=== PATIENT | female | born 1985 | race Caucasian/White ===

== ENCOUNTER 2020-03-01 18:13 | Emergency (ER) | payer OTHER, SELFPAY ==
[2020-03-01 18:40] VITALS: BP 130/90; PULSE 105; RESP 19; TEMP 36.9; O2SAT 98; BMI 48.0
--- NOTE | 2020-03-01 19:18 | HMH.EDUTC ---
[facility] Disposition Clinical Impression: Cellulitis Qualifiers: Site of cellulitis: extremity Site of cellulitis of extremity: lower extremity Laterality: left Qualified Code(s): L03.116 - Cellulitis of left lower limb Disposition: Home, Self-Care Condition on Discharge: Good Instructions: Trimethoprim/Sulfamethoxazole (Alternative Therapy), Cellulitis, Cephalexin, Mupirocin Additional Instructions: *Start antibiotic(s) immediately and be sure to take as ordered for the FULL length of time although you may be feeling better or start to see improvement in the next 24-48 hours *Monitor closely. Outlined redness so that you can monitor easier. Follow up immediately for new or worsening symptoms including but not limited to redness, swelling, streaking from site fever or chills. *Warm compress 15 minutes 3-4 times day *Never squeeze or pop these on your own. Seek immediate medical attention next time this occurs *Monitor Temp. Tylenol every 4 hours as needed and ibuprofen every 6 hours as needed (as long as your primary care doctor has told you that it is ok to take both. For fever, aches, pain. ER if no less that 101 despite Tylenol and ibuprofen Follow up with your family doctor/primary care physician in the next 48-72 hours if no improvement Return if needed Make sure to Follow up with Your Family Doctor in the next 48-72 hours for your wound culture result and to assess area for improvement Prescriptions: Sulfamethoxazole/Trimethoprim [Bactrim DS tablet] 1 each PO BID 10 Days #20 tab Transmission Status: Pending to [facility] Mupirocin [Bactroban 2% Ointment 22gm tube] 1 applicatio TP TID 10 Days #1 tube Transmission Status: Pending to [facility] cephALEXin [Keflex 500mg Cap] 500 mg PO Q6H #40 cap Transmission Status: Pending to [facility] Referrals: Karen Pineda MD [Primary Care Provider] - As needed Time of Disposition: 19:26 Medical Decision Making - Sebastian Inquiry Pt receiving controlled substance: No Sebastian was queried for this patient: No Vital Signs: 03/01/20 18:40 Temperature 98.4 F Temperature Source Oral Pulse Rate [Right Brachial] 105 H Respiratory Rate 19 Blood Pressure [Right Arm] 130/90 Blood Pressure Mean [Right Arm] 103 Blood Pressure Source [Right Arm] Automatic Cuff Blood Pressure Position [Right Arm] Sitting 02 Sat by Pulse Oximetry 98 Oxygen Delivery Method Room Air Orders (Tests/Meds): ORDERS Category Date Time Status Wound Culture and Gram Stain Stat Micro 03/01/20 19:18 Ordered Medical Decision Narrative: Patient states that she has taken Keflex and Bactrim before without complication or reactions [facility] HPI - General Stated complaint: knot on left ankle Time Seen by Provider: 03/01/20 19:18 Mode of Arrival: Ambulatory Source of Information: Patient Limitations: No Limitations Description of Symptoms (Recalled from Triage Doc. by RN): PATIENT C/O SPOT ON LEFT ANKLE X 2 DAYS HEENT Symptoms (Recalled from RN notes): No Resp Symptoms (Recalled from RN notes): No Skin Symptoms (Recalled from RN notes): Yes MS Symptoms (Recalled from RN notes): No Functional Status (Recalled from RN notes): WNL - History of Present Illness Provider Complaint: Patient states that she had a small zit like area pop up on her left lower leg yesterday that drained a little States that today she noticed she was having some redness and swelling in her left lower leg so she marked it States that someone told her that it looked like she had an infection and needed to come in and get some antibiotics - Related Data Home Medications Medication Instructions Recorded Confirmed buspirone 15 mg tablet 15 mg PO BID 09/22/18 09/22/18 metoprolol succinate 25 mg 25 mg PO DAILY 09/22/18 09/22/18 tablet,extended release 24 hr Previous Rx's Medication Instructions Recorded Ondansetron [Zofran 4mg ODT] 4 mg PO Q6 PRN #10 tab.rapdis 03/10/19 Mupirocin [Bactr
[2020-03-01 19:26] VITALS: BP 130/90; PULSE 105; RESP 19; TEMP 36.9; O2SAT 98
== END 2020-03-01 19:36 | disposition home or self-care (01) ==
PROVIDERS: Emergency Provider Nurse Practitioner; PCP Family Medicine
DX: L03.116 Cellulitis of left lower limb (principal); I10 Essential (primary) hypertension; F33.1 Major depressive disorder, recurrent, moderate; F17.210 Nicotine dependence, cigarettes, uncomplicated
CPT/HCPCS: 87070; 87077; 87186; 87205; 99202; G0463

== ENCOUNTER 2020-09-28 19:05 | Emergency (ER) | payer OTHER, SELFPAY ==
[2020-09-28 19:06] VITALS: BP 137/84; PULSE 113; RESP 22; TEMP 37.4; O2SAT 95; BMI 46.5
--- NOTE | 2020-09-28 19:42 | XR_ITS ---
PROCEDURE INFORMATION: Exam: XR Chest Exam date and time: 09/28/2020 7:42 PM Age: 35 years old Clinical indication: Patient HX: Cough, diarrhea, chills, weakness, smoker. TECHNIQUE: Imaging protocol: XR of the chest. Views: 2 views. COMPARISON: No relevant prior studies available. FINDINGS: Lungs: Unremarkable. No consolidation. Pleural spaces: Unremarkable. No pleural effusion. No pneumothorax. Heart/Mediastinum: Unremarkable. No cardiomegaly. Bones/joints: Unremarkable. Gastrointestinal tract: Nonspecific gas-filled loops of bowel within the left upper quadrant. IMPRESSION: No acute cardiopulmonary process.
--- NOTE | 2020-09-28 20:05 | HMH.EDUTC ---
[facility] [place] Clinical Impression: Acute bronchitis Qualifiers: Bronchitis organism: unspecified organism Qualified Code(s): J20.9 - Acute bronchitis, unspecified Disposition: Home, Self-Care Condition on Discharge: Good Instructions: Acute Bronchitis, DI for Acute Bronchitis, Preventing the Spread of Coronavirus Discharge Instructions Additional Instructions: Drink plenty of fluids. Take tylenol or ibuprofen for pain or fever. Take the medications as directed. Follow up with your regular doctor. GO TO THE ER FOR ANY WORSENING SYMPTOMS Prescriptions: methylPREDNISolone [Medrol] 4 mg PO DIRECTED 6 Days #21 tab.ds.pk Transmission Status: Received by [facility] # Benzonatate [Tessalon Perle 100mg Cap] 100 mg PO TIDP PRN #30 cap PRN Reason: Cough Transmission Status: Received by [facility] # Azithromycin [Z-Jarret 250mg Tab*] 250 mg PO UD DOSE PK #6 tab Transmission Status: Received by [facility] # Referrals: Johnny Martin MD [Primary Care Provider] - Time of Disposition: 20:28 Medical Decision Making - Medical Records Medical records reviewed: No: I reviewed the patient's medical records. - Sebastian Inquiry Pt receiving controlled substance: No Vital Signs: 09/28/20 19:06 09/28/20 20:44 Temperature 99.3 F 99.3 F Temperature Source Oral Oral Pulse Rate 113 H Pulse Rate [Left Radial] 113 H Respiratory Rate 22 22 Blood Pressure 137/84 Blood Pressure [Right Arm] 137/84 Blood Pressure Mean [Right Arm] 101 Blood Pressure Source Automatic Cuff Blood Pressure Source [Right Arm] Automatic Cuff Blood Pressure Position Sitting Blood Pressure Position [Right Arm] Sitting 02 Sat by Pulse Oximetry 95 Oxygen Delivery Method Room Air Room Air [facility] [place] HPI - General Stated complaint: cough.weakness,Diarrhea,chills Time Seen by Provider: 09/28/20 19:35 Mode of Arrival: Ambulatory Source of Information: Patient Limitations: No Limitations Description of Symptoms (Recalled from Triage Doc. by RN): c/o cough, weakness, fever, chills, and sweats since Saturday HEENT Symptoms (Recalled from RN notes): Yes Resp Symptoms (Recalled from RN notes): Yes (cough) Skin Symptoms (Recalled from RN notes): No MS Symptoms (Recalled from RN notes): No Functional Status (Recalled from RN notes): wnl - History of Present Illness Provider Complaint: She c/o having a cough, chilling and feeling bad for the past 4 days. - Related Data Home Medications Medication Instructions Recorded Confirmed buspirone 15 mg tablet 15 mg PO BID 09/22/18 09/22/18 metoprolol succinate 25 mg 25 mg PO DAILY 09/22/18 09/22/18 tablet,extended release 24 hr Previous Rx's Medication Instructions Recorded Ondansetron [Zofran 4mg ODT] 4 mg PO Q6 PRN #10 tab.rapdis 03/10/19 Mupirocin [Bactroban 2% Ointment 1 applicatio TP TID 10 Days #1 tube 03/01/20 22gm tube] Sulfamethoxazole/Trimethoprim 1 each PO BID 10 Days #20 tab 03/01/20 [Bactrim DS tablet] cephALEXin [Keflex 500mg Cap] 500 mg PO Q6H #40 cap 03/01/20 Azithromycin [Z-Jarret 250mg Tab*] 250 mg PO UD DOSE PK #6 tab 09/28/20 Benzonatate [Tessalon Perle 100mg 100 mg PO TIDP PRN #30 cap 09/28/20 Cap] methylPREDNISolone [Medrol] 4 mg PO DIRECTED 6 Days #21 09/28/20 tab.ds.pk Allergies Allergy/AdvReac Type Severity Reaction Status Date / Time No Known Allergies Allergy Verified 03/01/20 18:57 - Worker's Comp Is this a Worker's Comp case?: No [facility] History - Hepatitis A Screen Drug use history?: No High risk sexual behaviors?: No History of sexually transmitted infection?: No Currently employed?: No Childcare worker?: No Do you have indoor plumbing?: Yes Do you have electricity?: Yes Attestation statement:: This patient has been screened for Hepatitis A risk factors. I have reviewed the patient's past medical history: Yes Medical History: Reports:: Depression, Hypertension De
[2020-09-28 20:44] VITALS: BP 137/84; PULSE 113; RESP 22; TEMP 37.4; O2SAT 95
== END 2020-09-28 20:46 | disposition home or self-care (01) ==
PROVIDERS: Emergency Provider Nurse Practitioner Family; PCP Internal Medicine Adolescent Medicine
DX: J20.9 Acute bronchitis, unspecified (principal); F33.1 Major depressive disorder, recurrent, moderate; I10 Essential (primary) hypertension; F17.210 Nicotine dependence, cigarettes, uncomplicated
CPT/HCPCS: 71046; 99202; G0463; U0003

== ENCOUNTER 2020-12-09 18:45 | Emergency (ER) | payer OTHER, SELFPAY ==
[2020-12-09 18:46] VITALS: BP 137/85; PULSE 106; RESP 18; TEMP 36.9; O2SAT 96; BMI 54.6
[2020-12-09 19:15] LABS: Basophils # 0.1 K/mm3 (0-0.2); Basophils % 0.7 % (0.1-2.0); Eosinophils # 0.1 K/mm3 (0.0-0.4); Eosinophils % 0.9 % (0.1-12.0); Hematocrit 48.3 % (37.0-47.0); Hemoglobin 15.9 g/dL (12.2-16.2); Lymphocytes # 3.5 K/mm3 (0.7-4.5); Lymphocytes % 25.2 % (10-50); Mean Corpuscular HGB Conc 32.9 g/dL (31.8-35.4); Mean Corpuscular Hemoglobin 28.6 pg (27.0-31.2); Mean Corpuscular Volume 86.8 fl (81-99); Mean Platelet Volume 8.3 fl (7.4-10.4); Monocytes % 6.8 % (1.7-9.3); Neutrophils # 9.2 K/mm3 (1.8-7.8); Neutrophils % 66.3 % (37.0-80.0); Platelet Count 438 K/mm3 (142-424); Red Blood Count 5.57 M/mm3 (4.20-5.40); Red Cell Distribution Width 13.8 % (11.5-17.5); White Blood Count 13.9 K/mm3 (4.8-10.8)
--- NOTE | 2020-12-09 19:20 | HMH.EDGENADL ---
ED Disposition Clinical Impression: Enteritis Disposition: Home, Self-Care Condition on Discharge: Good Instructions: DI for Enteritis Prescriptions: Ondansetron [Zofran 4mg ODT] 4 mg PO BIDP PRN #10 tab PRN Reason: Nausea Transmission Status: Pending to [facility] Referrals: Karen Pineda MD [Primary Care Provider] - - Critical Care Critical Care Time: No Attestation: On 12/09/20, the high probability of a clinically significant, sudden or life threatening deterioration of the following system(s) required my full and direct attention, intervention and personal management. The time I documented below is in addition to time spent performing reported procedures but includes the following listed in this critical care notation. Medical Decision Making - Medical Records Medical records reviewed: Yes: I reviewed the patient's medical records. - Sebastian Inquiry Pt receiving controlled substance: No Vital Signs: 12/09/20 18:46 Temperature 98.4 F Temperature Source Oral Pulse Rate [Right] 106 H Respiratory Rate 18 Blood Pressure [Right Arm] 137/85 Blood Pressure Mean [Right Arm] 102 02 Sat by Pulse Oximetry 96 - Lab Data Lab Results 12/09/20 19:05: WBC 13.9 H, RBC 5.57 H, Hgb 15.9, Hct 48.3 H, MCV 86.8, MCH 28.6, MCHC 32.9, RDW 13.8, Plt Count 438 H, MPV 8.3, Neut % (Auto) 66.3, Lymph % (Auto) 25.2, [place] % (Auto) 6.8, Eos % (Auto) 0.9, Baso % (Auto) 0.7, Neut # (Auto) 9.2 H, Lymph # (Auto) 3.5, [place] # (Auto) 1.0, Eos # (Auto) 0.1, Baso # (Auto) 0.1 12/09/20 19:05: Sodium 139, Potassium 3.7, Chloride 107, Carbon Dioxide 22, Anion Gap 13.7, BUN 11, Creatinine 0.70, Estimated Creat Clear 91, Estimated GFR 94, Est GFR ( Amer) 114, Glucose 121 H, Calcium 9.3, Total Bilirubin 0.5, AST 24, ALT 21, Alkaline Phosphatase 104, Total Protein 8.0, Albumin 4.4, Globulin 3.6 H, Albumin/Globulin Ratio 1.2, Lipase 16 L Result diagrams: 12/09/20 19:05 12/09/20 19:05 Orders (Tests/Meds): ED MEDICATIONS Generic Name Dose Route Start Last Admin Trade Name Freq PRN Reason Stop Dose Admin Sodium Chloride 1,000 mls @ 999 mls/hr 12/09/20 19:00 12/09/20 19:26 Sod Chlor 0.9% 1000ml Bag IV 12/09/20 20:00 999 mls/hr .Q1H1M ELLI Administration Discontinued Medications Generic Name Dose Route Start Last Admin Trade Name Freq PRN Reason Stop Dose Admin Ondansetron HCl 4 mg 12/09/20 18:55 12/09/20 19:26 Ondansetron 4mg/2ml Vial IV 12/09/20 18:56 4 mg ONCE ONE Administration ORDERS Category Date Time Status Diarrhea 23 Panel, PCR Stat Lab 12/09/20 19:28 Ordered - Reevaluation(s) Time: 19:48 Reevaluation #1: On reevaluation, the patient is feeling much better. Repeat abdominal exam is benign. No evidence of acute abdomen. Patient is currently tolerating oral intake without any difficulties. Patient needs to follow-up with PCP or return the emergency department in 48 hours for repeat abdominal examination. She will be discharged with short course of medications to help with patient's symptoms. Afebrile. Given strict return precautions. Verbalized understanding. Medical Decision Narrative: 35-year-old female presented to the emergency department with some abdominal cramping and diarrhea. Patient's symptoms are consistent with gastroenteritis. Patient has a nontender abdominal examination. No evidence of acute abdomen. Work-up initiated. General Adult HPI - General Chief complaint: Nausea/Vomiting/Diarrhea Stated complaint: Diarrhea Time Seen by Provider: 12/09/20 18:55 Mode of Arrival: Wheelchair Limitations: No Limitations Description of Symptoms (Recalled from ER Triage Doc. by RN): pt c/o diarrhea x 2 days. pt denies n/v abd pain - History of Present Illness HPI narrative: This is a 35-year-old female presented to the emergency department with some nausea and diarrhea for the last 2 days. Patient states that she started having upset stomach
[2020-12-09 19:21] LABS: Alanine Aminotransferase 21 U/L (12-78); Albumin Level 4.4 g/dl (3.5-5.0); Albumin/Globulin Ratio 1.2 (1.1-1.8); Alkaline Phosphatase 104 U/L (38-126); Anion Gap 13.7 mEq/L (5-15); Aspartate Amino Transferase 24 U/L (14-36); Bilirubin,Total 0.5 mg/dl (0.2-1.3); Blood Urea Nitrogen 11 mg/dl (7-17); Calcium 9.3 mg/dl (8.4-10.2); Carbon Dioxide 22 mmol/L (22.0-30.0); Chloride 107 mmol/L (98-107); Creatinine Clearance Estimated 91 mL/min (50-200); Estimated Glomerular Filt Rate 94 ml/min (>60); GFR (African American) 114 ML/MIN (>60); Globulin 3.6 g/dL (1.3-3.2); Glucose 121 mg/dl (74-100); Lipase 16 U/L (23-300); Potassium 3.7 mmoL/L (3.5-5.1); Sodium 139 mmol/L (136-145)
[2020-12-09 20:00] LABS: Adenovirus F 40/41, stool Not Detected (NotDetected); Astrovirus Not Detected (NotDetected); Campylobacter Not Detected (NotDetected); Clostridium Difficile A/B, PCR Not Detected (NotDetected); Cryptosporidium Not Detected (NotDetected); Cyclospora Cayetanesis Not Detected (NotDetected); Entamoeba histolytica Not Detected (NotDetected); Enteroaggregative E coli Not Detected (NotDetected); Enteropathogenic E coli Not Detected (NotDetected); Enterotoxigenic E coli Not Detected (NotDetected); Giardia lamblia Not Detected (NotDetected); Norovirus Not Detected (NotDetected); Plesimonas Shigalloides, PCR Not Detected (NotDetected); Rotavirus A Not Detected (NotDetected); Salmonella, PCR Not Detected (NotDetected); Sapovirus Not Detected (NotDetected); Shiga-like toxin E coli Not Detected (NotDetected); Shigella Enterovasive E coli Not Detected (NotDetected); Vibrio Cholerae Not Detected (NotDetected); Vibrio, PCR Not Detected (NotDetected); Yersinia Entercolitica, PCR Not Detected (NotDetected)
[2020-12-09 20:17] VITALS: BP 124/75; PULSE 100; RESP 18; TEMP 36.9; O2SAT 96
== END 2020-12-09 20:20 | disposition home or self-care (01) ==
PROVIDERS: Emergency Provider Emergency Medicine; PCP Family Medicine
DX: K52.9 Noninfective gastroenteritis and colitis, unspecified (principal); I10 Essential (primary) hypertension; F17.210 Nicotine dependence, cigarettes, uncomplicated
CPT/HCPCS: 80053; 83690; 85025; 87507; 96365; 96375; 99282; J2405

== ENCOUNTER → 2021-09-20 13:06 | Outpatient (CLI) | payer OTHER, SELFPAY | PROVIDERS: PCP Family Medicine; Visit Provider Specialist | DX: G47.31 Primary central sleep apnea (principal); R06.83 Snoring | CPT/HCPCS: G0399 ==

== ENCOUNTER → 2021-10-18 09:18 | Outpatient (POV) | payer OTHER, SELFPAY ==
[2021-10-18 09:19] VITALS: BP 146/99; PULSE 89; RESP 20; BMI 54.0
--- NOTE | 2021-10-18 13:00 | EXP.PAIN.OV ---
HPI Data of Consult Patient: new to practice Consult date: 10/18/21 Requesting Physician: Yas Pedroza APRN Primary Care Provider: Karen Pineda MD Consult Narrative Reason for consult: Lumbar puncture, headaches History of present illness: Ms. Burrell is a 36 year old female who presents today as a new patient. She is a referral from Dr. Mindi Winters. Patient states she has had headaches for years and recently has had more chronic headaches with blurred vision and symptoms that are bothersome for possible increased intracranial pressure. Dr. Winters has scheduled her for a lumbar puncture however the patient does have questions regarding this procedure. Patient denies any trauma or injury in the past that could explain her symptoms. Patient stated that she has had these headaches for about 10 to 11 years. Patient states it is primarily her left eye that is affected with her migraines but occasionally the right side is involved and is worse in symptoms. Patient does state that it is typically a bandlike pressure/pain with pain above her left eye. She does state that when she has it with her right eye it is a more stabbing, blinding sensation. Patient states that the only relief she gets is with sleep and application of heat that make her symptoms better. She states that she has been prescribed a new we will continue the patient's back in August that has seemed to help decrease how many headaches/migraines she gets however when she does have them they last for days. Patient states in her history that when she is given to her children via that the [employer] was never able to do an epidural because of her disc spacing. She is concerned whether we will be able to complete the lumbar puncture due to the same reason. Patient also has extensive anxiety issues. She states that Dr. Winters has prescribed her diazepam 5 mg to premedicate with prior to the procedure. Her Sebastian is [id number]. Its been reviewed and appropriate. CC: Yas Pedroza APRN PFSH PFSH Medical History Depression Depression Hyperlipidemia Hypertension Migraine Smoker Surgical History (Updated 10/18/21 @ 09:25 by Karo Lombardo RN) H/O gastric sleeve History of appendectomy History of section History of cholecystectomy History of hysterectomy History of tonsillectomy Social History (Updated 10/18/21 @ 09:24 by Karo Lombardo RN) Smoking Status: Current every day smoker alcohol intake: never substance use type: denies use current occupational status: other household members: family housing: house Review of Systems Review of Systems Review of systems:: pertinent systems reviewed and negative unless documented below Review of systems (narrative): Review of Systems: General: No recent weight changes, no fever, no sleep disturbances Respiratory: No cough, no shortness of air, no recurring pulmonary infections Cardiovascular/peripheral vascular: No chest pain, no palpitations, no edema, no shortness of breath Gastrointestinal: No new onset incontinence, normal bowel movements reported Genitourinary: No new onset incontinence Musculoskeletal: Headaches, facial pain Psychiatric: [Normal mood/affect] Neurological: [Denies weakness in extremities], [denies balance issues] Meds Home Medications and Allergies Home Medications Medication Instructions Recorded Confirmed Type fluoxetine 20 mg capsule 20 mg PO DAILY mood 09/11/21 10/18/21 History furosemide 20 mg tablet 20 mg PO DAILY PRN edema 09/11/21 10/18/21 History rosuvastatin 10 mg tablet 20 mg PO DAILY Cholesterol 09/11/21 10/18/21 History acetazolamide 250 mg tablet 250 mg PO BID Headache, suspected 10/05/21 10/18/21 Rx pseudotumor #60 tabs diazepam 5 mg tablet (Valium) 5 mg PO DAILY Lumbar puncture #2 10/05/21 10/18/21 Rx tabs New Prescriptions to Start Prescriptions: Allergies Allergy/AdvReac Type Severity Reaction Status Date / Time No
== END ==
PROVIDERS: PCP Family Medicine; Visit Provider Nurse Practitioner Family
DX: G43.909 Migraine, unspecified, not intractable, without status migrainosus (principal)
CPT/HCPCS: 99202; G0463

== ENCOUNTER 2021-10-24 10:35 | Day surgery (SDC) | payer OTHER, SELFPAY ==
[2021-10-24 10:40] VITALS: BP 136/76; PULSE 77; RESP 20; TEMP 36.5; O2SAT 98; BMI 69.5
[2021-10-24 10:53] VITALS: BP 127/82; PULSE 69; RESP 18; O2SAT 98
[2021-10-24 10:58] VITALS: BP 127/82; PULSE 71; RESP 18; O2SAT 99
--- NOTE | 2021-10-24 11:21 | EXP.PAIN.PRO ---
Procedure Date: 10/24/21 Time: 11:21 Anesthesiologist:: Alen Arango CRNA Complications:: None Pre-procedure Diagnosis:: Chronic migraines Post-procedure Diagnosis:: Same Indications for Procedure:: Patient is a pleasant 36-year-old female. Very anxious. Presents today for diagnostic lumbar puncture for pressure and pathology. Patient has a history of extreme migraines. Procedure Details:: Details of the procedure were explained to the patient. Patient was taken the procedure room placed in the left lateral position. The area over the lumbar spine was cleaned using chlorhexidine as a cleansing solution. Using a 22-gauge inch and half needle the skin and subcutaneous tissue was anesthetized using 1% lidocaine. Using a 22-gauge 5-1/2 inch spinal needle the L4-5 intervertebral space was used to access the spinal fluid. The opening fluid pressure was 21. 4 separate vials were used to sample 2 cc of spinal fluid. Closing pressure was 14. Patient tolerated the procedure. There were no complications. Plan and Disposition:: I discussed in detail with the patient regarding postdural puncture spinal headache symptoms. Patient will return as needed.
[2021-10-24 11:42] VITALS: BP 120/75; PULSE 66; RESP 20; O2SAT 98
[2021-10-24 12:24] LABS: Glucose,CSF 66 mg/dl (40-70)
[2021-10-24 12:46] LABS: Volume,CSF 10 mL
[2021-10-24 12:47] LABS: Red Blood Cell,CSF 21 cells/uL (0); Red Blood Cell,CSF 3223 cells/uL (0); Volume,CSF 10 mL; White Blood Cell,CSF 2 cells/uL (0-5); White Blood Cell,CSF 37 cells/uL (0-5)
[2021-10-24 14:18] LABS: Appearance,CSF Cloudy (Clear); Mononuclear WBCs,CSF 0 %
[2021-10-24 14:19] LABS: Appearance,CSF Clear (Clear); Mononuclear WBCs,CSF 0 %; Polynuclear WBCs,CSF 100 %
[2021-10-27 16:46] LABS: VDRL, Cerebrospinal Fluid Non Reactive (Non Rea:<1:1)
== END 2021-10-24 11:42 | disposition home or self-care (01) ==
PROVIDERS: Specialist; PCP Family Medicine; Visit Provider Nurse Anesthetist, Certified Registered
DX: G43.909 Migraine, unspecified, not intractable, without status migrainosus (principal)
CPT/HCPCS: 62328; 82945; 84155; 86592; 87205; 89051

== ENCOUNTER 2021-11-15 01:20 | Emergency (ER) | payer OTHER, SELFPAY ==
[2021-11-15 01:21] VITALS: BP 120/77; PULSE 87; RESP 19; TEMP 36.6; O2SAT 96; BMI 53.1
[2021-11-15 03:03] LABS: Basophils # 0.2 K/mm3 (0-0.2); Basophils % 1.6 % (0.1-2.0); Eosinophils # 0.2 K/mm3 (0.0-0.4); Eosinophils % 1.3 % (0.1-12.0); Hematocrit 44.5 % (37.0-47.0); Hemoglobin 14.1 g/dL (12.2-16.2); Lymphocytes # 2.8 K/mm3 (0.7-4.5); Lymphocytes % 25.3 % (10-50); Mean Corpuscular HGB Conc 31.6 g/dL (31.8-35.4); Mean Corpuscular Hemoglobin 29.1 pg (27.0-31.2); Mean Platelet Volume 8.2 fl (7.4-10.4); Monocytes # 0.7 K/mm3 (0.1-1.0); Neutrophils # 7.4 K/mm3 (1.8-7.8); Platelet Count 311 K/mm3 (142-424); Red Blood Count 4.84 M/mm3 (4.20-5.40); Red Cell Distribution Width 14.1 % (11.5-17.5); White Blood Count 11.3 K/mm3 (4.8-10.8)
[2021-11-15 03:05] LABS: Chloride 105 mmol/L (98-107); Potassium 4.1 mmoL/L (3.5-5.1); Sodium 142 mmol/L (136-145)
[2021-11-15 03:07] LABS: Blood Urea Nitrogen 15 mg/dl (7-17); Creatinine Clearance Estimated 90 mL/min (50-200); Estimated Glomerular Filt Rate 94 ml/min (>60); GFR (African American) 113 ML/MIN (>60)
[2021-11-15 03:08] LABS: Alanine Aminotransferase 22 U/L (12-78); Albumin Level 4.2 g/dl (3.5-5.0); Albumin/Globulin Ratio 1.4 (1.1-1.8); Alkaline Phosphatase 88 U/L (38-126); Anion Gap 13.1 mEq/L (5-15); Aspartate Amino Transferase 30 U/L (14-36); Calcium 8.8 mg/dl (8.4-10.2); Carbon Dioxide 28 mmol/L (22.0-30.0); Globulin 2.9 g/dL (1.3-3.2); Glucose 117 mg/dl (74-100); Total Protein,Serum 7.1 g/dl (6.3-8.2)
--- NOTE | 2021-11-15 03:09 | HMH.EDHA ---
Discharge Plan Disposition Patient Disposition: Home, Self-Care Chief Complaint: Headache Prescriptions Prescriptions: No Action acetazolamide 250 mg tablet 250 mg PO BID Qty: 60 3RF Rx Instructions: 250 mg po qd x 01 week then 250 mg po bid rosuvastatin 10 mg tablet 20 mg PO DAILY fluoxetine 20 mg capsule 20 mg PO DAILY Ubrelvy 100 mg tablet 100 mg PO ONCE PRN (Reason: migraines) Label Comments: TAKE ONE TABLET BY MOUTH AT ONSET OF MIGRAINE. IF SYMPTOMS PERSIST, A SECOND DOSE MAY BE TAKEN IN 2 HOURS. DO NOT EXCEED 2 DOSES IN A 24 HOUR PERIOD, UNLESS OTHERWISE INSTRUCTED BY YOUR PHYSICIAN Referrals Follow up/Referrals: Karen Pineda MD [Primary Care Provider] - See instructions Clinical Impressions Clinical Impression: Migraine Instructions Patient Instructions: DI for Migraine Discharge ED Provider: Castro Ferraro Headache HPI General Chief Complaint: Headache Stated Complaint: Migraine Time Seen by Provider: 11/15/21 03:09 Mode of Arrival: Family Vehicle Source of Information: Patient, Spouse and Medical Record Limitations: No Limitations Description of Symptoms (Recalled from ER Triage Doc. by RN): Pt c/o migraine. She reports a hx of migraines and takes Ubrevly for acute onset. Pt also recently has been diagnosed with fluid on the brain and is taking Acetazolmide. She also c/o nausea any dry-heaving. Denies fever, chills, or diarrhea. Denies any recent illness. History of Present Illness HPI Narrative: hx of migraines with acute exacerbation - no fever or rash and no neuro sx and no trauma Complaint: migraine Onset (ago): hour(s) Onset description: gradual Location: frontal Severity: moderate Context: occurred at rest Related Data Home Medications Medication Instructions Recorded Confirmed fluoxetine 20 mg capsule 20 mg PO DAILY mood 09/11/21 11/15/21 rosuvastatin 10 mg tablet 20 mg PO DAILY Cholesterol 09/11/21 11/15/21 ubrogepant 100 mg tablet (Ubrelvy) 100 mg PO ONCE PRN migraines 11/07/21 11/15/21 Previous Rx's Medication Instructions Recorded acetazolamide 250 mg tablet 250 mg PO BID Headache, suspected 10/05/21 pseudotumor #60 tabs Allergies Allergy/AdvReac Type Severity Reaction Status Date / Time No Known Allergies Allergy Verified 11/07/21 12:41 [facility] History Hepatitis A Screen Attestation statement:: This patient has been screened for Hepatitis A risk factors. I have reviewed the patient's past medical history: Yes Medical History: Reports: Depression and Hypertension; Denies: Diabetes Mellitus Type 1 or Diabetes Mellitus Type 2 Other Medical History: Reports Sickle Cell Disease Laterality Cases: Bilateral: Tonsillectomy Other Surgeries: Yes Appendectomy, Bariatric Surgery, Cholecystectomy, , Hysterectomy-Total and Tubal Ligation Social History Smoking Status: Current every day smoker # Packs/Day (cigarettes): 1 Alcohol Intake: never Substance Use Type: denies use Occupational Status: other Housing: house Household Members: family Psychiatric History Pschychiatric History:: Reports: Depression Family Hx:: Cancer, Diabetes, Hypertension and Stroke PFSH PFSH Medical History Depression Depression Hyperlipidemia Hypertension Migraine Smoker Surgical History H/O gastric sleeve History of appendectomy History of section History of cholecystectomy History of hysterectomy History of tonsillectomy Social History Smoking Status: Current every day smoker alcohol intake: never substance use type: denies use current occupational status: other Travel in the last 8 weeks: Inside the [place] household members: family housing: house ROS Obtained: Yes All systems reviewed & no additional complaints except as documented Constitutional Constitutional: Denies f
[2021-11-15 03:10] LABS: Bilirubin,Total < 0.1 mg/dl (0.2-1.3)
[2021-11-15 05:26] VITALS: BP 124/75; PULSE 74; RESP 16; TEMP 36.8; O2SAT 98
== END 2021-11-15 05:30 | disposition home or self-care (01) ==
PROVIDERS: Emergency Provider Emergency Medicine; PCP Family Medicine
DX: G43.909 Migraine, unspecified, not intractable, without status migrainosus (principal)
CPT/HCPCS: 80053; 85025; 96361; 96374; 96375; 99284

== ENCOUNTER 2022-01-05 09:10 | Emergency (ER) | payer OTHER, SELFPAY ==
[2022-01-05] VITALS (9 sets, daily range): BP systolic 103–154; BP diastolic 46–90; PULSE 62–86; RESP 18–22; TEMP 37.3; O2SAT 95–97; BMI 54.8
--- NOTE | 2022-01-05 09:05 | ECG_ITS ---
APPROVED REPORT Exam: Resting ECG HR:88 bpm ECG Measurements Heart Rate 88 AXES NE 168 P 22 QRSd 75 QRS 6 QT 346 T 40 QTc 391 Conclusion SINUS RHYTHM LOW QRS VOLTAGE IN PRECORDIAL LEADS [QRS DEFLECTION < 1.0 mV IN CHEST LEADS] BORDERLINE ECG UNCONFIRMED REPORT Electronically signed by : Jerad Mendoza MD 01/05/2022 19:59:23
--- NOTE | 2022-01-05 09:13 | PC.NURSE ---
[facility] at
--- NOTE | 2022-01-05 09:15 | CT_ITS ---
FINAL REPORT TECHNIQUE: Thin section axial CT images were obtained from the lung apices to the upper abdomen. IV contrast was administered. MIP 3-D reformats were obtained. This study was performed with techniques to keep radiation doses as low as reasonably achievable (ALARA). Individualized dose reduction techniques using automated exposure control or adjustment of mA and/or kV according to the patient's size were employed. CLINICAL HISTORY: chest and back pain FINDINGS: The mediastinal vasculature is adequately opacified. There is an aberrant right subclavian artery. The heart size is normal. There is no adenopathy. There is no filling defect to suggest PE. There is no aortic dissection. There is no pericardial effusion. There is a 3 mm noncalcified nodule in the left lung base on image 47 of series 5. No pleural effusion. Limited images of the upper abdomen demonstrate postoperative changes at the GE junction. IMPRESSION: No pulmonary embolism or aortic dissection. 3 mm left lung base nodule. Per Fleischner criteria no follow-up is recommended in a low risk patient. In a high risk patient follow-up is recommended in 12 months. Reviewed, Interpreted and Dictated by Gabe Chandler MD Transcribed by Noble Juarez Authenticated and [facility]
--- NOTE | 2022-01-05 09:16 | XR_ITS ---
FINAL REPORT CLINICAL HISTORY: chest pain COMPARISON: September 2020 FINDINGS: The heart size is normal. The mediastinum is within normal limits. There is no acute cardiopulmonary process. There is no pleural effusion. There is no pneumothorax. The bony thorax is intact. IMPRESSION: No acute cardiopulmonary process. Reviewed, Interpreted and Dictated by Gabe Chandler MD Transcribed by Noble Juarez Authenticated and . [facility]
[2022-01-05 09:23] LABS: Basophils # 0.1 K/mm3 (0-0.2); Basophils % 0.6 % (0.1-2.0); Eosinophils # 0.2 K/mm3 (0.0-0.4); Eosinophils % 1.2 % (0.1-12.0); Hematocrit 44.5 % (37.0-47.0); Hemoglobin 13.8 g/dL (12.2-16.2); Lymphocytes % 8.1 % (10-50); Mean Corpuscular HGB Conc 31.1 g/dL (31.8-35.4); Mean Corpuscular Hemoglobin 28.9 pg (27.0-31.2); Mean Corpuscular Volume 92.8 fl (81-99); Mean Platelet Volume 8.1 fl (7.4-10.4); Monocytes # 0.1 K/mm3 (0.1-1.0); Monocytes % 0.9 % (1.7-9.3); Neutrophils # 10.8 K/mm3 (1.8-7.8); Neutrophils % 89.3 % (37.0-80.0); Platelet Count 297 K/mm3 (142-424); Red Blood Count 4.79 M/mm3 (4.20-5.40); Red Cell Distribution Width 13.7 % (11.5-17.5); White Blood Count 12.1 K/mm3 (4.8-10.8)
[2022-01-05 09:25] LABS: Chloride 103 mmol/L (98-107); MANUAL DIFFERENTIAL MANUAL DIFFERENTIAL (MANUAL DIFF); Potassium 3.6 mmoL/L (3.5-5.1); Sodium 143 mmol/L (136-145)
--- NOTE | 2022-01-05 09:27 | PC.NURSE ---
rad notified of rad order, spoke with nestor
--- NOTE | 2022-01-05 09:27 | HMH.EDCP ---
Discharge Plan Disposition Patient Disposition: Home, Self-Care Condition: Good Prescriptions Prescriptions: No Action acetazolamide 250 mg tablet 250 mg PO BID Qty: 60 3RF Rx Instructions: 250 mg po qd x 01 week then 250 mg po bid rosuvastatin 10 mg tablet 20 mg PO DAILY fluoxetine 20 mg capsule 20 mg PO DAILY Ubrelvy 100 mg tablet 100 mg PO ONCE PRN (Reason: migraines) Label Comments: TAKE ONE TABLET BY MOUTH AT ONSET OF MIGRAINE. IF SYMPTOMS PERSIST, A SECOND DOSE MAY BE TAKEN IN 2 HOURS. DO NOT EXCEED 2 DOSES IN A 24 HOUR PERIOD, UNLESS OTHERWISE INSTRUCTED BY YOUR PHYSICIAN Activity Restrictions/Add. Instructions Additional Instructions/Restrictions: There was a small nodule noted on your CT today. This was small and likely is just a calcification or granuloma. Radiology recommends a follow-up in 1 year. Talk with your PCP about this and they did get a repeat x-ray. Clinical Impressions Clinical Impression: Chest pain Instructions Patient Instructions: DI for Chest Pain Discharge ED Provider: Tyson Martínez Chest Pain HPI General Chief Complaint: Chest Pain Stated Complaint: chest pain Time Seen by Provider: 01/05/22 09:15 Mode of Arrival: Ambulatory Source of Information: Patient Limitations: No Limitations Description of Symptoms (Recalled from ER Triage Doc. 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 Pt reports feeling was only on the L side of her body. Pt reports she then began having chest tightness and feeling very tired . Pt reports reports a dull tightness in chest at this time. History of Present Illness HPI narrative: Patient is a 36-year-old female with past medical history of idiopathic intracranial hypertension who presents with concern for chest pain. She says approximately 15 minutes prior to arrival she had an electric shock on the back of her head and then said that it went all the way down her leg. She says that it was more so on the left side of her body and denies any right-sided symptoms. She said that immediately after this she started to have chest pain that seem to radiate to her back. She says that the pain is still there. She also complains of some pain that goes up into her right shoulder. Denies any nausea. Denies any diaphoresis. Denies any shortness of breath. She has not taken anything for the pain. He does not relieved with rest. ANJALI Score for Non-Stemi Age of Patient: 30-39 years old Heart Rate: 50-69 bpm Systolic Blood Pressure: 140-159 mmHg Serum Creatinine: 0.40-0.79 mg/dl CHF Killip Class: I-No CHF Other Risk Factors: None Non-Stemi Risk Score: 39 Risk Stratification: 1-108 = Low Risk Related Data Home Medications Medication Instructions Recorded Confirmed fluoxetine 20 mg capsule 20 mg PO DAILY mood 09/11/21 11/15/21 rosuvastatin 10 mg tablet 20 mg PO DAILY Cholesterol 09/11/21 11/15/21 ubrogepant 100 mg tablet (Ubrelvy) 100 mg PO ONCE PRN migraines 11/07/21 11/15/21 Previous Rx's Medication Instructions Recorded acetazolamide 250 mg tablet 250 mg PO BID Headache, suspected 10/05/21 pseudotumor #60 tabs Allergies Allergy/AdvReac Type Severity Reaction Status Date / Time No Known Allergies Allergy Verified 11/07/21 12:41 PFSH PFSH Medical History Depression Depression Hyperlipidemia Hypertension Migraine Smoker Surgical History H/O gastric sleeve History of appendectomy History of section History of cholecystectomy History of hysterectomy History of tonsillectomy Social History Smoking Status: Current every day smoker alcohol intake: never substance use type: denies use current occupational status: other Travel in the last 8 weeks: Inside the [place] household members: family housing:
[2022-01-05 09:28] LABS: Alanine Aminotransferase 20 U/L (12-78); Albumin Level 3.8 g/dl (3.5-5.0); Albumin/Globulin Ratio 1.5 (1.1-1.8); Alkaline Phosphatase 101 U/L (38-126); Anion Gap 11.6 mEq/L (5-15); Aspartate Amino Transferase 29 U/L (14-36); Bilirubin,Total 0.5 mg/dl (0.2-1.3); Blood Urea Nitrogen 12 mg/dl (7-17); Calcium 9.1 mg/dl (8.4-10.2); Carbon Dioxide 32 mmol/L (22.0-30.0); Creatinine Clearance Estimated 101 mL/min (50-200); Estimated Glomerular Filt Rate 112 ml/min (>60); GFR (African American) 135 ML/MIN (>60); Globulin 2.6 g/dL (1.3-3.2); Glucose 91 mg/dl (74-100); Lipase 52 U/L (23-300); Total Protein,Serum 6.4 g/dl (6.3-8.2)
[2022-01-05 09:36] LABS: Lymphocytes % 14 % (10-50); Monocytes % 4 % (2-9); Neutrophils % 82 % (42-76); Platelet Estimate Normal; RBC Morphology Normal; Total Cells Counted 100
--- NOTE | 2022-01-05 09:45 | PC.NURSE ---
rad at BS for portable xray
[2022-01-05 09:54] LABS: Troponin I < 0.01 ng/ml (0.00-0.034)
--- NOTE | 2022-01-05 09:54 | PC.NURSE ---
PT RESTING MEDS GIVEN AND PT CAN GET A FUR SEWER
--- NOTE | 2022-01-05 10:25 | PC.NURSE ---
pt up to bathroom
--- NOTE | 2022-01-05 10:55 | PC.NURSE ---
contacted rad to check on status of CTA result, Heather states there is a preliminary report she will send down to us.
--- NOTE | 2022-01-05 10:59 | PC.NURSE ---
pt given crackers at this time per her request, okayed per GAGE LAZAR. Updated pt we will be getting a 2nd set of blood work on her at the 3 hour alfa to recheck troponin level. Call light within reach. pt states no other needs at this time
[2022-01-05 13:02] LABS: Troponin I < 0.01 ng/ml (0.00-0.034)
== END 2022-01-05 13:29 | disposition home or self-care (01) ==
PROVIDERS: Emergency Provider Student in an Organized Health Care Education/Training Program; PCP Family Medicine
DX: R07.9 Chest pain, unspecified (principal); Z79.899 Other long term (current) drug therapy; I10 Essential (primary) hypertension; E78.5 Hyperlipidemia, unspecified; F32.A Depression, unspecified; G43.909 Migraine, unspecified, not intractable, without status migrainosus; Z72.0 Tobacco use
CPT/HCPCS: 71045; 71275; 80053; 83690; 84484; 85007; 85025; 93005; 96365; 96375; 99285; Q9967

== ENCOUNTER 2022-05-16 12:52 | Emergency (ER) | payer OTHER, SELFPAY ==
[2022-05-16 12:53] VITALS: BP 139/72; PULSE 100; RESP 18; TEMP 37.4; O2SAT 100; BMI 55.7
[2022-05-16 13:00] VITALS: BP 124/78; PULSE 102; RESP 20; O2SAT 99
--- NOTE | 2022-05-16 13:02 | PC.NURSE ---
DR ROACH AT BEDSIDE
--- NOTE | 2022-05-16 13:04 | XR_ITS ---
FINAL REPORT CLINICAL HISTORY: soa FINDINGS: PORTABLE CHEST The heart is normal in size. The mediastinum is unremarkable. The lungs are a little underinflated but otherwise clear. There is no pneumothorax. IMPRESSION: No acute process. Reviewed, Interpreted and Dictated by Gabe Chandler MD Transcribed by Lea Dietrich Authenticated and [facility]
[2022-05-16 13:06] LABS: Influenza A, PCR Not Detected (NotDetected); Influenza B, PCR Not Detected (NotDetected)
[2022-05-16 13:21] LABS: Basophils # 0.1 K/mm3 (0-0.2); Basophils % 0.9 % (0.1-2.0); Eosinophils # 0.1 K/mm3 (0.0-0.4); Eosinophils % 1.2 % (0.1-12.0); Hematocrit 43.4 % (37.0-47.0); Hemoglobin 14.4 g/dL (12.2-16.2); Lymphocytes # 1.2 K/mm3 (0.7-4.5); Lymphocytes % 13.1 % (10-50); Mean Corpuscular HGB Conc 33.2 g/dL (31.8-35.4); Mean Corpuscular Hemoglobin 29.5 pg (27.0-31.2); Mean Corpuscular Volume 88.7 fl (81-99); Mean Platelet Volume 8.6 fl (7.4-10.4); Monocytes # 0.7 K/mm3 (0.1-1.0); Monocytes % 7.6 % (1.7-9.3); Neutrophils # 7.1 K/mm3 (1.8-7.8); Neutrophils % 77.2 % (37.0-80.0); Platelet Count 261 K/mm3 (142-424); Red Blood Count 4.89 M/mm3 (4.20-5.40); Red Cell Distribution Width 13.7 % (11.5-17.5); White Blood Count 9.2 K/mm3 (4.8-10.8)
[2022-05-16 13:29] LABS: Alanine Aminotransferase 23 U/L (12-78); Albumin Level 4.4 g/dl (3.5-5.0); Albumin/Globulin Ratio 1.6 (1.1-1.8); Alkaline Phosphatase 77 U/L (38-126); Aspartate Amino Transferase 25 U/L (14-36); Bilirubin,Total 0.4 mg/dl (0.2-1.3); Blood Urea Nitrogen 12 mg/dl (7-17); Calcium 8.8 mg/dl (8.4-10.2); Carbon Dioxide 28 mmol/L (22.0-30.0); Chloride 101 mmol/L (98-107); Creatinine Clearance Estimated 85 mL/min (50-200); Estimated Glomerular Filt Rate 93 ml/min (>60); GFR (African American) 113 ML/MIN (>60); Globulin 2.7 g/dL (1.3-3.2); Glucose 111 mg/dl (74-100); Sodium 138 mmol/L (136-145); Total Protein,Serum 7.1 g/dl (6.3-8.2)
[2022-05-16 13:34] LABS: HCG Qualitative, Serum Negative (Negative)
[2022-05-16 13:39] VITALS: BP 118/61
[2022-05-16 13:47] LABS: Coronavirus 19, PCR Detected (NotDetected)
--- NOTE | 2022-05-16 13:58 | PC.NURSE ---
DR ROACH AT BEDSIDE TO UPDATE PT ON POC
--- NOTE | 2022-05-16 14:00 | HMH.EDGENADL ---
Discharge Plan Disposition Patient Disposition: Home, Self-Care Prescriptions Prescriptions: New albuterol sulfate [ProAir HFA] 90 mcg/actuation HFA aerosol inhaler 1 inh inhalation Q6H PRN (Reason: shortness of breath or wheezing) Qty: 8.5 0RF No Action acetazolamide 250 mg tablet 250 mg PO BID MDD 500 milligram Qty: 180 3RF Rx Instructions: 250 mg twice daily Nurtec ODT 75 mg tablet,disintegrating 75 mg PO ONCE MDD 75 mg PRN (Reason: episodic migraine) Qty: 10 3RF Rx Instructions: 75 mg p.o. as needed for episodic migraine. Max amount 75 mg every other day. tizanidine 4 mg tablet 4 mg PO HS PRN (Reason: Occipital headache with cervicogenic component) Qty: 30 3RF fluoxetine 20 mg capsule 20 mg PO DAILY Referrals Follow up/Referrals: Karen Pineda MD [Primary Care Provider] - See instructions Activity Restrictions/Add. Instructions Additional Instructions/Restrictions: Return for worsening headache vomiting or any other concerns within the next 8 hours otherwise follow-up with your primary care physician within the next few days Clinical Impressions Clinical Impression: COVID Discharge ED Provider: Paul Lezama General Adult HPI General Chief complaint: Fever Stated complaint: chills, HODGES, soa Time Seen by Provider: 05/16/22 13:00 Mode of Arrival: Ambulatory Limitations: No Limitations Description of Symptoms (Recalled from ER Triage Doc. by RN): PT WOKE WITH FEVER, CHILLS AND COUGH History of Present Illness HPI narrative: 37-year-old female with history of obesity smoking increased intracranial pressure presents with generalized weakness chills body aches for the last few days. She has mild cough. Denies chest pain when she takes a deep breath. Mild shortness of air when she walks. No some leg swelling no weight gain. No fever. No abdominal pain nausea vomiting diarrhea dysuria hematuria vaginal bleeding. No worsening headaches than normal. Related Data Home Medications Medication Instructions Recorded Confirmed fluoxetine 20 mg capsule 20 mg PO DAILY mood 09/11/21 05/10/22 Previous Rx's Medication Instructions Recorded Nurtec ODT 75 mg disintegrating 75 mg PO ONCE PRN episodic 05/10/22 tablet (rimegepant) migraine #10 tabs acetazolamide 250 mg tablet 250 mg PO BID Headache, suspected 05/10/22 pseudotumor #180 tabs tizanidine 4 mg tablet 4 mg PO HS PRN Occipital headache 05/10/22 with cervicogenic component #30 tabs albuterol sulfate 90 mcg/actuation 1 inh inhalation Q6H PRN shortness 05/16/22 aerosol inhaler (ProAir HFA) of breath or wheezing #8.5 grams Allergies Allergy/AdvReac Type Severity Reaction Status Date / Time No Known Allergies Allergy Verified 05/10/22 10:07 [facility] Disclaimer: The information contained in this section may have been updated after the patient was seen, as this information can be updated by other users. Medical History Depression Depression Hyperlipidemia Hypertension Migraine Smoker Surgical History H/O gastric sleeve History of appendectomy History of section History of cholecystectomy History of hysterectomy History of tonsillectomy Family History (Updated 05/16/22 @ 13:17 by Zuleima Finley RN) Other No significant family history Social History (Updated 05/16/22 @ 13:17 by Zuleima Finley RN) Smoking Status: Current every day smoker alcohol intake: never substance use type: denies use current occupational status: other Travel in the last 8 weeks: Inside the [place] household members: family housing: house ROS Obtained: Yes All systems reviewed & no additional complaints except as documented Constitutional Constitutional: Reports fatigue Eyes Eyes: Denies diplopia and Denies loss of vision ENT Ears, Nose, Mouth, and Throat: Denies hoarseness Cardiovascular Cardiovascular: Denies
[2022-05-16 14:17] VITALS: BP 112/66; PULSE 99; RESP 18; TEMP 37.2; O2SAT 95
== END 2022-05-16 14:18 | disposition home or self-care (01) ==
PROVIDERS: Emergency Provider Emergency Medicine; PCP Family Medicine
DX: U07.1 COVID-19 (principal)
CPT/HCPCS: 71045; 80053; 84703; 85025; 96361; 96374; 96375; 99284; 99285; C9803; U0003; U0005

== ENCOUNTER → 2023-01-14 20:23 | Outpatient (CLI) | payer OTHER, SELFPAY | LOC: SL 20:24 | PROVIDERS: PCP Family Medicine; Visit Provider Specialist | DX: G43.909 Migraine, unspecified, not intractable, without status migrainosus; G93.2 Benign intracranial hypertension; Z98.84 Bariatric surgery status; G47.39 Other sleep apnea; G47.61 Periodic limb movement disorder; G47.36 Sleep related hypoventilation in conditions classified elsewhere; R06.83 Snoring | CPT/HCPCS: 95810 ==

== ENCOUNTER → 2023-02-11 13:03 | Outpatient (CLI) | payer OTHER, SELFPAY ==
[2023-02-11 14:00] VITALS: PULSE 62
--- NOTE | 2023-02-11 14:38 | XR_ITS ---
FINAL REPORT TECHNIQUE: Chest PA & Lateral CLINICAL HISTORY: COUGH, SOA COMPARISON: 05/16/2022 FINDINGS: 2 views of the chest were performed. The heart size is normal. The mediastinum is within normal limits. There is no acute cardiopulmonary process. There are no pleural effusions. There is no pneumothorax. The bony thorax appears intact. IMPRESSION: No acute cardiopulmonary process. Reviewed, Interpreted and Dictated by Gabe Chandler MD Transcribed by Steff Lima Authenticated and [facility]
== END ==
PROVIDERS: PCP Family Medicine; Visit Provider Specialist
DX: R06.02 Shortness of breath (principal); G47.30 Sleep apnea, unspecified; E66.9 Obesity, unspecified; Z68.43 Body mass index [BMI] 50.0-59.9, adult
CPT/HCPCS: 71046; 94060; 94618; 94640; 94726; 94729

== ENCOUNTER 2023-04-30 07:41 | Outpatient (CLI) | payer OTHER, SELFPAY | END 2023-04-30 23:59 | LOC: RT 07:42 | PROVIDERS: PCP Family Medicine; Visit Provider Specialist | DX: R09.02 Hypoxemia (principal); R06.89 Other abnormalities of breathing | CPT/HCPCS: 94618 ==

== ENCOUNTER 2023-05-14 12:53 | Outpatient (CLI) | payer OTHER, SELFPAY ==
--- NOTE | 2023-05-14 12:57 | CA_ITS ---
APPROVED REPORT EXAM: Comprehensive 2D, Doppler, and color-flow Echocardiogram Highway Worker: Tiana Jain RT(R) Ht: 5 ft 3 in Wt: 320lbs BSA: 2.36 BP: 106/67 mmHg Indications: SOA, KELLY, HTN, hyperlipidemia, obesity 2D Dimensions LA Volume 19.90 mL LA Volume Index 8.43 mL/m2 (M/F) 16-34 EF AP4 46.50 % GL Strain -8.7 % M-Mode Dimensions RVDd 2.57 cm (0.9-2.6) LA Diam 3.79 cm (1.9-4.0) LVDd 5.42 cm (3.5-5.7) LVDs 4.06 cm (3.5-5.7) IVSd 1.20 cm (0.6-1.1) PWd 0.92 cm (0.6-1.1) EF (Teich) 49.10% FS 25.10% EDV (Teich) 142.50 mL ESV (Teich) 72.50 mL LV Diastology E Decel Time 160 (160-240 msec) E/A Ratio 1.4 Mitral Valve MV E Max Raoul. 84.0 (40-130 cm/s) MV A Velocity 60.0 (40-130 cm/s) E/A Ratio 1.40 MV PHT 47.0 ms Left Ventricle The left ventricle is normal size. The left ventricular systolic function is normal. The left ventricular ejection fraction is within the normal range. There is increased LV wall thickness. There is normal LV segmental wall motion. The left ventricular diastolic function is normal. LVEF is 55%. Right Ventricle Right ventricle is mildly dilated. Right ventricle is mildly hypokinetic. Atria The left atrium size is normal. The right atrium size is normal. There is no Doppler evidence of interatrial shunt. Aortic Valve The aortic valve is mildly thickened. There is no aortic valvular stenosis. No aortic regurgitation is present. Mitral Valve The mitral valve is mildly thickened. No evidence of mitral valve stenosis. There is no mitral valve regurgitation noted. Tricuspid Valve The tricuspid valve leaflets are thin and pliable. Trace tricuspid regurgitation. There is insufficient TR jet to estimate RVSP. Pulmonic Valve The pulmonary valve is normal in structure. Trace pulmonic regurgitation. Great Vessels The aortic root is normal in size. The ascending aorta is normal in size. IVC is normal in size and collapses >50% with inspiration. Pericardium There is no pericardial effusion. Other Information Study Quality: Fair Conclusion Normal LV systolic function. Mild RV dilation with mild reduction in RV function. No significant valvular stenosis or regurgitation. Electronically signed by : Jamilah Ernst MD 05/15/2023 12:48:09
== END 2023-05-14 23:59 ==
LOC: RT 12:53
PROVIDERS: PCP Family Medicine; Visit Provider Internal Medicine Pulmonary Disease
DX: R06.02 Shortness of breath (principal); G47.30 Sleep apnea, unspecified
CPT/HCPCS: 93306; 94762

== ENCOUNTER 2023-07-10 09:55 | Outpatient (CLI) | payer OTHER, SELFPAY ==
[2023-07-10 10:40] VITALS: PULSE 64; PULSE 70
[2023-07-10] MEDS: ALBUTEROL 0.083% 2.5 MG/3 ML NEB IH (10:40)
== END 2023-07-10 23:59 | disposition home or self-care (01) ==
LOC: RT 09:56
PROVIDERS: PCP Family Medicine; Visit Provider Internal Medicine Pulmonary Disease
DX: R06.02 Shortness of breath (principal)
CPT/HCPCS: 94060; 94640

== ENCOUNTER 2023-07-11 14:49 | Outpatient (CLI) | payer OTHER, SELFPAY ==
[2023-07-11] MEDS: METHACHOLINE CHLORIDE 65MG/18ML KIT 64 MG IH (15:00)
[2023-07-11 16:10] VITALS: PULSE 71; PULSE 73
[2023-07-11] MEDS: ALBUTEROL 0.083% 2.5 MG/3 ML NEB IH (16:10)
== END 2023-07-11 23:59 | disposition home or self-care (01) ==
LOC: RT 14:50
PROVIDERS: PCP Family Medicine; Visit Provider Internal Medicine Pulmonary Disease
DX: R06.00 Dyspnea, unspecified (principal)
CPT/HCPCS: 94070; 94640; 95070; J7674

== ENCOUNTER 2023-08-27 07:49 | Outpatient (CLI) | payer OTHER, SELFPAY ==
--- NOTE | 2023-08-27 | CA_ITS ---
APPROVED REPORT Exam: Pharmacologic Technologist: Leora Zaidi, Ht: 5 ft 3 in Wt: 321 lbs BSA: 2.36 m2 HR: 62 bpm BP: 125/76 mmHg Rhythm: Sinus bradycardia Medical History Medications: Tizanidine,,,,, Fluoxetine,,,,, RoSUVASTATIN,,,,, Xopenex,,,,, LaMtrigine,,,,, Vit D2,,,,, RImegepant,,,,, Acetazolamide,,,,, Cardiac Risk Factors: HTN, Hyperlipidemia, FHX of CAD, , Smoking Stress Test Details Test: LEXISCAN HR Resting HR: 62 bpm Max Heart Rate (APMHR): 180 bpm Max HR Achieved: 100 bpm Target HR (85% APMHR): 153 bpm % of APMHR: 56 Recovery HR: 84 bpm BP Resting BP: 125.0/76.0 mmHg Max BP: 147.0/70.0 mmHg Recovery BP: 139.0/75.0 mmHg ECG Resting ECG: Sinus bradycardia Stress ECG: No significant ST changes Arrhythmia: None Clinical Exercise duration: 04:01 min Highest Stage Achieved: Exercise capacity: 1.0 METs Stress ECG Conclusion During lexiscan pt experinced dyspnea, numbness, and fatigue. ST changes: None Ectopy: None Conclusion: EKG portion unremarkable due to lexiscan infusion. Myoview images reported separately. Test Summary REST . . . . . . . Sitting REST 01:11 . . 62 . 125/ 76 . . Stage 1 . . . . . . . Myoview Injected Stage 1 01:00 . . 100 . . . . Stage 2 01:00 . . 87 . 142/ 85 . . Stage 3 01:00 . . 85 . 140/ 77 . . Stage 4 01:00 . . 82 . 140/ 87 . . Stage 4 01:01 . . 82 . 140/ 87 . Stop exercise at 04:01 RECOVERY 01:00 . . 87 . . . . RECOVERY 02:00 . . 80 . 147/ 70 . . RECOVERY 02:40 . . 83 . 139/ 75 . . Electronically signed by : Jamilah Ernst MD 08/27/2023 12:25:51
--- NOTE | 2023-08-27 07:50 | NM_ITS ---
APPROVED REPORT Exam: Nuclear Stress Test Indication: Chest pain, SOB, Fatigue, High cholesterol, Tobacco use, Family history Patient Location: Outpatient Stress Tech: Leora CHAMPAGNE Tech:Elida Craft, ARRT, RT (R)(N) Ht: 5 ft 3 in Wt: 320 lbs Bra Size: C HR: 62 bpm BP: 125/76 mmHg BSA: 2.36 m2 Rhythm: Sinus bradycardia TID: 1.20 BMI: 56.6 History: Chest pain, SOB, Fatigue, High cholesterol, Tobacco use, Family history Procedure: Patient received 0.4 mg of intravenous Lexiscan, resting heart rate 62 bpm, resting blood pressure 125/76 mmHg, with Lexiscan maximum heart rate achieved was 100 bpm which is % of the maximum predicted heart rate and blood pressure was 147/70 mmHg. With Lexiscan, patient denied any complaint of chest pain. Cardiac Stress and Resting SPECT Images: Cardiac Stress and Resting SPECT images were obtained using technetium 99m Myoview 31.1 mCi stress and 10.87 mCi at rest. Resting and stress imaging in supine and prone positions demonstrate no evidence of fixed or reversible perfusion defects. There is borderline increase in transient ischemic dilatation ratio (TID 1.20), suggestive of possible multivessel disease or balanced ischemia. Gated imaging demonstrates normal global and regional LV systolic function. LVEF is calculated at 54%. Conclusion: No evidence of fixed or reversible perfusion defects. There is borderline increase in transient ischemic dilatation ratio (TID 1.20), suggestive of possible multivessel disease or balanced ischemia. Gated imaging demonstrates normal global and regional LV systolic function. LVEF is calculated at 54%. In the setting of young age and borderline TID, further evaluation with noninvasive testing (i.e. CCTA) is suggested prior to proceeding with invasive coronary angiography. Electronically signed by : Jamilah Ernst MD 08/27/2023 12:28:03
[2023-08-27] MEDS: SODIUM CHLORIDE 0.9% 10ML SYR (RAD ONLY) 10 ML IV ×2 (09:32→09:33)
[2023-08-27] MEDS: REGADENOSON 0.4MG/5ML SYRINGE 0.4 MG IV (09:32)
[2023-08-27] MEDS: ISOTOPE MYOVIEW (PER STUDY) 1 DOSE IV (09:33)
== END 2023-08-27 23:59 | disposition home or self-care (01) ==
LOC: RAD 07:50
PROVIDERS: PCP Family Medicine; Visit Provider Physician Assistant
DX: R07.89 Other chest pain (principal); R06.09 Other forms of dyspnea; R42 Dizziness and giddiness; R94.31 Abnormal electrocardiogram [ECG] [EKG]; F17.210 Nicotine dependence, cigarettes, uncomplicated
CPT/HCPCS: 78452; 93017; 93018; A9502; J2785

== ENCOUNTER 2023-10-10 11:50 | Outpatient (CLI) | payer OTHER, SELFPAY ==
[2023-10-10 12:01] VITALS: BMI 55.7
[2023-10-10 12:15] VITALS: BP 102/68; PULSE 71; RESP 18; TEMP 36.6; O2SAT 95
[2023-10-10] MEDS: METOPROLOL TARTRATE 50MG TABLET PO (12:15)
[2023-10-10 12:28] VITALS: BP 103/59; PULSE 62; RESP 18; O2SAT 97
[2023-10-10 12:31] LABS: Chloride 108 mmol/L (98-107); Potassium 4.2 mmoL/L (3.5-5.1); Sodium 141 mmol/L (136-145)
[2023-10-10 12:34] LABS: Blood Urea Nitrogen 14 mg/dl (7-17); Calcium 8.8 mg/dl (8.4-10.2); Creatinine Clearance Estimated 88 mL/min (50-200); Estimated Glomerular Filt Rate 93 ml/min (>60); GFR (African American) 112 ML/MIN (>60); Glucose 88 mg/dl (74-100)
[2023-10-10 13:03] LABS: Anion Gap 8.2 mEq/L (5-15); Carbon Dioxide 29 mmol/L (22.0-30.0)
[2023-10-10 13:20] VITALS: BP 117/60; PULSE 63; RESP 18; O2SAT 98
[2023-10-10 13:23] VITALS: BP 100/65; PULSE 64; RESP 18; O2SAT 96
[2023-10-10 13:32] VITALS: BP 101/48; PULSE 62; RESP 18; O2SAT 96
[2023-10-10 13:40] VITALS: BP 102/47; PULSE 67; RESP 18; O2SAT 97
[2023-10-10] MEDS: 0.9 % SODIUM CHLORIDE 50 ML VIAL IV (13:41)
[2023-10-10] MEDS: SODIUM CHLORIDE 0.9% 10ML SYR (RAD ONLY) 10 ML IV (13:42)
[2023-10-10] MEDS: IOPAMIDOL-370 (76%);100ML BOTTLE 85 ML IV (13:42)
== END 2023-10-10 13:40 | disposition home or self-care (01) ==
PROVIDERS: PCP Family Medicine; Visit Provider Physician Assistant
DX: R07.89 Other chest pain (principal); R93.1 Abnormal findings on diagnostic imaging of heart and coronary circulation; F17.200 Nicotine dependence, unspecified, uncomplicated; R42 Dizziness and giddiness; R06.09 Other forms of dyspnea; R94.31 Abnormal electrocardiogram [ECG] [EKG]; G47.34 Idiopathic sleep related nonobstructive alveolar hypoventilation
CPT/HCPCS: 75574; 80048; Q9967

== ENCOUNTER 2024-01-31 08:00 | Outpatient (RCR) | payer OTHER, SELFPAY | END 2024-01-31 23:59 | disposition home or self-care (01) | LOC: OT 08:00 | PROVIDERS: PCP Family Medicine; Visit Provider Internal Medicine | DX: M25.521 Pain in right elbow (principal); M25.522 Pain in left elbow | CPT/HCPCS: 97014; 97035; 97110; 97140; 97166; 97530; G0283 ==

== ENCOUNTER 2024-03-19 13:36 | Outpatient (CLI) | payer OTHER, SELFPAY | END 2024-03-19 23:59 | disposition home or self-care (01) | LOC: RAD 13:37 | PROVIDERS: PCP Family Medicine; Visit Provider Nurse Practitioner Family | DX: G43.919 Migraine, unspecified, intractable, without status migrainosus (principal) ==

== ENCOUNTER 2024-04-30 12:11 | Emergency (ER) | payer OTHER, SELFPAY ==
[2024-04-30 12:18] VITALS: BP 141/90; PULSE 100; RESP 18; TEMP 36.9; O2SAT 98; BMI 58.6
[2024-04-30 12:33] LABS: Coronavirus 19, PCR Not Detected (NotDetected); Influenza A, PCR Not Detected (NotDetected); Influenza B, PCR Not Detected (NotDetected)
--- NOTE | 2024-04-30 13:07 | HMH.EDGENADL ---
Discharge Plan Disposition Patient Disposition: Home, Self-Care Prescriptions Prescriptions: New loperamide 2 mg capsule 2 mg PO Q6H PRN (Reason: loose stool) 5 Days Qty: 20 0RF Rx Instructions: Please take 4 mg initially, followed by 2 mg after each loose stool, maximum 16 mg/day promethazine 12.5 mg suppository 12.[address] TID PRN (Reason: nausea and vomiting) Qty: 12 0RF Rx Instructions: do not give 3rd daily dose after evening meal or within 4hr before bed ondansetron 4 mg tablet,disintegrating 4 mg PO Q6H PRN (Reason: nausea and vomiting) 5 Days Qty: 20 0RF No Action tizanidine 4 mg tablet 4 mg PO HS PRN (Reason: Occipital headache with cervicogenic component) Qty: 30 3RF acetazolamide 250 mg tablet 750 mg PO DAILY MDD 750 milligram Qty: 270 11RF Rx Instructions: 500 mg p.o. every morning and 250 mg in the evening. Nurtec ODT 75 mg tablet,disintegrating 75 mg PO Q OTHER DAY MDD 75 mg Qty: 16 11RF Rx Instructions: 75 mg p.o. every other day for migraine prevention levalbuterol tartrate [Xopenex HFA] 45 mcg/actuation HFA aerosol inhaler 2 inh inhalation Q6H PRN (Reason: shortness of breath or wheezing) 90 Days Qty: 15 3RF rosuvastatin 10 mg tablet 10 mg PO DAILY fluoxetine 40 mg capsule 40 mg PO DAILY ergocalciferol (vitamin D2) 1,250 mcg (50,000 unit) capsule 1,250 mcg PO WEEKLY Patient Comments: TAKE 1 CAPSULE BY MOUTH ONCE A WEEK aspirin [Adult Low Dose Aspirin] 81 mg tablet,delayed release (DR/EC) 81 mg PO DAILY Qty: 30 2RF varenicline tartrate [Chantix Starting Month Box] 0.5 mg (11)- 1 mg (42) tablets,dose pack See Rx Instructions PO PER PKG DIR Qty: 53 0RF Rx Instructions: PO PER PKG DIR lamotrigine 100 mg tablet 100 mg PO DAILY Patient Comments: TAKE 1 TABLET BY MOUTH ONCE DAILY isosorbide mononitrate 30 mg tablet extended release 24 hr 30 mg PO DAILY Qty: 30 5RF varenicline tartrate 1 mg tablet See Rx Instructions .ROUTE .COMPLEX Qty: 56 3RF Dose Instruction: Take 1 tablet by mouth twice daily Rx Instructions: Take 1 tablet by mouth twice daily Referrals Follow up/Referrals: Karen Pineda MD [Primary Care Provider] - See instructions Activity Restrictions/Add. Instructions Additional Instructions/Restrictions: Your symptoms are most likely secondary to a viral syndrome causing your nausea vomiting and diarrhea. Treatment is supportive meaning we will treat your symptoms. Nausea and diarrhea medicine have been sent to the pharmacy. Please take your Zofran and if you are still throwing up you may try your Phenergan suppositories. Flu and COVID swabs have been sent if you are flu positive you are high risk for complications and I would recommend that you call back for antiviral medications to be called in. Clinical Impressions Clinical Impression: Nausea vomiting and diarrhea, Viral syndrome Instructions Patient Instructions: DI for Diarrhea and Traveler's Diarrhea -- Adult, DI for Diarrhea and Traveler's Diarrhea -- Child, DI for Nausea -- Adult, DI for Nausea -- Child Print Language Print Language: Guyanese Discharge ED Provider: Nory Rashid General Adult HPI General Chief complaint: Nausea/Vomiting/Diarrhea Stated complaint: Diarrhea, vomiting, chills, fever, headache Time Seen by Provider: 04/30/24 12:45 Mode of Arrival: Ambulatory Source of Information: Patient Description of Symptoms (Recalled from ER Triage Doc. by RN): Pt presents with c/o chills, bodyaches, vomiting, diarrhea, and headache x 24 hours. History of Present Illness HPI narrative: 39-year-old with underlying heart condition she states who is morbidly obese presents today with nausea vomiting diarrhea body aches and headaches over the last 24 hours. She is accompanied by her daughter who is the same symptoms over the same time period. Related Data Home Medications ?Medication ?Instructions ?Recorded ?Confirmed fluoxetine 40 mg capsule 40 mg PO DAILY 04/24/23 03/13/24 rosuvastatin 10 mg tablet 10 mg PO DAILY 04/24/23 03/13/24 ergocalciferol (vitamin D2) 1,250 1,250 mcg PO WEEKLY 08/20/23 03/13/24 mcg (50,000 unit) capsule lamotrigine 100 mg tablet 100 mg PO DAILY 09/17/23 03/13/24 Previous Rx's ?Medication ?Instructions ?Recorded tizanidine 4 mg tablet 4 mg PO HS PRN Occipital headache 05/10/22 with cervicogenic component #30 tabs Nurtec ODT 75 mg disintegrating 75 mg PO Q OTHER DAY episodic 02/06/23 tablet (rimegepant) migraine #16 tabs acetazolamide 250 mg tablet 750 mg (3 x 250 mg) PO DAILY 02/06/23 Headache, suspected pseudotumor #270 tabs levalbuterol tartrate 45 2 inh inhalation Q6H PRN shortness 07/10/23 mcg/actuation aerosol inhaler of breath or wheezing 90 days #15 (Xopenex HFA) grams aspirin 81 mg tablet,delayed 81 mg PO DAILY #30 tabs 08/20/23 release (Adult Low Dose Aspirin) varenicline tartrate 0.5 mg (11)-1 See Rx Instructions PO PER PKG DIR 08/20/23 mg (42) tablets in a dose pack #53 tabs (Chantix Starting Month Box) isosorbide mononitrate 30 mg 30 mg PO DAILY #30 tabs 11/14/23 tablet,extended release 24 hr varenicline tartrate 1 mg tablet See Rx Instructions .Route 03/04/24 .COMPLEX #56 tabs loperamide 2 mg capsule 2 mg PO Q6H PRN loose stool 5 days 04/30/24 #20 caps ondansetron 4 mg disintegrating 4 mg PO Q6H PRN nausea and 04/30/24 tablet vomiting 5 days #20 tabs promethazine 12.5 mg rectal 12.[address] TID PRN nausea and 04/30/24 suppository vomiting #12 ea Allergies Allergy/AdvReac Type Severity Reaction Status Date / Time No Known Allergies Allergy Verified 04/30/24 13:08 [facility] Disclaimer: The information contained in this section may have been updated after the patient was seen, as this information can be updated by other users. Medical History Nocturnal hypoxemia Depression Depression Smoker Migraine Hyperlipidemia Hypertension Surgical History H/O gastric sleeve History of hysterectomy History of cholecystectomy History of section History of appendectomy History of tonsillectomy Family History Other No significant family history Social History Smoking Status: Current every day smoker tobacco type: cigarettes packs per day: 1 alcohol intake: never substance use type: denies use current occupational status: other Travel in the last 8 weeks: None household members: family housing: house marital status: single Have you lived/traveled outside US in past 30 days?: No Contact w/someone who lives/traveled outside US past 30 days?: No Exposure to someone with infectious disease in past 14 days?: No Do you have a fever (greater than 100.4 F or 38 C)?: Yes Have you tested positive for COVID-19: No Exposed to someone with COVID-19 in past 14 days?: No Do you have a sore throat?: No Do you have a cough?: No Do you have any weakness?: Yes Do you have any diarrhea?: Yes Are you experiencing any unusual bleeding?: No Do you have any muscle aches/pain?: No Do you have any abdominal pain?: No Are you experiencing loss of taste or smell?: No Other Medical History Have you received the Flu Vaccine for this season: No Have you received the Pneumonia Vaccine: No ROS Obtained: Yes All systems reviewed & no additional complaints except as documented Physical Exam General General appearance: alert and in no apparent distress Respiratory Respiratory exam: Present normal lung sounds bilaterally Cardiovascular Cardiovascular exam: Present regular rate and normal rhythm Abdominal Exam Abdominal exam: Present soft; Absent distention or tenderness Neurological Exam Neurological exam: Present alert and oriented X3 Medical Decision Making Medical Records Screening: Per USPSTF and CDC recommendations, given the prevalence of disease in our region, it is our hospital?s policy to screen for HIV and viral Hepatitis for all patients aged 18 and over and those with ongoing risk factors. Sebastian Inquiry Pt receiving controlled substance: No Vital Signs: 04/30/24 12:18 Temperature 98.4 F Temperature Source Oral Pulse Rate [Right] 100 H Respiratory Rate 18 Blood Pressure [Right Arm] 141/90 H Blood Pressure Mean [Right Arm] 107 02 Sat by Pulse Oximetry 98 Oxygen Delivery Method Room Air Lab Data Lab Results 04/30/24 12:21: SARS-CoV-2 (PCR) Not detected, Influenza A Untype (PCR) Not detected, Influenza Type B (PCR) Not detected Orders (Tests/Meds): ORDERS Category Date Time Status Rapid PCR Covid and Flu A/B Stat Lab 04/30/24 12:21 Completed Medical Decision Narrative: Well-appearing well-hydrated female presenting today with her daughter who has the same symptoms during the same time. Differential includes viral gastroenteritis versus food poisoning. Given the fact she has had bodyaches and subjective fever like symptoms I favor infectious etiology. Her abdominal exam is benign she is not clinically dehydrated her vital signs are stable. Supportive care discussed symptomatic medications sent to her pharmacy return precautions emphasized patient was discharged in stable condition. I offered this patient's IV fluids and observation to see if she would improve with medications and she opted to go ahead and send her prescription to the pharmacy. I did the same thing with her daughter. Return precautions were emphasized. Patient was discharged in stable condition she has high risk she and her daughter both as they have underlying heart conditions if they are positive for the flu we will call in antiviral medications Critical Care Critical Care Time Critical Care Time: No
[2024-04-30 13:12] VITALS: BP 140/78; PULSE 78; RESP 18; TEMP 36.9; O2SAT 98
== END 2024-04-30 13:13 | disposition home or self-care (01) ==
PROVIDERS: Emergency Provider Student in an Organized Health Care Education/Training Program; PCP Family Medicine
DX: R19.7 Diarrhea, unspecified (principal); R11.2 Nausea with vomiting, unspecified; B34.9 Viral infection, unspecified; Z11.52 Encounter for screening for COVID-19
CPT/HCPCS: 87636; 99283

== ENCOUNTER 2024-05-05 11:52 | Outpatient (CLI) | payer OTHER, SELFPAY ==
[2024-05-05 12:32] LABS: Basophils % 0.4 % (0.1-2.0); Eosinophils # 0.1 K/mm3 (0.0-0.4); Eosinophils % 0.7 % (0.1-12.0); Hematocrit 39.7 % (37.0-47.0); Hemoglobin 12.8 g/dL (12.2-16.2); Lymphocytes # 2.7 K/mm3 (0.7-4.5); Lymphocytes % 31.7 % (10-50); Mean Corpuscular HGB Conc 32.2 g/dL (31.8-35.4); Mean Corpuscular Hemoglobin 27.8 pg (27.0-31.2); Mean Corpuscular Volume 86.3 fl (81-99); Mean Platelet Volume 9.5 fl (7.4-10.4); Monocytes # 0.6 K/mm3 (0.1-1.0); Monocytes % 7.4 % (1.7-9.3); Neutrophils # 5.1 K/mm3 (1.8-7.8); Neutrophils % 59.3 % (37.0-80.0); Platelet Count 268 K/mm3 (142-424); Red Cell Distribution Width 12.7 % (11.5-17.5); White Blood Count 8.6 K/mm3 (4.8-10.8)
[2024-05-05 13:24] LABS: Carbon Dioxide 29 mmol/L (22.0-30.0); Chloride 106 mmol/L (98-107); Sodium 140 mmol/L (136-145)
[2024-05-05 13:25] LABS: Alanine Aminotransferase 68 U/L (12-78); Albumin Level 3.8 g/dl (3.5-5.0); Alkaline Phosphatase 61 U/L (38-126); Anion Gap 9.2 mEq/L (5-15); Aspartate Amino Transferase 56 U/L (14-36); Bilirubin,Direct 0.2 mg/dl (0.0-0.4); Bilirubin,Indirect 0.1 mg/dL (0.0-0.9); Bilirubin,Total 0.3 mg/dl (0.2-1.3); Bilirubin,Unconjugated 0.1 mg/dL (0.0-1.1); Blood Urea Nitrogen 13 mg/dl (7-17); Calcium 8.9 mg/dl (8.4-10.2); Chol/HDL Ratio 6.2 (1-3.5); Cholesterol 173 mg/dl (140-200); Estimated Glomerular Filt Rate 92 ml/min (>60); GFR (African American) 112 ML/MIN (>60); Glucose 95 mg/dl (74-100); HDL Cholesterol 28 mg/dl (40-60); Potassium 4.2 mmoL/L (3.5-5.1); Total Protein,Serum 5.9 g/dl (6.3-8.2); Triglycerides 165 mg/dl (30-150); VLDL Cholesterol 33 mg/dL (0-40)
[2024-05-05 13:36] LABS: Direct LDL Cholesterol 119.04 mg/dL (100-129)
[2024-05-05 13:41] LABS: Free T4 (Free Thyroxine) 0.97 ng/dl (0.78-2.19)
[2024-05-05 13:55] LABS: Thyroid Stimulating Hormone 1.96 uIU/mL (0.465-4.68)
[2024-05-05 19:06] LABS: Hemoglobin A1C 5.9 % (4.0-6.0)
== END 2024-05-05 23:59 | disposition home or self-care (01) ==
LOC: LAB 11:53
PROVIDERS: PCP Family Medicine; Visit Provider Physician Assistant
DX: R42 Dizziness and giddiness (principal); Z68.43 Body mass index [BMI] 50.0-59.9, adult; E66.9 Obesity, unspecified; R07.89 Other chest pain; R53.83 Other fatigue; R06.09 Other forms of dyspnea; E78.5 Hyperlipidemia, unspecified
CPT/HCPCS: 36415; 80048; 80061; 80076; 83036; 84439; 84443; 85025

== ENCOUNTER 2024-05-15 10:10 | Outpatient (CLI) | payer OTHER, SELFPAY ==
--- NOTE | 2024-05-15 10:16 | CA_ITS ---
APPROVED REPORT EXAM: Comprehensive 2D, Doppler, and color-flow Echocardiogram Blurb Writer: Tiana Jain RT(R) Ht: 5 ft 3 in Wt: 330lbs BSA: 2.39 BP: 122/77 mmHg Indications: RV dilation, ex smoker, HTN, hyperlipidemia, hx bariatric surgery, SOB, KELLY, echo 04/2023 EF 55% 2D Dimensions EF AP2 59.6 % GL Strain -6.2 % M-Mode Dimensions RVDd 2.95 cm (0.9-2.6) LA Diam 3.77 cm (1.9-4.0) LVDd 4.65 cm (3.5-5.7) LVDs 3.31 cm (3.5-5.7) IVSd 1.03 cm (0.6-1.1) PWd 1.03 cm (0.6-1.1) EF (Teich) 55.40% FS 28.80% EDV (Teich) 99.80 mL ESV (Teich) 44.50 mL LV Diastology E Decel Time 170 (160-240 msec) E/A Ratio 1.2 Mitral Valve MV E Max Raoul. 60.0 (40-130 cm/s) MV A Velocity 52.0 (40-130 cm/s) E/A Ratio 1.16 MV PHT 50.0 ms Left Ventricle The left ventricle is normal size. There is increased LV wall thickness. Diastolic function is indeterminate. The left ventricular systolic function is normal. The left ventricular ejection fraction is within the normal range. There is normal LV segmental wall motion. LVEF is 55%. Right Ventricle The right ventricle is not well-visualized, but grossly appears normal in size and function. Atria The left atrium is normal in size. The right atrium is not well-visualized. Aortic Valve Aortic valve opens well. Trace aortic regurgitation. There is no aortic valvular stenosis. Mitral Valve The mitral valve is normal in structure. No evidence of mitral valve stenosis. Trace mitral regurgitation. Tricuspid Valve The tricuspid valve leaflets are not well-visualized. Trace tricuspid regurgitation. There is insufficient TR jet to estimate RVSP. Pulmonic Valve The pulmonic valve is not well-visualized. Great Vessels The aortic root is not well-visualized. The IVC is not well-visualized. Pericardium There is no pericardial effusion. Other Information Study Quality: Technically Difficult Conclusion Technically difficult study due to poor acoustic windows. Grossly, normal biventricular systolic function. No significant valvular stenosis or regurgitation. In the setting of technically difficult study, future TTE evaluations are suggested with administration of ultrasound enhancing agent to better delineate the LV endocardial border. Electronically signed by : Jamilah Ernst MD 05/26/2024 22:26:18
== END 2024-05-15 23:59 | disposition home or self-care (01) ==
LOC: RT 10:11
PROVIDERS: PCP Family Medicine; Visit Provider Physician Assistant
DX: I51.7 Cardiomegaly (principal); R53.83 Other fatigue
CPT/HCPCS: 93306

== ENCOUNTER 2024-06-19 19:19 | Emergency (ER) | payer OTHER, SELFPAY ==
[2024-06-19 19:28] VITALS: BP 145/77; PULSE 105; RESP 16; TEMP 36.6; O2SAT 98; BMI 58.4
--- OUTSIDE RECORDS SUMMARY | 2024-06-19 19:29 | XMS_ITS ---
Author Organization [facility] Address [address] [place] [phone] Phone Care Team Providers Care Wind Turbine Blade Repair Technician Name Role Phone Grady LAZAR, Rl Unavailable [phone] Plan of Treatment No Plan of Treatment Recorded Assessments Includes: Assessments for all patient encounters No Assessments Recorded Medical Equipment - Implanted Devices Includes: Current and historical Devices No Medical Equipment Recorded Medications Administered Includes: Administered Medications in patient's chart No Administered Medications Recorded Results Includes: Results from 06/20/2023 through 06/19/2024 No Results Recorded For Specified Dates History of Present Illness History of Present Illness not supported for this document type No History of Present Illness Recorded Social History No Social History Recorded - Smoking Status Unknown Medical History Includes: Medical History in patient's chart No Medical History Recorded Family History Includes: Family History in patient's chart No Family History Recorded Review of Systems Review of Systems not supported for this document type No Review of Systems Recorded Mental Status No Mental Status Recorded Functional Status No Functional Status Recorded Physical Exam Physical Exam not supported for this document type No Physical Exam Recorded Insurance Includes: Active Insurance Policies Plan Name Member ID Group # Subscriber Relationship Effect yolie Dates 1 - [employer] [facility] [id number] Genesis Burrell Self Clinical Notes Includes: Signed Clinical Notes starting from 02/08/2022 No Clinical Notes Recorded
--- OUTSIDE RECORDS SUMMARY | 2024-06-19 19:29 | XMS_ITS ---
Care Plan - [facility] [facility] Created on: June 19, 2024 Genesis Burrell : 1985 Sex: Female Author Organization [facility] Address [address] [place] [phone] Phone Care Team Providers Care Viticulture Teacher Name Role Phone Grady LAZAR, Rl Unavailable [phone]
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
[2024-06-19 20:13] LABS: Basophils # 0.1 K/mm3 (0-0.2); Basophils % 0.3 % (0.1-2.0); Eosinophils # 0.1 Kmm3 (0.0-0.4); Eosinophils % 0.4 % (0.1-12.0); Hematocrit 45.5 % (37.0-47.0); Hemoglobin 14.9 g/dL (12.2-16.2); Lymphocytes # 3.7 K/mm3 (0.7-4.5); Lymphocytes % 20.2 % (10-50); Mean Corpuscular HGB Conc 32.7 g/dL (31.8-35.4); Mean Corpuscular Hemoglobin 28.5 pg (27.0-31.2); Mean Platelet Volume 9.7 fl (7.4-10.4); Monocytes # 1.6 K/mm3 (0.1-1.0); Monocytes % 8.7 % (1.7-9.3); Neutrophils # 12.7 K/mm3 (1.8-7.8); Neutrophils % 70.1 % (37.0-80.0); Nucleated Red Blood Cells # 0 10^3/uL; Nucleated Red Blood Cells % 0 %; Platelet Count 343 K/mm3 (142-424); Red Blood Count 5.23 M/mm3 (4.20-5.40); Red Cell Distribution Width 13.2 % (11.5-17.5); Red Cell Distribution Width-SD 41.4 fL; White Blood Count 18.2 K/mm3 (4.8-10.8)
[2024-06-19 20:19] LABS: Alanine Aminotransferase 31 U/L (12-78); Albumin Level 4.2 g/dl (3.5-5.0); Albumin/Globulin Ratio 1.3 (1.1-1.8); Alkaline Phosphatase 74 U/L (38-126); Anion Gap 10.2 mEq/L (5-15); Aspartate Amino Transferase 31 U/L (14-36); Bilirubin,Total 0.6 mg/dl (0.2-1.3); Blood Urea Nitrogen 18 mg/dl (7-17); Calcium 9.3 mg/dl (8.4-10.2); Carbon Dioxide 26 mmol/L (22.0-30.0); Chloride 108 mmol/L (98-107); Creatinine Clearance Estimated 77 mL/min (50-200); Estimated Glomerular Filt Rate 79 ml/min (>60); GFR (African American) 96 ML/MIN (>60); Globulin 3.3 g/dL (1.3-3.2); Glucose 103 mg/dl (74-100); Magnesium 1.9 mg/dl (1.6-2.3); Potassium 4.2 mmoL/L (3.5-5.1); Sodium 140 mmol/L (136-145); Total Protein,Serum 7.5 g/dl (6.3-8.2)
--- NOTE | 2024-06-19 20:19 | ECG_ITS ---
APPROVED REPORT Exam: Resting ECG HR:99 bpm ECG Measurements Heart Rate 99 AXES UT 172 P 50 QRSd 85 QRS 28 QT 337 T 45 QTc 393 Conclusion SINUS RHYTHM LOW QRS VOLTAGE IN PRECORDIAL LEADS [QRS DEFLECTION < 1.0 mV IN CHEST LEADS] ANTEROLATERAL MYOCARDIAL INFARCTION , OF INDETERMINATE AGE [40+ ms Q WAVE IN I/aVL/V3-V6] Electronically signed by : ANNIE CARRASCO, 06/19/2024 23:31:01
[2024-06-19] MEDS: 0.9 % SODIUM CHLORIDE 1000ML 1,000 ML 999 ML IV (20:21)
[2024-06-19 20:23] LABS: MANUAL DIFFERENTIAL MANUAL DIFFERENTIAL (MANUAL DIFF)
[2024-06-19 20:31] VITALS: BP 107/81; PULSE 97; O2SAT 95
[2024-06-19 20:33] LABS: Troponin I < 0.01 ng/ml (0.00-0.034)
[2024-06-19 20:35] LABS: Triiodothryronine (T3) Uptake 34 % (23.5-40.5)
[2024-06-19 20:36] LABS: Free Thyroxine Index 2.1 ug/dL (5.93-13.13); T4 (Thyroxine) 6.2 ug/dl (5.53-11.0)
[2024-06-19 20:41] LABS: NT Pro Brain Natriuretic Pep. 27.8 pg/mL (0-125)
[2024-06-19 20:49] LABS: Thyroid Stimulating Hormone 1.18 uIU/mL (0.465-4.68)
[2024-06-19 20:55] LABS: Microscopic, Urine URINE MICROSCOPIC (MICROSCOPIC)
[2024-06-19 21:00] VITALS: BP 140/96; PULSE 96; O2SAT 99
[2024-06-19 21:00] LABS: Appearance,Urine CLEAR (Clear); Bilirubin,Urine Negative (Negative); Blood, Urine Negative (Negative); Color,Urine YELLOW (Yellow); Glucose,Urine (UA) Negative (Negative); Ketones,Urine Negative (Negative); Leukocyte Esterase,Urine Negative (Negative); Nitrate,Urine Negative (Negative); Protein,Urine Negative (Negative); Specific Gravity, Urine 1.025 (1.005-1.030); Urobilinogen,Urine 0.2 EU/dl (0.2)
[2024-06-19 21:10] LABS: Lymphocytes % 23 % (10-50); Monocytes % 16 % (2-9); Neutrophils % 61 % (42-76); Platelet Estimate Normal; RBC Morphology Normal; Total Cells Counted 100
[2024-06-19 21:20] LABS: Bacteria,Urine Trace /lpf; Mucus,Urine Trace /lpf; WBC,Urine Occasional #/hpf (0-3)
[2024-06-19 21:32] VITALS: BP 151/99; PULSE 91; O2SAT 99
[2024-06-19 21:45] VITALS: BP 128/74; PULSE 88; RESP 16; TEMP 36.7; O2SAT 98
[2024-06-19 21:53] LABS: Monoscreen (Rapid) Negative (Negative)
== END 2024-06-19 21:46 | disposition home or self-care (01) ==
PROVIDERS: Physician Assistant; Emergency Provider Emergency Medicine; PCP Family Medicine
DX: R51.9 Headache, unspecified (principal); R00.0 Tachycardia, unspecified; D72.829 Elevated white blood cell count, unspecified; R53.83 Other fatigue
CPT/HCPCS: 80053; 81001; 83735; 83880; 84436; 84443; 84479; 84484; 85007; 85025; 85027; 85378; 86318; 93005; 96360; 99284; J1100; J1200; J1885; J7030

== ENCOUNTER 2024-08-22 22:57 | Emergency (ER) | payer OTHER, SELFPAY ==
[2024-08-22 23:08] VITALS: BP 135/72; PULSE 81; RESP 15; TEMP 36.8; O2SAT 97; BMI 60.2
--- NOTE | 2024-08-22 23:10 | XR_ITS ---
PROCEDURE INFORMATION: Exam: XR Right Foot Exam date and time: 08/22/2024 11:21 PM Age: 39 years old Clinical indication: Injury or trauma; Other: Dropped heavy item on top of midfoot; Crushing; Right TECHNIQUE: Imaging protocol: Radiologic exam of the right foot. Views: 3 or more views. COMPARISON: No relevant prior studies available. FINDINGS: Bones/joints: Normal. No acute fracture identified. Soft tissues: Normal. IMPRESSION: No acute findings.
--- NOTE | 2024-08-22 23:13 | HMH.EDGENADL ---
Discharge Plan Disposition Patient Disposition: Home, Self-Care Condition: Good Prescriptions Prescriptions: No Action tizanidine 4 mg tablet 4 mg PO HS PRN (Reason: Occipital headache with cervicogenic component) Qty: 30 3RF acetazolamide 250 mg tablet 750 mg PO DAILY MDD 750 milligram Qty: 270 11RF Rx Instructions: 500 mg p.o. every morning and 250 mg in the evening. Nurtec ODT 75 mg tablet,disintegrating 75 mg PO Q OTHER DAY MDD 75 mg Qty: 16 11RF Rx Instructions: 75 mg p.o. every other day for migraine prevention levalbuterol tartrate [Xopenex HFA] 45 mcg/actuation HFA aerosol inhaler 2 inh inhalation Q6H PRN (Reason: shortness of breath or wheezing) 90 Days Qty: 15 3RF Ajovy Autoinjector 225 mg/1.5 mL auto-injector SQ rosuvastatin 10 mg tablet 10 mg PO DAILY ergocalciferol (vitamin D2) 1,250 mcg (50,000 unit) capsule 1,250 mcg PO WEEKLY Patient Comments: TAKE 1 CAPSULE BY MOUTH ONCE A WEEK aspirin [Adult Low Dose Aspirin] 81 mg tablet,delayed release (DR/EC) 81 mg PO DAILY Qty: 30 2RF lamotrigine 100 mg tablet 100 mg PO DAILY Patient Comments: TAKE 1 TABLET BY MOUTH ONCE DAILY celecoxib 200 mg capsule 200 mg PO BID PRN Patient Comments: TAKE 1 CAPSULE BY MOUTH TWICE DAILY NEEDED FOR MILD PAIN diclofenac sodium 75 mg tablet,delayed release (DR/EC) 75 mg PO BID PRN Patient Comments: TAKE 1 TABLET BY MOUTH TWICE DAILY NEEDED metformin 500 mg tablet extended release 24 hr 500 mg PO ONCE Patient Comments: TAKE 1 TABLET BY MOUTH ONCE DAILY WITH BREAKFAST escitalopram oxalate 20 mg tablet 20 mg PO DAILY Patient Comments: TAKE 1 TABLET BY MOUTH ONCE DAILY Wegovy 0.25 mg/0.5 mL pen injector 0.25 mg SQ WEEKLY Qty: 2 0RF Rx Instructions: administer weeks 1 through 4 of therapy isosorbide mononitrate 30 mg tablet extended release 24 hr 30 mg PO DAILY Qty: 30 5RF Referrals Follow up/Referrals: Karen Pineda MD [Primary Care Provider, Medical] - See instructions Activity Restrictions/Add. Instructions Additional Instructions/Restrictions: You were evaluated in the ER and are believed to be appropriate for discharge at this time. Wear the hard soled shoe until your pain improves and you have been reevaluated by your primary care doctor. Take Tylenol or ibuprofen if needed for pain, do not exceed the recommended dose on the bottle, drink water and eat a small snack each time you take these medications to avoid side effects. Make an appointment with your primary care doctor for reevaluation in 3 days, if you continue to have severe pain you may need another x-ray. Return to the ER with any new, worsening, or otherwise concerning symptoms. Clinical Impressions Clinical Impression: Acute pain of right foot Instructions Patient Instructions: DI for Foot Pain Print Language Print Language: Syriac Discharge ED Provider: Letty Calloway Adult HPI General Chief complaint: PAIN Stated complaint: Possible Break on top of R foot Time Seen by Provider: 08/22/24 23:00 Mode of Arrival: Ambulatory Source of Information: Patient Description of Symptoms (Recalled from ER Triage Doc. by RN): Patient ambulatory to ED with complaints of right foot pain. Patient states that she was getting food out of the freezer when frozen food fell out of freezer landing on top of right foot. Bruising noted to dorsal mid foot and patient states that pain is 8/10 and becomes increasingly difficult to ambulate. History of Present Illness HPI narrative: 39-year-old female presents to the ER complaining of right foot pain. Patient reports she was getting food out of the freezer more than 12 hours ago when a pack of frozen hamburger fell out of the freezer landing on the top of the right midfoot. Patient reports she has been walking on the foot all day but has sharp pain when she bears weight. She states it is more comfortable if she walks more towards her heel. She has no pain on the bottom of the foot, no numbness, tingling, or weakness. No other injuries. No other complaints or concerns. Patient reports she has not taken any medications prior to arrival and does not want anything for pain including Tylenol or ibuprofen. Related Data Home Medications ?Medication ?Instructions ?Recorded ?Confirmed rosuvastatin 10 mg tablet 10 mg PO DAILY 04/24/23 06/15/24 ergocalciferol (vitamin D2) 1,250 1,250 mcg PO WEEKLY 08/20/23 06/15/24 mcg (50,000 unit) capsule lamotrigine 100 mg tablet 100 mg PO DAILY 09/17/23 06/15/24 celecoxib 200 mg capsule 200 mg PO BID PRN 05/05/24 06/15/24 diclofenac sodium 75 mg 75 mg PO BID PRN 05/05/24 06/15/24 tablet,delayed release escitalopram oxalate 20 mg tablet 20 mg PO DAILY 05/05/24 06/15/24 metformin 500 mg tablet,extended 500 mg PO ONCE 05/05/24 06/15/24 release 24 hr fremanezumab-vfrm 225 mg/1.5 mL mg SQ 06/15/24 06/15/24 subcutaneous auto-injector (Ajovy) Previous Rx's ?Medication ?Instructions ?Recorded tizanidine 4 mg tablet 4 mg PO HS PRN Occipital headache 05/10/22 with cervicogenic component #30 tabs Nurtec ODT 75 mg disintegrating 75 mg PO Q OTHER DAY episodic 02/06/23 tablet (rimegepant) migraine #16 tabs acetazolamide 250 mg tablet 750 mg (3 x 250 mg) PO DAILY 02/06/23 Headache, suspected pseudotumor #270 tabs levalbuterol tartrate 45 2 inh inhalation Q6H PRN shortness 07/10/23 mcg/actuation aerosol inhaler of breath or wheezing 90 days #15 (Xopenex HFA) grams aspirin 81 mg tablet,delayed 81 mg PO DAILY #30 tabs 08/20/23 release (Adult Low Dose Aspirin) semaglutide (weight loss) 0.25 0.25 mg (0.5 mL) SQ WEEKLY #2 mL 05/05/24 mg/0.5 mL subcutaneous pen injector (Damien) isosorbide mononitrate 30 mg 30 mg PO DAILY #30 tabs 05/15/24 tablet,extended release 24 hr Allergies Allergy/AdvReac Type Severity Reaction Status Date / Time No Known Allergies Allergy Verified 06/15/24 15:27 [facility] Disclaimer: The information contained in this section may have been updated after the patient was seen, as this information can be updated by other users. Medical History Right ventricular dilation Fatigue Nocturnal hypoxemia Depression Depression Smoker Migraine Hyperlipidemia Hypertension Surgical History H/O gastric sleeve History of hysterectomy History of cholecystectomy History of section History of appendectomy History of tonsillectomy Family History Other No significant family history Social History Smoking Status: Current every day smoker tobacco type: cigarettes packs per day: 1 alcohol intake: never substance use type: denies use current occupational status: other Travel in the last 8 weeks?: None household members: family housing: house marital status: single Have you lived/traveled outside US in past 30 days?: No Contact w/someone who lives/traveled outside US past 30 days?: No Exposure to someone with infectious disease in past 14 days?: No Do you have a fever (greater than 100.4 F or 38 C)?: No Have you tested positive for COVID-19?: No Exposed to someone with COVID-19 in past 14 days?: No Do you have a sore throat?: No Do you have a cough?: No Do you have any weakness?: No Do you have any diarrhea?: No Are you experiencing any unusual bleeding?: No Do you have any muscle aches/pain?: No Do you have any abdominal pain?: No Are you experiencing loss of taste or smell?: No Other Medical History Have you received the Flu Vaccine for this season: No Have you received the Pneumonia Vaccine: No ROS Obtained: Yes Systems reviewed as appropriate & no additional complaints except as documented Per HPI Physical Exam General General appearance: alert, in no apparent distress and obese Head Head exam: atraumatic and normocephalic Eye Eye exam: Present PERRL and EOMI ENT ENT exam: Present mucous membranes moist Neck Neck exam: Present normal inspection and full ROM Chest Chest inspection: Present symmetric chest wall rise Respiratory Respiratory exam: Absent respiratory distress or stridor Cardiovascular Cardiovascular exam: Present regular rate and normal rhythm Extremities Exam Extremities exam: Present full ROM (Patient has pain with range of motion of the right foot but is able to fully range it. Neurovascularly intact throughout), tenderness (Tenderness of the right foot in the proximal/mid foot area of the dorsal aspect. Very mild bruising and swelling with no deformity or crepitus, neurovascularly intact), normal capillary refill and other (No swelling over the fifth metatarsal or ankle, no wound; independently ambulatory into the ER with loadbearing on the right foot) Neurological Exam Neurological exam: Present alert and oriented X3; Absent motor sensory deficit Psychiatric Psychiatric exam: Present normal affect and normal mood Skin Skin exam: Present warm and dry Medical Decision Making Medical Records Medical records reviewed: Yes I reviewed the patient's medical records. Screening: Per USPSTF and CDC recommendations, given the prevalence of disease in our region, it is our hospital?s policy to screen for HIV and viral Hepatitis for all patients aged 18 and over and those with ongoing risk factors. MR Comment: Patient has a history of suspected pseudotumor cerebri as well as history of cardiac problems including RV dilation Sebastian Inquiry Pt receiving controlled substance: No Vital Signs: 08/22/24 23:08 Temperature 98.3 F Temperature Source Oral Pulse Rate [Right] 81 Respiratory Rate 15 Blood Pressure [Right Arm] 135/72 Blood Pressure Mean [Right Arm] 93 Blood Pressure Source [Right Arm] Automatic Cuff Blood Pressure Position [Right Arm] Sitting 02 Sat by Pulse Oximetry 97 Oxygen Delivery Method Room Air Orders (Tests/Meds): ORDERS Category Date Time Status Foot XR right minimum 3 views [XR foot RT min 3V] Stat Exams 08/22/24 23:10 Completed Medical Decision Narrative: In summary, this obese 39-year-old female with history of headache, RV dilation, possible pseudotumor cerebri presents to the emergency department today with right foot pain after frozen meat fell on it 12 hours ago. On initial evaluation patient is hemodynamically stable, afebrile, GCS 15, independently ambulatory into the ER including weightbearing on the right foot, mild tenderness to palpation of the right midfoot with no crepitus or deformity, slight associated bruising and swelling, neurovascularly intact throughout. Differential diagnosis includes but is not limited to soft tissue injury, sprain, bone bruise, also considered the possibility of fracture or dislocation though I have lower suspicion for these since patient has been ambulatory on this foot for the last 12 hours prior to coming to the ER. Based on these concerns, I ordered x-ray right foot. Patient was offered pain medication including Tylenol or ibuprofen which she declined. I personally interpreted x-ray and do not appreciate acute osseous injury, see radiology read for final interpretation. Patient still has some pain in the foot despite the reassuring x-ray, she states she cannot use crutches so I offered her a hard soled shoe to provide additional stability to the foot. She would like to try this so this was provided to her. She was instructed on home symptomatic monitoring and management, close follow-up with her PCP, and strict return precautions for the ER. She indicated understanding and the patient was discharged in stable condition, ambulated independently out of the ER. Critical Care Critical Care Time Critical Care Time: No
--- OUTSIDE RECORDS SUMMARY | 2024-08-22 23:29 | XMS_ITS | Clinical Summary ---
Author Organization [facility] Address [address] [place] [address] Phone Care Team Providers Care Hoe Worker Name Role Phone Unavailable Primary Care Provider Unavailabl e Allergies No known active allergies Medications acetaminophen 500 mg Oral Tab Take 1-2 Tablets by mouth every 6 hours as needed for Fever or Headaches. 08/08/2021 Active atorvastatin (LIPITOR) 20 mg Oral Tablet Take 1 Tablet by mouth nightly. 30 Tablet 1 08/08/2021 Active cyanocobalamin 100 mcg Oral Tablet Take 2.5 Tablets by mouth daily. 30 Tablet 1 08/09/2021 Active Active Problems Problem Noted Date Diagnosed Date Right sided numbness 08/07/2021 Right sided weakness 08/07/2021 HTN (hypertension) 08/07/2021 HLD (hyperlipidemia) 08/07/2021 Morbid obesity 08/07/2021 Surgical History Surgery Date Site/Laterality Comments TONSILLECTOMY HYSTERECTOMY CHOLECYSTECTOMY APPENDECTOMY GASTRIC BYPASS SURGERY SECTION x2 Social History Tobacco Use Types Packs/Day Years Used Date Smoking Tobacco: Every Day Cigarettes Smokeless Tobacco: Never Tobacco Cessation:Ready to Q uit: No Alcohol Use Standard Drinks/Week Comments Never 0 (1 standard drink = 0.6 oz pur e alcohol) Comments No Sex and Gender Information Value Date Recorded Sex Assigned at Not on file Legal Sex Female 6:33 PM EDT Gender Identity Not on file Sexual Orientation Not on file Obstetrics History Last Filed Vital Signs Vital Sign Reading Time Taken Comments Blood Pressure 138/79 08/09/2021 11:12 AM EDT Pulse 75 08/09/2021 11:12 AM EDT Temperature 36.7 C (98.1 F) 08/09/2021 11:12 AM EDT Respiratory Rate 16 08/09/2021 11:12 AM EDT Oxygen Saturation 98% 08/09/2021 11:12 AM EDT Inhaled Oxygen Concentration - - Weight 136.1 kg (300 lb) 08/07/2021 4:07 AM EDT Height 157.5 cm (5' 2 ) 08/07/2021 4:07 AM EDT Body Mass Index 54.87 08/07/2021 4:07 AM EDT Plan of Treatment Health Maintenance Due Date Last Done Comments Annual Wellness Exam 1986 DTaP/TDaP/Td (1 - Tdap) 2002 Hepatitis B Vaccine (1 of 3 - 19+ 3-dose series) 2002 Cervical Cancer Screening 2004 Pap Smear 2004 HPV/Pap Cotest 2013 Breast Cancer Screening 2023 COVID-19 Vaccine ( - 2023-2 5 season) 2023 Influenza Vaccine (Season Ended) 2024 Meningococcal B Vaccine Aged Out No l onger eligible based on patient's age to complete this topic Pneumococcal Vaccine 0-49 Aged Out No longer eligible based on patient's age to complete this topic Insurance [facility] [place] [address] [employer] [place] Advance Directives For more information, please contact: [phone] * Full Code (Latest Code Status on File) Date Activated Date Inactivated Comments 08/07/2021 3:35 PM 08/09/2021 6:15 PM
--- OUTSIDE RECORDS SUMMARY | 2024-08-22 23:29 | XMS_ITS | Clinical Summary ---
Author Organization Healthcare Address [address] [place] [address] Care Team Providers Care Fork Repairer Name Role Phone Pcp, No Primary Care Provider Unavailabl e Social History Tobacco Use Types Packs/Day Years Used Date Smoking Tobacco: Never Assessed Comments Unknown Sex and Gender Information Value Date Recorded Sex Assigned at Not on file Legal Sex Female 8:44 PM EDT Gender Identity Not on file Sexual Orientation Not on file Plan of Treatment Health Maintenance Due Date Last Done Comments [facility]-Depression Screening 1983 [facility]-/Child/Adol SDOH Screenings 1983 [facility]-Varicella Vaccines (1 of 2 - 13+ 2-dose series) 1996 HPV Vaccines (1 - 3-dose series) 1998 [facility]- SDOH Screenings 2001 [facility]-Adult SDOH Screenings 2001 [facility]-DTaP,Tdap,and Td Vaccines (1 - Tdap) 2002 [facility]-Hepatitis B Vaccines (1 of 3 - 19+ 3-dose series) 2002 [facility]-Pap Smear 2004 [facility]-Cervical Cancer Screening 2013 [facility]-HPV/Cotest 2013 PBQ-CCOYL-84 Vaccine ( - 2023- season) 2023 [facility]-Influenza Vaccine (Season Ended) 2024 [facility]-Zoster Vaccines (1 of 2) 2033 [facility]-Diabetes: Hemoglobin A1C Discontinued 04/2023, 06/05/2018 [facility]-HIB Vaccines Aged Out No longer e ligible based on patient's age to complete this topic [facility]-Hepatitis A Vaccines Aged Out No longer eligible based on patient's age to complete this topic [facility]-IPV Vaccines Aged Out No longer e ligible based on patient's age to complete this topic [facility]-Pneumococcal Vaccine: Pediatrics (0 to 5 Years) and At-Risk Patients (6 to 49 Years) Aged Out No longer eligible b ased on patient's age to complete this topic [facility]-Rotavirus Vaccines Aged Out No lo nger eligible based on patient's age to complete this topic Insurance [employer] Care Teams Fork Repairer Relationship Specialty Start Date End Date Pcp, [place] [address] PCP - General Family Medicine 10/09/23
[2024-08-23 00:12] VITALS: BP 135/72; PULSE 80; RESP 17; TEMP 36.6; O2SAT 96
== END 2024-08-23 00:13 | disposition home or self-care (01) ==
PROVIDERS: Emergency Provider Emergency Medicine; PCP Family Medicine
DX: M79.671 Pain in right foot (principal); S90.31XA Contusion of right foot, initial encounter; W20.8XXA Other cause of strike by thrown, projected or falling object, initial encounter
CPT/HCPCS: 73630; 99283

== ENCOUNTER 2024-09-18 08:32 | Outpatient (CLI) | payer OTHER, SELFPAY ==
--- OUTSIDE RECORDS SUMMARY | 2024-04-23 14:20 | XMS_ITS | Encounter Summary ---
Author Organization [facility] Address [address] [phone] Care Team Providers Care Director Of Accounts Payable Name Role Phone Karen Pineda Primary Care Provider [phone] Encounter Details Date Type Department Care Team (Late st Contact Info) Description 04/23/2024 1:20 PM EST Hospital Encounter [facility] PULMONARY & CRITICAL CARE MEDICINE [address] [place] [phone] Social History Tobacco Use Types Packs/Day Years [...] Description 10/01/2024 11:00 AM EDT Office Visit [facility] SLEEP MEDICINE [address] [facility] [address] [place] [address] Lorenzo Jarvis, LEAD PROGRAMMER [address] [place] [address] 10/29/2024 2:30 PM EDT Office Visit [facility] PULMONARY & CRITICAL CARE MEDICINE [address] [place] [address] Jasson Ramirez DO [address] [place] [address] 11/02/2024 3:00 PM EDT Office Visit [facility] NEUROLOGY [address] [facility] [address] [place] [phone] Ernestina Neal, LEAD PROGRAMMER [address] [facility] [address] [place], [place] [id number] 02/05/2025 11:15 AM EST Office Visit [facility] RHEUMATOLOGY [address] [facility] [address] [place] [address] Luis Banda, LEAD PROGRAMMER [address] [facility] [address] [place], [place] [id number] documented as of this encounter Goals Goal Patient Goal Type Associated Problems Recent Progress Patient-Stated? Author Specialty Pharmacy General Goal General On track( 025 8:42 AM EDT) No Kandy Sahu, [facility] Note: On Average, Reduce: Frequency [...] Narrative 04/27/2024 3:14 PM EST Genesis Burrell [id number] 04/23/2024 Chest X-Ray PA & Lateral Indication: [...] documented as of this encounter Care Teams Director Of Accounts Payable Relationship Specialty Start Date End Date Karen Pineda DO [address] [place], [place] [phone] PCP - General Family Medicine 10/08/16 documented as of this encounter
--- OUTSIDE RECORDS SUMMARY | 2024-07-13 13:28 | XMS_ITS | Encounter Summary ---
[facility] Address [address] [id number] Care Team Providers Care Aircraft Structural Repairer Name Role Phone Karen Pineda DO Primary Care Provider [phone] Reason for Referral * Hospital - Outpatient (Routine) - Closed Specialty Diagnoses / Procedures Referred By Contac t Referred To Contact Sleep Medicine Diagnoses Hypersomnia Obstructive sleep apnea, adult Snoring Procedures Home Sleep Study Tyson Liu MD [address] [place] [address] Phone: tel: fax: [facility] SLEEP LAB [address] [address] Phone: tel: fax: Referral ID Status Reason Start Date Expiration Date Visits Re quested Visits Authorized [id number] Closed 05/12/2024 08/11/2025 1 1 Reason for Visit * Hospital - Outpatient (Routine) - Closed Specialty Diagnoses / Procedures Referred By Contac t Referred To Contact Sleep Medicine Diagnoses Hypersomnia Obstructive sleep apnea, adult Snoring Procedures Home Sleep Study Tyson Liu MD [address] [place] [address] Phone: tel: fax: [facility] SLEEP [facility] [address] [address] Phone: tel: fax: Referral ID Status Reason Start Date Expiration Date Visits Re quested Visits Authorized [id number] Closed 05/12/2024 08/11/2025 1 1 Encounter Details Date Type Department Care Team (Late st Contact Info) Description 07/13/2024 1:28 PM EDT Hospital Encounter [facility] SLEEP LAB [address] [place] [address] Tyson Liu MD [address] [place] [address] Hypersomnia; Obstructive sleep apnea, adult; Snoring Social [...] Description 10/01/2024 11:00 AM EDT Office Visit [facility] SLEEP MEDICINE [address] [facility] [address] [place] [address] Lorenzo Jarvis, CUSTOMS CONSULTANT [address] [place] [address] 10/29/2024 2:30 PM EDT Office Visit [facility] PULMONARY & CRITICAL CARE MEDICINE [address] [place] [address] Jasson Ramirez DO [address] [place] [address] 11/02/2024 3:00 PM EDT Office Visit [facility] NEUROLOGY [address]01 [facility] [address] [place] [address] Ernestina Neal, CUSTOMS CONSULTANT 2101 [facility] [address] [place] [address] 02/05/2025 11:15 AM EST Office Visit [facility] RHEUMATOLOGY 330 [facility] 100 [place] [address] Luis Banda, CUSTOMS CONSULTANT 330 [facility] 100 [place], [place] [address] documented as of this encounter Goals Goal Patient Goal Type Associated Problems Recent Progress Patient-Stated? Author Specialty Pharmacy General Goal General On track( 025 8:42 AM EDT) No Kandy Sahu, [facility] Note: On Average, Reduce: Frequency of migraines [...] KELLY and she had a PSG at [facility] in December 2022 which revealed a [...] had a home sleep test with an [employer] One device that measured airflow at the [...] documented as of this encounter Care Teams Aircraft Structural Repairer Relationship Specialty Start Date End Date Karen Pineda DO [address] [place] [address] PCP - General Family Medicine 10/08/16 documented as of this encounter
--- OUTSIDE RECORDS SUMMARY | 2024-07-23 14:00 | XMS_ITS | Encounter Summary ---
[facility] Address [address] [place] [address] Care Team Providers Care Vendor Specialist Name Role Phone Karen Pineda Primary Care Provider [phone] Reason for Visit * Reason Comments Pseudotumor cerebri Encounter Details Date Type Department Care Team (Late st Contact Info) Description 07/23/2024 2:00 PM EDT Office Visit [facility] NEUROLOGY [address] [facility] [address] [place] [phone] Ernestina Neal, COMMUNICATIONS WRITER [address] [facility] [address] [place] [address] Intractable chronic migraine without aura and without status migrainosus (Primary Dx); Pseudotumor cerebri Social History Tobacco Use Types Packs/Day Years [...] Sign Reading Time Taken Comments Blood Pressure 122/84 07/23/2024 1:59 PM EDT Pulse 98 07/23/2024 1:59 PM EDT Temperature - - Respiratory Rate - - Oxygen Saturation 94% 07/23/2024 1:59 PM EDT Inhaled Oxygen Concentration - - Weight - - Height - - Body Mass Index - - documented in this encounter Progress Notes * Ernestina Neal, COMMUNICATIONS WRITER - 07/23/2024 2:00 PM EDT Neuro Office Visit Encounter Date: 07/23/2024 Patient Name: Genesis Burrell : 1985 PCP: Karen Pineda DO Chief Complaint: Chief Complaint Patient presents with Pseudotumor cerebri History of Present Illness: Genesis Burrell is a 39 y.o. 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 Winters - last OV 07/17/2023. She was advised at that time to take Nurtecevery other day as prevention for migraines. She is taking Acetazolamide 750 mg daily for pseudotumor cerebri. 05/12/2022 dilated eye exam mild elevation of optic disc, OS greater than OD. Overall stable. 09/27/2021 LP opening pressure 21 cm of water, closing pressure 14 cm of water. At her visit on 07/17/23 there was consideration for repeating LP with opening and closing pressure in the event of abnormal finding on dilated eye exam, she reports that she has not had any recent ophthalmology evaluation. She did previously undergo MRI brain in 2021 which per OV notes showed evidence of empty sellaworrisome for benign increased intracranial hypertension. She was also previously counseled on weight loss. She was also to f/u with pulmonology and cardiology. She did previously have bariatric surgery in [facility] >16 years ago. In clinic today Genesis reports that her headaches are always behind left eye, taking diamox 250 mgtablet 1.5 tablet BID, pain can vary from dull to sharp, vomiting during a migraine, stays in a dark room, she feels like she is forgetful (even worse when she has a migraine) - ongoing for about 1-2year, she is taking Nurtec every other day plus extra with breakthrough headaches. Nurtec initiallyhelped but is not helping currently. She was also prescribed Ubrelvy without benefit. She also tookTopamax previously. When she gets a headache she can have light and sound sensitivity, she can havenausea/vomiting, she will sometimes go to ED for migraine cocktail. She has had headaches for at least 10 years. No correlation with weight and headaches. No ringing in her ears. No peripheral visionloss. Does feel like her vision is blurry at times during a headache, denies loss of peripheral vision. Last MRI brain was about 2 years ago, she is having near daily migraines She reports that she was close to having sleep apnea diagnosed previously, she wakes up tired and is willing to be referred back to sleep medicine for further workup. Current visit 07/23/2024: Genesis returns for routine follow up. She was started on Ajovy 225 mg monthly injectable plus Nurtec PRN. She continues to take Diamox 500 mg AM and 250 mg PM. She still gets migraines, harder to get rid of, less frequent. She does take Nurtec 75 mg PRN. To get rid of her migraine she will sometimes take diclofenac which she does feel helps in conjunction with the Nurtec. She also gets relief with laying down with a heating pad. She has 2-3 migraines/month at present which is a marked improvement from the daily headaches she was having previously. She denies side effects from Ajovy or Nurtec. She has KELLY. She will start CPAP therapy soon and is optimistic that this will help even further with migraine control. She did not complete MRI due to claustrophobia despite offering premedication. She had an abnormal episode on 06/19 in which she had a headache, right arm numbness, pinch in her neck, slurred speech. The doctor thought she was drunk, she reports that she as not drunk but did have elevated WBC and was told that it was likely from some type of infection when she was treated at [facility]. She has done well otherwise and not had recurrence of abnormal episodes. CMP from 06/19/2024 showed sodium 140, potassium 4.2, chloride 108, carbon dioxide 26, anion gap 10.2, BUN 18,creatinine 0.80, GFR 79, glucose 103, calcium 9.3, magnesium 1.9, AST 31, ALT 31, alkaline phosphatase 74. She did go to her ophthalmology appointment, we have not yet received consult note, will request this for review. Subjective Review of Systems Constitutional: Positive for fatigue. HENT: Negative for tinnitus. Eyes: Positive for photophobia. Respiratory: Recently diagnosed with KELLY, will be starting CPAP therapy soon Gastrointestinal: Positive for nausea and vomiting. During a headache Neurological: Positive for headaches. Psychiatric/Behavioral: Positive for sleep disturbance. Past Medical History: Past Medical History: Diagnosis Date Anxiety Deep vein thrombosis Depression Diabetes Gallstone Headache High cholesterol Kidney infection Migraines Ovarian cyst Urinary tract infection Past Surgical History: Past Surgical History: Procedure Laterality Date ADENOIDECTOMY APPENDECTOMY BARIATRIC SURGERY SECTION CHOLECYSTECTOMY CHOLECYSTECTOMY GASTRIC BYPASS HYSTERECTOMY TONSILLECTOMY TUBAL ABDOMINAL LIGATION WISDOM TOOTH EXTRACTION Family History: Family History Problem Relation Age of Onset Cancer Mother Diabetes Mother Other (PMR) Mother Cancer Father Heart attack Father Hyperlipidemia Father Diabetes Father Anxiety disorder Sister Thyroid disease Sister Anxiety disorder Daughter Seizures Daughter Chiari malformation Daughter Heart attack Maternal Grandfather Early Maternal Grandfather Heart attack Paternal Grandmother Stroke Paternal Grandmother Cancer Paternal Grandfather Social History: Social History Socioeconomic History Marital status: Single Tobacco Use Smoking status: Former Current packs/day: 0.00 Average packs/day: 1 pack/day for 24.3 years (24.3 ttl pk-yrs) Types: Cigarettes Start date: 07/27/1999 Quit date: 10/27/2023 Years since quittin.7 Passive exposure: Current Smokeless tobacco: Never Vaping Use Vaping status: Every Day Start date: 10/27/2023 Substances: Flavoring Devices: Disposable Passive vaping exposure: Yes Substance and Sexual Activity Alcohol use: Never Drug use: Never Sexual activity: Yes Partners: Male control/protection: None Medications: Current Outpatient Medications: acetaZOLAMIDE (DIAMOX) 250 MG tablet, Take 2 tablets by mouth Every Morning AND 1 tablet Every Night., Disp: 90 tablet, Rfl: 5 aspirin 81 MG EC tablet, Take 1 tablet by mouth Daily., Disp: , Rfl: diclofenac (VOLTAREN) 75 MG EC tablet, Take 1 tablet by mouth 2 (Two) Times a Day. Take 1 tablet oral route 2 times every day PRN, Disp: 180 tablet, Rfl: 1 escitalopram (Lexapro) 20 MG tablet, Take 1 tablet by mouth Daily., Disp: 90 tablet, Rfl: 1 Fremanezumab-vfrm (Ajovy) 225 MG/1.5ML solution auto-injector, Inject 225 mg under the skin into the appropriate area as directed Every 30 (Thirty) Days., Disp: 1.5 mL, Rfl: 11 lamoTRIgine (LaMICtal) 100 MG tablet, Take 1 tablet by mouth once daily, Disp: 90 tablet, Rfl: 0 metFORMIN ER (GLUCOPHAGE-XR) 500 MG 24 hr tablet, Take 2 tablets by mouth Daily With Breakfast., Disp: 180 tablet, Rfl: 1 rimegepant sulfate ODT (Nurtec) 75 MG disintegrating tablet, Place 1 tablet on the tongue Daily As Needed (For migraine. Max 75 mg per 24 hours.)., Disp: 8 tablet, Rfl: 11 rosuvastatin (Crestor) 10 MG tablet, Take 1 tablet by mouth Daily., Disp: 90 tablet, Rfl: 3 Tirzepatide 2.5 MG/0.5ML solution auto-injector, Inject 2.5 mg under the skin into the appropriate area as directed 1 (One) Time Per Week., Disp: 2 mL, Rfl: 0 vitamin B-12 (cyanocobalamin) 100 MCG tablet, Take 2.5 tablets by mouth Daily., Disp: , Rfl: Allergies: No Known Allergies Objective Objective: BP 122/84 Pulse 98 SpO2 94% Physical Exam Vitals reviewed. Constitutional: Appearance: She is obese. HENT: Head: Normocephalic and atraumatic. Mouth/Throat: Mouth: Mucous membranes are moist. Pharynx: Oropharynx is clear. Pulmonary: Effort: Pulmonary effort is normal. No respiratory distress. Skin: General: Skin is warm and dry. Neurological: Mental Status: She is alert. Neurology Exam: General apperance: NAD. Mental status: Alert, awake and oriented to time place and person. Fund of knowledge: Normal. Language and Speech: No aphasia or dysarthria. Naming , Repetition and Comprehension: Can name objects, repeat a sentence and follow commands. Speech is clear and fluent with good repetition, comprehension, and naming. Cranial Nerves: CN II: Visual friend are full. Intact. Pupils - PERRLA CN III, IV and : Extraocular movements are intact. Normal saccades. CN V: Facial sensation is intact. CN VII: Muscles of facial expression reveal no asymmetry. Intact. CN VIII: Hearing is intact. CN IX and X: Palate elevates symmetrically. Intact CN XI: Shoulder shrug is intact. CN XII: Tongue is midline without evidence of atrophy or fasciculation. Motor: Right UE muscle strength 5/5. Normal tone. Left UE muscle strength 5/5. Normal tone. Right LE muscle strength 5/5. Normal tone. Left LE muscle strength 5/5. Normal tone. Sensory: Normal light touch sensation bilaterally. DTRs: 2+ bilaterally in upper and lower extremities. Coordination: Normal edfnvt-et-owyu, heel to pollard B/L. Gait: Normal. No assistive device Results: Imaging: XR Elbow 3+ View Bilateral Result Date: 12/18/2023 Impression: Normal bilateral elbow radiographs. Electronically Signed: Nita Farah MD :51 PM EDT Workstation ID: [id number] Labs: Lab Results Component Value Date GLUCOSE 70 03/18/2024 BUN 13 03/18/2024 CREATININE 0.82 03/18/2024 NA 144 03/18/2024 K 3.8 03/18/2024 CL 105 03/18/2024 CALCIUM 9.4 03/18/2024 PROTEINTOT 7.1 03/18/2024 ALBUMIN 4.3 03/18/2024 ALT 19 03/18/2024 AST 15 03/18/2024 ALKPHOS 82 03/18/2024 BILITOT 0.3 03/18/2024 GLOB 2.8 03/18/2024 AGRATIO 1.5 03/18/2024 BCR 15.9 03/18/2024 ANIONGAP 14.0 03/18/2024 EGFR 92.9 03/18/2024 Assessment / Plan Assessment/Plan: Diagnoses and all orders for this visit: 1. Intractable chronic migraine without aura and without status migrainosus (Primary) 2. Pseudotumor cerebri - acetaZOLAMIDE (DIAMOX) 250 MG tablet; Take 2 tablets by mouth Every Morning AND 1 tablet Every Night. Dispense: 90 tablet; Refill: 5 Genesis returns for routine follow-up, she has been doing well with Ajovy 225 mg monthly injectableand as needed Nurtec. She reports that migraine frequency has significantly decreased from daily migraines to 2-3 migraines per month. She does get some relief from Nurtec. Will continue Ajovy and Nurtec unchanged today. She also continues to take Diamox 500 mg a.m. and 250 mg p.m., she did recently have ophthalmology evaluation, I have not yet received these consult notes, will request today to further assess for any papilledema, however her improvement in headaches is quite promising. Will plan to see back in clinic in 3 months or sooner for any questions or concerns. Addendum 07/24/2024: Received OV note dated 03/31/2024 from [facility] -Per review of office visit note no blurring of disc margin or vessel painter, no disc edema. Is recommended that she have a follow-up in 6 months.She was also prescribed glasses. Patient Education: Reviewed medications, potential side effects and signs and symptoms to report. Discussed risk versus benefits of treatment plan with patient and/or family- including medications, labs and radiology that may be ordered. Addressed questions and concerns during visit. Patient and/or family verbalized un derstanding and agree with plan. Instructed to call the office with any questions and report to ER with any life-threatening symptoms. Follow Up: Return in about 3 months (around 10/23/2024). I spent 30 minutes face to face with the patient. I personally spent 50 percent of this time counseling and discussing diagnosis, diagnostic testing, evaluation, treatment options, and management . During this visit the following were done: Labs Reviewed [x] Labs Ordered [] Radiology Reports Reviewed [] Radiology Ordered [] PCP Records Reviewed [] Referring Provider Records Reviewed [] ER Records Reviewed [] Hospital Records Reviewed [] History Obtained From Family [] Radiology Images Reviewed [] Other Reviewed [] Records Requested [] Ernestina Neal APRN [facility] NEUROLOGY [address] [facility] [phone] documented in this encounter Plan of Treatment Upcoming Encounters Date Type Department Care Team (Late st Contact Info) Description 10/01/2024 11:00 AM EDT Office Visit [facility] SLEEP MEDICINE [address] [facility] [address] [place] [phone] Lorenzo Jarvis, COMMUNICATIONS WRITER [address] [place] [address] 10/29/2024 2:30 PM EDT Office Visit [facility] PULMONARY & CRITICAL CARE MEDICINE [address] [place] [phone] Jasson Ramirez DO [address] [place] [address] 11/02/2024 3:00 PM EDT Office Visit [facility] NEUROLOGY [address] [facility] [address] [place] [address] Ernestina Neal APRN [address] [place] [address] [address] [place], [place] [id number] 02/05/2025 11:15 AM EST Office Visit [facility] RHEUMATOLOGY [address] [facility] [address] [place] [phone] Luis Banda APRN [address] [facility] [address] [place] [address] documented as of this encounter Goals Goal Patient Goal Type Associated Problems Recent Progress Patient-Stated? Author Specialty Pharmacy General Goal General On track( 025 8:42 AM EDT) Kandy L[facility]pez [facility] Note: On Average, Reduce: Frequency of [...] 3-4 MMD. documented as of this encounter Visit Diagnoses Diagnosis Intractable chronic migraine without aura and without status migrainosus- Primary Pseudotumor cerebri Benign intracranial hypertension documented in this encounter Additional Health Concerns Assessment Noted Time PHQ-2 Depression Total Score: 6 04/17/19 24 12:15 PM EST documented as of this encounter Care Teams Vendor Specialist Relationship Specialty Start Date End Date Karen Pineda DO [address] [place] [address] PCP - General Family Medicine 10/08/16 documented as of this encounter
--- OUTSIDE RECORDS SUMMARY | 2024-08-07 11:15 | XMS_ITS | Encounter Summary ---
Author Organization [facility] Address [address] [id number] Care Team Providers Care Maternity Floor Supervisor Name Role Phone Karen Pineda DO Primary Care Provider [phone] Reason for Referral * Consultation (Routine) - Authorized - Pending Scheduling Specialty Diagnoses / Procedures Referred By Contac t Referred To Contact Dermatology Diagnoses Facial erythema Procedures ND OFFICE/OUTPATIENT NEW MODERATE MDM 45 MINUTES Jose Alejandro Jean DO [address] [place] [address] Phone: tel: fax: [facility] [address] [place] [address] Phone: tel: fax: Referral ID Status Reason Start Date Expiration Date Visits Requested Visits Authorized [id number] Authorized - Pending Scheduling Specialty Services Required 08/07/2024 11/06/2025 1 1 Reason for Visit * Reason Comments Fibromyalgia Follow up Scleroderma Follow up Encounter Details Date Type Department Care Team (Late st Contact Info) Description 08/07/2024 11:15 AM EDT Office Visit [facility] RHEUMATOLOGY [address] [phone] Jose Alejandro Jean DO [address] [address] Limited systemic sclerosis (Primary Dx); Fibromyalgia; Facial [...] be sent through Care Everywhere. * Scleroderma (French) documented in this encounter Progress Notes * Jose Alejandro Jean DO - 08/07/2024 11:15 AM EDTAssociated Problem(s): Centromere antibody positive Medication/treatment/interventions tried include: Tylenol, prednisone, escitalopram, ibuprofen, Celebrex, diclofenac, she has seen endocrinology, she has seen cardiology, She has seen neurology, she has seen sleep medicine specialists, She has seen pulmonology specialists 11/28/23: CHANCE 1:160 homogenous, DS DNA Normal, REFINERY PROCESS ENGINEER normal, Amin normal, SCL 70 normal, SSA and SSB normal, chromatin normal, [place] 1 normal, Centromere normal, Vitamin D 31.6, CMP was fine, CRP normal, Sed rate normal, RF negative 12/17/2023: CHANCE 1: 640 centromere pattern, centromere antibody positive, TPO antibody positive, normal complements, SCL 70 negative, Amin negative, REFINERY PROCESS ENGINEER negative, dsDNA negative, SSA/SSB negative, anticardiolipin antibodies negative, CCP negative, RF negative, 14.3.3 negative, ANCA panel negative, CK and aldolase normal, CRP and ESR normal, HLA-B27 negative, thyroglobulin antibody negative, thyroid function normal, hepatitis panel negative, QTB negative Patient reports she sees parking ramp attendant, Dr. Anderson. We recommend she see cardiology [...] 11/28/23: CHANCE 1:160 homogenous, DS DNA Normal, REFINERY PROCESS ENGINEER normal, Amin normal, SCL 70 normal, SSA and SSB normal, chromatin normal, Alexa 1 normal, Centromere normal, Vitamin D 31.6, CMP was fine, CRP normal, Sed rate normal, RF negative 12/17/2023: CHANCE 1: 640 centromere pattern, centromere antibody positive, TPO antibody positive, normal complements, SCL 70 negative, Amin negative, REFINERY PROCESS ENGINEER negative, dsDNA negative, SSA/SSB negative, anticardiolipin antibodies negative, CCP negative, RF negative, 14.3.3 negative, ANCA panel negative, CK and aldolase normal, CRP and ESR normal, HLA-B27 negative, thyroglobulin antibody negative, thyroid function normal, hepatitis panel negative, QTB negative Patient reports she sees parking ramp attendant, Dr. Anderson. We recommend she see cardiology [...] months (around 02/06/2025). Jose Alejandro Jean DO [facility] [place] documented in this encounter Plan of Treatment Upcoming Encounters Date Type Department Care Team (Late st Contact Info) Description 10/01/2024 11:00 AM EDT Office Visit [facility] SLEEP MEDICINE [address] [facility] [address] [place] [phone] Lorenzo Jarvis, HEEL LAYER [address] [place] [address] 10/29/2024 2:30 PM EDT Office Visit [facility] PULMONARY & CRITICAL CARE MEDICINE [address] [facility] [place] [phone] Jasson Ramirez DO [address] [place] [address] 11/02/2024 3:00 PM EDT Office Visit [facility] NEUROLOGY [address] [facility] [address] [place] [address] Ernestina Neal, HEEL LAYER 2101 [facility] [address] [place] [address] 02/05/2025 11:15 AM EST Office Visit [facility] RHE[facility] [address] [phone] Luis Banda, HEEL LAYER 330 [facility] [address] [place] [address] Scheduled Referrals Name Type Priority Associated Diagnoses Order Schedule Ambulatory Referral to Dermatology Outpatient Referral Routine Facial erythema Ordered: 08/07/2024 documented as of this encounter Goals Goal Patient Goal Type Associated Problems Recent Progress Patient-Stated? Author Specialty Pharmacy General Goal General On track( 025 8:42 AM EDT) No Kandy Sahu, [facility] Note: On Average, Reduce: Frequency [...] - 08/08/2024 1:06 AM EDT Performed at: [address] [place] [id number] Projects Manager: Freeman Horn MD, Phone: [phone] Patient Fasting: N us Jose Alejandro Jean DO LAB BLOOD ORDERABLES F inal Result Performing Organization Address City/[facility]/ZIP Co de Phone Number [facility] [address] [place] [address], [place] [phone] [facility] [address] [place] [address], [place] [phone] * Sedimentation Rate (08/07/2024 12:16 PM EDT) Sed Rate 20 0 - 20 mm/hr [facility] Blood 08/07/2024 12:1 6 PM EDT 08/07/2024 Narrative [facility] - 08/08/2024 1:06 AM EDT Performed at: [address] [place] [address] [id number] Projects Manager: Freeman Horn MD, Phone: [phone] Patient Fasting: N [facility] BLOOD ORDERABLES F inal Result Performing Organization Address [facility]/ZIP Co de Phone Number [facility] [address] [place] [address], [place] [phone] [facility] [address] [place] [address], [place] [phone] * C-reactive Protein (08/07/2024 12:16 PM EDT) C-Reactive Protein <0.30 0.00 - 0.50 mg/dL [facility] Blood 08/07/2024 12:1 6 PM EDT 08/07/2024 Narrative [facility] - 08/08/2024 1:06 AM EDT Performed at: [address] [place] [address] [id number] Projects Manager: Freeman Horn MD, Phone: [phone] Patient Fasting: N [facility] LAB BLOOD ORDERABLES F inal Result Performing Organization Address City/[facility]/ZIP Co de Phone Number [facility] [address] [place] [address], [facility] [address] [place] [address], * Comprehensive Metabolic Panel (08/07/2024 12:16 PM [...] - 08/08/2024 1:06 AM EDT Performed at: [address] [place] [id number] Projects Manager: Freeman Horn MD, Phone: [phone] Patient Fasting: N [facility] LAB BLOOD ORDERABLES F inal Result Performing Organization Address [facility] Co de Phone Number [facility] [address] [place] [address], [place] [phone] [facility] [address] [place] [address], [place] [phone] * CK (08/07/2024 12:16 PM EDT) [facility] Creatine Kinase 49 20 - 180 U/L [facility] Blood 08/07/2024 12:1 6 PM EDT 08/07/2024 Narrative [facility] - 08/08/2024 1:06 AM EDT Performed at: [address] [place] [address] [id number] Projects Manager: Freeman Horn MD, Phone: [phone] Patient Fasting: N [facility] LAB BLOOD ORDERABLES F inal Result Performing Organization Address [facility] Co de Phone Number [facility] [address] [place] [address], [place] [phone] [facility] [address] [place] [address], [place] [phone] documented in this encounter Visit Diagnoses Diagnosis Limited systemic sclerosis- Primary Systemic sclerosis Fibromyalgia Unspecified myalgia and myositis Facial erythema documented in this encounter Additional Health Concerns Assessment Noted Time PHQ-2 Depression Total Score: 6 04/17/19 24 12:15 PM EST documented as of this encounter Care Teams Maternity Floor Supervisor Relationship Specialty Start Date End Date Karen [place] [address] PCP - General Family Medicine 10/08/16 documented as of this encounter
--- OUTSIDE RECORDS SUMMARY | 2024-09-17 14:00 | XMS_ITS | Encounter Summary ---
Author Organization [facility] Address [address] [place] [address] Care Team Providers Care Oil And Gas Field Technician Name Role Phone Karen Pineda DO Primary Care Provider [phone] Reason for Referral * Behavorial Health/Psych (Routine) - Authorized Specialty Diagnoses / Procedures Referred By Chuy soriano Referred To Contact Behavioral Health Diagnoses Anxiety Moderate episode of recurrent major depressive disorder Procedures [place] OFFICE/OUTPATIENT NEW MODERATE MDM 45 MINUTES Karen Pineda DO [address] [place] [address] Phone: tel: fax: Amador Gonzalez, KARTHIK [address] [place] [address] Phone: tel: fax: Referral ID Status Reason Start Date Expiration Date Visits Requested Visits Authorized [id number] Authorized Specialty Services Required 09/17/2024 12/17/2025 1 1 * Diagnostic Imaging (Routine) - Authorized Specialty Diagnoses / Procedures Referred By Chuy soriano Referred To Contact Radiology Diagnoses Encounter for screening mammogram for malignant neoplasm of breast Procedures Mammo Screening Digital Tomosynthesis Bilateral With CAD Karen Pineda DO [address] [place] [address] Phone: tel: fax: [facility] [address] [place] [address] Phone: tel: Referral ID Status Reason Start Date Expiration Date V isits Requested Visits Authorized [id number] Authorized 09/17/2024 12/17/2025 1 1 Reason for Visit * Reason Comments Annual Exam Pt is not fasting. Encounter Details Date Type Department Care Team (Late st Contact Info) Description 09/17/2024 2:00 PM EDT Office Visit [facility] [address] [...] * Preventive Care 40-64 Years Old Female (Bangladeshi) documented in this encounter Progress Notes * Karen Pineda, - 09/17/2024 2:00 PM EDT Chief Complaint Annual Exam (Pt is not fasting. ) Subjective Genesis Burrell presents to [facility] History of Present [...] the care of Dr. Anderson's office in [place] for her heart condition, which includes an [...] Vitamin B12 - Ambulatory Referral to [facility] - escitalopram (Lexapro) 20 MG tablet; Take 1 tablet by mouth Daily. Dispense: 90 tablet; Refill: 1 - Folate - TSH+Free T4 4. Moderate episode of recurrent major depressive disorder - CBC (No Diff) - Comprehensive Metabolic Panel - Lipid Panel With / Chol / HDL Ratio - Vitamin D,25-Hydroxy - Vitamin B12 - Ambulatory Referral to [facility] - escitalopram (Lexapro) 20 MG tablet; Take [...] Continue current medications. - Follow up with cash surrender calculator as needed. 3. Thyroid Antibody Positive. - [...] (around 03/20/2025) for Recheck. Patient or patient authorization representative verbalized consent for the use of [...] [facility] [address] [facility] [address] [place] [phone] Lorenzo Jarvis, STENO TYPIST [address] [place] [address] 10/29/2024 2:30 PM EDT Office Visit [facility] PULMONARY & CRITICAL CARE MEDICINE [address] [facility] [place] [phone] Jasson Ramirez DO [address] [place] [address] 11/02/2024 3:00 PM EDT Office Visit [facility] NEUROLOGY [address] [facility] [address] [place] [address] Ernestina Neal, STENO TYPIST [address] [facility] [address] [place], [place] [address] 02/05/2025 11:15 AM EST Office Visit [facility] RHEUMATOLOGY [address] [phone] Luis Banda, STENO TYPIST 330 [facility] [address] [place] [address] Scheduled Orders Name Type Priority Associated Diagnoses [...] 025 8:42 AM EDT) No Kandy Sahu, [facility] Note: On Average, Reduce: Frequency [...] Hemoglobin A1C 5.9(A) 4.5 - 5.7 % [facility] Lot Number [id number] [facility] Expiration Date 05/25/2026 [facility] Blood 09/17/2024 2:46 PM EDT Karen Pineda DO POINT OF CARE TEST ORDERABL ES Final Result [facility]
[address] [place] [address], documented in this encounter Visit Diagnoses Diagnosis Annual physical exam- Primary Routine general medical examination at a [facility] care facility Prediabetes Other abnormal glucose [...] documented as of this encounter Care Teams Oil And Gas Field Technician Relationship Specialty Start Date End Date Karen Pineda DO [address] [place] [address] PCP - General Family Medicine 10/08/16 documented as of this encounter
--- OUTSIDE RECORDS SUMMARY | 2024-09-18 08:35 | XMS_ITS | Clinical Summary ---
Author Organization [facility] Address [address] [id number] Care Team Providers Care Stereo Map Plotter Operator Name Role Phone Gilson Heath MD Primary Care Provider [phone] Social History Tobacco Use Types Packs/Day Years Used Date Smoking Tobacco: Never Assessed Comments Unknown Sex and Gender Information Value Date Recorded Sex Assigned at Not on file Legal Sex Female 4:36 PM EST Gender Identity Not on file Sexual Orientation Not on file Plan of Treatment Health Maintenance Due Date Last Done Comments Breast Cancer Screening 1983 Hepatitis B (HepB) Vaccine ( 1 of 3 - 19+ 3-dose series) 2002 Tdap/Td Vaccine >11 yo (1 - Tdap) 2002 Cervical Cancer Screening 2004 HPV Vaccine (1 - 3-dose SCDM series) 2010 Colon Cancer Risk Assessment 2023 Annual SDOH Screening 02/26/2024 Influenza Vaccine (#1) 2024 Haemophilus Influenzae Type B (Hib) Vaccine Aged Out No longer eligible b ased on patient's age to complete this topic Hepatitis A (HepA) Vaccine Aged Out N o longer eligible based on patient's age to complete this topic Meningococcal ACWY Aged Out No longer eligible based on patient's age to complete this topic Pneumococcal Vaccines 6-49 yo Risk Aged Out No longer eligible based on patient's age to complete this topic Polio (IPV) Aged Out No longer eligi ble based on patient's age to complete this topic Rotavirus (RV) Vaccine Aged Out No lo nger eligible based on patient's age to complete this topic Care Teams Stereo Map Plotter Operator Relationship Specialty Start Date End Date Gilson Heath MD [address] [place] [address] PCP - General 12/26/06
--- OUTSIDE RECORDS SUMMARY | 2024-09-18 08:35 | XMS_ITS | Clinical Summary ---
Author Organization [facility] Address [address] [place] [address] Care Team Providers Care Talking Books Library Clerk Name Role Phone Karen Pineda Primary Care Provider [phone] Allergies No known active allergies Medications vitamin B-12 (cyanocobalamin) 100 MCG tablet Take 2.5 tablets by mouth Daily. 08/10/19 22 Active aspirin 81 MG EC tablet Take 1 tablet by mouth Daily. 08/20/19 24 Active Fremanezumab-vfrm (Ajovy) 225 MG/1.5ML solution auto-injector Inject 225 mg under the skin into the appropriate area as directed Every 30 (Thirty) Days. 1.5 mL 10:13 AM EDT 03/10/19 25 Active rimegepant sulfate ODT (Nurtec) [address] 1 tablet on the tongue Daily As Needed (For migraine. Max 75 mg per 24 hours.). 8 tablet 10:13 AM EDT 03/10/19 25 Active diclofenac (VOLTAREN) 75 MG EC tablet Take 1 tablet by mouth 2 (Two) Times a Day. Take 1 tablet oral route 2 times every day PRN 180 tablet 03/18/19 25 Active acetaZOLAMIDE (DIAMOX) 250 MG tabletIndications: Pseudotumor cerebri Take 2 tablets by mouth Every Morning AND 1 tablet Every Night. 90 tablet 5 07/24/19 25 Active escitalopram (Lexapro) 20 MG tabletIndications: Anxiety,Moderate episode of recurrent major depressive disorder Take 1 tablet by mouth Daily. 90 tablet 1 09/18/19 25 Active rosuvastatin (Crestor) 10 MG tabletIndications: High cholesterol Take 1 tablet by mouth Daily. 90 tablet 09/18/19 25 Active lamoTRIgine (LaMICtal) 100 MG tabletIndications: Mood disorder Take 1 tablet by mouth Daily. 90 tablet 1 09/18/19 25 Active metFORMIN ER (GLUCOPHAGE-XR) 500 MG 24 hr tabletIndications: Prediabetes Take 2 tablets by mouth Daily With Breakfast. 180 tablet 1 09/18/19 25 Active rosuvastatin (Crestor) 10 MG tabletIndications: High cholesterol Take 1 tablet by mouth Daily. 90 tablet 3 05/30/19 24 025 Discontin ued(Reord er) escitalopram (Lexapro) 20 MG tabletIndications: Anxiety,Moderate episode of recurrent major depressive disorder Take 1 tablet by mouth Daily. 90 tablet 1 11/28/19 24 025 Discontin ued(Reord er) lamoTRIgine (LaMICtal) 100 MG tabletIndications: Mood disorder Take 1 tablet by mouth once daily 90 tablet 02/18/20 24 025 Discontin ued(Reord er) Tirzepatide 2.5 MG/0.5ML solution auto-injectorIndic ations:Prediabetes Inject 2.5 mg under the skin into the appropriate area as directed 1 (One) Time Per Week. 2 mL 03/20/19 25 025 Discontin ued(*Ther apy completed ) metFORMIN ER (GLUCOPHAGE-XR) 500 MG 24 hr tabletIndications: Prediabetes Take 2 tablets by mouth Daily With Breakfast. 180 tablet 1 03/30/19 25 025 Discontin ued(Reord er) Active Problems Problem Noted Date Diagnosed Date Fibromyalgia 08/07/2024 Assessment & Plan (08/07/2024 12:06 PM EDT): 1. H & P consistent with this [...] Comprehensive Metabolic Panel C-reactive Protein Sedimentation Rate KELLY (obstructive sleep apnea) 07/20/2024 Thyroid antibody positive 03/18/2024 Assessment & Plan (03/18/2024 9:41 AM EST): We have referred her to endocrinology for further evaluation. She has been seen and was told she does not need to follow up with them unless her thyroid function becomes abnormal. 11/2023 she had normal thyroid function Centromere antibody positive 03/13/2024 Assessment & Plan (08/07/2024 12:06 PM EDT): Medication/treatment/interventions tried include: Tylenol, prednisone, escitalopram, ibuprofen, Celebrex, diclofenac, she has seen endocrinology, she has seen cardiology, She has seen neurology, she has seen sleep medicine specialists, She has seen pulmonology specialists 11/28/23: CHANCE 1:160 homogenous, DS DNA Normal, TUBE DRAWER normal, Amin normal, SCL 70 normal, SSA and SSB normal, chromatin normal, Alexa 1 normal, Centromere normal, Vitamin D 31.6, CMP was fine, CRP normal, Sed rate normal, RF negative 12/17/2023: CHANCE 1: 640 centromere pattern, centromere antibody positive, TPO antibody positive, normal complements, SCL 70 negative, Amin negative, TUBE DRAWER negative, dsDNA negative, SSA/SSB negative, anticardiolipin antibodies negative, CCP negative, RF negative, 14.3.3 negative, ANCA panel negative, CK and aldolase normal, CRP and ESR normal, HLA-B27 negative, thyroglobulin antibody negative, thyroid function normal, hepatitis panel negative, QTB negative Patient reports she sees deicer repairer pneumatic, Dr. Anderson. We recommend she see cardiology [...] Comprehensive Metabolic Panel C-reactive Protein Sedimentation Rate Assessment & Plan (03/18/2024 9:41 AM EST): Patient reports she sees deicer repairer pneumatic, Dr. Anderson. We recommend she see cardiology annually for screening. We will refer her to pulmonology per her request. She previously saw [facility]. Gonzales at [facility]. We would recommend annual screenings with pulmonology for screening. She notes dysphagia and choking at times. We will refer to GI for further eval. She does not have sclerodactyly or calcinosis. She does have telangiectasias on her face. She endorses Raynaud's. We will continue to monitor her clinically. No history of renal crisis. Arthralgia 03/13/2024 Assessment & Plan (03/18/2024 9:41 AM EST): Medication/treatment/interventions tried include: Tylenol, prednisone, escitalopram, ibuprofen, Celebrex, diclofenac Studies reviewed included: 11/28/23: CHANCE 1:160 homogenous, DS DNA Normal, TUBE DRAWER normal, Amin normal, SCL 70 normal, SSA and SSB normal, chromatin normal, Alexa 1 normal, Centromere normal, Vitamin D 31.6, CMP was fine, CRP normal, Sed rate normal, RF negative 12/17/2023: CHANCE 1: 640 centromere pattern, centromere antibody positive, TPO antibody positive, normal complements, SCL 70 negative, Amin negative, TUBE DRAWER negative, dsDNA negative, SSA/SSB negative, anticardiolipin antibodies negative, CCP negative, RF negative, 14.3.3 negative, ANCA panel negative, CK and aldolase normal, CRP and ESR normal, HLA-B27 negative, thyroglobulin antibody negative, thyroid function normal, hepatitis panel negative, QTB negative 12/17/2023 bilateral elbow films normal Stop Celebrex and trial diclofenac 75 mg PO BID. Fibromyalgia would be on our differential We have referred her for occupational/physical therapy Labs today RTC 4 months Encounter for long-term (current) use of NSAIDs 03/13/2024 Assessment & Plan (03/18/2024 9:41 AM EST): *Diclofenac 75 mg PO BID PRN Risks of NSAIDS discussed including GI upset, GI bleeding, renal and hepatic risks and the risks of cardiovascular disease and stroke. Warned not to take with other NSAIDs including mqdy-gtt-iynrfst NSAIDs such as ibuprofen, naproxen, Aleve, Motrin, Advil. Intractable chronic migraine without aura 2024 Abnormal nuclear cardiac imaging test 02/27/2024 Benign hypertension due to increased intracrania l pressure 02/27/2024 Overview (02/27/2024): 07/17/2023: Consider repeating lumbar puncture with opening & closing pressure in the event of abnormal finding on dilated eye exam, (still pending). 08/29/2022: Stable 09/27/21, LP: Opening pressure 21 cm of water, closing pressure 14 cm of water. 05/12/2022: Dilated eye exam. Mild elevation of optic disc, OS greater than OD. Overall stable. Cellulitis 02/27/2024 Chest tightness 02/27/2024 Dizziness 02/27/2024 Dyspnea 02/27/2024 Enteritis 02/27/2024 Episodic migraine 02/27/2024 Overview (02/27/2024): Resume Nurtec ODT 75 mg po qod for prophylaxis H/O gastric sleeve 02/27/2024 History of bariatric surgery 02/27/2024 Overview (02/27/2024): Bariatric surgery in [facility] longer than 16 years ago. 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 Occipital headache 02/27/2024 Other fatigue 01/15/2024 Overview (01/15/2024): Calcium within normal limits, tPA within normal limits, thyroglobulin antibody normal, TSH and T4 normal, no signs of anemia, B12 level is normal, vitamin D level improved after treatment by PCP Assessment & Plan (01/15/2024 10:08 AM EST): Thyroid peroxidase antibody was within normal limits and is not elevated, TSH, T4, and thyroglobulin antibody are all normal Check cortisol today to rule out adrenal insufficiency as cause of fatigue Continue follow-up with rheumatology and PCP for other causes of fatigue Patient advised regarding possibility of future autoimmune thyroid disease due to scleroderma diagnosis Patient advised yearly TSH will suffice to screen for thyroid disease in the future Patient's questions answered, no need for follow-up unless cortisol is abnormal HLD (hyperlipidemia) 08/07/2021 HTN (hypertension) 08/07/2021 Obesity, morbid, BMI 50 or higher 08/07/2021 Resolved Problems Problem Noted Date Diagnosed Date Resolved Date Acute bronchitis 02/27/2024 05/12/2024 Encounters Date Type Department Care Team Description 09/17/2024 2:00 PM EDT Office Visit [facility] FAM[facility] [address] [facility] [place] [address] Karen Pineda DO Annual physical exam (Primary Dx); Prediabetes; Anxiety; Moderate episode of recurrent major depressive disorder; KELLY on CPAP; Cyanocobalamin deficiency; Vitamin D deficiency; High cholesterol; Mood disorder; Forgetfulness; Encounter for screening mammogram for malignant neoplasm of breast 09/17/2024 Travel 08/10/2024 Results Follow-Up [facility] RHEUMATOLOGY [address] [address] Jose Alejandro Jean DO 08/07/2024 11:15 AM EDT Office Visit [facility] RHEUMATOLOGY [address] [address] Jose Alejandro Jean DO Limited systemic sclerosis (Primary Dx); Fibromyalgia; Facial erythema 08/07/2024 Travel 07/23/2024 2:00 PM EDT Office Visit [facility] [address] [facility] [address] [place] [address] Ernestina Neal APRN Intractable chronic migraine without aura and without status migrainosus (Primary Dx); Pseudotumor cerebri 07/23/2024 Travel 07/21/2024 Telephone [facility] SLEEP MEDICINE [address] [facility] [address] [place] [address] Tyson Liu MD HST results 07/13/2024 1:28 PM EDT Hospital Encounter SLEEP LAB [address] [facility] [address] [place] [address] Tyson Liu MD Hypersomnia; Obstructive sleep apnea, adult; Snoring 07/13/2024 Travel from Last 3 Months Immunizations Immunization Administration Dates Next Due MMR 09/30/1995 Family History Medical History Relation Name Comments Anxiety disorder Daughter Stacy Chiari malformation Daughter Stacy Seizures Daughter Stacy Cancer Father rashawn Diabetes Father rashawn Heart attack Father rashawn Hyperlipidemia Father rashawn Hypertension Father rashawn Early Maternal Grandfather happy Heart attack Maternal Grandfather happy Cancer Mother bobo Diabetes Mother bobo Hypertension Mother bobo PMR Mother bobo Cancer Paternal Grandfather david Heart attack Paternal Grandmother Rosalee Stroke Paternal Grandmother Rosalee Anxiety disorder Sister Edith Thyroid disease Sister Edith Relation Name Status Comments Daughter Stacy Father rashawn Maternal Grandfather happy Mother bobo Paternal Grandfather david Paternal Grandmother Rosalee Sister Edith Social History Tobacco Use Types Packs/Day Years [...] on file Sexual Orientation Not on file Last Filed Vital Signs Vital Sign Reading [...] Mass Index 60.23 09/17/2024 1:52 PM EDT Plan of Treatment Upcoming Encounters Date Type Department Care Team (Late st Contact Info) Description 10/01/2024 11:00 AM EDT Office Visit [facility] SLEEP MEDICINE [address] [facility] [address] [place] [address] Lorenzo Jarvis, CABLE ARMORER [address] [place] [address] 10/29/2024 2:30 PM EDT Office Visit [facility] PULMONARY & CRITICAL CARE MEDICINE [address] [facility] [address] Jasson Ramirez, DO [address] [place] [address] 11/02/2024 3:00 PM EDT Office Visit [facility] NEUROLOG[facility] [address] [facility] [address] [place] [address] Ernestina Neal, CABLE ARMORER [address] [facility] [address] [place] [address] 02/05/2025 11:15 AM EST Office Visit [facility] RHEUMATOLOG[facility] 330 [facility] [address] [place] [phone] Luis Banda, CABLE ARMORER 330 [facility] [address] [place] [address] Health Maintenance Due Date Last Done Comments Annual Gynecologic Pelvic and Breast Exam 1983 TDAP/TD VACCINES (2 - Td or Tdap) 09/25/2020 09/25/2010 (Patient-Reported (Performed Externally)) MAMMOGRAM 2023 LIPID PANEL 05/28/2024 05/29/2023, 07/26, 08/08/2021, Additional history exists COVID-19 Vaccine (2023- season) 2024 Postponed from 10/27/2023 (Product Unavailable) INFLUENZA VACCINE 11/25/2024 ANNUAL PHYSICAL 09/17/2025 09/17/2024 HEPATITIS C SCREENING Completed 12/17/2023, 020 Pneumococcal Vaccine 0-49 Aged Out No longer eligible based on patient's age to complete this topic Goals Goal Patient Goal Type Associated Problems Recent Progress Patient-Stated? Author Specialty Pharmacy General Goal General On track( 025 8:42 AM EDT) No Kandy Sahu, [facility] Note: On Average, Reduce: Frequency of migraines to 5 per month. Symptom severity by 50% within 1 hour of taking acute therapy. Duration of migraines to 2 hours. Baseline Values/Notes on Enrollment Frequency: 10 MMD Symptom Severity: Moderate to severe pain, photophobia, phonophobia Duration: Several hours Date of Reassessment Notes on Progress Toward Above Goals 03/10/24 Initiate Danicay and Marcellotec PRN 08/31/24 Patient reports 3-4 MMD. Procedures Procedure Name Priority Date/Time Associated Diagnosis Comments POCT GLYCOSYLATED HEMOGLOBIN (HGB A1C) Routine 09/17/2024 2:46 PM EDT Prediabetes SCANNED - LABS 09/08/2024 SCANNED - IMAGING 08/22/2024 CBC AND DIFFERENTIAL Routine 08/07/2024 12:16 PM EDT SEDIMENTATION RATE Routine 08/07/2024 12 :16 PM EDT Limited systemic sclerosis Fibromyalgia Facial erythema C-REACTIVE PROTEIN Routine 08/07/2024 12 :16 PM EDT Limited systemic sclerosis Fibromyalgia Facial erythema COMPREHENSIVE METABOLIC PANEL Routine 08/07/2024 12:16 PM EDT Limited systemic sclerosis Fibromyalgia Facial erythema CK Routine 08/07/2024 12:16 PM EDT Limited systemic sclerosis Fibromyalgia Facial erythema HST Routine 07/14/2024 7:15 AM EDT Hypersomnia Obstructive sleep apnea, adult Snoring SCANNED EKG 06/19/2024 SCANNED - LABS 06/19/2024 SCANNED - LABS 06/19/2024 SCANNED - LABS 06/19/2024 SCANNED - LABS 06/19/2024 HEPATITIS PANEL, ACUTE Routine 10:30 AM EDT Arthralgia, unspecified joint Fatigue, unspecified type CHANCE positive LIPID PANEL W/ CHOL/HDL RATIO Routine 05/29/2023 8:52 AM EDT High cholesterol Cyanocobalamin deficiency BMI 50.0-59.9, adult Morbid obesity from Last 3 Months or Most Recently Relevant to Health Maintenance Results * (ABNORMAL) POC Glycosylated Hemoglobin (Hb A1C) (09/17/2024 2:46 PM EDT) Hemoglobin A1C 5.9(A) 4.5 - 5.7 % [facility] Lot Number [id number] [facility] Expiration Date 05/25/2026 [facility] Blood 09/17/2024 2:46 PM EDT us Karen Pineda DO POINT OF CARE TEST ORDERABL ES Final Result [facility]
[address] [place] [address], [place] [phone] * LABS SCANNED (09/08/2024) Only the most recent of5 resultswithin the time period is included. us Karen Pineda DO LAB BLOOD ORDERABLES Final Result * IMAGING SCANNED (08/22/2024) Anatomical Region Laterality Modality Radiographic Karlee ging us Karen Pineda DO IMG DIAGNOSTIC IMAGING ORDE RABLES Final Result * Sedimentation Rate (08/07/2024 12:16 PM EDT) Sed Rate 20 0 - 20 mm/hr [facility] Blood 08/07/2024 12:1 6 PM EDT 08/07/2024 Narrative [facility] (AMBULATORY) - 08/08/2024 1:06 AM EDT Performed at: [address] [place] [address] [place], [place] [id number] Bone Crusher: Freeman Horn MD, Phone: [phone] Patient Fasting: N Jose Alejandro Castro Jean DO LAB BLOOD ORDERABLES F inal Result [facility] (AMBULATORY) [address] [place] [address], [facility] [address] [place] [address], * (ABNORMAL) CBC & Differential (08/07/2024 12:16 [...] - 08/08/2024 1:06 AM EDT Performed at: [address] [place] [id number] Bone Crusher: Freeman Horn MD, Phone: [phone] Patient Fasting: N [employer] LAB BLOOD ORDERABLES F inal Result [facility] (AMBULATORY) [address] [place] [place] [id number], [place] [phone] [facility] [address] [place] [address], [place] [phone] * C-reactive Protein (08/07/2024 12:16 PM EDT) [facility] C-Reactive Protein <0.30 0.00 - 0.50 mg/dL [facility] Blood 08/07/2024 12:1 6 PM EDT 08/07/2024 Narrative [facility] (AMBULATORY) - 08/08/2024 1:06 AM EDT Performed at: [address] [place] [id number] Bone Crusher: Freeman Horn MD, Phone: [phone] Patient Fasting: N [employer] LAB BLOOD ORDERABLES F inal Result Performing Organization Address City/[facility]/ZIP Co de Phone Number [facility] [employer] [facility] (AMBULATORY) [address] [place] [address], [facility] [address] [place] [address], * CK (08/07/2024 12:16 PM EDT) [facility] Creatine Kinase 49 20 - 180 U/L [facility] Blood 08/07/2024 12:1 6 PM EDT 08/07/2024 Narrative [facility] [employer] (AMBULATORY) - 08/08/2024 1:06 AM EDT Performed at: [address] [place] [id number] Bone Crusher: Freeman Horn MD, Phone: [phone] Patient Fasting: N [facility] LAB BLOOD ORDERABLES F inal Result Performing Organization Address City/[facility]/ZIP Co de Phone Number [facility] [employer] (AMBULATORY) [address] [place] [address], [facility] [address] [place] [address], * Comprehensive Metabolic Panel (08/07/2024 12:16 PM EDT) [facility] Glucose 87 65 - 99 mg/dL [facility] [...] - 08/08/2024 1:06 AM EDT Performed at: [address] [place] [id number] Bone Crusher: Freeman Horn MD, Phone: [phone] Patient Fasting: N Jose Alejandro Jean DO LAB BLOOD ORDERABLES F inal Result [facility] (AMBULATORY) [address] [place] [address], [facility] [address] [place] [address], * HST (07/14/2024 7:15 AM EDT) Narrative [...] KELLY and she had a PSG at [facility] in December 2022 which revealed a normal [...] had a home sleep test with an [employer] One device that measured airflow at the [...] by: Tyson Liu MD 07/20/24 20:58 EDT Tyson Liu MD SLEEP CENTER ORDERABLE S Final Result Performing Organization Address City/[facility]/ZIP Co de Phone Number SLEEP MEDICINE * ECG Scan (06/19/2024) Karen Coleyser DO ECG ORDERABLES Final Resul t * Hepatitis Panel, Acute (12/17/2023 10:30 AM EDT) Pathologist [facility] Hepatitis B Surface Ag Non-Reacti ve Non-Reacti ve 12/18/2023 12:53 AM EDT [facility] Hep A IgM Non-Reacti ve Non-Reacti ve 12/18/2023 12:53 AM EDT [facility] Hep B C IgM Non-Reacti ve Non-Reacti ve 12/18/2023 12:53 AM EDT [facility] Hepatitis C Ab Non-Reacti ve Non-Reacti ve 12/18/2023 12:53 AM EDT [facility] Blood Venipuncture / Unknown 12/17/2023 10:30 AM EDT 12/17/2023 10:30 AM EDT Narrative [facility] - 12/18/2023 12:53 AM EDT Results may be falsely decreased if patient taking Biotin. Jose Alejandro Jean DO LAB BLOOD ORDERABLES F inal Result [facility]
[address] [place] [address], [place] [phone] * (ABNORMAL) Lipid Panel With / Chol / HDL Ratio (05/29/2023 8:52 AM EDT) Total Cholesterol 159 0 - 200 mg/dL [facility] Comment: Cholesterol Reference Ranges (U.S. Department of Health and Human Services ATP III Classifications) Desirable <200 mg/dL Borderline High 200-239 mg/dL High Risk >240 mg/dL Triglyceride Reference Ranges (U.S. Department of Health and Human Services ATP III Classifications) Normal <150 mg/dL Borderline High 150-199 mg/dL High 200-499 mg/dL Very High >500 mg/dL HDL Reference Ranges (U.S. Department of Health and Human Services ATP III Classifications) Low <40 mg/dl (major risk factor for CHD) High >60 mg/dl ('negative' risk factor for CHD) LDL Reference Ranges (U.S. Department of Health and Human Services ATP III Classifications) Optimal <100 mg/dL Near Optimal 100-129 mg/dL Borderline High 130-159 mg/dL High 160-189 mg/dL Very High >189 mg/dL Triglycerides 114 0 - 150 mg/dL [facility] HDL Cholesterol 34(L) 40 - 60 mg/dL [facility] VLDL Cholesterol Ramu 21 5 - 40 mg/dL [facility] LDL Chol Calc (NIH) 104(H) 0 - 100 mg/dL [facility] Chol/HDL Ratio 4.68 [facility] Blood 05/29/2023 8:52 AM EDT 05/29/2023 Narrative [facility] (AMBULATORY) - 05/30/2023 3:08 AM EDT Performed at: [address] [place] [id number] Bone Crusher: Freeman Horn MD, Phone: [phone] Patient Fasting: Y Karen Pineda DO LAB BLOOD ORDERABLES Final Result [facility] [employer] [facility] (AMBULATORY) [address] [place] [address], [place] [phone] [facility] [address] [place] [address], [place] [phone] from Last 3 Months or Most Recently Relevant to Health Maintenance Insurance [facility] Care Teams Talking Books Library Clerk Relationship Specialty Start Date End Date Karen Pineda DO [address] [place] [address] PCP - General Family Medicine 10/08/16
--- OUTSIDE RECORDS SUMMARY | 2024-09-18 08:35 | XMS_ITS ---
Author Organization [facility] Address [address] [place] [address] Care Team Providers Care Mold Dresser Name Role Phone Karen Pineda DO Primary Care Provider [phone] Chronic Migraine Status:Enrolled (Active) Start date:03/10/2024 Enrollment date:03/10/2024 Enrollment reason:New start at Current support & services provided:Clinical Assessment, Refill Coordination , Benefits Investigation, [facility] Dispensing Linked medications:Fremanezumab-vfrm (Active), Rimegepant Sulfate (Active) Linked problems:Intractable chronic migraine without aura (Active) Case Team Name Relationship Phone Ernestina Neal APRN Nurse Practitioner Continued Care and Services Coordination
--- OUTSIDE RECORDS SUMMARY | 2024-09-18 08:36 | XMS_ITS | Encounter Summary ---
Author Organization [facility] Address [address] [place] [address] Care Team Providers Care Pool Coordinator Name Role Phone Karen Pineda DO Primary Care Provider [phone] Encounter Details Date Type Department Care Team (Latest Contact Info) Description 07/23/2024 Travel Social History Tobacco Use Types Packs/Day Years [...] Description 10/01/2024 11:00 AM EDT Office Visit [facility] SLEEP MEDICINE [address] [facility] [address] [place] [address] Lorenzo Jarvis, WOODWORKER HELPER [address] [place] [address] 10/29/2024 2:30 PM EDT Office Visit [facility] PULMONARY & CRITICAL CARE MEDICINE [address] [place] [phone] Jasson Ramirez, DO [address] [place] [address] 11/02/2024 3:00 PM EDT Office Visit [facility] NEUROLOGY [address] [facility] [address] [place] [address] Ernestina Neal, WOODWORKER HELPER [address] [facility] [address] [place], [place] [id number] 02/05/2025 11:15 AM EST Office Visit [facility] RHEUMATOLOGY [address] [facility] [address] [place] [address] Luis Banda, WOODWORKER HELPER 330 [facility] [address] [place], [place] [id number] documented as of this encounter Goals Goal [...] documented as of this encounter Visit Diagnoses Not on filedocumented in this encounter Additional Health Concerns Assessment Noted Time PHQ-2 Depression Total Score: 6 04/17/19 24 12:15 PM EST documented as of this encounter Care Teams Pool Coordinator Relationship Specialty Start Date End Date Karen Pineda DO [address] [place] [address] PCP - General Family Medicine 10/08/16 documented as of this encounter
--- OUTSIDE RECORDS SUMMARY | 2024-09-18 08:36 | XMS_ITS | Encounter Summary ---
[facility] Address [address] [place] [address] Care Team Providers Care Bowstring Maker Name Role Phone Karen Pineda Primary Care Provider [phone] [phone] Reason for Visit * Auth/Cert Specialty Diagnoses / Procedures Referred By hCuy soriano Referred To Contact Diagnoses Centromere antibody positive Centromere antibody positive [R76.8] Procedures SC ESOPHAGOGASTRODUODENOSCOPY TRANSORAL DIAGNOSTIC SC EGD TRANSORAL BIOPSY SINGLE/MULTIPLE ESOPHAGOGASTRODUODENOSCOPY Referral ID Status Reason Start Date Expiration Date Visits Re quested Visits Authorized [id number] 1 1 Encounter Details Date Type Department Care Team (Late st Contact Info) Description 05/05/2024 Hospital Encounter [facility] ENDO SUITES [address] [id number] Rl Marin MD [address] [facility] [address] [place] [address] Social History Tobacco Use Types Packs/Day Years [...] Description 10/01/2024 11:00 AM EDT Office Visit [facility] SLEEP MEDICINE 3000 [facility] [address] [place] [phone] Lorenzo Jarvis, REPORTING MANAGER [address] [place] [address] 10/29/2024 2:30 PM EDT Office Visit [facility] PULMONARY & CRITICAL CARE MEDICINE [address] [place] [phone] Jasson Ramirez DO [address] [place], [place] [address] 11/02/2024 3:00 PM EDT Office Visit [facility] NEUROLOGY [address] [facility] 204 [place] [phone] Ernestina Neal, REPORTING MANAGER [address] [facility] [address] [place], [place] [address] 02/05/2025 11:15 AM EST Office Visit [facility] RHEUMATOLOGY 330 [facility] 100 [place] [address] Luis Banda, REPORTING MANAGER 330 [facility] 100 [place], [place] [address] documented as of this encounter Goals Goal Patient Goal Type Associated Problems Recent Progress Patient-Stated? Author Specialty Pharmacy General Goal General On track( 025 8:42 AM EDT) Kandy López, [facility] Note: On Average, Reduce: Frequency of [...] as of this encounter Visit Diagnoses Diagnosis Centromere antibody positive- Primary documented in this encounter Admitting Diagnoses Diagnosis Centromere antibody positive documented in this encounter Additional Health Concerns Assessment Noted Time PHQ-2 Depression Total Score: 6 04/17/19 24 12:15 PM EST documented as of this encounter Care Teams Bowstring Maker Relationship Specialty Start Date End Date Karen Pineda DO [address] [facility] [place] [address] PCP - General Family Medicine 10/08/16 documented as of this encounter
--- OUTSIDE RECORDS SUMMARY | 2024-09-18 08:36 | XMS_ITS | Encounter Summary ---
Author Organization [facility] Address [address] [place] [address] Care Team Providers Care Noc Engineer Name Role Phone Karen Pineda DO Primary Care Provider [phone] Encounter Details Date Type Department Care Team (Latest Contact Info) Description 08/07/2024 Travel Social History Tobacco Use Types Packs/Day [...] Description 10/01/2024 11:00 AM EDT Office Visit [facility] SLEEP MEDICINE 3000 [facility] 240 [place] [address] Lorenzo Jarvis, DUDE RAN[place] MANAGER [address] [place] [address] 10/29/2024 2:30 PM EDT Office Visit [facility] PULMONARY & CRITICAL CARE MEDICINE [address] [place] [phone] Jasson Ramirez, DO [address] [place] [address] 11/02/2024 3:00 PM EDT Office Visit [facility] NEUROLOGY 210 [facility] 204 [place] [phone] Ernestina Neal, DUDE RAN[place] MANAGER 2101 [facility] 204 [place], [place] [address] 02/05/2025 11:15 AM EST Office Visit [facility] RHEUMATOLOGY 330 [facility] 100 [place] [address] Luis Banda, DUDE RAN[place] MANAGER 330 [facility] 100 [place], [place] [address] documented as of this encounter Goals Goal Patient Goal Type Associated Problems Recent Progress Patient-Stated? Author Specialty Pharmacy General Goal General On track( 025 8:42 AM EDT) No Kandy Sahu, [facility] Note: On Average, Reduce: Frequency of migraines [...] documented as of this encounter Care Teams Noc Engineer Relationship Specialty Start Date End Date Karen Pineda DO [address] [place] [address] PCP - General Family Medicine 10/08/16 documented as of this encounter
--- OUTSIDE RECORDS SUMMARY | 2024-09-18 08:36 | XMS_ITS | Encounter Summary ---
[facility] Address [address] [place] [address] Care Team Providers Care Electrician'S Helper Name Role Phone Karen Pineda Primary Care Provider [phone] [phone] Encounter Details Date Type Department Care Team (Late Contact Info) Description 08/10/2024 Results Follow-Up [facility] RHEUMATOLOGY 330 [facility] 100 [place] [address] Jose Alejandro Jean DO 330 [facility] 100 [place], [place] [phone] Social History Tobacco Use Types Packs/Day Years [...] Encounters Date Type Department Care Team (Late Contact Info) Description 10/01/2024 11:00 AM EDT Office Visit [facility] SLEEP MEDICINE 3000 [facility] 240 [place] [address] Lorenzo Jarvis, RADIOLOGICAL METALLURGIST [address] [place] [address] 10/29/2024 2:30 PM EDT Office Visit [facility] PULMONARY & CRITICAL CARE MEDICINE [address] [place] [phone] Jasson Ramirez DO [address] [place], [place] [address] 11/02/2024 3:00 PM EDT Office Visit [facility] NEUROLOGY 2101 [facility] 204 [place] [phone] Ernestina Neal, RADIOLOGICAL METALLURGIST 2101 [facility] 204 [place], [place] [id number] 02/05/2025 11:15 AM EST Office Visit [facility] RHEUMATOLOGY 330 [facility] 100 [place] [phone] Luis Banda, RADIOLOGICAL METALLURGIST [address] [id number] documented as of this encounter Goals Goal Patient Goal Type Associated Problems Recent Progress Patient-Stated? Author Specialty Pharmacy General Goal General On track( 025 8:42 AM EDT) Kandy López, [facility] Note: On Average, Reduce: Frequency [...] documented as of this encounter Care Teams Electrician'S Helper Relationship Specialty Start Date End Date Karen Pineda DO [address] [place] [place] [address] PCP - General Family Medicine 10/08/16 documented as of this encounter
--- OUTSIDE RECORDS SUMMARY | 2024-09-18 08:36 | XMS_ITS | Clinical Summary ---
Author Organization [facility] Address [address] [place] [address] Care Team Providers Care Garage Supervisor Name Role Phone Pcp, No Primary Care [...] 2004 [facility]-Cervical Cancer Screening 2013 [facility]-HPV/Cotest 2013 [facility]-IUUMJ-13 Vaccine ( - 2023- season) 2023 [facility]-Influenza Vaccine (#1) 2024 [facility]-Zoster Vaccines (1 of 2) 2033 [...] Insurance [employer] Care Teams Garage Supervisor Relationship Specialty Start Date End Date Pcp, [place] [address] PCP - General Family Medicine 10/09/23
--- OUTSIDE RECORDS SUMMARY | 2024-09-18 08:36 | XMS_ITS | Encounter Summary ---
[facility] Address [address] [place] [address] Care Team Providers Care Biomedical Specialist Name Role Phone Karen Pineda Primary Care Provider [phone] Reason for Visit * Reason Onset Date Comments HST results 07/21/2024 Encounter Details Date Type Department Care Team (Late st Contact Info) Description 07/21/2024 Telephone [facility] SLEEP MEDICINE [address] [address] Tyson Liu MD [address] [place] [address] HST results Social History Tobacco Use Types Packs/Day Years [...] on file documented as of this encounter Miscellaneous Notes * Telephone Encounter - Phyllis Holliday MA - 07/21/2024 11:57 AM EDT Patient is understanding of their sleep study results and is agreeable to PAP therapy. They would like to use [facility]. Orders have been faxed to DME. Patient's compliance appointment has also been made. documented in this encounter Plan of Treatment Upcoming Encounters Date Type Department Care Team (Late st Contact Info) Description 10/01/2024 11:00 AM EDT Office Visit [facility] SLEEP MEDICINE 3000 [facility] [address] [place] [phone] Lorenzo Jarvis, SUPERVISOR FACEPIECE LINE [address] [place] [address] 10/29/2024 2:30 PM EDT Office Visit [facility] PULMONARY & CRITICAL CARE MEDICINE [address] [place] [address] Jasson Ramirez DO [address] [place] [address] 11/02/2024 3:00 PM EDT Office Visit [facility] NEUROLOGY 2101 [facility] 204 [place] [address] Ernestina Neal, SUPERVISOR FACEPIECE LINE 2101 [facility] 204 [place], [place] [address] 02/05/2025 11:15 AM EST Office Visit [facility] RHEUMATOLOGY 330 [facility] 100 [place] [address] Luis Banda, SUPERVISOR FACEPIECE LINE 330 [facility] 100 [place], [place] [phone] documented as of this encounter Goals Goal Patient Goal Type Associated Problems Recent Progress Patient-Stated? Author Specialty Pharmacy General Goal General On track( 025 8:42 AM EDT) Kandy López [facility] Note: On Average, [...] documented as of this encounter Care Teams Biomedical Specialist Relationship Specialty Start Date End Date Karen Pineda DO [address] [place] [address] PCP - General Family Medicine 10/08/16 documented as of this encounter
--- OUTSIDE RECORDS SUMMARY | 2024-09-18 08:36 | XMS_ITS | Clinical Summary ---
Author Organization [facility] Address [address] [place] [address] Phone Care Team Providers Care Diagnostics Tech Name Role Phone Unavailable Primary Care Provider [...] - 2023-2 5 season) 2023 Influenza Vaccine (#1) 2024 Meningococcal B Vaccine Aged Out No l onger eligible based on patient's age to complete this topic Pneumococcal Vaccine 0-49 Aged Out No longer eligible based on patient's age to complete this topic Insurance [facility] [place] [address] [employer] [place] [place] [address] Advance Directives For more information, please contact: [phone] * Full Code (Latest Code Status on File) Date Activated Date Inactivated Comments 08/07/2021 3:35 PM 08/09/2021 6:15 PM
--- OUTSIDE RECORDS SUMMARY | 2024-09-18 08:36 | XMS_ITS | Encounter Summary ---
Author Organization [facility] Address [address] [place] [address] Care Team Providers Care Spring Coiling Machine Setter Name Role Phone Karen Pineda DO Primary Care Provider [phone] [phone] Encounter Details Date Type Department Care Team (Latest Contact Info) Description 09/17/2024 Travel Social History Tobacco Use Types Packs/Day [...] Description 10/01/2024 11:00 AM EDT Office Visit [facility] SLEEP MEDICINE 3000 [facility] [address] [place] [address] Lorenzo Jarvis, SENIOR DATA MODELER [address] [place] [address] 10/29/2024 2:30 PM EDT Office Visit [facility] PULMONARY & CRITICAL CARE MEDICINE [address] [place] [phone] Jasson Ramirez, DO [address] [place] [address] 11/02/2024 3:00 PM EDT Office Visit [facility] NEUROLOGY 210 [facility] 204 [place] [address] Ernestina Neal, SENIOR DATA MODELER 2101 [facility] 204 [place], [place] [address] 02/05/2025 11:15 AM EST Office Visit [facility] RHEUMATOLOGY 330 [facility] 100 [place] [address] Luis Banda, SENIOR DATA MODELER 330 [facility] 100 [place], [place] [address] documented as of this encounter Goals Goal Patient Goal Type Associated Problems Recent Progress Patient-Stated? Author Specialty Pharmacy General Goal General On track( 025 8:42 AM EDT) No Kandy Sahu, [facility] Note: On Average, Reduce: Frequency of migraines [...] documented as of this encounter Care Teams Spring Coiling Machine Setter Relationship Specialty Start Date End Date Karen Pineda DO [address] [place] [address] PCP - General Family Medicine 10/08/16 documented as of this encounter
[2024-09-18 09:23] LABS: Hematocrit 43.9 % (37.0-47.0); Hemoglobin 14.0 g/dL (12.2-16.2); Immature Granulocytes % 0.8 %; Mean Corpuscular HGB Conc 31.9 g/dL (31.8-35.4); Mean Corpuscular Hemoglobin 28.2 pg (27.0-31.2); Mean Corpuscular Volume 88.5 fl (81-99); Nucleated Red Blood Cells % 0 %; Platelet Count 329 K/mm3 (142-424); Red Blood Count 4.96 M/mm3 (4.20-5.40); Red Cell Distribution Width-SD 41.6 fL; White Blood Count 8.4 K/mm3 (4.8-10.8)
[2024-09-18 09:52] LABS: Alanine Aminotransferase 22 U/L (12-78); Albumin Level 3.5 g/dl (3.5-5.0); Albumin/Globulin Ratio 1.2 (1.1-1.8); Alkaline Phosphatase 91 U/L (38-126); Anion Gap 10.6 mEq/L (5-15); Aspartate Amino Transferase 22 U/L (14-36); Bilirubin,Total 0.6 mg/dl (0.2-1.3); Blood Urea Nitrogen 13 mg/dl (7-17); Calcium 9.6 mg/dl (8.4-10.2); Carbon Dioxide 30 mmol/L (22.0-30.0); Chloride 103 mmol/L (98-107); Cholesterol 246 mg/dl (140-200); Creatinine,Serum 0.70 mg/dl (0.52-1.04); Estimated Glomerular Filt Rate 92 ml/min (>60); GFR (African American) 112 ML/MIN (>60); Globulin 3.0 g/dL (1.3-3.2); Glucose 120 mg/dl (74-100); HDL Cholesterol 32 mg/dl (40-60); Potassium 4.6 mmoL/L (3.5-5.1); Sodium 139 mmol/L (136-145); Total Protein,Serum 6.5 g/dl (6.3-8.2); Triglycerides 235 mg/dl (30-150)
[2024-09-18 10:09] LABS: 25-OH Vitamin D, Total 21.8 ng/mL (30-100)
[2024-09-18 10:10] LABS: Free T4 (Free Thyroxine) 0.98 ng/dl (0.78-2.19)
[2024-09-18 10:23] LABS: Thyroid Stimulating Hormone 2.73 uIU/mL (0.465-4.68)
[2024-09-18 10:42] LABS: Vitamin B12 365 pg/mL (239-931)
[2024-09-18 11:01] LABS: Folate 5.81 ng/mL
== END 2024-09-18 23:59 | disposition home or self-care (01) ==
LOC: LAB 08:33
PROVIDERS: PCP Family Medicine; Visit Provider Family Medicine
DX: F41.9 Anxiety disorder, unspecified (principal); R73.03 Prediabetes; F33.1 Major depressive disorder, recurrent, moderate; E53.8 Deficiency of other specified B group vitamins; E55.9 Vitamin D deficiency, unspecified; E78.00 Pure hypercholesterolemia, unspecified; F39 Unspecified mood [affective] disorder; R68.89 Other general symptoms and signs
CPT/HCPCS: 80053; 80061; 82306; 82607; 82746; 84439; 84443; 85025

== ENCOUNTER 2024-09-27 17:02 | Emergency (ER) | payer OTHER, SELFPAY ==
--- OUTSIDE RECORDS SUMMARY | 2024-04-23 14:20 | XMS_ITS | Encounter Summary ---
Author Organization [facility] Address [address] [id number] Care Team Providers Care Ip Litigation Paralegal Name Role Phone Karen Pineda Primary Care Provider [phone] Encounter Details Date Type Department Care Team (Late st Contact Info) Description 04/23/2024 1:20 PM EST Hospital Encounter [facility] PULMONARY & CRITICAL CARE MEDICINE [address] [place] [id number] Social History Tobacco Use Types Packs/Day Years [...] Description 10/01/2024 11:00 AM EDT Office Visit [facility] SLEEP MEDICINE [address] [facility] [address] [place] [address] Lorenzo Jarvis, MACHINIST 2ND SHIFT [address] [place] [address] 10/29/2024 2:30 PM EDT Office Visit [facility] PULMONARY & CRITICAL CARE MEDICINE [address] [place] [address] Jasson Ramirez DO [address] [place] [address] 11/02/2024 3:00 PM EDT Office Visit [facility] NEUROLOGY [address] [facility] [address] [place] [phone] Ernestina Neal, MACHINIST 2ND SHIFT [address] [facility] [address] [place], [place] [id number] 02/05/2025 11:15 AM EST Office Visit [facility] RHEUMATOLOGY [address] [facility] [address] [place] [address] Luis Badna, MACHINIST 2ND SHIFT [address] [facility] [address] [place], [place] [address] documented as of this encounter Goals Goal Patient Goal Type Associated Problems Recent Progress Patient-Stated? Author Specialty Pharmacy General Goal General On track( 025 8:42 AM EDT) No Kandy Sahu, [facility] Note: On Average, Reduce: Frequency of migraines [...] Narrative 04/27/2024 3:14 PM EST Genesis Burrell [id number] 04/23/2024 Chest X-Ray PA & Lateral Indication: [...] documented as of this encounter Care Teams Ip Litigation Paralegal Relationship Specialty Start Date End Date Karen Pineda DO [address] [place], [place] [phone] PCP - General Family Medicine 10/08/16 documented as of this encounter
--- OUTSIDE RECORDS SUMMARY | 2024-07-13 13:28 | XMS_ITS | Encounter Summary ---
[facility] Address [address] [id number] Care Team Providers Care Mechanical Engineering Coop Name Role Phone Karen Pineda DO Primary Care Provider [phone] Reason for Referral * Hospital - Outpatient (Routine) - Closed Specialty Diagnoses / Procedures Referred By Contac t Referred To Contact Sleep Medicine Diagnoses Hypersomnia Obstructive sleep apnea, adult Snoring Procedures Home Sleep Study Tyson Liu MD [address] [place] [address] Phone: tel: fax: [facility] SLEEP [facility] [address] [address] Phone: tel: fax: Referral ID Status Reason Start Date Expiration Date Visits Re quested Visits Authorized [id number] Closed 05/12/2024 08/11/2025 1 1 Reason for Visit * Hospital - Outpatient (Routine) - Closed Specialty Diagnoses / Procedures Referred By Contac t Referred To Contact Sleep Medicine Diagnoses Hypersomnia Obstructive sleep apnea, adult Snoring Procedures Home Sleep Study Tyson Liu MD [address] [place] [address] Phone: tel: fax: [facility] SLEEP [facility] [address] [address] Phone: tel: fax: Referral ID Status Reason Start Date Expiration Date Visits Re quested Visits Authorized [id number] Closed 05/12/2024 08/11/2025 1 1 Encounter Details Date Type Department Care Team (Late st Contact Info) Description 07/13/2024 1:28 PM EDT Hospital Encounter [facility] SLEEP [facility] [address] [place] [address] Tyson Liu MD [address] [place] [address] Hypersomnia; Obstructive sleep apnea, adult; Snoring Social [...] 10/01/2024 11:00 AM EDT Office Visit [facility] SLEEP MEDICINE [address] [facility] [address] [place] [address] Lorenzo Jarvis, RECONCILIATION MANAGER [address] [place] [address] 10/29/2024 2:30 PM EDT Office Visit [facility] PULMONARY & CRITICAL CARE MEDICINE [address] [place] [address] Jasson Ramirez DO [address] [place] [address] 11/02/2024 3:00 PM EDT Office Visit [facility] NEUROLOGY 2101 [facility] [address] [place] [address] Ernestina Neal, RECONCILIATION MANAGER 2101 [facility] [address] [place] [address] 02/05/2025 11:15 AM EST Office Visit [facility] RHEUMATOLOGY 330 [facility] [address] [place] [address] Luis Banda, RECONCILIATION MANAGER 330 [facility] [address] [place], [place] [phone] documented as of this encounter Goals Goal Patient Goal Type Associated Problems Recent Progress Patient-Stated? Author Specialty Pharmacy General Goal General On track( 025 8:42 AM EDT) No Kandy Sahu, [facility] Note: On Average, Reduce: Frequency [...] KELLY and she had a PSG at [facility] in December 2022 which revealed a [...] had a home sleep test with an [employer] One device that measured airflow at the [...] documented as of this encounter Care Teams Mechanical Engineering Coop Relationship Specialty Start Date End Date Karen Pineda DO [address] [place] [address] PCP - General Family Medicine 10/08/16 documented as of this encounter
--- OUTSIDE RECORDS SUMMARY | 2024-08-07 11:15 | XMS_ITS | Encounter Summary ---
Author Organization [facility] Address [address] [id number] Care Team Providers Care Rotary Cutter Feeder Name Role Phone Karen Pineda DO Primary Care Provider [phone] Reason for Referral * Consultation (Routine) - Authorized - Pending Scheduling Specialty Diagnoses / Procedures Referred By Contac t Referred To Contact Dermatology Diagnoses Facial erythema Procedures MA OFFICE/OUTPATIENT NEW MODERATE MDM 45 MINUTES Jose Alejandro Jean DO [address] [place] [address] Phone: tel: fax: [facility] [address] [place] [address] Phone: tel: fax: Referral ID Status Reason Start Date Expiration Date Visits Requested Visits Authorized [id number] Authorized - Pending Scheduling Specialty Services Required 08/07/2024 11/06/2025 1 1 Reason for Visit * Reason Comments Fibromyalgia Follow up Scleroderma Follow up Encounter Details Date Type Department Care Team (Late st Contact Info) Description 08/07/2024 11:15 AM EDT Office Visit [facility] RHEUMATOLOGY [address] [phone] Jose Alejandro Jean DO [address] [address] Limited systemic sclerosis (Primary Dx); Fibromyalgia; Facial erythema Social History Tobacco Use Types Packs/Day Years [...] Sign Reading Time Taken Comments Blood Pressure 124/82 08/07/2024 11:20 AM EDT Pulse 81 08/07/2024 11:20 AM EDT Temperature 36.5 C (97.7 F) 08/07/2024 11:20 AM EDT Respiratory Rate - - Oxygen Saturation - - Inhaled Oxygen Concentration - - Weight 155 kg (341 lb 6.4 oz) 08/07/2024 11:20 A M EDT Height 160 cm (5' 2.99 ) 08/07/2024 11:20 AM EDT Body Mass Index 60.49 08/07/2024 11:20 AM EDT documented in this encounter Patient Instructions * Attachments The following attachments cannot be sent through Care Everywhere. * Scleroderma (Azeri) documented in this encounter Progress Notes * Jose Alejandro Jean DO - 08/07/2024 11:15 AM EDTAssociated Problem(s): Centromere antibody positive Medication/treatment/interventions tried include: Tylenol, prednisone, escitalopram, ibuprofen, Celebrex, diclofenac, she has seen endocrinology, she has seen cardiology, She has seen neurology, she has seen sleep medicine specialists, She has seen pulmonology specialists 11/28/23: CHANCE 1:160 homogenous, DS DNA Normal, PLUNGER SHOVEL OPERATOR normal, Amin normal, SCL 70 normal, SSA and SSB normal, chromatin normal, Alexa 1 normal, Centromere normal, Vitamin D 31.6, CMP was fine, CRP normal, Sed rate normal, RF negative 12/17/2023: CHANCE 1: 640 centromere pattern, centromere antibody positive, TPO antibody positive, normal complements, SCL 70 negative, Amin negative, PLUNGER SHOVEL OPERATOR negative, dsDNA negative, SSA/SSB negative, anticardiolipin antibodies negative, CCP negative, RF negative, 14.3.3 negative, ANCA panel negative, CK and aldolase normal, CRP and ESR normal, HLA-B27 negative, thyroglobulin antibody negative, thyroid function normal, hepatitis panel negative, QTB negative Patient reports she sees laborer tin can, Dr. Anderson. We recommend she see cardiology annually for screening for pulmonary HTN. We have referred her to pulmonology for ILD screening. We also referred her to GI for monitoring/treatment She reports she cancelled this appointment She does not have sclerodactyly or calcinosis. She does have telangiectasias on her face. She endorses Raynaud's. No history of renal crisis. We gave her a handout on scleroderma to review. Follow up in 6 months Orders: CBC Auto Differential CK Comprehensive Metabolic Panel C-reactive Protein Sedimentation Rate * Jose Alejandro Jean DO - 08/07/2024 11:15 AM EDTAssociated Problem(s): Fibromyalgia 1. H & P consistent with this diagnosis. 2. Encourage aerobic activity and sleep hygiene. 3. She has seen sleep medicine specialists She is using CPAP 4. Tylenol PRN is ok as directed 5. She has tried oral NSAIDS PRN 6. She is taking escitalopram 7. Consider adding pregabalin if necessary 8. Weight loss would be beneficial Orders: CBC Auto Differential CK Comprehensive Metabolic Panel C-reactive Protein Sedimentation Rate * Jose Alejandro Jean DO - 08/07/2024 11:15 AM EDT Images from the original note were not included. Office Follow Up Date: 08/07/2024 Patient Name: Genesis Burrell Date of : 1985 Referring Physician: No ref. provider found Chief Complaint Patient presents with ??? Fibromyalgia Follow up ??? Scleroderma Follow up History of Present Illness: Genesis Burrell is a 39 y.o. female who is here today for follow up. Today she reports feeling worse. She rates her pain as 8.5/10 in severity. No swelling. No muscle pain or weakness. No back or neck issues. No red or hot joints. No new rash/skin changes. No lymphadenopathy. No abnormal bruising/bleeding. No hair loss. No headaches. No paresthesias. No GI or issues. No shortness of breath or chest pain. No sicca symptoms. Her face swells. Subjective Review of Systems Constitutional: Negative. HENT: Positive for facial swelling. Eyes: Negative. Respiratory: Negative. Cardiovascular: Negative. Gastrointestinal: Negative. Endocrine: Negative. Genitourinary: Negative. Musculoskeletal: Positive for arthralgias. Skin: Positive for color change. Allergic/Immunologic: Negative. Neurological: Positive for memory problem. Hematological: Negative. Psychiatric/Behavioral: Negative. All other systems reviewed and are negative. Current Outpatient Medications: ??? acetaZOLAMIDE (DIAMOX) 250 MG tablet, Take 2 tablets by mouth Every Morning AND 1 tablet Every Night., Disp: 90 tablet, Rfl: 5 ??? aspirin 81 MG EC tablet, Take 1 tablet by mouth Daily., Disp: , Rfl: ??? diclofenac (VOLTAREN) 75 MG EC tablet, Take 1 tablet by mouth 2 (Two) Times a Day. Take 1 tablet oral route 2 times every day PRN, Disp: 180 tablet, Rfl: 1 ??? escitalopram (Lexapro) 20 MG tablet, Take 1 tablet by mouth Daily., Disp: 90 tablet, Rfl: 1 ??? Fremanezumab-vfrm (Ajovy) 225 MG/1.5ML solution auto-injector, Inject 225 mg under the skin into the appropriate area as directed Every 30 (Thirty) Days., Disp: 1.5 mL, Rfl: 11 ??? lamoTRIgine (LaMICtal) 100 MG tablet, Take 1 tablet by mouth once daily, Disp: 90 tablet, Rfl: 0 ??? metFORMIN ER (GLUCOPHAGE-XR) 500 MG 24 hr tablet, Take 2 tablets by mouth Daily With Breakfast., Disp: 180 tablet, Rfl: 1 ??? rimegepant sulfate ODT (Nurtec) 75 MG disintegrating tablet, Place 1 tablet on the tongue DailyAs Needed (For migraine. Max 75 mg per 24 hours.)., Disp: 8 tablet, Rfl: 11 ??? rosuvastatin (Crestor) 10 MG tablet, Take 1 tablet by mouth Daily., Disp: 90 tablet, Rfl: 3 ??? Tirzepatide 2.5 MG/0.5ML solution auto-injector, Inject 2.5 mg under the skin into the appropriate area as directed 1 (One) Time Per Week., Disp: 2 mL, Rfl: 0 ??? vitamin B-12 (cyanocobalamin) 100 MCG tablet, Take 2.5 tablets by mouth Daily., Disp: , Rfl: No Known Allergies I have reviewed and updated the patient's chief complaint, history of present illness, review of systems, past medical history, surgical history, family history, social history, medications and allergy list as appropriate. Objective Vitals: 08/07/24 1120 BP: 124/82 BP Location: Left arm Patient Position: Sitting Cuff Size: Large Adult Pulse: 81 Temp: 97.7 ??F (36.5 ??C) Weight: (!) 155 kg (341 lb 6.4 oz) Height: 160 cm (62.99 ) PainSc: 9 Body mass index is 60.49 kg/m??. Physical Exam General: Well appearing 38 year old female. Not in distress. She is ambulating unassisted. She is obese. SKIN: + telangectasia on face.+ facial erythema. No alopecia. No subcutaneous nodules. No digital pits or ulcers. No sclerodactyly. HEENT: NCAT. Conjunctiva clear, no photophobia. No oral or nasal ulcers. Hearing intact. Pulmonary: Clear to auscultation bilaterally. No wheezing, rales, or rhonchi. CV: Regular rate and rhythm. No murmurs, rubs, or gallops. Psych: Normal mood and affect. Alert and oriented x 3. Extremities: No cyanosis or edema. Musculoskeletal: + myofascial tender points. No synovitis. Normal range of motion of the wrists, ankles, elbows, and knees. Lymph: No palpable cervical adenopathy Procedures Assessment / Plan Assessment & Plan Limited systemic sclerosis Medication/treatment/interventions tried include: Tylenol, prednisone, escitalopram, ibuprofen, Celebrex, diclofenac, she has seen endocrinology, she has seen cardiology, She has seen neurology, she has seen sleep medicine specialists, She has seen pulmonology specialists 11/28/23: CHANCE 1:160 homogenous, DS DNA Normal, PLUNGER SHOVEL OPERATOR normal, Amin normal, SCL 70 normal, SSA and SSB normal, chromatin normal, Alexa 1 normal, Centromere normal, Vitamin D 31.6, CMP was fine, CRP normal, Sed rate normal, RF negative 12/17/2023: CHANCE 1: 640 centromere pattern, centromere antibody positive, TPO antibody positive, normal complements, SCL 70 negative, Amin negative, PLUNGER SHOVEL OPERATOR negative, dsDNA negative, SSA/SSB negative, anticardiolipin antibodies negative, CCP negative, RF negative, 14.3.3 negative, ANCA panel negative, CK and aldolase normal, CRP and ESR normal, HLA-B27 negative, thyroglobulin antibody negative, thyroid function normal, hepatitis panel negative, QTB negative Patient reports she sees laborer tin can, Dr. Anderson. We recommend she see cardiology annually for screening for pulmonary HTN. We have referred her to pulmonology for ILD screening. We also referred her to GI for monitoring/treatment She reports she cancelled this appointment She does not have sclerodactyly or calcinosis. She does have telangiectasias on her face. She endorses Raynaud's. No history of renal crisis. We gave her a handout on scleroderma to review. Follow up in 6 months Orders: ??? CBC Auto Differential ??? CK ??? Comprehensive Metabolic Panel ??? C-reactive Protein ??? Sedimentation Rate Fibromyalgia 1. H & P consistent with this diagnosis. 2. Encourage aerobic activity and sleep hygiene. 3. She has seen sleep medicine specialists She is using CPAP 4. Tylenol PRN is ok as directed 5. She has tried oral NSAIDS PRN 6. She is taking escitalopram 7. Consider adding pregabalin if necessary 8. Weight loss would be beneficial Orders: ??? CBC Auto Differential ??? CK ??? Comprehensive Metabolic Panel ??? C-reactive Protein ??? Sedimentation Rate Facial erythema Tests for lupus negative. She did test positive for scleroderma Patients with scleroderma can get telangiectasias on the face I am not aware of any treatment for this. I wonder if there might be a component of rosacea here. Will refer to dermatology. Orders: ??? CBC Auto Differential ??? CK ??? Comprehensive Metabolic Panel ??? C-reactive Protein ??? Sedimentation Rate ??? Ambulatory Referral to Dermatology Follow Up: Return in about 6 months (around 02/06/2025). Jose Alejandro Jean DO [facility] [place] documented in this encounter Plan of Treatment Upcoming Encounters Date Type Department Care Team (Late st Contact Info) Description 10/01/2024 11:00 AM EDT Office Visit [facility] SLEEP MEDICINE [address] [facility] [address] [place] [phone] Lorenzo Jarvis, DIRECTOR OF STRATEGIC INITIATIVES [address] [place] [address] 10/29/2024 2:30 PM EDT Office Visit [facility] PULMONARY & CRITICAL CARE MEDICINE [address] [facility] [phone] Jasson Ramirez DO [address] [place] [address] 11/02/2024 3:00 PM EDT Office Visit [facility] NEUROLOGY [address] [facility] [address] [place] [address] Ernestina Neal, DIRECTOR OF STRATEGIC INITIATIVES [address] [facility] [address] [place] [address] 02/05/2025 11:15 AM EST Office Visit [facility] RHEUMATOLOGY [address] [phone] Luis Banda, DIRECTOR OF STRATEGIC INITIATIVES [address] [facility] [address] [place] [address] Scheduled Referrals Name Type Priority Associated Diagnoses Order Schedule Ambulatory Referral to Dermatology Outpatient Referral Routine Facial erythema Ordered: 08/07/2024 documented as of this encounter Goals Goal Patient Goal Type Associated Problems Recent Progress Patient-Stated? Author Specialty Pharmacy General Goal General On track( 025 8:42 AM EDT) No Kandy Sahu, [facility] Note: On Average, Reduce: Frequency [...] Procedure Name Priority Date/Time Associated Diagnosis Comments SEDIMENTATION RATE Routine 08/07/2024 12 :16 PM EDT Limited systemic sclerosis Fibromyalgia Facial erythema CBC AND DIFFERENTIAL Routine 08/07/2024 12:16 PM EDT C-REACTIVE PROTEIN Routine 08/07/2024 12 :16 PM EDT Limited systemic sclerosis Fibromyalgia Facial erythema CK Routine 08/07/2024 12:16 PM EDT Limited systemic sclerosis Fibromyalgia Facial erythema COMPREHENSIVE METABOLIC PANEL Routine 08/07/2024 12:16 PM EDT Limited systemic sclerosis Fibromyalgia Facial erythema documented in this encounter Results * (ABNORMAL) CBC & Differential (08/07/2024 12:16 PM EDT) WBC 11.39(H) 3.40 - 10.80 10*3/mm3 [facility] RBC 4.89 3.77 - 5.28 10*6/mm3 [facility] Hemoglobin 14.0 12.0 - 15.9 g/dL [facility] Hematocrit 43.9 34.0 - 46.6 % [facility] MCV 89.8 79.0 - 97.0 fL [facility] MCH 28.6 26.6 - 33.0 pg [facility] MCHC 31.9 31.5 - 35.7 g/dL [facility] RDW 13.1 12.3 - 15.4 % [facility] Platelets 301 140 - 450 10*3/mm3 [facility] Neutrophil Rel % 54.1 42.7 - 76.0 % [facility] Lymphocyte Rel % 35.5 19.6 - 45.3 % [facility] Monocyte Rel % 8.9 5.0 - 12.0 % [facility] Eosinophil Rel % 0.7 0.3 - 6.2 % [facility] Basophil Rel % 0.4 0.0 - 1.5 % [facility] Neutrophils Absolute 6.18 1.70 - 7.00 10*3/mm3 [facility] Lymphocytes Absolute 4.04(H) 0.70 - 3.10 10*3/mm3 [facility] Monocytes Absolute 1.01(H) 0.10 - 0.90 10*3/mm3 [facility] Eosinophils Absolute 0.08 0.00 - 0.40 10*3/mm3 [facility] Basophils Absolute 0.04 0.00 - 0.20 10*3/mm3 [facility] Immature Granulocyte Rel % 0.4 0.0 - 0.5 % [facility] Immature Grans Absolute 0.04 0.00 - 0.05 10*3/mm3 [facility] nRBC 0.0 0.0 - 0.2 /100 WBC [facility] 08/07/2024 12:1 6 PM EDT 08/07/2024 Narrative [facility] - 08/08/2024 1:06 AM EDT Performed at: [address] [place] [id number] Animal Feeder: Freeman Horn MD, Phone: [phone] Patient Fasting: N us Jose Alejandro Jean DO LAB BLOOD ORDERABLES F inal Result Performing Organization Address City/[facility]/ZIP Co de Phone Number [facility]) [address] [place] [address], [place] [phone] [facility] [address] [place] [address], [place] [phone] * Sedimentation Rate (08/07/2024 12:16 PM EDT) Sed Rate 20 0 - 20 mm/hr [facility] Blood 08/07/2024 12:1 6 PM EDT 08/07/2024 Narrative [facility] - 08/08/2024 1:06 AM EDT Performed at: [address] [place] [id number] Animal Feeder: Freeman Horn MD, Phone: [phone] Patient Fasting: N [facility] LAB BLOOD ORDERABLES F inal Result Performing Organization Address [facility]/ZIP Co de Phone Number [facility] [address] [place] [address], [place] [phone] [facility] [address] [place] [address], [place] [phone] * C-reactive Protein (08/07/2024 12:16 PM EDT) C-Reactive Protein <0.30 0.00 - 0.50 mg/dL [facility] Blood 08/07/2024 12:1 6 PM EDT 08/07/2024 Narrative [facility] - 08/08/2024 1:06 AM EDT Performed at: [address] [place] [address] [id number] Animal Feeder: Freeman Horn MD, Phone: [phone] Patient Fasting: N [facility] LAB BLOOD ORDERABLES F inal Result Performing Organization Address City/[facility]/ZIP Co de Phone Number [facility] [address] [place] [address], [facility] [address] [place] [address], * Comprehensive Metabolic Panel (08/07/2024 12:16 PM EDT) Glucose 87 65 - 99 mg/dL [facility] BUN 16.0 6.0 - 20.0 mg/dL [facility] Creatinine 0.71 0.57 - 1.00 mg/dL [facility] EGFR Result 109.7 >60.0 mL/min/1.7 3 [facility] Comment: GFR Categories in Chronic Kidney Disease (CKD) GFR Category GFR (mL/min/1.73) Interpretation G1 90 or greater Normal or high (1) G2 60-89 Mild decrease (1) G3a 45-59 Mild to moderate decrease G3b 30-44 Moderate to severe decrease G4 15-29 Severe decrease G5 14 or less Kidney failure (1)In the absence of evidence of kidney disease, neither GFR category G1 or G2 fulfill the criteria for CKD. eGFR calculation 2020 CKD-EPI creatinine equation, which does not include race as a factor BUN/Creatinine Ratio 22.5 7.0 - 25.0 [facility] Sodium 139 136 - 145 mmol/L [facility] Potassium 4.8 3.5 - 5.2 mmol/L [facility] Comment: Slight hemolysis detected by analyzer. Result may be falsely elevated. Chloride 101 98 - 107 mmol/L [facility] Total CO2 25.4 22.0 - 29.0 mmol/L [facility] Calcium 9.6 8.6 - 10.5 mg/dL [facility] Total Protein 6.6 6.0 - 8.5 g/dL [facility] Albumin 4.2 3.5 - 5.2 g/dL [facility] Globulin 2.4 gm/dL [facility] A/G Ratio 1.8 g/dL [facility] Total Bilirubin 0.5 0.0 - 1.2 mg/dL [facility] Alkaline Phosphatase 93 39 - 117 U/L [facility] AST (SGOT) 20 1 - 32 U/L [facility] ALT (SGPT) 20 1 - 33 U/L [facility] Blood 08/07/2024 12:1 6 PM EDT 08/07/2024 Narrative [facility] - 08/08/2024 1:06 AM EDT Performed at: [address] [place] [id number] Animal Feeder: Freeman Horn MD, Phone: [phone] Patient Fasting: N [facility] LAB BLOOD ORDERABLES F inal Result Performing Organization Address [facility] Co de Phone Number [facility] [address] [place] [address], [place] [phone] [facility] [address] [place] [address], [place] [phone] * CK (08/07/2024 12:16 PM EDT) [facility] Creatine Kinase 49 20 - 180 U/L [facility] Blood 08/07/2024 12:1 6 PM EDT 08/07/2024 Narrative [facility] - 08/08/2024 1:06 AM EDT Performed at: [address] [place] [id number] Animal Feeder: Freeman Horn MD, Phone: [phone] Patient Fasting: N [facility] LAB BLOOD ORDERABLES F inal Result Performing Organization Address [facility] Co de Phone Number [facility] [address] [place] [address], [place] [phone] [facility] [address] [place] [address], [place] [phone] documented in this encounter Visit Diagnoses Diagnosis Limited systemic sclerosis- Primary Systemic sclerosis Fibromyalgia Unspecified myalgia and myositis Facial erythema documented in this encounter Additional Health Concerns Assessment Noted Time PHQ-2 Depression Total Score: 6 04/17/19 24 12:15 PM EST documented as of this encounter Care Teams Rotary Cutter Feeder Relationship Specialty Start Date End Date Karen [place] [address] PCP - General Family Medicine 10/08/16 documented as of this encounter
--- OUTSIDE RECORDS SUMMARY | 2024-09-17 14:00 | XMS_ITS | Encounter Summary ---
Author Organization [facility] Address [address] [place] [address] Care Team Providers Care Supervisor Delivery Department Name Role Phone Karen Pineda DO Primary Care Provider [phone] Reason for Referral * Behavorial Health/Psych (Routine) - Authorized Specialty Diagnoses / Procedures Referred By Chuy soriano Referred To Contact Behavioral Health Diagnoses Anxiety Moderate episode of recurrent major depressive disorder Procedures FL OFFICE/OUTPATIENT NEW MODERATE MDM 45 MINUTES Karen Pineda DO [address] [place] [address] Phone: tel: fax: Amador Gonzalez, KARTHIK [address] [place] [address] Phone: tel: fax: Referral ID Status Reason Start Date Expiration Date Visits Requested Visits Authorized [id number] Authorized Specialty Services Required 09/17/2024 12/17/2025 1 1 * Diagnostic Imaging (Routine) - Authorized Specialty Diagnoses / Procedures Referred By Chuy soriano Referred To Contact Diagnoses Encounter for screening mammogram for malignant neoplasm of breast Procedures Mammo Screening Digital Tomosynthesis Bilateral With CAD Karen Pineda DO [address] [place] [address] Phone: tel: fax: [facility] - OUTPT PHYSICAL THERAPY [address] [place] [address] Phone: tel: fax: Referral ID Status Reason Start Date Expiration Date V isits Requested Visits Authorized [id number] Authorized 09/17/2024 12/17/2025 1 1 Reason for Visit * Reason Comments Annual Exam Pt is not fasting. Encounter Details Date Type Department Care Team (Late st Contact Info) Description 09/17/2024 2:00 PM EDT Office Visit [facility] [address] [...] * Preventive Care 40-64 Years Old Female (Micronesian) documented in this encounter Progress Notes * Karen Pineda, DO - 09/17/2024 2:00 PM EDT Chief Complaint Annual Exam (Pt is not fasting. ) Subjective Genesis Burrell presents to [facility] History of Present [...] the care of Dr. Anderson's office in [place] for her heart condition, which includes an [...] Vitamin B12 - Ambulatory Referral to Behavioral [facility] - escitalopram (Lexapro) 20 MG tablet; Take 1 tablet by mouth Daily. Dispense: 90 tablet; Refill: 1 - Folate - TSH+Free T4 4. Moderate episode of recurrent major depressive disorder - CBC (No Diff) - Comprehensive Metabolic Panel - Lipid Panel With / Chol / HDL Ratio - Vitamin D,25-Hydroxy - Vitamin B12 - Ambulatory Referral to [facility] - escitalopram (Lexapro) 20 MG tablet; Take [...] Continue current medications. - Follow up with auto parts handler as needed. 3. Thyroid Antibody Positive. - [...] (around 03/20/2025) for Recheck. Patient or patient business center representative verbalized consent for the use of [...] Description 10/01/2024 11:00 AM EDT Office Visit [facility] [address] [facility] [address] [place] [phone] Lorenzo Jarvis, TASTE TESTER [address] [place] [address] 10/29/2024 2:30 PM EDT Office Visit [facility] PULMONARY & CRITICAL CARE MEDICINE [address] [place] [phone] Jasson Ramirez DO [address] [place] [address] 11/02/2024 3:00 PM EDT Office Visit [facility] NEUROLOGY [address] [facility] [address] [place] [address] Ernestina Neal, TASTE TESTER [address] [facility] [address] [place] [address] 02/05/2025 11:15 AM EST Office Visit [facility] RHEUMATOLOGY [address] [phone] Luis Banda, TASTE TESTER [address] [facility] [address] [place] [address] Scheduled Orders Name Type Priority Associated Diagnoses [...] 025 8:42 AM EDT) No Kandy Sahu, [facility] Note: On Average, Reduce: Frequency [...] Hemoglobin A1C 5.9(A) 4.5 - 5.7 % [facility] Lot Number [id number] [facility] Expiration Date 05/25/2026 [facility] Blood 09/17/2024 2:46 PM EDT Karen Pineda DO POINT OF CARE TEST ORDERABL ES Final Result [facility]
[address] [place] [address], documented in this encounter Visit Diagnoses Diagnosis Annual physical exam- Primary Routine general medical examination at a [facility] care facility Prediabetes Other abnormal glucose [...] documented as of this encounter Care Teams Supervisor Delivery Department Relationship Specialty Start Date End Date Karen Pineda DO [address] [place] [address] PCP - General Family Medicine 10/08/16 documented as of this encounter
[2024-09-27 17:29] VITALS: BP 103/63; PULSE 87; O2SAT 97
[2024-09-27 17:31] VITALS: BP 103/63; PULSE 85; RESP 15; TEMP 36.6; O2SAT 98; BMI 58.4
--- OUTSIDE RECORDS SUMMARY | 2024-09-27 17:31 | XMS_ITS | Clinical Summary ---
Author Organization [facility] Address [address] [place] [address] Care Team Providers Care Family Law Legal Assistant Name Role Phone Karen Pineda Primary Care Provider +1- [phone] Allergies No known active allergies Medications vitamin [...] 11/28/23: CHANCE 1:160 homogenous, DS DNA Normal, CALL CENTER ANALYST normal, Amin normal, SCL 70 normal, SSA and SSB normal, chromatin normal, Alexa 1 normal, Centromere normal, Vitamin D 31.6, CMP was fine, CRP normal, Sed rate normal, RF negative 12/17/2023: CHANCE 1: 640 centromere pattern, centromere antibody positive, TPO antibody positive, normal complements, SCL 70 negative, Amin negative, CALL CENTER ANALYST negative, dsDNA negative, SSA/SSB negative, anticardiolipin antibodies negative, CCP negative, RF negative, 14.3.3 negative, ANCA panel negative, CK and aldolase normal, CRP and ESR normal, HLA-B27 negative, thyroglobulin antibody negative, thyroid function normal, hepatitis panel negative, QTB negative Patient reports she sees label printing machinist, Dr. Anderson. We recommend she see cardiology [...] 9:41 AM EST): Patient reports she sees label printing machinist, Dr. Anderson. We recommend she see cardiology annually for screening. We will refer her to pulmonology per her request. She previously saw Dr. Gonzales at [facility]. We would recommend annual screenings with [...] 11/28/23: CHANCE 1:160 homogenous, DS DNA Normal, CALL CENTER ANALYST normal, Amin normal, SCL 70 normal, SSA and SSB normal, chromatin normal, Alexa 1 normal, Centromere normal, Vitamin D 31.6, CMP was fine, CRP normal, Sed rate normal, RF negative 12/17/2023: CHANCE 1: 640 centromere pattern, centromere antibody positive, TPO antibody positive, normal complements, SCL 70 negative, Amin negative, CALL CENTER ANALYST negative, dsDNA negative, SSA/SSB negative, anticardiolipin antibodies [...] not to take with other NSAIDs including mpkz-uby-ddxczoh NSAIDs such as ibuprofen, naproxen, Aleve, Motrin, [...] surgery 02/27/2024 Overview (02/27/2024): Bariatric surgery in [facility] longer than 16 years ago. Planning to schedule reevaluation at [facility] Hypersomnia 02/27/2024 Hypoxemia 02/27/2024 Influenza [...] Encounters Date Type Department Care Team Description 09/21/2024 Results Follow-Up [facility] FAMILY MEDICINE [address] [place] [address] Karen Pineda, 09/21/2024 Results Follow-Up [facility] MEDICINE [address] [place] [address] Karen Pineda, 09/21/2024 Results Follow-Up [facility] FAMILY MEDICINE [address] [place] [address] Karen Pineda, 09/17/2024 2:00 PM EDT Office Visit [facility] MEDICINE [address] [place] [address] Karen Pineda, DO Annual physical exam (Primary Dx); Prediabetes; Anxiety; Moderate episode of recurrent major depressive disorder; KELLY on CPAP; Cyanocobalamin deficiency; Vitamin D deficiency; High cholesterol; Mood disorder; Forgetfulness; Encounter for screening mammogram for malignant neoplasm of breast 09/17/2024 Travel 08/10/2024 Results Follow-Up [facility] RHEUMATOLOGY [address] [address] Jose Alejandro Jean, 08/07/2024 11:15 AM EDT Office Visit [facility] RHEUMATOLOGY [address] [address] Jose Alejandro Jean, Limited systemic sclerosis (Primary Dx); Fibromyalgia; Facial erythema 08/07/2024 Travel 07/23/2024 2:00 PM EDT Office Visit [facility] NEUROLOGY [address] [place] [address] Ernestina Neal APRN Intractable chronic migraine without aura and without status migrainosus (Primary Dx); Pseudotumor cerebri 07/23/2024 Travel 07/21/2024 Telephone [facility] SLEEP MEDICINE [address] [place] [address] Tyson Liu MD HST results 07/13/2024 1:28 PM EDT Hospital Encounter [facility]EP [facility] [address] [facility] [address] [place] [address] Tyson Liu MD Hypersomnia; Obstructive sleep apnea, [...] Stroke Paternal Grandmother Rosalee Anxiety disorder Sister [place] Thyroid disease Sister [place] Relation Name Status Comments Daughter Stacy Father rashawn Maternal Grandfather happy Mother bobo Paternal Grandfather david Paternal Grandmother Rosalee Sister [place] Social History Tobacco Use Types Packs/Day Years [...] Description 10/01/2024 11:00 AM EDT Office Visit [facility] SLEEP MEDICINE 3000 [facility] 240 [place] [phone] Lorenzo Jarvis, BACKUP SAWYER [address] [place] [address] 10/29/2024 2:30 PM EDT Office Visit [facility] PULMONARY & CRITICAL CARE MEDICINE [address] [facility] [place] [address] Jasson Ramirez DO [address] [place] [address] 11/02/2024 3:00 PM EDT Office Visit [facility] NEUROLOGY [address] [facility] [address] [place] [address] Ernestina Neal, BACKUP SAWYER [address] [facility] [address] [place] [address] 02/05/2025 11:15 AM EST Office Visit [facility] RHEUMATOLOGY [address] [phone] Luis Banda APRN [address] [address] Health Maintenance Due Date Last Done Comments Annual Gynecologic Pelvic and Breast Exam 1983 TDAP/TD VACCINES (2 - Td or Tdap) 09/25/2020 09/25/2010 (Patient-Reported (Performed Externally)) MAMMOGRAM 2023 LIPID PANEL 05/28/2024 05/29/2023, 07/26, 08/08/2021, Additional history exists COVID-19 Vaccine ( season) 2024 Postponed from 10/27/2023 (Product Unavailable) INFLUENZA VACCINE 11/25/2024 ANNUAL PHYSICAL 09/17/2025 09/17/2024 HEPATITIS C SCREENING Completed 12/17/2023, 020 Pneumococcal Vaccine 0-49 Aged Out No longer eligible based on patient's age to complete this topic Goals Goal Patient Goal Type Associated Problems Recent Progress Patient-Stated? Author Specialty Pharmacy General Goal General On track( 025 8:42 AM EDT) No Kandy Sahu, [facility] Note: On Average, Reduce: Frequency of [...] Nurtec PRN 08/31/24 Patient reports 3-4 MMD. Procedures Procedure Name Priority Date/Time Associated Diagnosis Comments SCANNED - LABS 09/18/2024 SCANNED - LABS 09/18/2024 SCANNED - LABS 09/18/2024 POCT GLYCOSYLATED HEMOGLOBIN (HGB A1C) Routine 09/17/2024 [...] EDT Hypersomnia Obstructive sleep apnea, adult Snoring HEPATITIS PANEL, ACUTE Routine 10:30 AM EDT Arthralgia, unspecified joint Fatigue, unspecified type CHANCE positive LIPID PANEL W/ CHOL/HDL RATIO Routine 05/29/2023 8:52 AM EDT High cholesterol Cyanocobalamin deficiency BMI 50.0-59.9, adult Morbid obesity from Last 3 Months or Most Recently Relevant to Health Maintenance Results * LABS SCANNED (09/18/2024) Only the most recent of4 resultswithin the time period is included. us Karen Pineda DO LAB BLOOD ORDERABLES Final Result * (ABNORMAL) POC Glycosylated Hemoglobin (Hb A1C) (09/17/2024 2:46 PM EDT) Hemoglobin A1C 5.9(A) 4.5 - 5.7 % [facility] Lot Number [id number] [facility] Expiration Date 05/25/2026 [facility] Blood 09/17/2024 2:46 PM EDT Karen Brenda Pineda DO POINT OF CARE TEST ORDERABL ES Final Result Performing Organization Address City/[facility]/ZIP Co de Phone Number [facility]
[address] [place] [address], * IMAGING SCANNED (08/22/2024) Anatomical Region Laterality Modality Radiographic Karlee ging Karen Brenda Pineda DO IMG DIAGNOSTIC IMAGING ORDE RABLES Final Result * Sedimentation Rate (08/07/2024 12:16 PM EDT) Sed Rate 20 0 - 20 mm/hr [facility] Blood 08/07/2024 12:1 6 PM EDT 08/07/2024 Narrative [facility]ORY) - 08/08/2024 1:06 AM EDT Performed at: [address] [place] [id number] Coconut Boiler: Freeman Horn MD, Phone: [phone] Patient Fasting: N Jose Alejandro Castro Jean DO LAB BLOOD ORDERABLES F inal Result Performing Organization Address [facility] Co de Phone Number [facility]) [address] [place] [address], [place] [phone] [facility] [address] [id number], [place] [phone] * (ABNORMAL) CBC & Differential (08/07/2024 12:16 [...] - 08/08/2024 1:06 AM EDT Performed at: [address] [id number] Coconut Boiler: Freeman Horn MD, Phone: [phone] Patient Fasting: N us Jose Alejandro Jean DO LAB BLOOD ORDERABLES F inal Result [facility]) [address] [place] [address], [place] [phone] [facility] [address] [place] [address], * C-reactive Protein (08/07/2024 12:16 PM EDT) [facility] C-Reactive Protein <0.30 0.00 - 0.50 mg/dL [facility] Blood 08/07/2024 12:1 6 PM EDT 08/07/2024 Narrative [facility] (AMBULATORY) - 08/08/2024 1:06 AM EDT Performed at: [address] [place] [address] [address] [place], [place] [id number] Coconut Boiler: Freeman Horn MD, Phone: [phone] Patient Fasting: N [facility] LAB BLOOD ORDERABLES F inal Result Performing Organization Address City/[facility]/ZIP Co de Phone Number [facility] [address] [place] [address], [facility] [address] [place] [address], [place] [phone] * CK (08/07/2024 12:16 PM EDT) [facility] Creatine Kinase 49 20 - 180 U/L [facility] Blood 08/07/2024 12:1 6 PM EDT 08/07/2024 Narrative [facility] (AMBULATORY) - 08/08/2024 1:06 AM EDT Performed at: [address] [place] [address] [address] [place], [place] [id number] Coconut Boiler: Freeman Horn MD, Phone: [phone] Patient Fasting: N [facility] LAB BLOOD ORDERABLES F inal Result Performing Organization Address City/[facility]/ZIP Co de Phone Number [facility] [address] [place] [address], [place] [phone] [facility] [address] [place] [address], [place] [phone] * Comprehensive Metabolic Panel (08/07/2024 12:16 PM EDT) [facility] Glucose 87 65 - 99 mg/dL [...] Blood 08/07/2024 12:1 6 PM EDT 08/07/2024 [facility] ([facility]) - 08/08/2024 1:06 AM EDT Performed at: [address] [id number] Coconut Boiler: Freeman Horn MD, Phone: [phone] Patient Fasting: N Jose Alejandro Jean DO LAB BLOOD ORDERABLES F inal Result [facility]) [address] [place] [address], [place] [phone] [facility] [address] [place] [address], * HST (07/14/2024 7:15 AM EDT) Narrative [...] KELLY and she had a PSG at [facility] in December 2022 which revealed a [...] had a home sleep test with an Shellcatch One device that measured airflow at the [...] CENTER ORDERABLE S Final Result SLEEP MEDICINE * Hepatitis Panel, Acute (12/17/2023 10:30 AM EDT) Hepatitis B Surface Ag Non-Reacti ve Non-Reacti ve 12/18/2023 12:53 AM EDT [facility] Hep A IgM Non-Reacti ve Non-Reacti ve 12/18/2023 12:53 AM EDT [facility] Hep B C IgM Non-Reacti ve Non-Reacti ve 12/18/2023 12:53 AM EDT [facility] Hepatitis C Ab Non-Reacti ve Non-Reacti ve 12/18/2023 12:53 AM EDT [facility] Blood Venipuncture / Unknown 12/17/2023 10:30 AM EDT 12/17/2023 10:30 AM EDT [facility] LABORATORY - 12/18/2023 12:53 AM EDT Results may be falsely decreased if patient taking Biotin. Jose Alejandro Jean DO LAB BLOOD ORDERABLES F inal Result Performing Organization Address City/[facility] Co de Phone Number [facility]
[address] [place] [address], * (ABNORMAL) Lipid Panel With / Chol / HDL Ratio (05/29/2023 8:52 AM EDT) [facility] Total Cholesterol 159 0 - 200 mg/dL [...] - 05/30/2023 3:08 AM EDT Performed at: 01 - [facility] [address] [place], [place] [id number] Coconut Boiler: Freeman Horn MD, Phone: [phone] Patient Fasting: Y Karen Pineda DO LAB BLOOD ORDERABLES Final Result [facility] ([facility]) [address] [place] [address], [place] [phone] [facility] [address] [place] [address], [place] [phone] from Last 3 Months or Most Recently Relevant to Health Maintenance Insurance [facility] Care Teams Family Law Legal Assistant Relationship Specialty Start Date End Date Karen Pineda DO [address] [facility] [place] [address] PCP - General Family Medicine 10/08/16
--- OUTSIDE RECORDS SUMMARY | 2024-09-27 17:31 | XMS_ITS | Clinical Summary ---
Author Organization [facility] Address [address] [id number] Care Team Providers Care Cleat Thrower Name Role Phone Gilson Heath MD Primary Care Provider [phone] Social History Tobacco Use Types Packs/Day Years [...] age to complete this topic Care Teams Cleat Thrower Relationship Specialty Start Date End Date Gilson Heath MD [address] [place] [address] PCP - General 12/26/06
--- OUTSIDE RECORDS SUMMARY | 2024-09-27 17:31 | XMS_ITS ---
Author Organization [facility] Address [address] [place] [address] Care Team Providers Care Clay Pigeon Loader Name Role Phone Karen Pineda DO Primary Care Provider [phone]- [phone] Chronic Migraine Status:Enrolled (Active) Start date:03/10/2024 Enrollment date:03/10/2024 Enrollment reason:New start at Current support & services provided:Clinical Assessment, Refill Coordination , Benefits Investigation, [facility] Dispensing Linked medications:Fremanezumab-vfrm (Active), Rimegepant Sulfate (Active) Linked problems:Intractable chronic migraine without aura (Active) Case Team Name Relationship Phone Ernestina Neal APRN Nurse Practitioner [phone] Continued Care and Services Coordination
--- OUTSIDE RECORDS SUMMARY | 2024-09-27 17:31 | XMS_ITS | Encounter Summary ---
[facility] Organization [facility] Address [address] [place] [address] Care Team Providers Care Residential Real Estate Agent Name Role Phone Karen Pineda Primary Care Provider [phone] Encounter Details Date Type Department Care Team (Late Contact Info) Description 08/10/2024 Results Follow-Up [facility] RHEUMATOLOGY 330 [facility] [address] [place] [address] Jose Alejandro Jean DO 330 [facility] 100 [place], [place] [phone] Social History Tobacco Use Types Packs/Day Years [...] 10/01/2024 11:00 AM EDT Office Visit [facility] SLEEP MEDICINE 3000 [facility] 240 [place] [address] Lorenzo Jarvis, MILLER HEAD WET PROCESS [address] [place] [address] 10/29/2024 2:30 PM EDT Office Visit [facility] PULMONARY & CRITICAL CARE MEDICINE [address] [place] [address] Jasson Ramirez DO [address] [place], [place] [address] 11/02/2024 3:00 PM EDT Office Visit [facility] NEUROLOGY [address] [facility] [address] [place] [address] Ernestina Neal, MILLER HEAD WET PROCESS 2101 [facility] [address] [place], [place] [address] 02/05/2025 11:15 AM EST Office Visit [facility] RHEUMATOLOGY 330 [facility] [address] [place] [address] Luis Banda, MILLER HEAD WET PROCESS [address] [phone] documented as of this encounter Goals Goal Patient Goal Type Associated Problems Recent Progress Patient-Stated? Author Specialty Pharmacy General Goal General On track( 025 8:42 AM EDT) Kandy López, [facility] Note: [...] documented as of this encounter Care Teams Residential Real Estate Agent Relationship Specialty Start Date End Date Karen Pineda DO [address] [place] [address] PCP - General Family Medicine 10/08/16 documented as of this encounter
--- OUTSIDE RECORDS SUMMARY | 2024-09-27 17:32 | XMS_ITS | Encounter Summary ---
Author Organization [facility] Address [address] [place] [address] Care Team Providers Care Poultry Pinner Name Role Phone Karen Pineda DO Primary Care Provider [phone] Encounter Details Date Type Department Care Team [...] Description 10/01/2024 11:00 AM EDT Office Visit [facility] SLEEP MEDICINE [address] [facility] [address] [address] [place] [address] Lorenzo Jarvis, WELDING MACHINE OPERATOR THERMIT [address] [place] [address] 10/29/2024 2:30 PM EDT Office Visit [facility] PULMONARY & CRITICAL CARE MEDICINE [address] [place] [address] Jasson Ramirez, DO [address] [place] [address] 11/02/2024 3:00 PM EDT Office Visit [facility] NEUROLOGY 210 [facility] 204 [place] [address] Ernestina Neal, WELDING MACHINE OPERATOR THERMIT 2101 [facility] 204 [place], [place] [address] 02/05/2025 11:15 AM EST Office Visit [facility] RHEUMATOLOGY 330 [facility] 100 [place] [address] Luis Banda, WELDING MACHINE OPERATOR THERMIT 330 [facility] 100 [place], [place] [address] documented as of this encounter Goals Goal Patient Goal Type Associated Problems Recent Progress Patient-Stated? Author Specialty Pharmacy General Goal General On track( 025 8:42 AM EDT) No Kandy Sahu, [facility] Note: On Average, Reduce: Frequency [...] documented as of this encounter Care Teams Poultry Pinner Relationship Specialty Start Date End Date Karen Pineda DO [address] [place] [address] PCP - General Family Medicine 10/08/16 documented as of this encounter
--- OUTSIDE RECORDS SUMMARY | 2024-09-27 17:32 | XMS_ITS | Encounter Summary ---
Author [facility] Address [address] [place] [address] Care Team Providers Care Home Help Aide Name Role Phone Karen Pineda DO Primary Care Provider [phone] Encounter Details Date Type Department Care Team (Late st Contact Info) Description 09/21/2024 Results Follow-Up [facility] FAMILY MEDICINE [address] [place] [address] Karen Pineda DO [address] [place] [address] Social History Tobacco Use Types Packs/Day Years [...] Visit [facility] SLEEP MEDICINE 3000 [facility] [address] [place] [address] Lorenzo Jarvis, ELECTRONICS DEPARTMENT MANAGER [address] [place] [address] 10/29/2024 2:30 PM EDT Office Visit [facility] PULMONARY & CRITICAL CARE MEDICINE [address] [facility] [address] Jasson Ramirez DO [address] [place] [address] 11/02/2024 3:00 PM EDT Office Visit [facility] NEUROLOGY 2101 [facility] [address] [place] [address] Ernestina Neal, ELECTRONICS DEPARTMENT MANAGER 2101 [facility] [address] [place], [place] [address] 02/05/2025 11:15 AM EST Office Visit [facility] RHEUMATOLOGY 330 [facility] [address] [place] [address] Luis Banda, ELECTRONICS DEPARTMENT MANAGER 330 [facility] [address] [place], [place] [address] documented as of this encounter Goals Goal Patient Goal Type Associated Problems Recent Progress Patient-Stated? Author Specialty Pharmacy General Goal General On track( 025 8:42 AM EDT) No Kandy Sahu, [facility] Note: On Average, Reduce: Frequency [...] documented as of this encounter Care Teams Home Help Aide Relationship Specialty Start Date End Date Karen Pineda DO [address] [place] [address] PCP - General Family Medicine 10/08/16 documented as of this encounter
--- OUTSIDE RECORDS SUMMARY | 2024-09-27 17:32 | XMS_ITS | Encounter Summary ---
[facility] Organization [facility] Address [address] [place] [address] Care Team Providers Care Epidemiologist Name Role Phone Karen Pineda DO Primary Care Provider +1- [phone] Encounter Details Date Type Department Care Team (Late st Contact Info) Description 09/21/2024 Results Follow-Up [facility] FAMILY MEDICINE 210 [facility] [place] [address] Karen Pineda DO [address] [place] [address] Social History Tobacco Use Types [...] [facility] SLEEP [facility] 3000 [facility] 240 [place] [address] Lorenzo Jarvis, AIRLINE ATTENDANT [address] [place] [address] 10/29/2024 2:30 PM EDT Office Visit [facility] PULMONARY & CRITICAL CARE MEDICINE [address] [facility] [place] [address] Jasson Ramirez DO [address] [place] [address] 11/02/2024 3:00 PM EDT Office Visit [facility] NEUROLOGY 2101 [facility] 204 [place] [address] Ernestina Neal, AIRLINE ATTENDANT 2101 [facility] 204 [place], [place] [address] 02/05/2025 11:15 AM EST Office Visit [facility] RHEUMATOLOGY 330 [facility] 100 [place] [address] Luis Banda, AIRLINE ATTENDANT 330 [facility] 100 [place], [place] [address] documented as of this encounter Goals Goal Patient Goal Type Associated Problems Recent Progress Patient-Stated? Author Specialty Pharmacy General Goal General On track( 025 8:42 AM EDT) No Kandy Sahu, [facility] Note: On Average, Reduce: Frequency [...] documented as of this encounter Care Teams Epidemiologist Relationship Specialty Start Date End Date Karen Pindea DO [address] [place] [address] PCP - General Family Medicine 10/08/16 documented as of this encounter
--- OUTSIDE RECORDS SUMMARY | 2024-09-27 17:32 | XMS_ITS | Encounter Summary ---
Author Organization [facility] Address [address] [place] [address] Care Team Providers Care Sponge Fisherman Name Role Phone Karen Pineda DO Primary Care Provider +1- [phone] Encounter Details Date Type Department Care Team (Late st Contact Info) Description 09/21/2024 Results Follow-Up [facility] FAMILY MEDICINE 210 [facility] [place] [address] Karen Pineda DO [address] [place] [address] Social History Tobacco Use Types [...] AM EDT Office Visit [facility] SLEEP MEDICINE 3000 [facility] 240 [place] [address] Lorenzo Jarvis, LICENSED LOAN OFFICER [address] [place] [address] 10/29/2024 2:30 PM EDT Office Visit [facility] PULMONARY & CRITICAL CARE MEDICINE 2400 [place] [address] Jasson Ramirez DO [address] [place] [address] 11/02/2024 3:00 PM EDT Office Visit [facility] NEUROLOGY 2101 [facility] 204 [place] [address] Ernestina Neal, LICENSED LOAN OFFICER 2101 [facility] 204 [place], [place] [address] 02/05/2025 11:15 AM EST Office [facility] RHEUMATOLOGY 330 [facility] 100 [place] [address] Luis Banda, LICENSED LOAN OFFICER 330 [facility] 100 [place], [place] [address] documented as of this encounter Goals Goal Patient Goal Type Associated Problems Recent Progress Patient-Stated? Author Specialty Pharmacy General Goal General On track( 025 8:42 AM EDT) No Kandy Sahu, [facility] Note: On Average, Reduce: Frequency of migraines [...] documented as of this encounter Care Teams Sponge Fisherman Relationship Specialty Start Date End Date Karen Pineda DO [address] [place] [address] PCP - General Family Medicine 10/08/16 documented as of this encounter
--- OUTSIDE RECORDS SUMMARY | 2024-09-27 17:32 | XMS_ITS | Clinical Summary ---
Author Organization Healthcare Address [address] [place] [address] Care Team Providers Care Dog And Cat Food Cook Name Role Phone Pcp, No Primary Care [...] 2004 [facility]-Cervical Cancer Screening 2013 [facility]-HPV/Cotest 2013 [id number] Vaccine ( - 2023- season) 2023 [facility]-Influenza [...] Insurance [employer] MEDICA[employer] Care Teams Dog And Cat Food Cook Relationship Specialty Start Date End Date Pcp, [place] [address] PCP - General Family Medicine 10/09/23
--- OUTSIDE RECORDS SUMMARY | 2024-09-27 17:32 | XMS_ITS | Encounter Summary ---
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] Procedures CO ESOPHAGOGASTRODUODENOSCOPY TRANSORAL DIAGNOSTIC CO EGD TRANSORAL BIOPSY SINGLE/MULTIPLE ESOPHAGOGASTRODUODENOSCOPY Referral ID Status Reason Start Date Expiration Date Visits Re quested Visits Authorized [id number] 1 1 Encounter Details Date Type Department Care Team (Late st Contact Info) Description 05/05/2024 Hospital Encounter [facility] ENDO SUITES [address] [phone] Rl Marin MD [address] [facility] [address] [place] [address] Social History Tobacco Use Types Packs/Day Years [...] [facility] SLEEP MEDICINE 3000 [facility] [address] [place] [phone] Lorenzo Jarvis, POLISHER AND BUFFER [address] [place] [address] 10/29/2024 2:30 PM EDT Office Visit [facility] PULMONARY & CRITICAL CARE MEDICINE [address] [place] [phone] Jasson Ramirez DO [address] [place], [place] [address] 11/02/2024 3:00 PM EDT Office Visit [facility] NEUROLOGY [address] [facility] 204 [place] [address] Ernestina Neal, POLISHER AND BUFFER [address] [facility] [address] [place], [place] [address] 02/05/2025 11:15 AM EST Office Visit [facility] RHEUMATOLOGY 330 [facility] 100 [place] [address] Lius Banda, POLISHER AND BUFFER 330 [facility] 100 [place], [place] [id number] documented as of this encounter Goals Goal Patient Goal Type Associated Problems Recent Progress Patient-Stated? Author Specialty Pharmacy General Goal General On track( 025 8:42 AM EDT) Kandy López, [facility] Note: On Average, Reduce: Frequency [...] documented as of this encounter Care Teams Window Trimmer Apprentice Relationship Specialty Start Date End Date Karen Pineda DO [address] [facility] [place] [address] PCP - General Family Medicine 10/08/16 documented as of this encounter
--- OUTSIDE RECORDS SUMMARY | 2024-09-27 17:32 | XMS_ITS | Clinical Summary ---
Author Organization [facility] Address [address] [place] [address] Phone Care Team Providers Care Desk Reporter Name Role Phone Unavailable Primary Care Provider [...] patient's age to complete this topic Insurance [facility] [place] [address] [employer] [place] [place] Advance Directives For more information, please contact: [phone] * Full Code (Latest Code Status on File) Date Activated Date Inactivated Comments 08/07/2021 3:35 PM 08/09/2021 6:15 PM
--- OUTSIDE RECORDS SUMMARY | 2024-09-27 17:32 | XMS_ITS | Encounter Summary ---
Author Organization [facility] Address [address] [place] [address] Care Team Providers Care Microbiology Laboratory Manager Name Role Phone Karen Pineda DO Primary Care Provider +1 [phone] Encounter Details Date Type Department Care Team [...] Visit [facility] SLEEP MEDICINE 3000 [facility] 240 [place] [address] Lorenzo Jarvis, FARM APPRAISER [address] [place] [address] 10/29/2024 2:30 PM EDT Office Visit [facility] PULMONARY & CRITICAL CARE MEDICINE [address] [place] [phone] Jasson Ramirez, DO [address] [place] [address] 11/02/2024 3:00 PM EDT Office Visit [facility] NEUROLOGY 210 [facility] 204 [place] [address] Ernestina Neal, FARM APPRAISER 2101 [facility] 204 [place], [place] [address] 02/05/2025 11:15 AM EST Office Visit [facility] RHEUMATOLOGY 330 [facility] 100 [place] [address] Luis Banda, FARM APPRAISER 330 [facility] 100 [place], [place] [address] documented as of this encounter Goals Goal Patient Goal Type Associated Problems Recent Progress Patient-Stated? Author Specialty Pharmacy General Goal General On track( 025 8:42 AM EDT) No Kandy Sahu, [facility] Note: On Average, Reduce: Frequency [...] documented as of this encounter Care Teams Microbiology Laboratory Manager Relationship Specialty Start Date End Date Karen Pineda DO [address] [place] [address] PCP - General Family Medicine 10/08/16 documented as of this encounter
[2024-09-27 17:36] VITALS: BP 103/63; PULSE 85; RESP 15; TEMP 36.6; O2SAT 98
[2024-09-27 17:55] LABS: Microscopic, Urine URINE MICROSCOPIC (MICROSCOPIC)
--- NOTE | 2024-09-27 17:55 | HMH.EDGENADL ---
Discharge Plan Disposition Patient Disposition: Home, Self-Care Prescriptions Prescriptions: New loperamide 2 mg capsule 2 mg PO Q6H PRN (Reason: loose stool) 5 Days Qty: 20 0RF Rx Instructions: Please take 4 mg initially, followed by 2 mg after each loose stool, maximum 16 mg/day No Action tizanidine 4 mg tablet 4 mg PO HS PRN (Reason: Occipital headache with cervicogenic component) Qty: 30 3RF acetazolamide 250 mg tablet 750 mg PO DAILY MDD 750 milligram Qty: 270 11RF Rx Instructions: 500 mg p.o. every morning and 250 mg in the evening. Nurtec ODT 75 mg tablet,disintegrating 75 mg PO Q OTHER DAY MDD 75 mg Qty: 16 11RF Rx Instructions: 75 mg p.o. every other day for migraine prevention levalbuterol tartrate [Xopenex HFA] 45 mcg/actuation HFA aerosol inhaler 2 inh inhalation Q6H PRN (Reason: shortness of breath or wheezing) 90 Days Qty: 15 3RF Ajovy Autoinjector 225 mg/1.5 mL auto-injector SQ rosuvastatin 10 mg tablet 10 mg PO DAILY ergocalciferol (vitamin D2) 1,250 mcg (50,000 unit) capsule 1,250 mcg PO WEEKLY Patient Comments: TAKE 1 CAPSULE BY MOUTH ONCE A WEEK aspirin [Adult Low Dose Aspirin] 81 mg tablet,delayed release (DR/EC) 81 mg PO DAILY Qty: 30 2RF lamotrigine 100 mg tablet 100 mg PO DAILY Patient Comments: TAKE 1 TABLET BY MOUTH ONCE DAILY celecoxib 200 mg capsule 200 mg PO BID PRN Patient Comments: TAKE 1 CAPSULE BY MOUTH TWICE DAILY NEEDED FOR MILD PAIN diclofenac sodium 75 mg tablet,delayed release (DR/EC) 75 mg PO BID PRN Patient Comments: TAKE 1 TABLET BY MOUTH TWICE DAILY NEEDED metformin 500 mg tablet extended release 24 hr 500 mg PO ONCE Patient Comments: TAKE 1 TABLET BY MOUTH ONCE DAILY WITH BREAKFAST escitalopram oxalate 20 mg tablet 20 mg PO DAILY Patient Comments: TAKE 1 TABLET BY MOUTH ONCE DAILY Wegovy 0.25 mg/0.5 mL pen injector 0.25 mg SQ WEEKLY Qty: 2 0RF Rx Instructions: administer weeks 1 through 4 of therapy isosorbide mononitrate 30 mg tablet extended release 24 hr 30 mg PO DAILY Qty: 30 5RF Referrals Follow up/Referrals: Provider,Referral, [Primary Care Provider, Medical] - See instructions Activity Restrictions/Add. Instructions Additional Instructions/Restrictions: No emergent medical condition identified today. Please follow-up with the outpatient stool diarrhea PCR panel that was ordered with your primary care doctor. Instructions on how to do this and to bring her back to lab have been given to you by the nurses. Continue to hydrate as discussed I have also given you prescription for loperamide if you have any significant abdominal pain after taking this medication please discontinue it but you should be fine. This is most likely viral and should be self-limiting. Clinical Impressions Clinical Impression: Diarrhea, Dehydration, mild Instructions Patient Instructions: DI for Acute Abdominal Pain Print Language Print Language: Kittitian Discharge ED Provider: Nory Rashid General Adult HPI General Chief complaint: Abdominal Pain Stated complaint: diarhea for four days , watery stool Time Seen by Provider: 09/27/24 17:38 Mode of Arrival: Ambulatory Source of Information: Patient Description of Symptoms (Recalled from ER Triage Doc. by RN): pt presents to the ED with diarrhea for the past 4 days. pt reports that the diarrhea is like water, solid, water . pt reports her stool is black tar and dark green. pt has nausea and abdominal pain. History of Present Illness HPI narrative: Patient is a 39-year-old morbidly obese female who presents today with diarrhea for 4 days that is been numerous and watery. No significant abdominal pain. She states she has had numerous different colors of diarrhea did tell triage that it had been at times black but most the time it has been very watery and not black. No fevers chills. 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 Has tried Pepto-Bismol but no other medical interventions. Related Data Home Medications ?Medication ?Instructions ?Recorded ?Confirmed rosuvastatin 10 mg tablet 10 mg PO DAILY 04/24/23 06/15/24 ergocalciferol (vitamin D2) 1,250 1,250 mcg PO WEEKLY 08/20/23 06/15/24 mcg (50,000 unit) capsule lamotrigine 100 mg tablet 100 mg PO DAILY 09/17/23 06/15/24 celecoxib 200 mg capsule 200 mg PO BID PRN 05/05/24 06/15/24 diclofenac sodium 75 mg 75 mg PO BID PRN 05/05/24 06/15/24 tablet,delayed release escitalopram oxalate 20 mg tablet 20 mg PO DAILY 05/05/24 06/15/24 metformin 500 mg tablet,extended 500 mg PO ONCE 05/05/24 06/15/24 release 24 hr fremanezumab-vfrm 225 mg/1.5 mL mg SQ 06/15/24 06/15/24 subcutaneous auto-injector (Ajovy) Previous Rx's ?Medication ?Instructions ?Recorded tizanidine 4 mg tablet 4 mg PO HS PRN Occipital headache 05/10/22 with cervicogenic component #30 tabs Nurtec ODT 75 mg disintegrating 75 mg PO Q OTHER DAY episodic 02/06/23 tablet (rimegepant) migraine #16 tabs acetazolamide 250 mg tablet 750 mg (3 x 250 mg) PO DAILY 02/06/23 Headache, suspected pseudotumor #270 tabs levalbuterol tartrate 45 2 inh inhalation Q6H PRN shortness 07/10/23 mcg/actuation aerosol inhaler of breath or wheezing 90 days #15 (Xopenex HFA) grams aspirin 81 mg tablet,delayed 81 mg PO DAILY #30 tabs 08/20/23 release (Adult Low Dose Aspirin) semaglutide (weight loss) 0.25 0.25 mg (0.5 mL) SQ WEEKLY #2 mL 05/05/24 mg/0.5 mL subcutaneous pen injector (Adrielvmichael) isosorbide mononitrate 30 mg 30 mg PO DAILY #30 tabs 05/15/24 tablet,extended release 24 hr loperamide 2 mg capsule 2 mg PO Q6H PRN loose stool 5 days 09/27/24 #20 caps Allergies Allergy/AdvReac Type Severity Reaction Status Date / Time No Known Allergies Allergy Verified 06/15/24 15:27 [facility] Disclaimer: The information contained in this section may have been updated after the patient was seen, as this information can be updated by other users. Medical History Right ventricular dilation Fatigue Nocturnal hypoxemia Depression Depression Smoker Migraine Hyperlipidemia Hypertension Surgical History H/O gastric sleeve History of hysterectomy History of cholecystectomy History of section History of appendectomy History of tonsillectomy Family History Other No significant family history Social History Smoking Status: Never smoker alcohol intake: never substance use type: denies use current occupational status: other Travel in the last 8 weeks?: None household members: family housing: house marital status: single Have you lived/traveled outside US in past 30 days?: No Contact w/someone who lives/traveled outside US past 30 days?: No Exposure to someone with infectious disease in past 14 days?: No Do you have a fever (greater than 100.4 F or 38 C)?: No Have you tested positive for COVID-19?: No Exposed to someone with COVID-19 in past 14 days?: No Do you have a sore throat?: No Do you have a cough?: No Do you have any weakness?: No Do you have any diarrhea?: Yes Are you experiencing any unusual bleeding?: No Do you have any muscle aches/pain?: No Do you have any abdominal pain?: No Are you experiencing loss of taste or smell?: No Other Medical History Have you received the Flu Vaccine for this season: No Have you received the Pneumonia Vaccine: No ROS Obtained: Yes All systems reviewed & no additional complaints except as documented Physical Exam General General appearance: alert and in no apparent distress Respiratory Respiratory exam: Present normal lung sounds bilaterally Cardiovascular Cardiovascular exam: Present regular rate and other (Good capillary refill) Abdominal Exam Abdominal exam: Present soft and distention; Absent tenderness Neurological Exam Neurological exam: Present alert and oriented X3 Medical Decision Making Medical Records Screening: Per USPSTF and CDC recommendations, given the prevalence of disease in our region, it is our hospital?s policy to screen for HIV and viral Hepatitis for all patients aged 18 and over and those with ongoing risk factors. Sebastian Inquiry Pt receiving controlled substance: No Vital Signs: 09/27/24 17:29 09/27/24 17:31 09/27/24 17:36 Temperature 98 F 98 F Temperature Source Oral Oral Pulse Rate 87 85 Pulse Rate [Right] 85 Respiratory Rate 15 15 Blood Pressure 103/63 L 103/63 L Blood Pressure [Right Arm] 103/63 L Blood Pressure Mean [Right Arm] 76 Blood Pressure Source Automatic Cuff Blood Pressure Source [Right Arm] Automatic Cuff Blood Pressure Position Supine Blood Pressure Position [Right Arm] Supine 02 Sat by Pulse Oximetry 97 98 98 Oxygen Delivery Method Room Air Room Air Lab Data Lab results reviewed: Yes I reviewed the patient's lab results. Lab Results 09/27/24 17:40: WBC 8.9, RBC 4.40, Hgb 12.4, Hct 38.5, MCV 87.5, MCH 28.2, MCHC 32.2, RDW 12.8, Plt Count 289, MPV 9.4, Neut % (Auto) 54.9, Lymph % (Auto) 33.5, Moca % (Auto) 10.1 H, Eos % (Auto) 1.0, Baso % (Auto) 0.3, Neut # (Auto) 4.9, Lymph # (Auto) 3.0, Moca # (Auto) 0.9, Eos # (Auto) 0.1, Baso # (Auto) 0.0, Sodium 137, Potassium 3.4 L, Chloride 102, Carbon Dioxide 29, Anion Gap 9.4, BUN 10, Creatinine 0.70, Estimated Creat Clear 87, Estimated GFR 92, Est GFR ( Amer) 112, Glucose 97, Calcium 9.0, Phosphorus 3.4, Magnesium 1.8, Total Bilirubin 0.4, AST 30, ALT 26, Alkaline Phosphatase 87, Total Protein 7.1, Albumin 3.4 L, Globulin 3.7 H, Albumin/Globulin Ratio 0.9 L, Lipase 23 09/27/24 17:45: Urine WBC 10-20, Ur Squamous Epith Cells 10-20, Urine Bacteria 2+ 09/27/24 17:40 09/27/24 17:40 Orders (Tests/Meds): ED MEDICATIONS Generic Name Dose Route Start Last Admin Trade Name Freq PRN Reason Stop Dose Admin Lactated Ringer's 1,000 mls @ 999 mls/hr 09/27/24 18:00 09/27/24 17:59 Lactated Ringer's 1000 Ml Bag IV 09/27/24 19:00 999 mls/hr .Q1H1M ELLI Administration ORDERS Category Date Time Status CBC w/Auto Diff [Complete Blood Count Auto Diff] Stat Lab 09/27/24 17:40 Completed CMP [Comprehensive Metabolic Panel] Stat Lab 09/27/24 17:40 Completed Diarrhea 23 Panel, PCR Stat Lab 09/27/24 17:51 Ordered HIV Combo Stat Lab 09/27/24 17:40 Received Hepatitis C Ab Qual. W/ RFX Stat Lab 09/27/24 17:40 Received Lipase Stat Lab 09/27/24 17:40 Completed Magnesium Stat Lab 09/27/24 17:40 Completed Phosphorous Stat Lab 09/27/24 17:40 Completed UA [Urinalysis and Microscopic] Stat Lab 09/27/24 17:45 Results Urine Culture Stat Micro 09/27/24 17:45 Received Medical Decision Narrative: 39-year-old with above history and physical most likely from a statistical standpoint this is a viral cause of her diarrhea however given the profound amount of episodes that she is having and this is actually day 5 we will obtain a stool sample for PCR panel. Also she states she has had a little bit of a decrease in urine output we will check her electrolytes and renal function and give her IV fluids and reassess. From a surgical standpoint she has a very benign abdominal exam I do not suspect she has extensive colitis diverticulitis or any other surgical pathology. Reassessment 6:57 PM patient on serial assessments is benign. Labs unremarkable patient unable to provide stool sample outpatient stool sample order has been provided as well as a sample cup for the patient to go home with and instructions on how to return without specimen. She will follow-up with her primary care doctor. Loperamide has been prescribed return precautions emphasized patient discharged in stable condition. This is most likely viral and should be self limiting. Critical Care Critical Care Time Critical Care Time: No
[2024-09-27] MEDS: LACTATED RINGERS 1000ML 1,000 ML 999 ML IV (17:59)
[2024-09-27 18:02] LABS: Hematocrit 38.5 % (37.0-47.0); Hemoglobin 12.4 g/dL (12.2-16.2); Immature Granulocytes % 0.2 %; Mean Corpuscular HGB Conc 32.2 g/dL (31.8-35.4); Mean Corpuscular Hemoglobin 28.2 pg (27.0-31.2); Mean Corpuscular Volume 87.5 fl (81-99); Nucleated Red Blood Cells % 0 %; Platelet Count 289 K/mm3 (142-424); Red Blood Count 4.40 M/mm3 (4.20-5.40); Red Cell Distribution Width-SD 41.1 fL; White Blood Count 8.9 K/mm3 (4.8-10.8)
[2024-09-27 18:02] LABS: Color,Urine YELLOW (Yellow); Glucose,Urine (UA) Negative (Negative); Ketones,Urine TRACE (Negative); Leukocyte Esterase,Urine Negative (Negative); PH,Urine 6.0 (5.0-8.5); Protein,Urine TRACE (Negative); Specific Gravity, Urine >= 1.030 (1.005-1.030); Urobilinogen,Urine 1.0 EU/dl (0.2)
[2024-09-27 18:03] LABS: Albumin Level 3.4 g/dl (3.5-5.0); Chloride 102 mmol/L (98-107); Potassium 3.4 mmoL/L (3.5-5.1); Sodium 137 mmol/L (136-145)
[2024-09-27 18:05] LABS: Blood Urea Nitrogen 10 mg/dl (7-17); Creatinine Clearance Estimated 87 mL/min (50-200); Creatinine,Serum 0.70 mg/dl (0.52-1.04); Estimated Glomerular Filt Rate 92 ml/min (>60); GFR (African American) 112 ML/MIN (>60)
[2024-09-27 18:06] LABS: Alanine Aminotransferase 26 U/L (12-78); Albumin/Globulin Ratio 0.9 (1.1-1.8); Alkaline Phosphatase 87 U/L (38-126); Anion Gap 9.4 mEq/L (5-15); Aspartate Amino Transferase 30 U/L (14-36); Bilirubin,Total 0.4 mg/dl (0.2-1.3); Calcium 9.0 mg/dl (8.4-10.2); Carbon Dioxide 29 mmol/L (22.0-30.0); Globulin 3.7 g/dL (1.3-3.2); Glucose 97 mg/dl (74-100); Lipase 23 U/L (23-300); Magnesium 1.8 mg/dl (1.6-2.3); Phosphorous 3.4 mg/dl (2.5-4.5); Total Protein,Serum 7.1 g/dl (6.3-8.2)
[2024-09-27 18:06] LABS: Bilirubin,Urine 1+ (Negative)
[2024-09-27 18:16] LABS: Bacteria,Urine 2+ /lpf
[2024-09-27 19:14] VITALS: BP 103/63; PULSE 85; RESP 18; TEMP 36.7; O2SAT 98
[2024-09-27 19:14] LABS: Hepatitis C Ab Qual. W/ RFX NEGATIVE (Negative)
--- NOTE | 2024-09-28 10:10 | PC.NURSE ---
Lab called regarding diarrhea sample patient dropped off not being enough. I called patient and advised her that she would need to provide another sample and that I would leave supplies for her with ER registration to pickle water pump operator. She verbalized understanding. Also, prelim urine culture results discussed with Dr. Em. He advised to wait for final culture and diarrhea panel results.
--- NOTE | 2024-09-29 10:14 | PC.NURSE ---
Urine culture results reviewed by Dr. Em. Macrobid 100 mg daily x 5 days prescribed. Spoke with patient. She would like called in to [facility] pharmacy. Advised patient to finish antibiotics. She verbalized understanding. Prescription called in to pharmacy.
== END 2024-09-27 19:14 | disposition home or self-care (01) ==
PROVIDERS: Emergency Provider Student in an Organized Health Care Education/Training Program
DX: R19.7 Diarrhea, unspecified (principal); E86.0 Dehydration
CPT/HCPCS: 80053; 81001; 83690; 83735; 84100; 85025; 86803; 87086; 87088; 87186; 87389; 96360; 99284; J7120

== ENCOUNTER 2024-09-27 21:02 | Outpatient (CLI) | payer OTHER, SELFPAY ==
--- OUTSIDE RECORDS SUMMARY | 2024-04-23 14:20 | XMS_ITS | Encounter Summary ---
Author Organization [facility] Address [address] [id number] Care Team Providers Care Meter Installer Name Role Phone Karen Pineda Primary Care Provider [phone] Encounter Details Date Type Department Care Team (Late st Contact Info) Description 04/23/2024 1:20 PM EST Hospital Encounter [facility] PULMONARY & CRITICAL CARE MEDICINE [address] [place] [id number] Social History Tobacco Use Types Packs/Day Years Used Date Smoking Tobacco: Former Cigarettes 1 24.3 0 07/27/1999 - 10/27/2023 Passive Smoke Exposure: Current Smokeless Tobacco: Never Alcohol Use Standard Drinks/Week Comments Never 0 (1 standard drink = 0.6 oz pur e alcohol) PHQ-2 Answer Date Recorded Retired Total Score 24 08/19/2019 PHQ-2 Answer Date Recorded Patient Health Questionnaire-2 Score 0 03/20/2024 Comments Unknown Sex and Gender Information Value Date Recorded Sex Assigned at Female 09/10/2024 12:52 PM EDT Legal Sex Female 11:58 AM EDT Gender Identity Not on file Sexual Orientation Not on file documented as of this encounter Plan of Treatment Upcoming Encounters Date Type Department Care Team (Late st Contact Info) Description 10/01/2024 11:00 AM EDT Office Visit [facility] SLEEP MEDICINE [address] [facility] [address] [place] [address] Lorenzo Jarvis, TITLE I DIRECTOR [address] [place] [address] 10/29/2024 2:30 PM EDT Office Visit [facility] PULMONARY & CRITICAL CARE MEDICINE [address] [place] [address] Jasson Ramirez DO [address] [place] [address] 11/02/2024 3:00 PM EDT Office Visit [facility] NEUROLOGY [address] [facility] [address] [place] [phone] Ernestina Neal, TITLE I DIRECTOR [address] [facility] [address] [place], [place] [id number] 02/05/2025 11:15 AM EST Office Visit [facility] RHEUMATOLOGY [address] [facility] [address] [place] [address] Luis Banda, TITLE I DIRECTOR [address] [facility] [address] [place], [place] [id number] documented as of this encounter Goals Goal Patient Goal Type Associated Problems Recent Progress Patient-Stated? Author Specialty Pharmacy General Goal General On track( 025 8:42 AM EDT) No Kandy Sahu, [facility] Note: On Average, Reduce: Frequency of migraines to 5 per month. Symptom severity by 50% within 1 hour of taking acute therapy. Duration of migraines to 2 hours. Baseline Values/Notes on Enrollment Frequency: 10 MMD Symptom Severity: Moderate to severe pain, photophobia, phonophobia Duration: Several hours Date of Reassessment Notes on Progress Toward Above Goals 03/10/24 Initiate Oniel and Mai PRN 08/31/24 Patient reports 3-4 MMD. documented as of this encounter Procedures Procedure Name Priority Date/Time Associated Diagnosis Comments XR CHEST PA AND LATERAL Routine 04/23/2024 1:23 PM EST Shortness of breath documented in this encounter Results * XR Chest PA & Lateral (04/23/2024 1:23 PM EST) Anatomical Region Laterality Modality Body, Chest N/A Radiographic Karlee ging Narrative 04/27/2024 3:14 PM EST Genesis Burrell [id number] 04/23/2024 Chest X-Ray PA & Lateral Indication: Shortness of breath Comparison: Chest x-ray January 2023 Findings: Lungs are clear. No effusions. Heart and mediastinum unremarkable. No pneumothorax. Interpretation: No acute cardiopulmonary findings Monica Ramirez, DO Please note that portions of this note may have been completed with a voice recognition program. Efforts were made to edit the dictations, but occasionally words are mistranscribed. Jasson Ramirez DO IMG DIAGNOSTIC IMAG ING ORDERABLES Final Result documented in this encounter Visit Diagnoses Not on filedocumented in this encounter Additional Health Concerns Assessment Noted Time PHQ-2 Depression Total Score: 6 04/17/19 24 12:15 PM EST documented as of this encounter Care Teams Meter Installer Relationship Specialty Start Date End Date Karen Pineda DO [address] [place], [place] [id number] PCP - General Family Medicine 10/08/16 documented as of this encounter
--- OUTSIDE RECORDS SUMMARY | 2024-07-13 13:28 | XMS_ITS | Encounter Summary ---
[facility] [address] [id number] Care Team Providers Care Athletic Events Scorer Name Role Phone Karen Pineda DO Primary Care Provider [phone] Reason for Referral * Hospital - Outpatient (Routine) - Closed Specialty Diagnoses / Procedures Referred By Contac t Referred To Contact Sleep Medicine Diagnoses Hypersomnia Obstructive sleep apnea, adult Snoring Procedures Home Sleep Study Tyson Liu MD [address] [address] Phone: tel: fax: [facility] SLEEP [facility] [address] [address] Phone: tel: fax: Referral ID Status Reason Start Date Expiration Date Visits Re quested Visits Authorized [id number] Closed 05/12/2024 08/11/2025 1 1 Reason for Visit * Hospital - Outpatient (Routine) - Closed Specialty Diagnoses / Procedures Referred By Contac t Referred To Contact Sleep Medicine Diagnoses Hypersomnia Obstructive sleep apnea, adult Snoring Procedures Home Sleep Study Tyson Liu MD [address] [place] [address] Phone: tel: fax: [facility] SLEEP [facility] [address] [address] Phone: tel: fax: Referral ID Status Reason Start Date Expiration Date Visits Re quested Visits Authorized [id number] Closed 05/12/2024 08/11/2025 1 1 Encounter Details Date Type Department Care Team (Late st Contact Info) Description 07/13/2024 1:28 PM EDT Hospital Encounter [facility] SLEEP [facility] [address] [place] [address] Tyson Liu MD [address] [place] [address] Hypersomnia; Obstructive sleep apnea, adult; Snoring Social [...] Description 10/01/2024 11:00 AM EDT Office Visit [facility] SLEEP MEDICINE 3000 [facility] [address] [place] [address] Lorenzo Jarvis, PIPE CAULKER [address] [place] [address] 10/29/2024 2:30 PM EDT Office Visit [facility] PULMONARY & CRITICAL CARE MEDICINE [address] [place] [address] Jasson Ramirez DO [address] [place] [address] 11/02/2024 3:00 PM EDT Office Visit [facility] NEUROLOGY [address]01 [facility] [address] [place] [address] Ernestina Neal, PIPE CAULKER 2101 [facility] [address] [place] [address] 02/05/2025 11:15 AM EST Office Visit [facility] RHEUMATOLOGY [address] [facility] [address] [place] [address] Luis Banda, PIPE CAULKER 330 [facility] [address] [place], [place] [id number] documented as of this encounter Goals Goal Patient Goal Type Associated Problems Recent Progress Patient-Stated? Author Specialty Pharmacy General Goal General On track( 025 8:42 AM EDT) No Kandy Sahu, [facility] Note: On Average, Reduce: Frequency of migraines [...] Patient Name: Genesis Burrell Interpreting Physician: Tyson Lui MD Date of : 1985 Referring Provider: [...] KELLY and she had a PSG at [facility] in December 2022 which revealed a [...] had a home sleep test with an [employer] One device that measured airflow at the [...] documented as of this encounter Care Teams Athletic Events Scorer Relationship Specialty Start Date End Date Karen Pineda DO [address] [place] [address] PCP - General Family Medicine 10/08/16 documented as of this encounter
--- OUTSIDE RECORDS SUMMARY | 2024-08-07 11:15 | XMS_ITS | Encounter Summary ---
Author Organization [facility] Address [address] [id number] Care Team Providers Care Sander And Buffer Name Role Phone Karen Pineda DO Primary Care Provider [phone] Reason for Referral * Consultation (Routine) - Authorized - Pending Scheduling Specialty Diagnoses / Procedures Referred By Contac t Referred To Contact Dermatology Diagnoses Facial erythema Procedures RI OFFICE/OUTPATIENT NEW MODERATE MDM 45 MINUTES Jose Alejandro Jean DO [address] [place] [address] Phone: tel: fax: [facility] [address] [place] [address] Phone: tel: fax: Referral ID Status Reason Start Date Expiration Date Visits Requested Visits Authorized [id number] Authorized - Pending Scheduling Specialty Services Required 08/07/2024 11/06/2025 1 1 Reason for Visit * Reason Comments Fibromyalgia Follow up Scleroderma Follow up Encounter Details Date Type Department Care Team (Late st Contact Info) Description 08/07/2024 11:15 AM EDT Office Visit [facility] [address] [phone] Jose Alejandro Jean DO [address] [address] Limited systemic sclerosis (Primary Dx); Fibromyalgia; Facial [...] be sent through Care Everywhere. * Scleroderma (Korean) documented in this encounter Progress Notes * Jose Alejandro Jean DO - 08/07/2024 11:15 AM EDTAssociated Problem(s): Centromere antibody positive Medication/treatment/interventions tried include: Tylenol, prednisone, escitalopram, ibuprofen, Celebrex, diclofenac, she has seen endocrinology, she has seen cardiology, She has seen neurology, she has seen sleep medicine specialists, She has seen pulmonology specialists 11/28/23: CHANCE 1:160 homogenous, DS DNA Normal, BROOM HANDLE DIPPER normal, Amin normal, SCL 70 normal, SSA and SSB normal, chromatin normal, Alexa 1 normal, Centromere normal, Vitamin D 31.6, CMP was fine, CRP normal, Sed rate normal, RF negative 12/17/2023: CHANCE 1: 640 centromere pattern, centromere antibody positive, TPO antibody positive, normal complements, SCL 70 negative, Amin negative, BROOM HANDLE DIPPER negative, dsDNA negative, SSA/SSB negative, anticardiolipin antibodies negative, CCP negative, RF negative, 14.3.3 negative, ANCA panel negative, CK and aldolase normal, CRP and ESR normal, HLA-B27 negative, thyroglobulin antibody negative, thyroid function normal, hepatitis panel negative, QTB negative Patient reports she sees rack pusher, Dr. Anderson. We recommend she see cardiology [...] 11/28/23: CHANCE 1:160 homogenous, DS DNA Normal, BROOM HANDLE DIPPER normal, Amin normal, SCL 70 normal, SSA and SSB normal, chromatin normal, Alexa 1 normal, Centromere normal, Vitamin D 31.6, CMP was fine, CRP normal, Sed rate normal, RF negative 12/17/2023: CHANCE 1: 640 centromere pattern, centromere antibody positive, TPO antibody positive, normal complements, SCL 70 negative, Amin negative, BROOM HANDLE DIPPER negative, dsDNA negative, SSA/SSB negative, anticardiolipin antibodies negative, CCP negative, RF negative, 14.3.3 negative, ANCA panel negative, CK and aldolase normal, CRP and ESR normal, HLA-B27 negative, thyroglobulin antibody negative, thyroid function normal, hepatitis panel negative, QTB negative Patient reports she sees rack pusher, Dr. Anderson. We recommend she see cardiology [...] months (around 02/06/2025). Jose Alejandro Jean DO [facility] [place] documented in this encounter Plan of Treatment Upcoming Encounters Date Type Department Care Team (Late st Contact Info) Description 10/01/2024 11:00 AM EDT Office Visit [facility] [address] [facility] [address] [place] [phone] Lorenzo Jarvis, GOVERNMENT INSTRUCTOR [address] [place] [address] 10/29/2024 2:30 PM EDT Office Visit [facility] [address] [facility] [place] [place] [phone] Jasson Ramirez DO [address] [place] [address] 11/02/2024 3:00 PM EDT Office Visit [facility] [address] [facility] [address] [place] [address] Ernestina Neal, GOVERNMENT INSTRUCTOR [address] [facility] [address] [place] [address] 02/05/2025 11:15 AM EST Office Visit [facility] [address] [phone] Luis Banda, GOVERNMENT INSTRUCTOR [address] [facility] [address] [place] [address] Scheduled Referrals Name Type Priority Associated Diagnoses Order Schedule Ambulatory Referral to Dermatology Outpatient Referral Routine Facial erythema Ordered: 08/07/2024 documented as of this encounter Goals Goal Patient Goal Type Associated Problems Recent Progress Patient-Stated? Author Specialty Pharmacy General Goal General On track( 025 8:42 AM EDT) No Kandy Sahu, [facility] Note: On Average, Reduce: Frequency of migraines [...] - 08/08/2024 1:06 AM EDT Performed at: [address] [place] [id number] Recycling Manager: Freeman Horn MD, Phone: [phone] Patient Fasting: N us Jose Alejandro Jean DO LAB BLOOD ORDERABLES F inal Result Performing Organization Address City/[facility]/ZIP Co de Phone Number [facility]) [address] [place] [address], [place] [phone] [facility] [address] [place] [address], [place] [phone] * Sedimentation Rate (08/07/2024 12:16 PM EDT) Sed Rate 20 0 - 20 mm/hr [facility] Blood 08/07/2024 12:1 6 PM EDT 08/07/2024 Narrative [facility] ([facility]) - 08/08/2024 1:06 AM EDT Performed at: [address] [place] [id number] Recycling Manager: Freeman Horn MD, Phone: [phone] Patient Fasting: N [facility] BLOOD ORDERABLES F inal Result Performing Organization Address [facility]/ZIP Co de Phone Number [facility] ([facility]) [address] [place] [address], [place] [phone] [facility] [address] [place] [address], [place] [phone] * C-reactive Protein (08/07/2024 12:16 PM EDT) C-Reactive Protein <0.30 0.00 - 0.50 mg/dL [facility] Blood 08/07/2024 12:1 6 PM EDT 08/07/2024 Narrative [facility]) - 08/08/2024 1:06 AM EDT Performed at: [address] [place] [id number] Recycling Manager: Freeman Horn MD, Phone: [phone] Patient Fasting: N [facility] LAB BLOOD ORDERABLES F inal Result Performing Organization Address City/[facility]/ZIP Co de Phone Number [facility] ([facility]) [address] [place] [address], [facility] [address] [place] [address], * Comprehensive Metabolic Panel (08/07/2024 12:16 PM [...] - 08/08/2024 1:06 AM EDT Performed at: [address] [place] [id number] Recycling Manager: Freeman Horn MD, Phone: [phone] Patient Fasting: N [facility] LAB BLOOD ORDERABLES F inal Result Performing Organization Address [facility] Co de Phone Number [facility] ([facility]) [address] [place] [address], [place] [phone] [facility] [address] [place] [address], [place] [phone] * CK (08/07/2024 12:16 PM EDT) [facility] Creatine Kinase 49 20 - 180 U/L [facility] Blood 08/07/2024 12:1 6 PM EDT 08/07/2024 Narrative [facility]) - 08/08/2024 1:06 AM EDT Performed at: [address] [place] [id number] Recycling Manager: Freeman Horn MD, Phone: [phone] Patient Fasting: N [facility] LAB BLOOD ORDERABLES F inal Result Performing Organization Address [facility] Co de Phone Number [facility] ([facility]) [address] [place] [address], [place] [phone] [facility] [address] [place] [address], [place] [phone] documented in this encounter Visit Diagnoses Diagnosis Limited systemic sclerosis- Primary Systemic sclerosis Fibromyalgia Unspecified myalgia and myositis Facial erythema documented in this encounter Additional Health Concerns Assessment Noted Time PHQ-2 Depression Total Score: 6 04/17/19 24 12:15 PM EST documented as of this encounter Care Teams Sander And Buffer Relationship Specialty Start Date End Date Karen [place] [address] PCP - General Family Medicine 10/08/16 documented as of this encounter
--- OUTSIDE RECORDS SUMMARY | 2024-09-17 14:00 | XMS_ITS | Encounter Summary ---
Author Organization [facility] Address [address] [place] [address] Care Team Providers Care Manager Of Recruiting Name Role Phone Karen Pineda DO Primary Care Provider [phone] Reason for Referral * Behavorial Health/Psych (Routine) - Authorized Specialty Diagnoses / Procedures Referred By Chuy soriano Referred To Contact Behavioral Health Diagnoses Anxiety Moderate episode of recurrent major depressive disorder Procedures [place] OFFICE/OUTPATIENT NEW MODERATE MDM 45 MINUTES Karen Pineda DO [address] [place] [address] Phone: tel: fax: Amador Gonzalez, KARTHIK [address] [place] [address] Phone: tel: fax: Referral ID Status Reason Start Date Expiration Date Visits Requested Visits Authorized [id number] Authorized Specialty Services Required 09/17/2024 12/17/2025 1 1 * Diagnostic Imaging (Routine) - Authorized Specialty Diagnoses / Procedures Referred By Chuy soriano Referred To Contact Diagnoses Encounter for screening mammogram for malignant neoplasm of breast Procedures Mammo Screening Digital Tomosynthesis Bilateral With CAD Karen Pineda DO [address] [place] [address] Phone: tel: fax: [facility] - OUTPT PHYSICAL THERAPY [address] [place] [address] Phone: tel: fax: Referral ID Status Reason Start Date Expiration Date V isits Requested Visits Authorized [id number] Authorized 09/17/2024 12/17/2025 1 1 Reason for Visit * Reason Comments Annual Exam Pt is not fasting. Encounter Details Date Type Department Care Team (Late st Contact Info) Description 09/17/2024 2:00 PM EDT Office Visit [facility] [address] [address] Karen [...] * Preventive Care 40-64 Years Old Female (Gambian) documented in this encounter Progress Notes * Karen Pineda, DO - 09/17/2024 2:00 PM EDT Chief Complaint Annual Exam (Pt is not fasting. ) Subjective Genesis Burrell presents to [facility] History of Present Illness The [...] the care of Dr. Anderson's office in [place] for her heart condition, which includes an [...] Vitamin B12 - Ambulatory Referral to Behavioral [facility] - escitalopram (Lexapro) 20 MG tablet; Take 1 tablet by mouth Daily. Dispense: 90 tablet; Refill: 1 - Folate - TSH+Free T4 4. Moderate episode of recurrent major depressive disorder - CBC (No Diff) - Comprehensive Metabolic Panel - Lipid Panel With / Chol / HDL Ratio - Vitamin D,25-Hydroxy - Vitamin B12 - Ambulatory Referral to [facility] - escitalopram (Lexapro) 20 MG tablet; [...] Continue current medications. - Follow up with director multimedia as needed. 3. Thyroid Antibody Positive. - [...] (around 03/20/2025) for Recheck. Patient or patient contracts representative verbalized consent for the use of [...] 10/01/2024 11:00 AM EDT Office Visit [facility] [address] [facility] [address] [place] [phone] Lorenzo Jarvis, BEEF KILLER [address] [place] [address] 10/29/2024 2:30 PM EDT Office Visit [facility] PULMONARY & CRITICAL CARE MEDICINE [address] [place] [phone] Jasson Ramirez DO [address] [place] [address] 11/02/2024 3:00 PM EDT Office Visit [facility] NEUROLOGY [address] [facility] [address] [place] [phone] Ernestina Neal, BEEF KILLER [address] [facility] [address] [place] [address] 02/05/2025 11:15 AM EST Office Visit [facility] RHEUMATOLOGY [address] [phone] Luis Banda, BEEF KILLER 330 [facility] [address] [place] [address] Scheduled Orders Name Type Priority Associated Diagnoses [...] 025 8:42 AM EDT) No Kandy Sahu, [facility] Note: On Average, Reduce: Frequency of [...] Hemoglobin A1C 5.9(A) 4.5 - 5.7 % [facility] Lot Number [id number] [facility] Expiration Date 05/25/2026 [facility] Blood 09/17/2024 2:46 PM EDT Karen Pineda DO POINT OF CARE TEST ORDERABL ES Final Result [facility]
[address] [place] [address], documented in this encounter Visit Diagnoses Diagnosis Annual physical exam- Primary Routine general medical examination at a [facility] care facility Prediabetes Other abnormal glucose Anxiety [...] documented as of this encounter Care Teams Manager Of Recruiting Relationship Specialty Start Date End Date Karen Pineda DO [address] [place] [address] PCP - General Family Medicine 10/08/16 documented as of this encounter
--- OUTSIDE RECORDS SUMMARY | 2024-09-27 21:06 | XMS_ITS | Encounter Summary ---
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] Procedures MI ESOPHAGOGASTRODUODENOSCOPY TRANSORAL DIAGNOSTIC MI EGD TRANSORAL BIOPSY SINGLE/MULTIPLE ESOPHAGOGASTRODUODENOSCOPY Referral ID Status Reason Start Date Expiration Date Visits Re quested Visits Authorized [id number] 1 1 Encounter Details Date Type Department Care Team (Late st Contact Info) Description 05/05/2024 Hospital Encounter [facility] ENDO SUITES [address] [phone] Rl Marin MD 1720 [facility] 302 [place] [address] Social History Tobacco Use Types Packs/Day Years [...] [facility] SLEEP MEDICINE 3000 [facility] [address] [place] [phone] Lorenzo Jarvis, INJECTION MOLDING SUPERVISOR [address] [place] [address] 10/29/2024 2:30 PM EDT Office Visit [facility] PULMONARY & CRITICAL CARE MEDICINE [address] [place] [address] Jasson Ramirez DO [address] [place], [place] [address] 11/02/2024 3:00 PM EDT Office Visit [facility] NEUROLOGY 2101 [facility] 204 [place] [address] Ernestina Neal, INJECTION MOLDING SUPERVISOR 2101 [facility] [address] [place], [place] [address] 02/05/2025 11:15 AM EST Office Visit [facility] RHEUMATOLOGY 330 [facility] 100 [place] [address] Luis Banda, INJECTION MOLDING SUPERVISOR 330 [facility] 100 [place], [place] [address] documented as of this encounter Goals Goal Patient Goal Type Associated Problems Recent Progress Patient-Stated? Author Specialty Pharmacy General Goal General On track( 025 8:42 AM EDT) Kandy López, [facility] Note: On Average, Reduce: [...] documented as of this encounter Care Teams Planishing Hammer Operator Relationship Specialty Start Date End Date Karen Pineda DO [address] [facility] [place] [address] PCP - General Family Medicine 10/08/16 documented as of this encounter
--- OUTSIDE RECORDS SUMMARY | 2024-09-27 21:06 | XMS_ITS | Encounter Summary ---
Author Organization [facility] Address [address] [place] [address] Care Team Providers Care Mixing House Operator Name Role Phone Karen Pineda DO Primary Care Provider +1 [phone] Encounter Details Date Type Department Care Team [...] [facility] SLEEP MEDICINE 3000 [facility] 240 [place] [address] Lorenzo Jarvis, MUNICIPAL COURT JUDGE [address] [place] [address] 10/29/2024 2:30 PM EDT Office Visit [facility] PULMONARY & CRITICAL CARE MEDICINE [address] [place] [phone] Jasson Ramirez, DO [address] [place] [address] 11/02/2024 3:00 PM EDT Office Visit [facility] NEUROLOGY 210 [facility] 204 [place] [phone] Ernestina Neal, MUNICIPAL COURT JUDGE 2101 [facility] 204 [place], [place] [address] 02/05/2025 11:15 AM EST Office Visit [facility] RHEUMATOLOGY 330 [facility] 100 [place] [address] Luis Banda, MUNICIPAL COURT JUDGE 330 [facility] 100 [place], [place] [id number] documented as of this encounter Goals Goal Patient Goal Type Associated Problems Recent Progress Patient-Stated? Author Specialty Pharmacy General Goal General On track( 025 8:42 AM EDT) No Kandy Sahu, [facility] Note: On Average, Reduce: Frequency [...] documented as of this encounter Care Teams Mixing House Operator Relationship Specialty Start Date End Date Karen Pineda DO [address] [place] [address] PCP - General Family Medicine 10/08/16 documented as of this encounter
--- OUTSIDE RECORDS SUMMARY | 2024-09-27 21:06 | XMS_ITS | Clinical Summary ---
Author Organization [facility] Address [address] [place] [address] Phone Care Team Providers Care Ovens Supervisor Name Role Phone Unavailable Primary Care Provider [...] patient's age to complete this topic Insurance [facility] [place] [address] [employer] [place] Advance Directives For more information, please contact: [phone] * Full Code (Latest Code Status on File) Date Activated Date Inactivated Comments 08/07/2021 3:35 PM 08/09/2021 6:15 PM
--- OUTSIDE RECORDS SUMMARY | 2024-09-27 21:06 | XMS_ITS ---
Author Organization [facility] Address [address] [place] [address] Care Team Providers Care Service Attendant Cafeteria Name Role Phone Karen Pineda DO Primary Care Provider [phone]- [phone] Chronic Migraine Status:Enrolled (Active) Start date:03/10/2024 Enrollment date:03/10/2024 Enrollment reason:New start at Current support & services provided:Clinical Assessment, Refill Coordination , Benefits Investigation, [facility] Dispensing Linked medications:Fremanezumab-vfrm (Active), Rimegepant Sulfate (Active) Linked problems:Intractable chronic migraine without aura (Active) Case Team Name Relationship Phone Ernestina Neal APRN Nurse Practitioner Continued Care and Services Coordination
--- OUTSIDE RECORDS SUMMARY | 2024-09-27 21:06 | XMS_ITS | Encounter Summary ---
Author Organization [facility] Address [address] [place] [address] Care Team Providers Care Rn Wellness Name Role Phone Karen Pineda DO Primary Care Provider +1 [phone] Encounter Details Date Type Department Care Team [...] Description 10/01/2024 11:00 AM EDT Office Visit [facility] SLEEP MEDICINE 3000 [facility] 240 [place] [address] Lorenzo Jarvis, TICKETER [address] [place] [address] 10/29/2024 2:30 PM EDT Office Visit [facility] PULMONARY & CRITICAL CARE MEDICINE [address] [place] [phone] Jasson Ramirez, DO [address] [place] [address] 11/02/2024 3:00 PM EDT Office Visit [facility] NEUROLOGY 210 [facility] 204 [place] [phone] Ernestina Neal, TICKETER 2101 [facility] 204 [place], [place] [address] 02/05/2025 11:15 AM EST Office Visit [facility] RHEUMATOLOGY 330 [facility] 100 [place] [address] Luis Banda, TICKETER [address] [facility] 100 [place], [place] [id number] documented as of this encounter Goals Goal Patient Goal Type Associated Problems Recent Progress Patient-Stated? Author Specialty Pharmacy General Goal General On track( 025 8:42 AM EDT) No Kandy Sahu, [facility] Note: On Average, Reduce: Frequency of migraines [...] documented as of this encounter Care Teams Rn Wellness Relationship Specialty Start Date End Date Karen Pineda DO [address] [place] [address] PCP - General Family Medicine 10/08/16 documented as of this encounter
--- OUTSIDE RECORDS SUMMARY | 2024-09-27 21:06 | XMS_ITS | Clinical Summary ---
Author Organization [facility] Address [address] [place] [address] Care Team Providers Care Licensed Practical Nurse Clinic Nurse Name Role Phone Karen Pineda Primary Care Provider +1- [phone] Allergies No known active allergies Medications vitamin [...] 11/28/23: CHANCE 1:160 homogenous, DS DNA Normal, [employer] normal, Amin normal, SCL 70 normal, SSA and SSB normal, chromatin normal, Alexa 1 normal, Centromere normal, Vitamin D 31.6, CMP was fine, CRP normal, Sed rate normal, RF negative 12/17/2023: CHANCE 1: 640 centromere pattern, centromere antibody positive, TPO antibody positive, normal complements, SCL 70 negative, Amin negative, [employer] negative, dsDNA negative, SSA/SSB negative, anticardiolipin antibodies negative, CCP negative, RF negative, 14.3.3 negative, ANCA panel negative, CK and aldolase normal, CRP and ESR normal, HLA-B27 negative, thyroglobulin antibody negative, thyroid function normal, hepatitis panel negative, QTB negative Patient reports she sees intelligent systems engineer, Dr. Anderson. We recommend she see cardiology [...] 9:41 AM EST): Patient reports she sees intelligent systems engineer, Dr. Anderson. We recommend she see cardiology annually for screening. We will refer her to pulmonology per her request. She previously saw Dr. Gonzales at [facility]. We would recommend annual screenings with [...] 11/28/23: CHANCE 1:160 homogenous, DS DNA Normal, [employer] normal, Amin normal, SCL 70 normal, SSA and SSB normal, chromatin normal, Alexa 1 normal, Centromere normal, Vitamin D 31.6, CMP was fine, CRP normal, Sed rate normal, RF negative 12/17/2023: CHANCE 1: 640 centromere pattern, centromere antibody positive, TPO antibody positive, normal complements, SCL 70 negative, Amin negative, [employer] negative, dsDNA negative, SSA/SSB negative, anticardiolipin antibodies [...] not to take with other NSAIDs including cjih-spp-rpbrfuk NSAIDs such as ibuprofen, naproxen, Aleve, Motrin, [...] surgery 02/27/2024 Overview (02/27/2024): Bariatric surgery in [facility] longer than 16 years ago. Planning to schedule reevaluation at [facility] Hypersomnia 02/27/2024 Hypoxemia 02/27/2024 Influenza 02/27/2024 [...] Department Care Team Description 09/21/2024 Results Follow-Up [facility] FAMILY MEDICINE [address] [place] [address] Karen Pineda, 09/21/2024 Results Follow-Up [facility] MEDICINE [address] [place] [address] Karen Pineda, 09/21/2024 Results Follow-Up [facility] FAMILY MEDICINE [address] [place] [address] Karen Pineda, 09/17/2024 2:00 PM EDT Office Visit [facility] MEDICINE [address] [place] [address] Karen Pineda, DO Annual physical exam (Primary Dx); Prediabetes; Anxiety; Moderate episode of recurrent major depressive disorder; KELLY on CPAP; Cyanocobalamin deficiency; Vitamin D deficiency; High cholesterol; Mood disorder; Forgetfulness; Encounter for screening mammogram for malignant neoplasm of breast 09/17/2024 Travel 08/10/2024 Results Follow-Up [facility] RHEUMATOLOGY [address] [address] Jose Alejandro Jean, 08/07/2024 11:15 AM EDT Office Visit [facility] RHEUMATOLOGY [address] [address] Jose Alejandro Jean, Limited systemic sclerosis (Primary Dx); Fibromyalgia; Facial erythema 08/07/2024 Travel 07/23/2024 2:00 PM EDT Office Visit [facility] NEUROLOGY [address] [place] [address] Ernestina Neal APRN Intractable chronic migraine without aura and without status migrainosus (Primary Dx); Pseudotumor cerebri 07/23/2024 Travel 07/21/2024 Telephone [facility] SLEEP MEDICINE [address] [place] [address] Tyson Liu MD HST results 07/13/2024 1:28 PM EDT Hospital Encounter [facility] SLEEP LAB [address] [facility] [address] [place] [address] Tyson Liu MD Hypersomnia; Obstructive sleep apnea, [...] Stroke Paternal Grandmother Rosalee Anxiety disorder Sister Adams Thyroid disease Sister Adams Relation Name Status Comments Daughter Stacy Father rashawn Maternal Grandfather happy Mother bobo Paternal Grandfather david Paternal Grandmother Rosalee Sister Adams Social History Tobacco Use Types Packs/Day Years [...] Description 10/01/2024 11:00 AM EDT Office Visit [facility] SLEEP MEDICINE 3000 [facility] [address] [place] [address] Lorenzo Jarvis, FOUR ROLL CALENDER OPERATOR [address] [place] [address] 10/29/2024 2:30 PM EDT Office Visit [facility] PULMONARY & CRITICAL CARE MEDICINE [address] [facility] [place] [address] Jasson Ramirez DO [address] [place] [address] 11/02/2024 3:00 PM EDT Office Visit [facility] NEUROLOGY 21[address] [facility] [address] [place] [address] Ernestina Neal, FOUR ROLL CALENDER OPERATOR [address] [facility] [address] [place] [address] 02/05/2025 11:15 AM EST Office Visit [facility] RHEUMATOLOGY [address] [phone] Luis Banda APRN [address] [address] Health Maintenance Due Date Last Done Comments [...] AM EDT) No Kandy Sahu, [facility] Note: On Average, Reduce: Frequency of [...] Hemoglobin A1C 5.9(A) 4.5 - 5.7 % [facility] Lot Number [id number] [facility] Expiration Date 05/25/2026 [facility] Blood 09/17/2024 2:46 PM EDT Karen Brenda Pineda DO POINT OF CARE TEST ORDERABL ES Final Result Performing Organization Address City/[facility]/ZIP Co de Phone Number [facility]
[address] [place] [address], * IMAGING SCANNED (08/22/2024) Anatomical Region Laterality Modality Radiographic Karlee ging Karen Brenda Pineda DO IMG DIAGNOSTIC IMAGING ORDE RABLES Final Result * Sedimentation Rate (08/07/2024 12:16 PM EDT) Sed Rate 20 0 - 20 mm/hr [facility] Blood 08/07/2024 12:1 6 PM EDT 08/07/2024 Narrative [facility]) - 08/08/2024 1:06 AM EDT Performed at: [address] [place] [id number] Java Jsf Developer: Freeman Horn MD, Phone: [phone] Patient Fasting: N Jose Alejandro Castro Jean DO LAB BLOOD ORDERABLES F inal Result Performing Organization Address [facility] Co de Phone Number [facility] ([facility]) [address] [place] [address], [place] [phone] [facility] [address] [place] [id number], [place] [phone] * (ABNORMAL) CBC & Differential (08/07/2024 12:16 [...] 08/08/2024 1:06 AM EDT Performed at: [address] [id number] Java Jsf Developer: Freeman Horn MD, Phone: [phone] Patient Fasting: N us Jose Alejandro Jean DO LAB BLOOD ORDERABLES F inal Result [facility]) [address] [place] [address], [place] [phone] [facility] [address] [place] [address], * C-reactive Protein (08/07/2024 12:16 PM EDT) [facility] C-Reactive Protein <0.30 0.00 - 0.50 mg/dL [facility] Blood 08/07/2024 12:1 6 PM EDT 08/07/2024 Narrative [facility] (AMBULATORY) - 08/08/2024 1:06 AM EDT Performed at: [address] [place] [address] [address] [place], [place] [id number] Java Jsf Developer: Freeman Horn MD, Phone: [phone] Patient Fasting: N [facility] LAB BLOOD ORDERABLES F inal Result Performing Organization Address City/[facility]/ZIP Co de Phone Number [facility] [address] [place] [address], [facility] [address] [place] [address], [place] [phone] * CK (08/07/2024 12:16 PM EDT) [facility] Creatine Kinase 49 20 - 180 U/L [facility] Blood 08/07/2024 12:1 6 PM EDT 08/07/2024 Narrative [facility] (AMBULATORY) - 08/08/2024 1:06 AM EDT Performed at: [address] [place] [address] [address] [place], [place] [id number] Java Jsf Developer: Freeman Horn MD, Phone: [phone] Patient Fasting: N [facility] LAB BLOOD ORDERABLES F inal Result Performing Organization Address City/[facility]/ZIP Co de Phone Number [facility] [address] [place] [address], [place] [phone] [facility] [address] [place] [address], [place] [phone] * Comprehensive Metabolic Panel (08/07/2024 12:16 PM EDT) [facility] Glucose 87 65 - 99 mg/dL [facility] [...] Blood 08/07/2024 12:1 6 PM EDT 08/07/2024 [facility]) - 08/08/2024 1:06 AM EDT Performed at: [address] [id number] Java Jsf Developer: Freeman Horn MD, Phone: [phone] Patient Fasting: N Jose Alejandro Jean DO LAB BLOOD ORDERABLES F inal Result [facility]) [address] [place] [address], [place] [phone] [facility] [address] [place] [address], * HST (07/14/2024 7:15 AM EDT) Narrative [...] KELLY and she had a PSG at [facility] in December 2022 which revealed a [...] had a home sleep test with an Ivaldi One device that measured airflow at the [...] ve Non-Reacti ve 12/18/2023 12:53 AM EDT [facility] Hep A IgM Non-Reacti ve Non-Reacti ve 12/18/2023 12:53 AM EDT [facility] Hep B C IgM Non-Reacti ve Non-Reacti ve 12/18/2023 12:53 AM EDT [facility] Hepatitis C Ab Non-Reacti ve Non-Reacti ve 12/18/2023 12:53 AM EDT [facility] Blood Venipuncture / Unknown 12/17/2023 10:30 AM EDT 12/17/2023 10:30 AM EDT [facility]ORY - 12/18/2023 12:53 AM EDT Results may be falsely decreased if patient taking Biotin. Jose Alejandro Jean DO LAB BLOOD ORDERABLES F inal Result Performing Organization Address City/[facility] Co de Phone Number [facility]
[address] [place] [address], * (ABNORMAL) Lipid Panel With / Chol / HDL Ratio (05/29/2023 8:52 AM EDT) [facility] Total Cholesterol 159 0 - 200 mg/dL [...] 3:08 AM EDT Performed at: 01 - [facility] [address] [place], [place] [id number] Java Jsf Developer: Freeman Horn MD, Phone: [phone] Patient Fasting: Y Karen Pineda DO LAB BLOOD ORDERABLES Final Result [facility]) [address] [place] [address], [place] [phone] [facility] [address] [place] [address], [place] [phone] from Last 3 Months or Most Recently Relevant to Health Maintenance Insurance [facility] Care Teams Licensed Practical Nurse Clinic Nurse Relationship Specialty Start Date End Date Karen Pineda DO [address] [facility] [place] [address] PCP - General Family Medicine 10/08/16
--- OUTSIDE RECORDS SUMMARY | 2024-09-27 21:06 | XMS_ITS | Encounter Summary ---
[facility] Address [address] [place] [address] Care Team Providers Care Metal Moulder'S Assistant Name Role Phone Karen Pineda Primary Care Provider +[phone] Encounter Details Date Type Department Care Team (Late Contact Info) Description 08/10/2024 Results Follow-Up [facility] RHEUMATOLOGY 330 [facility] [address] [place] [address] Jose Alejandro Jean DO 330 [facility] [address] [place], [place] [id number] Social History Tobacco Use Types Packs/Day Years [...] Visit [facility] SLEEP MEDICINE 3000 [facility] 240 [place] [address] Lorenzo Jarvis, GRAVEL MACHINE OPERATOR [address] [place] [address] 10/29/2024 2:30 PM EDT Office Visit [facility] PULMONARY & CRITICAL CARE MEDICINE [address] [place] [address] Jasson Ramirez DO [address] [place], [place] [address] 11/02/2024 3:00 PM EDT Office Visit [facility] NEUROLOGY 2101 [facility] 204 [place] [address] Ernestina Neal, GRAVEL MACHINE OPERATOR 2101 [facility] [address] [place], [place] [address] 02/05/2025 11:15 AM EST Office Visit [facility] RHEUMATOLOGY 330 [facility] [address] [place] [address] Luis Banda, GRAVEL MACHINE OPERATOR [address] [id number] documented as of this encounter Goals Goal Patient Goal Type Associated Problems Recent Progress Patient-Stated? Author Specialty Pharmacy General Goal General On track( 025 8:42 AM EDT) Kandy López, [facility] Note: On Average, [...] documented as of this encounter Care Teams Metal Moulder'S Assistant Relationship Specialty Start Date End Date Karen Pineda DO [address] [place] [address] PCP - General Family Medicine 10/08/16 documented as of this encounter
--- OUTSIDE RECORDS SUMMARY | 2024-09-27 21:06 | XMS_ITS | Encounter Summary ---
[facility] Address [address] [place] [address] Care Team Providers Care Housing Specialist Name Role Phone Karen Pineda DO Primary Care Provider +1- [phone] Encounter Details Date Type Department Care Team (Late st Contact Info) Description 09/21/2024 Results Follow-Up [facility] FAMILY MEDICINE 210 [facility] [place] [place] [address] Karen Pineda DO [address] [place] [address] Social History Tobacco Use Types [...] Description 10/01/2024 11:00 AM EDT Office Visit [facility] SLEEP MEDICINE 3000 [facility] 240 [place] [address] Lorenzo Jarvis, RADIO COMMUNICATIONS MECHANICIAN [address] [place] [address] 10/29/2024 2:30 PM EDT Office Visit [facility] PULMONARY & CRITICAL CARE MEDICINE [address] [facility] [place] [address] Jasson Ramirez DO [address] [place] [address] 11/02/2024 3:00 PM EDT Office Visit [facility] NEUROLOGY 2101 [facility] 204 [place] [address] Ernestina Neal, RADIO COMMUNICATIONS MECHANICIAN 2101 [facility] 204 [place], [place] [address] 02/05/2025 11:15 AM EST Office Visit [facility] RHEUMATOLOGY 330 [facility] 100 [place] [address] Luis Banda, RADIO COMMUNICATIONS MECHANICIAN 330 [facility] 100 [place], [place] [address] documented as of this encounter Goals Goal Patient Goal Type Associated Problems Recent Progress Patient-Stated? Author Specialty Pharmacy General Goal General On track( 025 8:42 AM EDT) No Kandy Sahu, [facility] Note: On Average, Reduce: Frequency of [...] documented as of this encounter Care Teams Housing Specialist Relationship Specialty Start Date End Date Karen Pineda DO [address] [place] [address] PCP - General Family Medicine 10/08/16 documented as of this encounter
--- OUTSIDE RECORDS SUMMARY | 2024-09-27 21:06 | XMS_ITS | Encounter Summary ---
[facility] Organization [facility] Address [address] [place] [address] Care Team Providers Care Jewelry Appraiser Name Role Phone Karen Pineda DO Primary Care Provider +1- [phone] Encounter Details Date Type Department Care Team (Late st Contact Info) Description 09/21/2024 Results Follow-Up [facility] FAMILY MEDICINE 210 [facility] [place] [address] Karen Pineda DO [address] [place] [address] Social History Tobacco Use Types [...] 11:00 AM EDT Office Visit [facility] SLEEP MEDICINE 3000 [facility] [address] [place] [address] Lorenzo Jarvis, HOGSHEAD INSPECTOR [address] [place] [address] 10/29/2024 2:30 PM EDT Office Visit [facility] PULMONARY & CRITICAL CARE MEDICINE [address] [facility] [address] Jasson Ramirez DO [address] [place] [address] 11/02/2024 3:00 PM EDT Office Visit [facility] NEUROLOGY 2101 [facility] [address] [place] [address] Ernestina Neal, HOGSHEAD INSPECTOR [address] [facility] [address] [place], [place] [address] 02/05/2025 11:15 AM EST Office Visit [facility] RHEUMATOLOGY 330 [facility] [address] [place] [address] Luis Banda, HOGSHEAD INSPECTOR [address] [facility] [address] [place], [place] [address] documented as of this encounter Goals Goal Patient Goal Type Associated Problems Recent Progress Patient-Stated? Author Specialty Pharmacy General Goal General On track( 025 8:42 AM EDT) No Kandy Sahu, [facility] Note: On Average, Reduce: Frequency of migraines [...] documented as of this encounter Care Teams Jewelry Appraiser Relationship Specialty Start Date End Date Karen Pineda DO [address] [place] [address] PCP - General Family Medicine 10/08/16 documented as of this encounter
--- OUTSIDE RECORDS SUMMARY | 2024-09-27 21:06 | XMS_ITS | Clinical Summary ---
Author Organization [facility] Address [address] [id number] Care Team Providers Care Letter Stamping Machine Operator Name Role Phone Gilson Heath MD Primary Care Provider [phone] Social History Tobacco Use Types Packs/Day Years [...] age to complete this topic Care Teams Letter Stamping Machine Operator Relationship Specialty Start Date End Date Gilson Heath MD [address] [place] [address] PCP - General 12/26/06
--- OUTSIDE RECORDS SUMMARY | 2024-09-27 21:06 | XMS_ITS | Encounter Summary ---
[facility] Address [address] [place] [address] Care Team Providers Care Molding Line Operator Name Role Phone Karen Pineda DO Primary Care Provider [phone]- [phone] Encounter Details Date Type Department Care Team (Late st Contact Info) Description 09/21/2024 Results Follow-Up [facility] FAMILY MEDICINE [address] [place] [address] Karen Pineda DO [address] [place] [address] Social History Tobacco Use Types [...] Description 10/01/2024 11:00 AM EDT Office Visit [facility] SLEEP MEDICINE 3000 [facility] 240 [place] [address] Lorenzo Jarvis, SOCIAL SERVICE WORKER [address] [place] [address] 10/29/2024 2:30 PM EDT Office Visit [facility] PULMONARY & CRITICAL CARE MEDICINE [address] [place] [address] Jasson Ramirez DO [address] [place] [address] 11/02/2024 3:00 PM EDT Office Visit [facility] NEUROLOGY 2101 [facility] 204 [place] [address] Ernestina Neal, SOCIAL SERVICE WORKER 2101 [facility] 204 [place], [place] [address] 02/05/2025 11:15 AM EST Office Visit [facility] RHEUMATOLOGY 330 [facility] 100 [place] [address] Luis Banda, SOCIAL SERVICE WORKER 330 [facility] 100 [place], [place] [address] documented as of this encounter Goals Goal Patient Goal Type Associated Problems Recent Progress Patient-Stated? Author Specialty Pharmacy General Goal General On track( 025 8:42 AM EDT) No Kandy Sahu, [facility] Note: On Average, Reduce: Frequency of migraines [...] documented as of this encounter Care Teams Molding Line Operator Relationship Specialty Start Date End Date Karen Pineda DO [address] [place] [address] PCP - General Family Medicine 10/08/16 documented as of this encounter
== END 2024-09-27 23:59 | disposition home or self-care (01) ==
LOC: LAB.DROPOF 21:04
PROVIDERS: PCP Student in an Organized Health Care Education/Training Program; Visit Provider Student in an Organized Health Care Education/Training Program
DX: R19.7 Diarrhea, unspecified (principal)
CPT/HCPCS: 87507

== ENCOUNTER 2024-10-02 15:16 | Outpatient (CLI) | payer OTHER, SELFPAY ==
--- OUTSIDE RECORDS SUMMARY | 2024-04-23 14:20 | XMS_ITS | Encounter Summary ---
[facility] Address [address] [place] [address] Care Team Providers Care Web Marketing Analyst Name Role Phone Karen Pineda Primary Care Provider [phone] Encounter Details Date Type Department Care Team (Late st Contact Info) Description 04/23/2024 1:20 PM EST Hospital Encounter [facility] MEDICINE [address] [facility] [place] [address] Social History Tobacco Use Types Packs/Day Years [...] Care Team (Late st Contact Info) Description 10/29/2024 2:30 PM EDT Office Visit [facility] MEDICINE [address] [facility] [id number] Jasson Ramirez DO [address] [place] [address] 11/02/2024 3:00 PM EDT Office Visit [facility] NEUROLOGY [address] [facility] [address] [place] [phone] Ernestina Neal, MEDICAL SURGERY NURSE [address] [facility] [address] [place], [place] [id number] 02/05/2025 11:15 AM EST Office Visit [facility] RHEUMATOLOGY [address] [facility] [address] [place] [phone] Luis Banda, MEDICAL SURGERY NURSE [address] [facility] [place] [address] [place], [place] [id number] 10/04/2025 11:00 AM EDT Office Visit [facility] SLEEP MEDICINE [address] [facility] [address] [place] [address] Lorenzo Jarvis, MEDICAL SURGERY NURSE [address] [place] [address] documented as of this encounter Goals Goal Patient Goal Type Associated Problems Recent Progress Patient-Stated? Author Specialty Pharmacy General Goal General On track( 025 8:42 AM EDT) No Kandy Sahu, PharmD Note: On Average, Reduce: Frequency of migraines [...] Narrative 04/27/2024 3:14 PM EST Genesis Burrell [id number] 04/23/2024 Chest X-Ray PA & Lateral Indication: [...] documented as of this encounter Care Teams Web Marketing Analyst Relationship Specialty Start Date End Date Karen Pineda DO [address] [place], [place] [id number] PCP - General Family Medicine 10/08/16 documented as of this encounter
--- OUTSIDE RECORDS SUMMARY | 2024-07-13 13:28 | XMS_ITS | Encounter Summary ---
[facility] Address [address] [id number] Care Team Providers Care Application Designer Name Role Phone Karen Pineda DO Primary Care Provider [phone] Reason for Referral * Hospital - Outpatient (Routine) - Closed Specialty Diagnoses / Procedures Referred By Contac t Referred To Contact Sleep Medicine Diagnoses Hypersomnia Obstructive sleep apnea, adult Snoring Procedures Home Sleep Study Tyson Liu MD [address] [place] [address] Phone: tel: fax: [facility] SLEEP LAB [address] [address] Phone: tel: fax: Referral ID Status Reason Start Date Expiration Date Visits Re quested Visits Authorized [id number] Closed 05/12/2024 08/11/2025 1 1 Reason for Visit * Hospital - Outpatient (Routine) - Closed Specialty Diagnoses / Procedures Referred By Contac t Referred To Contact Sleep Medicine Diagnoses Hypersomnia Obstructive sleep apnea, adult Snoring Procedures Home Sleep Study Tyson Liu MD [address] [place] [address] Phone: tel: fax: [facility] SLEEP [facility] [address] [address] Phone: tel: fax: Referral ID Status Reason Start Date Expiration Date Visits Re quested Visits Authorized [id number] Closed 05/12/2024 08/11/2025 1 1 Encounter Details Date Type Department Care Team (Late st Contact Info) Description 07/13/2024 1:28 PM EDT Hospital Encounter [facility] SLEEP LAB [address] [place] [address] Tyson Liu MD [address] [place] [address] Hypersomnia; Obstructive sleep apnea, adult; Snoring Social History Tobacco Use Types Packs/Day Years [...] on file documented as of this encounter Last Filed Vital Signs Vital Sign Reading Time Taken Comments Blood Pressure - - Pulse - - Temperature - - Respiratory Rate - - Oxygen Saturation - - Inhaled Oxygen Concentration - - Weight 152 kg (335 lb 1.6 oz) 07/13/2024 1:45 PM EDT Height 160 cm (5' 2.99 ) 07/13/2024 1:45 PM EDT Body Mass Index 59.38 07/13/2024 1:45 PM EDT documented in this encounter Plan of Treatment Upcoming Encounters Date Type Department Care Team (Late st Contact Info) Description 10/29/2024 2:30 PM EDT Office Visit [facility] PULMONARY & CRITICAL CARE MEDICINE [address] [place] [address] Jasson Ramirez, DO [address] [place] [address] 11/02/2024 3:00 PM EDT Office Visit [facility] NEUROLOGY [address] [facility] [address] [place] [address] Ernestina Neal, FREIGHT ASSOCIATE 2101 [facility] [address] [place] [address] 02/05/2025 11:15 AM EST Office Visit [facility] RHEUMATOLOGY [address] [facility] [address] [place] [address] Luis Banda, FREIGHT ASSOCIATE [address] [place] [address] [place] [address] 10/04/2025 11:00 AM EDT Office Visit [facility] SLEEP MEDICINE [address] [facility] [address] [place] [address] Lorenzo Jarvis, FREIGHT ASSOCIATE [address] [place] [address] documented as of this encounter Goals Goal [...] on Progress Toward Above Goals 03/10/24 Initiate Ajovy and Nurtec PRN 08/31/24 Patient reports 3-4 MMD. documented as of this encounter Procedures Procedure Name Priority Date/Time Associated Diagnosis Comments HST Routine 07/14/2024 7:15 AM EDT Hypersomnia Obstructive sleep apnea, adult Snoring documented in this encounter Results * HST (07/14/2024 7:15 AM EDT) Narrative SLEEP MEDICINE - 07/20/2024 9:00 PM EDT Table formatting from the original result was not included. Home Sleep Apnea Test Report Patient Name: Genesis Burrell Interpreting Physician: Tyson Liu MD Date of : 1985 Referring Provider: Tyson Liu,* Primary Care Provider: Karen Pineda DO Date of Study: 07/13/2024 Clinical Information 39-year-old female referred by Ernestina Neal APRN. She has multiple very convincing signs and symptoms to suggest sleep apnea. She has snoring, frequent nocturnal awakenings, and daytime somnolence despite extended amounts of sleep. She has headaches upon awakening. She has an elevated BMI of 59 and a class IV airway Despite an almost certain diagnosis of sleep apnea based upon the above she has had an HSAT which reportedly was negative or at least nondiagnostic for KELLY and she had a PSG at [facility] in December 2022 which revealed a normal AHI. That study was somewhat limited by lack of REM sleep and a 4% rule was used to score hypopneas for unclear reasons. I believe she almost certainly has sleep apnea but I suppose other diagnoses causing hypersomnolence could be present.female with signs and/or symptoms suggestive of obstructive sleep apnea. History reviewed. Please see referral clinic note for further details. A home sleep apnea test was ordered to further evaluate for the presence of sleep apnea. Methods used for Home Sleep Testing: Patient had a home sleep test with an [employer] One device that measured airflow at the nose and mouth. It measured thoracic respiratory effort using respiratory inductance plethysmography. It measured oxygen saturation and determined pulse rate. Body position was recorded. Snoring was judged by transducer vibration. It was scored using standard techniques. Home Sleep Testing Results The study was technically adequate. Study time was adequate. The AHI was 22.8. Oxygen saturations averaged 90%. Oxygen saturations were less than or equal to 88% for a total of 136 minutes throughout the night. The events were primarily obstructive in nature. Central events: 0% of total events. A significant supine positional effect was not noted. Snoring was present. Impression: - moderate obstructive sleep apnea is present. - Oxygen desaturations are present. - Snoring is present. Recommendations: - The patient would likely benefit from a trial of PAP therapy such as an AutoSet CPAP with an 8 cm minimum and 18 cm maximum. - Recommend weight loss. - Recommend the patient avoid alcohol and sedatives close to bedtime. Follow-up: Sleep Center Electronically signed by: Tyson Liu MD 07/20/24 20:58 EDT us Tyson Liu MD SLEEP CENTER ORDERABLE S Final Result SLEEP MEDICINE documented in this encounter Visit Diagnoses Diagnosis Hypersomnia Hypersomnia, unspecified Obstructive sleep apnea, adult Snoring Other dyspnea and respiratory abnormality documented in this encounter Additional Health Concerns Assessment Noted Time PHQ-2 Depression Total Score: 6 04/17/19 24 12:15 PM EST documented as of this encounter Care Teams Application Designer Relationship Specialty Start Date End Date Karen Pineda DO [address] [place] [address] PCP - General Family Medicine 10/08/16 documented as of this encounter
--- OUTSIDE RECORDS SUMMARY | 2024-08-07 11:15 | XMS_ITS | Encounter Summary ---
Author Organization [facility] Address [address] [id number] Care Team Providers Care Fiberglass Dowel Drawing Operator Name Role Phone Karen Pineda DO Primary Care Provider [phone] Reason for Referral * Consultation (Routine) - Authorized - Pending Scheduling Specialty Diagnoses / Procedures Referred By Contac t Referred To Contact Dermatology Diagnoses Facial erythema Procedures ME OFFICE/OUTPATIENT NEW MODERATE MDM 45 MINUTES Jose Alejandro Jean DO [address] [place] [address] Phone: tel: fax: [facility] [address] [place] [address] Phone: tel: fax: Referral ID Status Reason Start Date Expiration Date Visits Requested Visits Authorized [id number] Authorized - Pending Scheduling Specialty Services Required 08/07/2024 11/06/2025 1 1 Reason for Visit * Reason Comments Fibromyalgia Follow up Scleroderma Follow up Encounter Details Date Type Department Care Team (Late st Contact Info) Description 08/07/2024 11:15 AM EDT Office Visit [facility] RHEUMATOLOGY [address] [phone] Jose Alejandro Jean DO [address] [address] Limited systemic sclerosis (Primary Dx); Fibromyalgia; Facial [...] be sent through Care Everywhere. * Scleroderma ([place]) documented in this encounter Progress Notes * Jose Alejandro Jean DO - 08/07/2024 11:15 AM EDTAssociated Problem(s): Centromere antibody positive Medication/treatment/interventions tried include: Tylenol, prednisone, escitalopram, ibuprofen, Celebrex, diclofenac, she has seen endocrinology, she has seen cardiology, She has seen neurology, she has seen sleep medicine specialists, She has seen pulmonology specialists 11/28/23: CHANCE 1:160 homogenous, DS DNA Normal, AIRCRAFT MAINTENANCE DIRECTOR normal, Amin normal, SCL 70 normal, SSA and SSB normal, chromatin normal, Alexa 1 normal, Centromere normal, Vitamin D 31.6, CMP was fine, CRP normal, Sed rate normal, RF negative 12/17/2023: CHANCE 1: 640 centromere pattern, centromere antibody positive, TPO antibody positive, normal complements, SCL 70 negative, Amin negative, AIRCRAFT MAINTENANCE DIRECTOR negative, dsDNA negative, SSA/SSB negative, anticardiolipin antibodies negative, CCP negative, RF negative, 14.3.3 negative, ANCA panel negative, CK and aldolase normal, CRP and ESR normal, HLA-B27 negative, thyroglobulin antibody negative, thyroid function normal, hepatitis panel negative, QTB negative Patient reports she sees boring machine operator double end, Dr. Anderson. We recommend she see cardiology [...] 11/28/23: CHANCE 1:160 homogenous, DS DNA Normal, AIRCRAFT MAINTENANCE DIRECTOR normal, Amin normal, SCL 70 normal, SSA and SSB normal, chromatin normal, Alexa 1 normal, Centromere normal, Vitamin D 31.6, CMP was fine, CRP normal, Sed rate normal, RF negative 12/17/2023: CHANCE 1: 640 centromere pattern, centromere antibody positive, TPO antibody positive, normal complements, SCL 70 negative, Amin negative, AIRCRAFT MAINTENANCE DIRECTOR negative, dsDNA negative, SSA/SSB negative, anticardiolipin antibodies negative, CCP negative, RF negative, 14.3.3 negative, ANCA panel negative, CK and aldolase normal, CRP and ESR normal, HLA-B27 negative, thyroglobulin antibody negative, thyroid function normal, hepatitis panel negative, QTB negative Patient reports she sees boring machine operator double end, Dr. Anderson. We recommend she see cardiology [...] months (around 02/06/2025). Jose Alejandro Jean DO [facility] [place] documented in this encounter Plan of Treatment Upcoming Encounters Date Type Department Care Team (Late st Contact Info) Description 10/29/2024 2:30 PM EDT Office Visit [facility] PULMONARY & CRITICAL CARE MEDICINE [address] [place] [address] Jasson Ramirez DO [address] [place] [address] 11/02/2024 3:00 PM EDT Office Visit [facility] NEUROLOGY [address] [facility] [address] [place] [phone] Ernestina Neal, EXECUTIVE MARKETING ASSISTANT 2101 [facility] [address] [place] [address] 02/05/2025 11:15 AM EST Office Visit [facility] RHEUMATOLOGY 330 [facility] [address] [place] [phone] Luis Banda, EXECUTIVE MARKETING ASSISTANT 330 [facility] [address] [place] [address] 10/04/2025 11:00 AM EDT Office Visit [facility] SLEEP MEDICINE [address] [facility] [address] [place] [phone] Lorenzo Jarvis, EXECUTIVE MARKETING ASSISTANT [address] [place] [address] Scheduled Referrals Name Type Priority Associated Diagnoses [...] - 08/08/2024 1:06 AM EDT Performed at: [address] [place] [id number] Anesthesiology Resident: Freeman Horn MD, Phone: [phone] Patient Fasting: N us Jose Alejandro Jean DO LAB BLOOD ORDERABLES F inal Result Performing Organization Address City/[facility]/ZIP Co de Phone Number [facility] [address] [place] [address], [place] [phone] [facility] [address] [place] [address], [place] [phone] * Sedimentation Rate (08/07/2024 12:16 PM EDT) Sed Rate 20 0 - 20 mm/hr [facility] Blood 08/07/2024 12:1 6 PM EDT 08/07/2024 Narrative [facility] - 08/08/2024 1:06 AM EDT Performed at: [address] [place] [id number] Anesthesiology Resident: Freeman Horn MD, Phone: [phone] Patient Fasting: N [facility] LAB BLOOD ORDERABLES F inal Result Performing Organization Address [facility]/ZIP Co de Phone Number [facility]) [address] [place] [address], [place] [phone] [facility] [address] [place] [address], [place] [phone] * C-reactive Protein (08/07/2024 12:16 PM EDT) C-Reactive Protein <0.30 0.00 - 0.50 mg/dL [facility] Blood 08/07/2024 12:1 6 PM EDT 08/07/2024 Narrative [facility] - 08/08/2024 1:06 AM EDT Performed at: [address] [place] [id number] Anesthesiology Resident: Freeman Horn MD, Phone: [phone] Patient Fasting: N [facility] LAB BLOOD ORDERABLES F inal Result Performing Organization Address City/[facility]/ZIP Co de Phone Number [facility]) [address] [place] [address], [facility] [address] [place] [address], * Comprehensive Metabolic Panel (08/07/2024 12:16 PM [...] - 08/08/2024 1:06 AM EDT Performed at: [address] [place] [address] [id number] Anesthesiology Resident: Freeman Horn MD, Phone: [phone] Patient Fasting: N [facility] LAB BLOOD ORDERABLES F inal Result Performing Organization Address [facility] Co de Phone Number [facility] [address] [place] [address], [place] [phone] [facility] [address] [place] [address], [place] [phone] * CK (08/07/2024 12:16 PM EDT) [facility] Creatine Kinase 49 20 - 180 U/L [facility] Blood 08/07/2024 12:1 6 PM EDT 08/07/2024 Narrative [facility]) - 08/08/2024 1:06 AM EDT Performed at: [address] [place] [id number] Anesthesiology Resident: Freeman Horn MD, Phone: [phone] Patient Fasting: N [facility] LAB BLOOD ORDERABLES F inal Result Performing Organization Address [facility] Co de Phone Number [facility]) [address] [place] [address], [place] [phone] [facility] [address] [place] [address], [place] [phone] documented in this encounter Visit Diagnoses Diagnosis Limited systemic sclerosis- Primary Systemic sclerosis Fibromyalgia Unspecified myalgia and myositis Facial erythema documented in this encounter Additional Health Concerns Assessment Noted Time PHQ-2 Depression Total Score: 6 04/17/19 24 12:15 PM EST documented as of this encounter Care Teams Fiberglass Dowel Drawing Operator Relationship Specialty Start Date End Date Karen [place] [address] PCP - General Family Medicine 10/08/16 documented as of this encounter
--- OUTSIDE RECORDS SUMMARY | 2024-09-17 14:00 | XMS_ITS | Encounter Summary ---
Author Organization [facility] Address [address] [place] [address] Care Team Providers Care Double Surface Operator Name Role Phone Karen Pineda DO Primary Care Provider [phone] Reason for Referral * Behavorial Health/Psych (Routine) - Authorized Specialty Diagnoses / Procedures Referred By Chuy soriano Referred To Contact Behavioral Health Diagnoses Anxiety Moderate episode of recurrent major depressive disorder Procedures MO OFFICE/OUTPATIENT NEW MODERATE MDM 45 MINUTES Karen Pineda DO [address] [place] [address] Phone: tel: fax: Amador Gonzalez, KARTHIK [address] [place] [address] Phone: tel: fax: Referral ID Status Reason Start Date Expiration Date Visits Requested Visits Authorized [id number] Authorized Specialty Services Required 09/17/2024 12/17/2025 1 1 * Diagnostic Imaging (Routine) - Authorized Specialty Diagnoses / Procedures Referred By Chuy soriano Referred To Contact Diagnoses Encounter for screening mammogram for malignant neoplasm of breast Procedures Mammo Screening Digital Tomosynthesis Bilateral With CAD Karen Pineda DO [address] [place] [address] Phone: tel: fax: [facility] OUTPT [facility] [address] [place] [address] Phone: tel: fax: Referral ID Status Reason Start Date Expiration Date V isits Requested Visits Authorized [id number] Authorized 09/17/2024 12/17/2025 1 1 Reason for Visit * Reason Comments Annual Exam Pt is not fasting. Encounter Details Date Type Department Care Team (Late st Contact Info) Description 09/17/2024 2:00 PM EDT Office Visit [facility] [address] [place] [address] Karen Pineda DO [address] [place] [address] Annual physical exam (Primary Dx); Prediabetes; Anxiety; Moderate episode of recurrent major depressive disorder; KELLY on CPAP; Cyanocobalamin deficiency; Vitamin D deficiency; High cholesterol; Mood disorder; Forgetfulness; Encounter for screening mammogram for malignant neoplasm of breast Social History Tobacco Use Types Packs/Day Years Used Date Smoking Tobacco: Former Cigarettes 1 24.3 0 07/27/1999 - 10/27/2023 Passive Smoke Exposure: Current Smokeless Tobacco: Never Tobacco Cessation:Counseling Given: Not Answered Alcohol Use Standard Drinks/Week Comments Never 0 [...] Sign Reading Time Taken Comments Blood Pressure 118/82 09/17/2024 1:52 PM EDT Pulse 94 09/17/2024 1:52 PM EDT Temperature 36.6 C (97.8 F) 09/17/2024 1:52 PM EDT Respiratory Rate 18 09/17/2024 1:52 PM EDT Oxygen Saturation 98% 09/17/2024 1:52 PM EDT Inhaled Oxygen Concentration - - Weight 154 kg (340 lb) 09/17/2024 1:52 PM EDT Height 160 cm (5' 3 ) 09/17/2024 1:52 PM EDT Body Mass Index 60.23 09/17/2024 1:52 PM EDT documented in this encounter Patient Instructions * Attachments The following attachments cannot be sent through Care Everywhere. * Preventive Care 40-64 Years Old Female (Indonesian) documented in this encounter Progress Notes * Karen Pineda, DO - 09/17/2024 2:00 PM EDT Chief Complaint Annual Exam (Pt is not fasting. ) Subjective Genesis Burrell presents to [facility] History of Present Illness The patient presents for an annual exam. She has been under the care of Dr. Jean for rheumatology, managing conditions such as scleroderma and fibromyalgia. She reports weight gain, fatigue, and pain in her bones. Additionally, she experiences memory issues, often forgetting the names of her medications. Her current medication regimen includes diclofenac for pain management, vitamin D, and acetazolamide for pseudotumor cerebri. She has been using a CPAP machine and is under the care of Dr. Anderson's office in [place] for her heart condition, which includes an enlarged heart valve. Her anxiety and depression have worsened, leading to periods of inactivity and non-compliance with her medication regimen. She has resumed taking Lexapro 20 mg and lamotrigine for about 2 weeks now. She has prediabetes and was previously on metformin, but discontinued it for 3 to 4 months. She is considering resuming Mounjaro if her A1c levels are high. She has not yet undergone a mammogram. She has not had her teeth cleaned recently due to discomfort. She reports a decrease in appetite and a change in her food preferences. The following portions of the patient's history were reviewed and updated as appropriate: allergies, current medications, past family history, past medical history, past social history, past surgicalhistory, and problem list. Objective Physical Exam Vitals and nursing note reviewed. HENT: Right Ear: Tympanic membrane, ear canal and external ear normal. Left Ear: Tympanic membrane, ear canal and external ear normal. Mouth/Throat: Mouth: Mucous membranes are moist. Cardiovascular: Rate and Rhythm: Normal rate and regular rhythm. Heart sounds: Normal heart sounds. Pulmonary: Effort: Pulmonary effort is normal. Breath sounds: Normal breath sounds. Neurological: Mental Status: She is alert. Psychiatric: Mood and Affect: Mood normal. Physical Exam Result Review : Results Assessment and Plan Diagnoses and all orders for this visit: 1. Annual physical exam (Primary) 2. Prediabetes - CBC (No Diff) - Comprehensive Metabolic Panel - Lipid Panel With / Chol / HDL Ratio - Vitamin D,25-Hydroxy - Vitamin B12 - metFORMIN ER (GLUCOPHAGE-XR) 500 MG 24 hr tablet; Take 2 tablets by mouth Daily With Breakfast. Dispense: 180 tablet; Refill: 1 - Folate - TSH+Free T4 - POC Glycosylated Hemoglobin (Hb A1C) 3. Anxiety - CBC (No Diff) - Comprehensive Metabolic Panel - Lipid Panel With / Chol / HDL Ratio - Vitamin D,25-Hydroxy - Vitamin B12 - Ambulatory Referral to Behavioral [facility] - escitalopram (Lexapro) 20 MG tablet; Take 1 tablet by mouth Daily. Dispense: 90 tablet; Refill: 1 - Folate - TSH+Free T4 4. Moderate episode of recurrent major depressive disorder - CBC (No Diff) - Comprehensive Metabolic Panel - Lipid Panel With / Chol / HDL Ratio - Vitamin D,25-Hydroxy - Vitamin B12 - Ambulatory Referral to [facility] - escitalopram (Lexapro) 20 MG tablet; Take 1 tablet by mouth Daily. Dispense: 90 tablet; Refill: 1 - Folate - TSH+Free T4 5. KELLY on CPAP 6. Cyanocobalamin deficiency - CBC (No Diff) - Comprehensive Metabolic Panel - Lipid Panel With / Chol / HDL Ratio - Vitamin D,25-Hydroxy - Vitamin B12 - Folate - TSH+Free T4 7. Vitamin D deficiency - CBC (No Diff) - Comprehensive Metabolic Panel - Lipid Panel With / Chol / HDL Ratio - Vitamin D,25-Hydroxy - Vitamin B12 - Folate - TSH+Free T4 8. High cholesterol - CBC (No Diff) - Comprehensive Metabolic Panel - Lipid Panel With / Chol / HDL Ratio - Vitamin D,25-Hydroxy - Vitamin B12 - rosuvastatin (Crestor) 10 MG tablet; Take 1 tablet by mouth Daily. Dispense: 90 tablet; Refill: 0 - Folate - TSH+Free T4 9. Mood disorder - CBC (No Diff) - Comprehensive Metabolic Panel - Lipid Panel With / Chol / HDL Ratio - Vitamin D,25-Hydroxy - Vitamin B12 - lamoTRIgine (LaMICtal) 100 MG tablet; Take 1 tablet by mouth Daily. Dispense: 90 tablet; Refill: 1 - Folate - TSH+Free T4 10. Forgetfulness - CBC (No Diff) - Comprehensive Metabolic Panel - Lipid Panel With / Chol / HDL Ratio - Vitamin D,25-Hydroxy - Vitamin B12 - Folate - TSH+Free T4 11. Encounter for screening mammogram for malignant neoplasm of breast - Mammo Screening Digital Tomosynthesis Bilateral With CAD; Future Assessment & Plan 1. Scleroderma. - Currently under the care of Dr. Jean for scleroderma. - Reports weight gain, fatigue, and pain in her bones. - Diclofenac prescribed for joint pain. 2. Fibromyalgia. - Reports generalized body pain and fatigue. - Continue current medications. - Follow up with certified nurse midwife as needed. 3. Thyroid Antibody Positive. - Tested positive for thyroid antibodies, reports weight gain and fatigue. - Periodic monitoring of thyroid function necessary. - Full panel of labs, including thyroid function tests, will be ordered. 4. Anxiety. - Anxiety has worsened, contributing to overall distress. - Continue current medications, including Lexapro 20 mg and Lamictal. - Referral to behavioral health will be made for further management of mood disorders. 5. Depression. - Depression has worsened, affecting daily activities and medication adherence. - Continue current medications, including Lexapro 20 mg and Lamictal. - Referral to behavioral health will be made for further management. 6. Prediabetes. - Currently on metformin but had discontinued it for 3-4 months. - Resume taking metformin. - A1c test will be ordered to monitor blood sugar levels. 7. Health Maintenance. - Due for a mammogram, which will be rescheduled. - Full panel of labs, including cholesterol and vitamin checks, will be ordered. - Advised to follow up with eye doctor and dentist for routine check-ups. Follow Up Return in about 6 months (around 03/20/2025) for Recheck. Patient or patient credit representative verbalized consent for the use of Ambient Listening during the visit with Karen Pineda DO for chart documentation. 09/17/2024 14:41 EDT Patient was given instructions and counseling regarding her condition or for health maintenance advice. Please see specific information pulled into the AVS if appropriate. documented in this encounter Plan of Treatment Upcoming Encounters Date Type Department Care Team (Late st Contact Info) Description 10/29/2024 2:30 PM EDT Office Visit [facility] [address] [facility] [place] [phone] Jasson Ramirez DO [address] [place] [address] 11/02/2024 3:00 PM EDT Office Visit [facility] [address] [facility] [address] [place] [phone] Ernestina Neal, MATRIX BATH ATTENDANT [address] [facility] [address] [place] [address] 02/05/2025 11:15 AM EST Office Visit [facility] [address] [phone] Luis Banda, MATRIX BATH ATTENDANT [address] [address] 10/04/2025 11:00 AM EDT Office Visit [facility] [address] [facility] [address] [place] [phone] Lorenzo Jarvis, MATRIX BATH ATTENDANT [address] [place] [address] Scheduled Orders Name Type Priority Associated Diagnoses Orde r Schedule CBC (No Diff) Lab Routine Prediabetes Anxiety Moderate episode of recurrent major depressive disorder Cyanocobalamin deficiency Vitamin D deficiency High cholesterol Mood disorder Forgetfulness Ordered: 09/17/2024 Comprehensive Metabolic Panel Lab Routine Prediabetes Anxiety Moderate episode of recurrent major depressive disorder Cyanocobalamin deficiency Vitamin D deficiency High cholesterol Mood disorder Forgetfulness Ordered: 09/17/2024 Lipid Panel With / Chol / HDL Ratio Lab Routine Prediabetes Anxiety Moderate episode of recurrent major depressive disorder Cyanocobalamin deficiency Vitamin D deficiency High cholesterol Mood disorder Forgetfulness Ordered: 09/17/2024 Vitamin D,25-Hydroxy Lab Routine Prediabetes Anxiety Moderate episode of recurrent major depressive disorder Cyanocobalamin deficiency Vitamin D deficiency High cholesterol Mood disorder Forgetfulness Ordered: 09/17/2024 Vitamin B12 Lab Routine Prediabetes Anxiety Moderate episode of recurrent major depressive disorder Cyanocobalamin deficiency Vitamin D deficiency High cholesterol Mood disorder Forgetfulness Ordered: 09/17/2024 Mammo Screening Digital Tomosynthesis Bilateral With CAD Imaging Routine Encounter for screening mammogram for malignant neoplasm of breast Expected: 09/22/2024 Folate Lab Routine Prediabetes Anxiety Moderate episode of recurrent major depressive disorder Cyanocobalamin deficiency Vitamin D deficiency High cholesterol Mood disorder Forgetfulness Ordered: 09/17/2024 TSH+Free T4 Lab Routine Prediabetes Anxiety Moderate episode of recurrent major depressive disorder Cyanocobalamin deficiency Vitamin D deficiency High cholesterol Mood disorder Forgetfulness Ordered: 09/17/2024 Scheduled Referrals Name Type Priority Associated Diagnoses Order Schedule Ambulatory Referral to Behavioral Health Outpatient Referral Routine Anxiety Moderate episode of recurrent major depressive disorder Ordered: 09/17/2024 documented as of this encounter Goals Goal [...] Procedure Name Priority Date/Time Associated Diagnosis Comments POCT GLYCOSYLATED HEMOGLOBIN (HGB A1C) Routine 09/17/2024 2:46 PM EDT Prediabetes documented in this encounter Results * (ABNORMAL) POC Glycosylated Hemoglobin (Hb A1C) (09/17/2024 2:46 PM EDT) Hemoglobin A1C 5.9(A) 4.5 - 5.7 % [facility] Lot Number [id number] [facility] Expiration Date 05/25/2026 [facility] Blood 09/17/2024 2:46 PM EDT Karen Pineda DO POINT OF CARE TEST ORDERABL ES Final Result [facility]
[address] [place] [address], documented in this encounter Visit Diagnoses Diagnosis Annual physical exam- Primary Routine general medical examination at a [facility] care facility Prediabetes Other abnormal glucose Anxiety Anxiety state, unspecified Moderate episode of recurrent major depressive disorder KELLY on CPAP Cyanocobalamin deficiency Other B-complex deficiencies Vitamin D deficiency High cholesterol Pure hypercholesterolemia Mood disorder Unspecified episodic mood disorder Forgetfulness Other general symptoms Encounter for screening mammogram for malignant neoplasm of breast documented in this encounter Additional Health Concerns Assessment Noted Time PHQ-2 Depression Total Score: 6 04/17/19 24 12:15 PM EST documented as of this encounter Care Teams Double Surface Operator Relationship Specialty Start Date End Date Karen Pineda DO [address] [place] [address] PCP - General Family Medicine 10/08/16 documented as of this encounter
--- OUTSIDE RECORDS SUMMARY | 2024-10-01 11:00 | XMS_ITS | Encounter Summary ---
Author Organization [facility] Address [address] [place] [address] Care Team Providers Care Senior Solutions Engineer Name Role Phone Karen Pineda DO Primary Care Provider [phone] Reason for Referral * Durable Medical Equipment (Routine) - Closed Specialty Diagnoses / Procedures Referred By Contac t Referred To Contact Diagnoses Obstructive sleep apnea, adult Procedures PAP Therapy Lorenzo Jarvis APRN [address] [place] [address] Phone: tel: fax: [place] [address] [place] [address] Phone: tel: fax: Referral ID Status Reason Start Date Expiration Date Visits Re quested Visits Authorized [id number] Closed 10/01/2024 12/31/2025 1 1 Reason for Visit * Reason Comments Sleeping Problem Follow-up Sleep Apnea Follow up Encounter Details Date Type Department Care Team (Late st Contact Info) Description 10/01/2024 11:00 AM EDT Office Visit [facility] SLE[facility]INE [address] [phone] Lorenzo Jarvis, KARTHIK [address] [place] [address] Obstructive sleep apnea, adult (Primary Dx); Obesity, [...] encounter Patient Instructions * Patient Instructions* Lorenzo Jarvis APRN - 10/01/2024 11:00 AM EDT Images [...] Centers for Disease Control and Prevention: www.cdc.gov/sleep/index.html [place] Sleep Apnea Association: www.sleepapnea.org Contact a health [...] provider. Document Revised: 11/28/2018 Document Reviewed: 05/24/2017 [employer]acker Patient Education ?? 2020 [employer] documented in this encounter Progress Notes [...] was seen in the sleep clinic at [facility] and reportedly underwent a home sleep apnea [...] treatment. She is here for further consultation. Frierson Scale is: 8/24 (End copied text). -A [...] seen: None Further details are as follows: Frierson Scale is (out of 24): Total score: 13 Weight: Current Weight: 344 lb Weight change in the last year: gain: 0 lbs The patient's relevant past medical, surgical, family, and social history reviewed and updated in [facility] as appropriate. PMH: Past Medical History: [...] route 2 times every day PRN 03/18/24 uLis Banda APRN escitalopram (Lexapro) 20 MG tablet [...] 75 mg per 24 hours.). 03/10/24 Ernestina Neal APRN rosuvastatin (Crestor) 10 MG tablet Take [...] the AVS if appropriate. Lorenzo Jarvis APRN, [facility]- Pulmonology, Critical Care, and Sleep Medicine documented in this encounter Plan of Treatment Upcoming Encounters Date Type Department Care Team (Late st Contact Info) Description 10/29/2024 2:30 PM EDT Office Visit [facility] PULMONARY & CRITICAL CARE MEDICINE [address] [place] [phone] Jasson Ramirez DO [address] [place] [address] 11/02/2024 3:00 PM EDT Office Visit [facility] NEUROLOGY [address] [facility] 204 [place] [address] Ernestina Neal APRN [address] [facility] [address] [place], [place] [id number] 02/05/2025 11:15 AM EST Office Visit [facility] RHEUMATOLOGY [address] [place] [address] Luis Banda, BUSINESS INTELLIGENCE CONSULTANT [address] [place] [address] 10/04/2025 11:00 AM EDT Office Visit [facility] SLEEP MEDICINE 3000 [facility] [address] [place] [phone] Lorenzo Jarvis, BUSINESS INTELLIGENCE CONSULTANT [address] [place] [address] documented as of this encounter Goals Goal [...] documented as of this encounter Care Teams Senior Solutions Engineer Relationship Specialty Start Date End Date Karen Pineda DO [address] [facility] [place] [address] PCP - General Family Medicine 10/08/16 documented as of this encounter
--- NOTE | 2024-10-02 15:18 | MM_ITS ---
PROCEDURE INFORMATION: Exam: Bilateral Screening 3D Mammography Exam date and time: 10/02/2024 3:33 PM Age: 39 years old Clinical indication: Baseline. Her paternal great aunt and maternal grandmother had breast cancer. TECHNIQUE: Imaging protocol: Bilateral Screening tomosynthesis and 2D mammography including computer-aided detection (CAD) when performed. COMPARISON: No relevant prior studies available. FINDINGS: MAMMOGRAPHY: Breast composition: The breasts are almost entirely fatty. Mass: None. Architectural distortion: None. Calcifications: No suspicious calcifications. Asymmetric density: None. Skin thickening: None. Axillary adenopathy: None. IMPRESSION: No mammographic evidence of malignancy. Annual screening is recommended unless otherwise clinically indicated. ASSESSMENT: BI-RADS Category 1: Negative.
--- OUTSIDE RECORDS SUMMARY | 2024-10-02 15:18 | XMS_ITS | Encounter Summary ---
[facility] Address [address] [place] [address] Care Team Providers Care Supervisor Nutritional Yeast Name Role Phone Karen Pineda Primary Care Provider [phone] Encounter Details Date Type Department Care Team (Late Contact Info) Description 08/10/2024 Results Follow-Up [facility] RHEUMATOLOGY [address] [facility] 100 [place] [address] Jose Alejandro Jean DO [address] [id number] Social History Tobacco Use Types Packs/Day Years [...] Department Care Team (Late Contact Info) Description 10/29/2024 2:30 PM EDT Office Visit [facility] PULMONARY & CRITICAL CARE MEDICINE [address] [place] [phone] Jasson Ramirez, DO [address] [place] [address] 11/02/2024 3:00 PM EDT Office Visit [facility] NEUROLOGY [address] [facility] [address] [place] [phone] Ernestina Neal, HAND CLOTH EXAMINER [address] [facility] [address] [place] [address] 02/05/2025 11:15 AM EST Office Visit [facility] RHEUMATOLOGY [address] [facility] 100 [place] [phone] Luis Banda, HAND CLOTH EXAMINER [address] [facility] 100 [place] [address] 10/04/2025 11:00 AM EDT Office Visit [facility] SLEEP MEDICINE [address] [facility] [address] [place] [address] Lorenzo Jarvis, HAND CLOTH EXAMINER [address] [place] [address] documented as of this encounter Goals Goal [...] as of this encounter Care Teams Supervisor Nutritional Yeast Relationship Specialty Start Date End Date Karen Pineda DO [address] [place] [address] PCP - General Family Medicine 10/08/16 documented as of this encounter
--- OUTSIDE RECORDS SUMMARY | 2024-10-02 15:18 | XMS_ITS | Encounter Summary ---
Author Organization [facility] Address [address] [place] [address] Care Team Providers Care Cath Lab Radiology Technician Name Role Phone Karen Pineda DO Primary Care Provider [phone] Encounter Details Date Type Department Care Team (Late st Contact Info) Description 09/29/2024 Telephone [facility] FAMILY MEDICINE [address] [address] Karen Pineda DO [address] [place] [address] Social History Tobacco Use Types [...] encounter Miscellaneous Notes * Telephone Encounter - Lima Robles RegSched Rep - 09/29/2024 1:41 PM EDT A user error has taken place: encounter opened in error, closed for administrative reasons. documented in this encounter Plan of Treatment Upcoming Encounters Date Type Department Care Team (Late st Contact Info) Description 10/29/2024 2:30 PM EDT Office Visit [facility] PULMONARY & CRITICAL CARE MEDICINE [address] [place] [address] Jasson Ramirez, [address] [place] [address] 11/02/2024 3:00 PM EDT Office Visit [facility] NEUROLOGY [address]01 [facility] 204 [place] [phone] Ernestina Neal, FISHER SPEAR [address] [facility] 204 [place] [address] 02/05/2025 11:15 AM EST Office Visit [facility] RHEUMATOLOGY 330 [facility] 100 [place] [phone] Luis Banda, FISHER SPEAR 330 [facility] 100 [place], [place] [address] 10/04/2025 11:00 AM EDT Office Visit [facility] SLEEP MEDICINE 3000 [facility] [address] [place] [address] Lorenzo Jarvis, FISHER SPEAR [address] [place] [address] documented as of this encounter Goals Goal [...] documented as of this encounter Care Teams Cath Lab Radiology Technician Relationship Specialty Start Date End Date Karen Pineda DO [address] [place] [address] PCP - General Family Medicine 10/08/16 documented as of this encounter
--- OUTSIDE RECORDS SUMMARY | 2024-10-02 15:18 | XMS_ITS | Encounter Summary ---
[facility] [address] [place] [address] Care Team Providers Care Cleaner Wall Name Role Phone Karen Pineda DO Primary Care Provider [phone] Encounter Details Date Type Department Care Team (Latest Contact Info) Description 10/01/2024 Travel Social History Tobacco Use Types Packs/Day [...] [facility] PULMON[facility]ITICAL [facility]ARE MEDICINE [address] [place] [phone] Jasson Ramirez DO [address] [place] [address] 11/02/2024 3:00 PM EDT Office Visit [facility] NEUROLOGY [address]01 [facility] 204 [place] [address] Ángel Ernestina L, RADIOLOGY EQUIPMENT SERVICER [address]01 [facility] [address] [place], [place] [address] 02/05/2025 11:15 AM EST Office Visit [facility] RHEUMATOLOGY [address] [facility] 100 [place] [phone] Luis Banda, RADIOLOGY EQUIPMENT SERVICER 330 [facility] 100 [place], [place] [phone] 10/04/2025 11:00 AM EDT Office Visit [facility] SLEEP MEDICINE 3000 [facility] [address] [place] [address] Lorenzo Jarvis, RADIOLOGY EQUIPMENT SERVICER [address] [place], [place] [phone] documented as of this encounter Goals Goal [...] documented as of this encounter Care Teams Cleaner Wall Relationship Specialty Start Date End Date Karen Pineda DO [address] [place] [address] PCP - General Family Medicine 10/08/16 documented as of this encounter
--- OUTSIDE RECORDS SUMMARY | 2024-10-02 15:18 | XMS_ITS | Encounter Summary ---
[facility] Address [address] [place] [address] Care Team Providers Care Charcoal Burner Beehive Kiln Name Role Phone Karen Pineda DO Primary Care Provider +1 [phone] Encounter Details Date Type Department Care Team [...] Description 10/29/2024 2:30 PM EDT Office Visit [facility] PULMONARY & CRITICAL CARE MEDICINE [address] [place] [phone] Jasson Ramirez DO [address] [place] [address] 11/02/2024 3:00 PM EDT Office Visit [facility] NEUROLOGY [address] [facility] 204 [place] [address] Ángel Ernestina L, SHEEP FARM MANAGER [address] [facility] [address] [place], [place] [address] 02/05/2025 11:15 AM EST Office Visit [facility] RHEUMATOLOGY 330 [facility] 100 [place] [address] Luis Banda, SHEEP FARM MANAGER 330 [facility] 100 [place], [place] [address] 10/04/2025 11:00 AM EDT Office Visit [facility] SLEEP MEDICINE 3000 [facility] 240 [place] [address] Lorenzo Jarvis, SHEEP FARM MANAGER [address] [place], [place] [id number] documented as of this encounter Goals Goal [...] documented as of this encounter Care Teams Charcoal Burner Beehive Kiln Relationship Specialty Start Date End Date Karen Pineda DO [address] [place] [address] PCP - General Family Medicine 10/08/16 documented as of this encounter
--- OUTSIDE RECORDS SUMMARY | 2024-10-02 15:18 | XMS_ITS ---
Author Organization [facility] Address [address] [place] [address] Care Team Providers Care Shirt Closer Name Role Phone Karen Pineda DO Primary Care Provider [phone] Chronic Migraine Status:Enrolled (Active) Start date:03/10/2024 Enrollment date:03/10/2024 Enrollment reason:New start at Current support & services provided:Clinical Assessment, Refill Coordination , Benefits Investigation, [facility] Dispensing Linked medications:Fremanezumab-vfrm (Active), Rimegepant Sulfate (Active) Linked problems:Intractable chronic migraine without aura (Active) Case Team Name Relationship Phone Ernestina Neal APRN Nurse Practitioner [phone] Continued Care and Services Coordination
--- OUTSIDE RECORDS SUMMARY | 2024-10-02 15:18 | XMS_ITS | Clinical Summary ---
Author Organization [facility] Address [address] [id number] Care Team Providers Care Category Specialist Name Role Phone Gilson Heath MD Primary Care Provider [phone] Social History Tobacco Use Types Packs/Day Years [...] age to complete this topic Care Teams Category Specialist Relationship Specialty Start Date End Date Gilson Heath MD [address] [place] [address] PCP - General 12/26/06
--- OUTSIDE RECORDS SUMMARY | 2024-10-02 15:18 | XMS_ITS | Clinical Summary ---
Author Organization [facility] Address [address] [place] [address] Care Team Providers Care Sales Management Trainee Name Role Phone Karen Pineda Primary Care Provider [phone] Allergies No known active allergies Medications vitamin B-12 (cyanocobalamin) 100 MCG tablet Take 2.5 tablets by mouth Daily. 08/10/19 22 Active aspirin 81 MG EC tablet Take 1 tablet by mouth Daily. 08/20/19 24 Active Fremanezumab-vfrm (Ajovy) 225 MG/1.5ML solution auto-injector Inject 225 mg under the skin into the appropriate area as directed Every 30 (Thirty) Days. 1.5 mL 12:40 PM EDT 03/10/19 25 Active rimegepant sulfate ODT (Nurtec) [address] 1 tablet on the tongue Daily As Needed (For migraine. Max 75 mg per 24 hours.). 8 tablet 12:40 PM EDT 03/10/19 25 Active diclofenac (VOLTAREN) 75 MG EC tablet Take 1 tablet by mouth 2 (Two) Times a Day. Take 1 tablet oral route 2 times every day PRN 180 tablet 1 03/18/19 25 Active acetaZOLAMIDE (DIAMOX) 250 MG [...] 11/28/23: CHANCE 1:160 homogenous, DS DNA Normal, REPAIR OPERATOR normal, Amin normal, SCL 70 normal, SSA and SSB normal, chromatin normal, Alexa 1 normal, Centromere normal, Vitamin D 31.6, CMP was fine, CRP normal, Sed rate normal, RF negative 12/17/2023: CHANCE 1: 640 centromere pattern, centromere antibody positive, TPO antibody positive, normal complements, SCL 70 negative, Amin negative, REPAIR OPERATOR negative, dsDNA negative, SSA/SSB negative, anticardiolipin antibodies negative, CCP negative, RF negative, 14.3.3 negative, ANCA panel negative, CK and aldolase normal, CRP and ESR normal, HLA-B27 negative, thyroglobulin antibody negative, thyroid function normal, hepatitis panel negative, QTB negative Patient reports she sees bias cutter helper, Dr. Anderson. We recommend she see cardiology [...] 9:41 AM EST): Patient reports she sees bias cutter helper, Dr. Anderson. We recommend she see cardiology annually for screening. We will refer her to pulmonology per her request. She previously saw Dr. Gonzales at [facility]. We would recommend annual screenings with pulmonology [...] 11/28/23: CHANCE 1:160 homogenous, DS DNA Normal, REPAIR OPERATOR normal, Amin normal, SCL 70 normal, SSA and SSB normal, chromatin normal, Alexa 1 normal, Centromere normal, Vitamin D 31.6, CMP was fine, CRP normal, Sed rate normal, RF negative 12/17/2023: CHANCE 1: 640 centromere pattern, centromere antibody positive, TPO antibody positive, normal complements, SCL 70 negative, Amin negative, REPAIR OPERATOR negative, dsDNA negative, SSA/SSB negative, anticardiolipin [...] not to take with other NSAIDs including [id number]-nqtplox NSAIDs such as ibuprofen, naproxen, Aleve, Motrin, [...] surgery 02/27/2024 Overview (02/27/2024): Bariatric surgery in [facility] longer than 16 years ago. Planning to schedule reevaluation at [facility] Hypersomnia 02/27/2024 Hypoxemia 02/27/2024 Influenza 02/27/2024 [...] Encounters Date Type Department Care Team Description 10/01/2024 11:00 AM EDT Office Visit [facility] SLEEP MEDICINE 3000 [facility] 240 [place] [address] Lorenzo Jarvis APRN Obstructive sleep apnea, adult (Primary Dx); Obesity, morbid, BMI 50 or higher 10/01/2024 Travel 09/29/2024 Telephone [facility] FAMILY MEDICINE 210 [facility] [place] [address] Karen Pineda, 09/21/2024 Results Follow-Up [facility] FAMILY MEDICINE 210 [facility] [place] [address] Karen Pineda, 09/21/2024 Results Follow-Up [facility] FAMILY MEDICINE 210 [facility] [place] [address] Karen Pineda, 09/21/2024 Results Follow-Up [facility] FAMILY MEDICINE [address] [facility] [place] [address] Karen Pineda, 09/17/2024 2:00 PM EDT Office Visit [facility] FAMILY MEDICINE [address] [facility] [place] [address] Karen Pineda, DO Annual physical exam (Primary Dx); Prediabetes; Anxiety; Moderate episode of recurrent major depressive disorder; KELLY on CPAP; Cyanocobalamin deficiency; Vitamin D deficiency; High cholesterol; Mood disorder; Forgetfulness; Encounter for screening mammogram for malignant neoplasm of breast 09/17/2024 Travel 08/10/2024 Results Follow-Up [facility] RHEUMATOLOGY 330 [facility] 100 [place] [address] Jose Alejandro Jean DO 08/07/2024 11:15 AM EDT Office Visit [facility] RHEUMATOLOGY 330 [facility] 100 [place] [address] Jose Alejandro Jean DO Limited systemic sclerosis (Primary Dx); Fibromyalgia; Facial erythema 08/07/2024 Travel 07/23/2024 2:00 PM EDT Office Visit [facility]UROLOGY [address] [facility] [address] [place] [address] Ernestina Neal APRN Intractable chronic migraine without aura and without status migrainosus (Primary Dx); Pseudotumor cerebri 07/23/2024 Travel 07/21/2024 Telephone [facility] SLEEP MEDICINE 3000 [facility] [address] [place] [address] Tyson Liu MD HST results 07/13/2024 1:28 PM EDT Hospital Encounter [facility] SLEEP LAB [address] [facility] [address] [place] [address] Tyson Liu MD Hypersomnia; Obstructive sleep apnea, [...] Stroke Paternal Grandmother Rosalee Anxiety disorder Sister [place] Thyroid disease Sister Edith Relation Name Status Comments Daughter Stacy Father rashawn Maternal Grandfather happy Mother bobo Paternal Grandfather david Paternal Grandmother Rosalee Sister [place] Social History Tobacco Use Types Packs/Day Years [...] F) 10/01/2024 10:21 AM EDT Respiratory Rate 18 09/17/2024 1:52 PM EDT Oxygen Saturation 95% 10/01/2024 10:21 AM EDT Inhaled Oxygen Concentration - - Weight 156 kg (344 lb 3.2 oz) 10/01/2024 10:21 A M EDT Height 160 cm (5' 2.99 ) 10/01/2024 10:21 AM EDT Body Mass Index 60.99 10/01/2024 10:21 AM EDT Plan of Treatment Upcoming Encounters Date Type Department Care Team (Late st Contact Info) Description 10/29/2024 2:30 PM EDT Office Visit [facility] PULMONARY & CRITICAL CARE MEDICINE [address] [place] [address] Jasson Ramirez, [address] [place], [place] [id number] 11/02/2024 3:00 PM EDT Office Visit [facility] NEUROLOGY 210 [facility] 204 [place] [address] Ernestina Neal, REGULATORY INTERNSHIP 2101 [facility] 204 [place] [address] 02/05/2025 11:15 AM EST Office Visit [facility] RHEUMATOLOGY [address] [facility] [address] [place] [address] Luis Banda, REGULATORY INTERNSHIP 330 [facility] 100 [place], [place] [address] 10/04/2025 11:00 AM EDT Office Visit [facility] SLEEP MEDICINE 3000 [facility] [address] [place] [address] Lorenzo Jarvis, REGULATORY INTERNSHIP [address] [place], [place] [id number] Health Maintenance Due Date Last Done Comments Annual Gynecologic Pelvic and Breast Exam 1983 TDAP/TD VACCINES (2 - Td or Tdap) 09/25/2020 09/25/2010 (Patient-Reported (Performed Externally)) MAMMOGRAM 2023 COVID-19 Vaccine (2023- season) 2023 LIPID PANEL 05/28/2024 05/29/2023, 07/26, 08/08/2021, Additional history exists INFLUENZA VACCINE 11/25/2024 ANNUAL PHYSICAL 09/17/2025 09/17/2024 [...] Toward Above Goals 03/10/24 Initiate Oniel and Marcellotec PRN 08/31/24 Patient reports 3-4 [...] of4 resultswithin the time period is included. Karen Brenda Edwin DO LAB BLOOD ORDERABLES Final Result * (ABNORMAL) POC Glycosylated Hemoglobin (Hb A1C) (09/17/2024 2:46 PM EDT) Pathologist [facility] Hemoglobin A1C 5.9(A) 4.5 - 5.7 % [facility] Lot Number [id number] [facility] Expiration Date 05/25/2026 [facility] Blood 09/17/2024 2:46 PM EDT Karen Pineda DO POINT OF CARE TEST ORDERABL ES Final Result Performing Organization Address City/[facility]/ZIP Co de Phone Number [facility]
[address] [place] [address], [place] [phone] * IMAGING SCANNED (08/22/2024) Anatomical Region Laterality Modality Radiographic Karlee ging Karen Brenda Edwin DO IMG DIAGNOSTIC IMAGING ORDE RABLES Final Result * Sedimentation Rate (08/07/2024 12:16 PM EDT) Pathologist [facility] Sed Rate 20 0 - 20 mm/hr [facility] Blood 08/07/2024 12:1 6 PM EDT 08/07/2024 Narrative [facility] ([facility]BUL[facility]ORY) - 08/08/2024 1:06 AM EDT Performed at: [address] [place] [id number] Mica Laminating Machine Feeder: Freeman Horn MD, Phone: [phone] Patient Fasting: N Jose Alejandro Jean DO LAB BLOOD ORDERABLES F inal Result [facility] ([facility]BULATORY) [address] [place] [address], [place] [phone] [facility] [address] [place] [address], [place] [phone] * (ABNORMAL) CBC & Differential (08/07/2024 12:16 [...] LAB 08/07/2024 12:1 6 PM EDT 08/07/2024 [facility] ([facility]) - 08/08/2024 1:06 AM EDT Performed at: [address] [place] [address] [address] [place], [place] [id number] Mica Laminating Machine Feeder: Freeman Horn MD, Phone: [phone] Patient Fasting: N [facility] LAB BLOOD ORDERABLES F inal Result Performing Organization Address [facility] de Phone Number [facility] (AMBULATORY) [address] [place] [address], [facility] [address] [place] [address], * C-reactive Protein (08/07/2024 12:16 PM EDT) C-Reactive Protein <0.30 0.00 - 0.50 mg/dL [facility] Blood 08/07/2024 12:1 6 PM EDT 08/07/2024 Narrative [facility] ([facility]) - 08/08/2024 1:06 AM EDT Performed at: [address] [place] [address] [address] [place], [place] [id number] Mica Laminating Machine Feeder: Freeman Horn MD, Phone: [phone] Patient Fasting: N Jose Alejandro Jean LAB BLOOD ORDERABLES F inal Result Performing Organization Address [facility] Co de Phone Number [facility] (AMBULATORY) [address] [place] [address], [facility] [address] [place] [address], * CK (08/07/2024 12:16 PM EDT) Creatine Kinase 49 20 - 180 U/L [facility] Blood 08/07/2024 12:1 6 PM EDT 08/07/2024 Narrative [facility] ([facility]) - 08/08/2024 1:06 AM EDT Performed at: [address] [place] [address] [address] [place], [place] [id number] Mica Laminating Machine Feeder: Freeman Horn MD, Phone: [phone] Patient Fasting: N Jose Alejandro Jean DO LAB BLOOD ORDERABLES F inal Result [facility] (AMBULATORY) [address] [place] [address], [place] [phone] [facility] [address] [place] [address], [place] [phone] * Comprehensive Metabolic Panel (08/07/2024 12:16 PM [...] - 08/08/2024 1:06 AM EDT Performed at: [address] [place] [id number] Mica Laminating Machine Feeder: Freeman Horn MD, Phone: [phone] Patient Fasting: N Jose Alejandro Jean DO LAB BLOOD ORDERABLES F inal Result [facility] (AMBULATORY) [address] [place] [address], [facility] [address] [place] [address], * HST (07/14/2024 7:15 AM EDT) Located within [facility] SLEEP MEDICINE - 07/20/2024 9:00 PM EDT [...] KELLY and she had a PSG at [facility] in December 2022 which revealed a [...] had a home sleep test with an V Wave One device that measured airflow at the [...] ve Non-Reacti ve 12/18/2023 12:53 AM EDT [facility] Hep A IgM Non-Reacti ve Non-Reacti ve 12/18/2023 12:53 AM EDT [facility] Hep B C IgM Non-Reacti ve Non-Reacti ve 12/18/2023 12:53 AM EDT [facility] Hepatitis C Ab Non-Reacti ve Non-Reacti ve 12/18/2023 12:53 AM EDT [facility] Blood Venipuncture / Unknown 12/17/2023 10:30 AM EDT 12/17/2023 10:30 AM EDT Narrative [facility] - 12/18/2023 12:53 AM EDT Results may be falsely decreased if patient taking Biotin. Jose Alejandro Jean DO LAB BLOOD ORDERABLES F inal Result [facility]
[address] [place] [address], * (ABNORMAL) Lipid Panel With / Chol [...] 05/29/2023 8:52 AM EDT 05/29/2023 Narrative [facility] (AMBULATORY) - 05/30/2023 3:08 AM EDT Performed at: [address] [address] [place] [place] [id number] Mica Laminating Machine Feeder: Freeman Horn MD, Phone: [phone] Patient Fasting: Y us Karen Pineda DO LAB BLOOD ORDERABLES Final Result [facility] (AMBULATORY) [address] [place] [address], [place] [phone] [facility] [address] [place] [address], from Last 3 Months or Most Recently Relevant to Health Maintenance [place] [address] [place] [address] Care Teams Sales Management Trainee Relationship Specialty Start Date End Date Karen Pineda DO [address] [place] [address] PCP - General Family Medicine 10/08/16
--- OUTSIDE RECORDS SUMMARY | 2024-10-02 15:19 | XMS_ITS | Encounter Summary ---
[facility] Address [address] [place] [address] Care Team Providers Care Hemodialysis Charge Nurse Name Role Phone Karen Pineda DO Primary Care Provider [phone]- [phone] Encounter Details Date Type Department Care Team (Late st Contact Info) Description 09/21/2024 Results Follow-Up [facility] FAMILY MEDICINE 210 [facility] [place] [address] Karen Pineda DO [address] [place] [address] Social History Tobacco Use Types [...] Description 10/29/2024 2:30 PM EDT Office Visit [facility] PULMONARY & CRITICAL CARE MEDICINE [address] [place] [phone] Jasson Ramirez, DO [address] [place] [address] 11/02/2024 3:00 PM EDT Office Visit [facility] NEUROLOGY [address] [facility] [address] [place] [address] Ernestina Neal, SCIENTIFIC INFORMATICS ANALYST 2101 [facility] [address] [place] [address] 02/05/2025 11:15 AM EST Office Visit [facility] RHEUMATOLOGY 330 [facility] 100 [place] [address] Luis Banda, SCIENTIFIC INFORMATICS ANALYST 330 [facility] 100 [place] [address] 10/04/2025 11:00 AM EDT Office Visit [facility] SLEEP MEDICINE 3000 [facility] [address] [place] [address] Lorenzo Jarvis, SCIENTIFIC INFORMATICS ANALYST [address] [place] [address] documented as of this encounter Goals Goal [...] documented as of this encounter Care Teams Hemodialysis Charge Nurse Relationship Specialty Start Date End Date Karen Pineda DO [address] [place] [address] PCP - General Family Medicine 10/08/16 documented as of this encounter
--- OUTSIDE RECORDS SUMMARY | 2024-10-02 15:19 | XMS_ITS | Encounter Summary ---
[facility] [address] [place] [address] Care Team Providers Care High School French Teacher Name Role Phone Karen Pineda DO Primary Care Provider +1 [phone] Encounter Details Date Type Department Care Team [...] Description 10/29/2024 2:30 PM EDT Office Visit [facility] PULMONARY & CRITICAL CARE MEDICINE [address] [place] [address] Jasson Ramirez DO [address] [place] [address] 11/02/2024 3:00 PM EDT Office Visit [facility] NEUROLOGY 2101 [facility] 204 [place] [address] Ángel Ernestina L, VOICE ENGINEER 2101 [facility] [address] [place], [place] [address] 02/05/2025 11:15 AM EST Office Visit [facility] RHEUMATOLOGY [address] [facility] 100 [place] [address] Luis Banda, VOICE ENGINEER 330 [facility] 100 [place], [place] [address] 10/04/2025 11:00 AM EDT Office Visit [facility] SLEEP MEDICINE 3000 [facility] 240 [place] [address] Lorenzo Jarvis, VOICE ENGINEER [address] [place], [place] [address] documented as of this encounter Goals Goal [...] documented as of this encounter Care Teams High School French Teacher Relationship Specialty Start Date End Date Karen Pineda DO [address] [place] [address] PCP - General Family Medicine 10/08/16 documented as of this encounter
--- OUTSIDE RECORDS SUMMARY | 2024-10-02 15:19 | XMS_ITS | Encounter Summary ---
[facility] Address [address] [place] [address] Care Team Providers Care Business Planning Director Name Role Phone Karen Pineda DO Primary Care Provider +1- [phone] Encounter Details Date Type Department Care Team (Late st Contact Info) Description 09/21/2024 Results Follow-Up [facility] FAMILY MEDICINE 210 [facility] [place] [address] Karen Pineda DO [address] [place] [address] Social History Tobacco Use Types [...] MEDICAL CENTER PULMONARY & CRITICAL CARE MEDICINE [address] [place] [phone] Jasson Ramirez, DO [address] [place] [address] 11/02/2024 3:00 PM EDT Office Visit [facility] NEUROLOGY 21[address] [facility] [address] [place] [phone] Ernestina Neal, REMOTE RECRUITER 2101 [facility] [address] [place] [address] 02/05/2025 11:15 AM EST Office Visit [facility] RHEUMATOLOGY 330 [facility] 100 [place] [address] Luis Banda, REMOTE RECRUITER [address] [facility] 100 [place] [address] 10/04/2025 11:00 AM EDT Office Visit [facility] SLEEP MEDICINE 3000 [facility] [address] [place] [phone] Lorenzo Jarvis, REMOTE RECRUITER [address] [place] [address] documented as of this encounter Goals Goal [...] documented as of this encounter Care Teams Business Planning Director Relationship Specialty Start Date End Date Karen Pineda DO [address] [place] [address] PCP - General Family Medicine 10/08/16 documented as of this encounter
--- OUTSIDE RECORDS SUMMARY | 2024-10-02 15:19 | XMS_ITS | Clinical Summary ---
Author Organization [facility] Address [address] [place] [address] Phone Care Team Providers Care Food And Beverage Order Clerk Name Role Phone Unavailable Primary Care Provider [...] patient's age to complete this topic Insurance [facility] [place] [address] [employer] [place] [address] Advance Directives For more information, please contact: [phone] * Full Code (Latest Code Status on File) Date Activated Date Inactivated Comments 08/07/2021 3:35 PM 08/09/2021 6:15 PM
--- OUTSIDE RECORDS SUMMARY | 2024-10-02 15:19 | XMS_ITS | Encounter Summary ---
Author Organization [facility] Address [address] [place] [address] Care Team Providers Care Pipe Coverer Name Role Phone Karen Pineda DO Primary Care Provider [phone] Encounter Details Date Type Department Care Team (Late st Contact Info) Description 09/21/2024 Results Follow-Up [facility] FAMILY MEDICINE [address] [facility] [place] [address] Karen Pineda DO [address] [place] [address] Social History Tobacco Use Types [...] Description 10/29/2024 2:30 PM EDT Office Visit [facility] PULMONARY & CRITICAL CARE MEDICINE [address] [place] [phone] Jasson Ramirez, DO [address] [place] [address] 11/02/2024 3:00 PM EDT Office Visit [facility] NEUROLOGY [address] [facility] [address] [place] [phone] Ernestina Neal, MANPOWER DEVELOPMENT MANAGER [address] [facility] [address] [place] [address] 02/05/2025 11:15 AM EST Office Visit [facility] RHEUMATOLOGY 330 [facility] 100 [place] [phone] Luis Banda, MANPOWER DEVELOPMENT MANAGER 330 [facility] 100 [place] [address] 10/04/2025 11:00 AM EDT Office Visit [facility] SLEEP MEDICINE [address] [facility] [address] [place] [phone] Lorenzo Jarvis, MANPOWER DEVELOPMENT MANAGER [address] [place] [address] documented as of this encounter Goals Goal [...] documented as of this encounter Care Teams Pipe Coverer Relationship Specialty Start Date End Date Karen Pineda DO [address] [place] [address] PCP - General Family Medicine 10/08/16 documented as of this encounter
--- OUTSIDE RECORDS SUMMARY | 2024-10-02 15:19 | XMS_ITS | Clinical Summary ---
Author Organization Healthcare Address [address] [place] [address] Care Team Providers Care Director Marketing Communications Name Role Phone Pcp, No Primary Care [...] 2004 [facility]-Cervical Cancer Screening 2013 [facility]-HPV/Cotest 2013 [id number] Vaccine ( - 2023- season) 2023 [facility]-Influenza [...] Insurance [employer] Care Teams Director Marketing Communications Relationship Specialty Start Date End Date Pcp, [place] [address] PCP - General Family Medicine 10/09/23
--- OUTSIDE RECORDS SUMMARY | 2024-10-02 15:19 | XMS_ITS | Encounter Summary ---
Author Organization [facility] Address [address] [place] [address] Care Team Providers Care Broomcorn Grader Name Role Phone Karen Pineda Primary Care Provider [phone] Reason for Visit * Auth/Cert Specialty Diagnoses / Procedures Referred By Chuy soriano Referred To Contact Diagnoses Centromere antibody positive Centromere antibody positive [R76.8] Procedures VT ESOPHAGOGASTRODUODENOSCOPY TRANSORAL DIAGNOSTIC VT EGD TRANSORAL BIOPSY SINGLE/MULTIPLE ESOPHAGOGASTRODUODENOSCOPY Referral ID Status Reason Start Date Expiration Date Visits Re quested Visits Authorized [id number] 1 1 Encounter Details Date Type Department Care Team (Late st Contact Info) Description 05/05/2024 Hospital Encounter [facility] [address] [place] [phone] Rl Marin MD [address] [facility] [address] [place] [address] Social History Tobacco Use Types Packs/Day Years [...] Description 10/29/2024 2:30 PM EDT Office Visit [facility] PULMONARY & CRITICAL CARE MEDICINE [address] [facility] [place] [phone] Jasson Ramirez, DO [address] [place] [address] 11/02/2024 3:00 PM EDT Office Visit [facility] NEUROLOGY [address] [facility] 204 [place] [phone] Ernestina Neal, MAGAZINE SUPERVISOR [address] [facility] 204 [place] [address] 02/05/2025 11:15 AM EST Office Visit [facility] RHEUMATOLOGY 330 [facility] 100 [place] [phone] Luis Banda, MAGAZINE SUPERVISOR 330 [facility] 100 [place], [place] [phone] 10/04/2025 11:00 AM EDT Office Visit [facility] SLEEP MEDICINE [address] [facility] 240 [place] [phone] Lorenzo Jarvis, MAGAZINE SUPERVISOR [address] [place] [address] documented as of this encounter Goals Goal Patient Goal Type Associated Problems Recent Progress Patient-Stated? Author Specialty Pharmacy General Goal General On track( 025 8:42 AM EDT) Kandy López, PharmD Note: On Average, Reduce: Frequency of [...] documented as of this encounter Care Teams Broomcorn Grader Relationship Specialty Start Date End Date Karen Pineda DO [address] [facility] [place] [address] PCP - General Family Medicine 10/08/16 documented as of this encounter
== END 2024-10-02 23:59 | disposition home or self-care (01) ==
LOC: RAD 15:16
PROVIDERS: PCP Student in an Organized Health Care Education/Training Program; Visit Provider Family Medicine
DX: Z12.31 Encounter for screening mammogram for malignant neoplasm of breast (principal); Z80.3 Family history of malignant neoplasm of breast
CPT/HCPCS: 77063; 77067

== ENCOUNTER 2024-10-20 10:46 | Emergency (ER) | payer OTHER, SELFPAY ==
--- OUTSIDE RECORDS SUMMARY | 2024-04-23 14:20 | XMS_ITS | Encounter Summary ---
[facility] [address] [place] [address] Care Team Providers Care Appliquer Zigzag Name Role Phone Karen Pineda Primary Care Provider [phone] Encounter Details Date Type Department Care Team (Late st Contact Info) Description 04/23/2024 1:20 PM EST Hospital Encounter [facility] PUL[facility] [address] [facility] [place] [place] [address] Social History Tobacco Use Types [...] Description 10/29/2024 2:30 PM EDT Office Visit [facility] PULMONARY [facility]INE [address] [facility] [place] [phone] Jasson Ramirez DO [address] [place] [address] 11/02/2024 3:00 PM EDT Office Visit [facility] NEUROLOGY [address] [facility] [address] [place] [phone] Ernestina Neal, VARIETY PERFORMER [address] [facility] [address] [place], [place] [id number] 02/05/2025 11:15 AM EST Office Visit [facility] RHEUMATOLOGY [address] [facility] [address] [place] [phone] Luis Banda, VARIETY PERFORMER [address] [facility] [address] [place], [place] [id number] 10/04/2025 11:00 AM EDT Office Visit [facility] SLEEP MEDICINE [address] [facility] [address] [place] [address] Lorenzo Jarvis, VARIETY PERFORMER [address] [place] [address] documented as of this encounter Goals Goal [...] Narrative 04/27/2024 3:14 PM EST Genesis Burrell [id number] 04/23/2024 Chest X-Ray PA & Lateral Indication: [...] documented as of this encounter Care Teams Appliquer Zigzag Relationship Specialty Start Date End Date Karen Pineda DO [address] [place], [place] [id number] PCP - General Family Medicine 10/08/16 documented as of this encounter
--- OUTSIDE RECORDS SUMMARY | 2024-07-13 13:28 | XMS_ITS | Encounter Summary ---
Author Organization [facility] Address [address] [id number] Care Team Providers Care Die Developer Name Role Phone Karen Pineda DO Primary Care Provider [phone] Reason for Referral * Hospital - Outpatient (Routine) - Closed Specialty Diagnoses / Procedures Referred By Contac t Referred To Contact Sleep Medicine Diagnoses Hypersomnia Obstructive sleep apnea, adult Snoring Procedures Home Sleep Study Tyson Liu MD [address] [place] [address] Phone: tel: fax: [facility] SLEEP LAB [address] [address] Phone: tel: fax: Referral ID Status Reason Start Date Expiration Date Visits Re quested Visits Authorized [id number] Closed 05/12/2024 08/11/2025 1 1 Reason for Visit * Hospital - Outpatient (Routine) - Closed Specialty Diagnoses / Procedures Referred By Contac t Referred To Contact Sleep Medicine Diagnoses Hypersomnia Obstructive sleep apnea, adult Snoring Procedures Home Sleep Study Tyson Liu MD [address] [place] [address] Phone: tel: fax: [facility] SLEEP [facility] [address] [address] Phone: tel: fax: Referral ID Status Reason Start Date Expiration Date Visits Re quested Visits Authorized [id number] Closed 05/12/2024 08/11/2025 1 1 Encounter Details Date Type Department Care Team (Late st Contact Info) Description 07/13/2024 1:28 PM EDT Hospital Encounter [facility] SLEEP LAB [address] [place] [address] Tyson Liu MD [address] [place] [address] Hypersomnia; Obstructive sleep apnea, adult; Snoring Social [...] Description 10/29/2024 2:30 PM EDT Office Visit [facility] PULMONARY & CRITICAL CARE MEDICINE [address] [place] [address] Jasson Ramirez, DO [address] [place] [address] 11/02/2024 3:00 PM EDT Office Visit [facility] NEUROLOGY [address] [facility] [address] [place] [address] Ernestina Neal, BUYER TOBACCO HEAD 2101 [facility] [address] [place] [address] 02/05/2025 11:15 AM EST Office Visit [facility] RHEUMATOLOGY [address] [facility] 100 [place] [address] Luis Banda, BUYER TOBACCO HEAD 330 [facility] 100 [place] [address] 10/04/2025 11:00 AM EDT Office Visit [facility] SLEEP MEDICINE 3000 [facility] [address] [place] [address] Lorenzo Jarvis, BUYER TOBACCO HEAD [address] [place] [address] documented as of this encounter Goals Goal [...] KELLY and she had a PSG at [facility] in December 2022 which revealed a normal [...] had a home sleep test with an C[employer]opl[employer] One device that measured airflow at the [...] documented as of this encounter Care Teams Die Developer Relationship Specialty Start Date End Date Karen Pineda DO [address] [place] [address] PCP - General Family Medicine 10/08/16 documented as of this encounter
--- OUTSIDE RECORDS SUMMARY | 2024-09-17 14:00 | XMS_ITS | Encounter Summary ---
Author Organization [facility] Address [address] [place] [address] Care Team Providers Care Campground Caretaker Name Role Phone Karen Pineda DO Primary Care Provider [phone] Reason for Referral * Behavorial Health/Psych (Routine) - Authorized Specialty Diagnoses / Procedures Referred By Chuy soriano Referred To Contact Behavioral Health Diagnoses Anxiety Moderate episode of recurrent major depressive disorder Procedures MO OFFICE/OUTPATIENT NEW MODERATE MDM 45 MINUTES Karen Pineda DO [address] [place] [address] Phone: tel: fax: Amador Gonzalez, KARTHIK [address] [place] [address] Phone: tel: fax: Referral ID Status Reason Start Date Expiration Date Visits Requested Visits Authorized [id number] Authorized Specialty Services Required 09/17/2024 12/17/2025 1 1 * Diagnostic Imaging (Routine) - Authorized Specialty Diagnoses / Procedures Referred By Chuy soriano Referred To Contact Diagnoses Encounter for screening mammogram for malignant neoplasm of breast Procedures Mammo Screening Digital Tomosynthesis Bilateral With CAD Karen Pineda DO [address] [place] [address] Phone: tel: fax: [facility] - OUTPT PHYSICAL THER[facility] [address] [place] [address] Phone: tel: fax: Referral ID Status Reason Start Date Expiration Date V isits Requested Visits Authorized [id number] Authorized 09/17/2024 12/17/2025 1 1 Reason for Visit * Reason Comments Annual Exam Pt is not fasting. Encounter Details Date Type Department Care Team (Late st Contact Info) Description 09/17/2024 2:00 PM EDT Office Visit [facility] [address] [place] [address] Karen [...] * Preventive Care 40-64 Years Old Female (Mexican) documented in this encounter Progress Notes * Karen Pineda, DO - 09/17/2024 2:00 PM EDT Chief Complaint Annual Exam (Pt is not fasting. ) Subjective Genesis Burrell presents to [facility] History of Present Illness The [...] the care of Dr. Anderson's office in [place] for her heart condition, which includes an [...] Vitamin B12 - Ambulatory Referral to Behavioral [facility] - escitalopram (Lexapro) 20 MG tablet; Take 1 tablet by mouth Daily. Dispense: 90 tablet; Refill: 1 - Folate - TSH+Free T4 4. Moderate episode of recurrent major depressive disorder - CBC (No Diff) - Comprehensive Metabolic Panel - Lipid Panel With / Chol / HDL Ratio - Vitamin D,25-Hydroxy - Vitamin B12 - Ambulatory Referral to [facility] - escitalopram (Lexapro) 20 MG tablet; [...] Continue current medications. - Follow up with lime burner as needed. 3. Thyroid Antibody Positive. - [...] (around 03/20/2025) for Recheck. Patient or patient insurance service representative verbalized consent for the use of [...] Description 10/29/2024 2:30 PM EDT Office Visit [facility] MEDIC[facility] [address] [facility] [place] [phone] Jasson Ramirez DO [address] [place] [address] 11/02/2024 3:00 PM EDT Office Visit [facility] NEUROLOGY [address] [facility] [address] [place] [phone] Ernestina Neal, BIG DATA ANALYTICS LEAD [address] [facility] [address] [place] [address] 02/05/2025 11:15 AM EST Office Visit [facility] RHEUMATOLOGY [address] [phone] Luis Banda, BIG DATA ANALYTICS LEAD [address] [address] 10/04/2025 11:00 AM EDT Office Visit [facility] SLEEP MEDICINE [address] [facility] [address] [place] [phone] Lorenzo Jarvis, BIG DATA ANALYTICS LEAD [address] [place] [address] Scheduled Orders Name Type Priority Associated Diagnoses [...] High cholesterol Mood disorder Forgetfulness Ordered: 09/17/2024 Folate Lab Routine Prediabetes Anxiety Moderate episode [...] Prediabetes documented in this encounter Results * Mammo Screening Digital Tomosynthesis Bilateral With CAD (10/02/2024) Anatomical Region Laterality Modality Breast N/A Mammography us Karen Pineda DO IMG MAMMOGRAPHY ORDERABLES Final Result * (ABNORMAL) POC Glycosylated Hemoglobin (Hb A1C) (09/17/2024 2:46 PM EDT) Hemoglobin A1C 5.9(A) 4.5 - 5.7 % [facility] Lot Number [id number] [facility] Expiration Date 05/25/2026 [facility] Blood 09/17/2024 2:46 PM EDT Karen Pineda DO POINT OF CARE TEST ORDERABL ES Final Result [facility]
[address] [place] [address], [place] [phone] documented in this encounter Visit Diagnoses Diagnosis Annual physical exam- Primary Routine general medical examination at a [facility] care facility Prediabetes Other abnormal glucose Anxiety [...] documented as of this encounter Care Teams Campground Caretaker Relationship Specialty Start Date End Date Karen Pineda DO [address] [place] [address] PCP - General Family Medicine 10/08/16 documented as of this encounter
--- OUTSIDE RECORDS SUMMARY | 2024-10-01 11:00 | XMS_ITS | Encounter Summary ---
Author Organization [facility] Address [address] [place] [address] Care Team Providers Care Rampman Name Role Phone Karen Pineda DO Primary Care Provider [phone] Reason for Referral * Durable Medical Equipment (Routine) - Closed Specialty Diagnoses / Procedures Referred By Contac t Referred To Contact Diagnoses Obstructive sleep apnea, adult Procedures PAP Therapy Lorenzo Jarvis APRN [address] [place] [address] Phone: tel: fax: [place] [address] [place] [address] Phone: tel: fax: Referral ID Status Reason Start Date Expiration Date Visits Re quested Visits Authorized [id number] Closed 10/01/2024 12/31/2025 1 1 Reason for Visit * Reason Comments Sleeping Problem Follow-up Sleep Apnea Follow up Encounter Details Date Type Department Care Team (Late st Contact Info) Description 10/01/2024 11:00 AM EDT Office Visit [facility] SLEEP MEDICINE [address] [phone] Lorenzo Jarvis, KARTHIK [address] [place] [address] Obstructive sleep apnea, adult (Primary Dx); Obesity, morbid, BMI 50 or higher Social History Tobacco Use Types Packs/Day Years [...] Sign Reading Time Taken Comments Blood Pressure 130/70 10/01/2024 10:21 AM EDT Pulse 78 10/01/2024 10:21 AM EDT Temperature 36.3 C (97.3 F) 10/01/2024 10:21 AM EDT Respiratory Rate - - Oxygen Saturation 95% 10/01/2024 10:21 AM EDT Inhaled Oxygen Concentration - - Weight 156 kg (344 lb 3.2 oz) 10/01/2024 10:21 A M EDT Height 160 cm (5' 2.99 ) 10/01/2024 10:21 AM EDT Body Mass Index 60.99 10/01/2024 10:21 AM EDT documented in this encounter Patient Instructions * Patient Instructions* Lorenzo Jarivs APRN - 10/01/2024 11:00 AM EDT Images from the original note were not included. Screening for Sleep Apnea Sleep apnea is a condition in which breathing pauses or becomes shallow during sleep. Sleep apnea screening is a test to determine if you are at risk for sleep apnea. The test is easy and only takes a few minutes. Your health care provider may ask you to have this test in preparation for surgery oras part of a physical exam. What are the symptoms of sleep apnea? Common symptoms of sleep apnea include: Snoring. Restless sleep. Daytime sleepiness. Pauses in breathing. Choking during sleep. Irritability. Forgetfulness. Trouble thinking clearly. Depression. Personality changes. Most people with sleep apnea are not aware that they have it. Why should I get screened? Getting screened for sleep apnea can help: Ensure your safety. It is important for your health care providers to know whether or not you have sleep apnea, especially if you are having surgery or have other long-term (chronic) health conditions. Improve your health and allow you to get a better night's rest. Restful sleep can help you: Have more energy. Lose weight. Improve high blood pressure. Improve diabetes management. Prevent stroke. Prevent car accidents. How is screening done? Screening usually includes being asked a list of questions about your sleep quality. Some questionsyou may be asked include: Do you snore? Is your sleep restless? Do you have daytime sleepiness? Has a partner or spouse told you that you stop breathing during sleep? Have you had trouble concentrating or memory loss? If your screening test is positive, you are at risk for the condition. Further testing may be needed to confirm a diagnosis of sleep apnea. Where to find more information You can find screening tools online or at your health care clinic. For more information about sleepapnea screening and healthy sleep, visit these websites: Centers for Disease Control and Prevention: www.cdc.gov/sleep/index.html [place] Sleep Apnea Association: www.sleepapnea.org Contact a health care provider if: You think that you may have sleep apnea. Summary Sleep apnea screening can help determine if you are at risk for sleep apnea. It is important for your health care providers to know whether or not you have sleep apnea, especially if you are having surgery or have other chronic health conditions. You may be asked to take a screening test for sleep apnea in preparation for surgery or as part of a physical exam. This information is not intended to replace advice given to you by your health care provider. Make sure you discuss any questions you have with your health care provider. Document Revised: 11/28/2018 Document Reviewed: 05/24/2017 Else28msec Patient Education ?? 2020 [employer] documented in this encounter Progress Notes * Lorenzo Jarvis APRN - 10/01/2024 11:00 AM EDT Sleep Clinic Follow Up Note Chief Complaint Sleeping Problem, Follow-up, and Sleep Apnea (Follow up) Subjective History of Present Illness (from previous encounter on 05/12/[address] Liu): She describes a longstanding history of being always tired . She has been told she snores loudly. She has woken herself up snoring. She says that all I want to do is sleep Her sleep at night is disturbed with multiple awakenings. She thinks she averages up to 14 hours ofsleep in a 24-hour period. She has morning headaches. She was seen in the sleep clinic at [facility] and reportedly underwent a home sleep apnea test. She recalls her AHI as being 4.5 and therefore she underwent a PSG due to the suspicion of KELLY.That study was performed on 01/14/2023 and revealed an AHI of 1.7. She did not enter REM sleep on the night of the study. A 4% hypopnea rule was used to score it. As result she has received no specific treatment. She is here for further consultation. Nashville Scale is: 8/24 (End copied text). -A home sleep test was obtained on 07/14/2024 revealing moderate obstructive sleep apnea with an AHIof 22.5/H Interval History: Genesis Burrell is a 39 y.o. female returns for follow up and compliance of PAP therapy. The patient was last seen on 05/12/[address] Liu. Overall the patient feels good with regard to therapy. The device appears to be working appropriately. On average the patient sleeps 6-7 hours per night. The patient wakes 0 times per night. The patient reports the following changes to their medical and medication history since they were last seen: None Further details are as follows: Nashville Scale is (out of 24): Total score: 13 Weight: Current Weight: 344 lb Weight change in the last year: gain: 0 lbs The patient's relevant past medical, surgical, family, and social history reviewed and updated in [facility] as appropriate. PMH: Past Medical History: Diagnosis Date Anxiety Deep vein thrombosis Depression Diabetes Fibromyalgia, primary Gallstone Headache High cholesterol Kidney infection Migraines Ovarian cyst Stroke 2021 Urinary tract infection Past Surgical History: Procedure Laterality Date ADENOIDECTOMY APPENDECTOMY BARIATRIC SURGERY SECTION CHOLECYSTECTOMY CHOLECYSTECTOMY GASTRIC BYPASS HYSTERECTOMY TONSILLECTOMY TUBAL ABDOMINAL LIGATION WISDOM TOOTH EXTRACTION OB History No obstetric history on file. No Known Allergies MEDS: Prior to Admission medications Medication Sig Start Date End Date Taking? Authorizing Provider acetaZOLAMIDE (DIAMOX) 250 MG tablet Take 2 tablets by mouth Every Morning AND 1 tablet Every Night. 07/23/24 Ernestina Neal APRN aspirin 81 MG EC tablet Take 1 tablet by mouth Daily. 08/20/23 Venita Olivarez MD diclofenac (VOLTAREN) 75 MG EC tablet Take 1 tablet by mouth 2 (Two) Times a Day. Take 1 tablet oral route 2 times every day PRN 03/18/24 Luis Banda APRN escitalopram (Lexapro) 20 MG tablet Take 1 tablet by mouth Daily. 09/17/24 Karen Pineda DO Fremanezumab-vfrm (Ajovy) 225 MG/1.5ML solution auto-injector Inject 225 mg under the skin into theappropriate area as directed Every 30 (Thirty) Days. 03/10/24 Ernestina Neal APRN lamoTRIgine (LaMICtal) 100 MG tablet Take 1 tablet by mouth Daily. 09/17/24 Karen Pineda DO metFORMIN ER (GLUCOPHAGE-XR) 500 MG 24 hr tablet Take 2 tablets by mouth Daily With Breakfast. 09/17/24 Karen Pineda DO rimegepant sulfate ODT (Nurtec) [address] 1 tablet on the tongue Daily As Needed (For migraine. Max 75 mg per 24 hours.). 03/10/24 Ernestina eNal APRN rosuvastatin (Crestor) 10 MG tablet Take 1 tablet by mouth Daily. 09/17/24 Karen Pineda DO vitamin B-12 (cyanocobalamin) 100 MCG tablet Take 2.5 tablets by mouth Daily. 08/09/21 ProviderVenita MD FH: Family History Problem Relation Age of Onset Cancer Mother Diabetes Mother Other (PMR) Mother Hypertension Mother Cancer Father Heart attack Father Hyperlipidemia Father Diabetes Father Hypertension Father Anxiety disorder Sister Thyroid disease Sister Anxiety disorder Daughter Seizures Daughter Chiari malformation Daughter Heart attack Maternal Grandfather Early Maternal Grandfather Heart attack Paternal Grandmother Stroke Paternal Grandmother Cancer Paternal Grandfather Objective Vital Signs: BP 130/70 (BP Location: Right arm, Patient Position: Sitting, Cuff Size: Adult) Pulse 78 Temp 97.3 ??F (36.3 ??C) (Temporal) Ht 160 cm (62.99 ) Wt (!) 156 kg (344 lb 3.2 oz) SpO2 95% BMI 60.99 kg/m?? Patient's (Body mass index is 60.99 kg/m .) indicates that they are morbidly obese (BMI > 40 or> 35 with obesity - related health condition) Physical Exam Vitals reviewed. Constitutional: Appearance: Normal appearance. HENT: Head: Normocephalic and atraumatic. Nose: Nose normal. Mouth/Throat: Mouth: Mucous membranes are moist. Cardiovascular: Rate and Rhythm: Normal rate and regular rhythm. Heart sounds: No murmur heard. No friction rub. No gallop. Pulmonary: Effort: Pulmonary effort is normal. No respiratory distress. Breath sounds: Normal breath sounds. No wheezing or rhonchi. Neurological: Mental Status: She is alert and oriented to person, place, and time. Psychiatric: Behavior: Behavior normal. PAP Report: AHI: 0.5/h Days of Usage: 30/30 (100%) Number of Days Greater than 4 hours: 73% Average time (days used): 6 hours 14-minute 95th Percentile Pressure: 11.6 cmH2O 95th percentile leaks: 24.4 L/min Settings: Auto CPAP-8/18 cm H2O, EPR ramp only, EPR level 1, response standard. Assessment and Plan Genesis Burrell is a 39 y.o. female who returns for follow-up and compliance of PAP therapy. The Pap report has been reviewed. Overall usage is at 100% compliance at 73%. Patient averaged 6 hours and 14 minutes of therapy. Sleep apnea is well-controlled with an AHI of 0.5/H. Patient has a history of moderate obstructive sleep apnea with AHI of 22.5/H. Patient feels much improved with use of the device. She does not sleep without it. We discussed weight loss and she noted that primary care has tried prescribing weight loss medication but thus far has been denied. She is a candidate for Zepbound given her weight and severity of sleep apnea. I have asked her to contact her insurance company. Camilo duckworth has now approved Zepbound and either Dr. Pineda or myself should be able to prescribe the medication for sleep apnea. I will refill the patient's supplies, and I have asked them to return for follow-up and compliance in 1 year or sooner should they have further questions or concerns. Diagnoses and all orders for this visit: 1. Obstructive sleep apnea, adult (Primary) - PAP Therapy 2. Obesity, morbid, BMI 50 or higher The patient continues to use and benefit from PAP therapy. 1. The patient was counseled regarding multimodal approach with healthy nutrition, healthy sleep, regular physical activity, social activities, counseling, and medications. Encouraged to practice lateral sleep position. Avoid alcohol and sedatives close to bedtime. 2. We will refill supplies x1 year. Return to clinic 1 year or sooner if symptoms warrant. I have reviewed the results of my evaluation and impression and discussed my recommendations in detail with the patient. Follow Up Return in about 1 year (around 10/01/2025) for Annual visit. Patient was given instructions and counseling regarding her condition or for health maintenance advice. Please see specific information pulled into the AVS if appropriate. Lorenzo Jarvis APRN, [facility]- Pulmonology, Critical Care, and Sleep Medicine documented in this encounter Plan of Treatment Upcoming Encounters Date Type Department Care Team (Late st Contact Info) Description 10/29/2024 2:30 PM EDT Office Visit [facility] PULMONARY & CRITICAL CARE MEDICINE [address] [place] [phone] Jasson Ramirez DO [address] [place] [address] 11/02/2024 3:00 PM EDT Office Visit [facility] NEUROLOGY [address] [facility] [address] [place] [address] Ernestina Neal APRN [address] [facility] [address] [place], [place] [id number] 02/05/2025 11:15 AM EST Office Visit [facility] RHEUMATOLOGY [address] [place] [address] Luis Banda, SIGNALS COLLECTION TECHNICIAN [address] [place] [address] 10/04/2025 11:00 AM EDT Office Visit [facility] SLEEP MEDICINE [address] [facility] [address] [place] [phone] Lorenzo Jarvis, SIGNALS COLLECTION TECHNICIAN [address] [place] [address] documented as of this encounter Goals Goal [...] as of this encounter Visit Diagnoses Diagnosis Obstructive sleep apnea, adult- Primary Obesity, morbid, BMI 50 or higher documented in this encounter Additional Health Concerns Assessment Noted Time PHQ-2 Depression Total Score: 6 04/17/19 24 12:15 PM EST documented as of this encounter Care Teams Rampman Relationship Specialty Start Date End Date Karen Pineda DO [address] [facility] [place] [address] PCP - General Family Medicine 10/08/16 documented as of this encounter
[2024-10-20] VITALS (7 sets, daily range): BP systolic 113–140; BP diastolic 69–90; PULSE 81–111; RESP 17–22; TEMP 37.2–37.4; O2SAT 92–98; BMI 58.4
--- NOTE | 2024-10-20 11:00 | XR_ITS ---
FINAL REPORT CLINICAL HISTORY: Shortness of breath COMPARISON: 02/11/2023 FINDINGS: PA and lateral views of the chest were obtained. The cardiac and mediastinal silhouettes are within normal limits. The lungs are clear. There is no pleural effusion or pneumothorax. No acute osseous abnormality is identified. IMPRESSION: No radiographic evidence of acute cardiac or pulmonary disease. Reviewed, Interpreted and Dictated by Sherin Cabrera MD Transcribed by Vielka Zapata Authenticated and [facility]
--- NOTE | 2024-10-20 11:02 | HMH.EDGENADL ---
Discharge Plan Disposition Patient Disposition: Home, Self-Care Condition: Fair Prescriptions Prescriptions: New doxycycline hyclate 100 mg capsule 100 mg PO BID 7 Days Qty: 14 0RF ondansetron 4 mg tablet,disintegrating 4 mg PO TID PRN (Reason: nausea and vomiting) 5 Days Qty: 20 0RF No Action tizanidine 4 mg tablet 4 mg PO HS PRN (Reason: Occipital headache with cervicogenic component) Qty: 30 3RF acetazolamide 250 mg tablet 750 mg PO DAILY MDD 750 milligram Qty: 270 11RF Rx Instructions: 500 mg p.o. every morning and 250 mg in the evening. Nurtec ODT 75 mg tablet,disintegrating 75 mg PO Q OTHER DAY MDD 75 mg Qty: 16 11RF Rx Instructions: 75 mg p.o. every other day for migraine prevention levalbuterol tartrate [Xopenex HFA] 45 mcg/actuation HFA aerosol inhaler 2 inh inhalation Q6H PRN (Reason: shortness of breath or wheezing) 90 Days Qty: 15 3RF Ajovy Autoinjector 225 mg/1.5 mL auto-injector SQ rosuvastatin 10 mg tablet 10 mg PO DAILY ergocalciferol (vitamin D2) 1,250 mcg (50,000 unit) capsule 1,250 mcg PO WEEKLY Patient Comments: TAKE 1 CAPSULE BY MOUTH ONCE A WEEK aspirin [Adult Low Dose Aspirin] 81 mg tablet,delayed release (DR/EC) 81 mg PO DAILY Qty: 30 2RF lamotrigine 100 mg tablet 100 mg PO DAILY Patient Comments: TAKE 1 TABLET BY MOUTH ONCE DAILY celecoxib 200 mg capsule 200 mg PO BID PRN Patient Comments: TAKE 1 CAPSULE BY MOUTH TWICE DAILY NEEDED FOR MILD PAIN diclofenac sodium 75 mg tablet,delayed release (DR/EC) 75 mg PO BID PRN Patient Comments: TAKE 1 TABLET BY MOUTH TWICE DAILY NEEDED metformin 500 mg tablet extended release 24 hr 500 mg PO ONCE Patient Comments: TAKE 1 TABLET BY MOUTH ONCE DAILY WITH BREAKFAST escitalopram oxalate 20 mg tablet 20 mg PO DAILY Patient Comments: TAKE 1 TABLET BY MOUTH ONCE DAILY Wegovy 0.25 mg/0.5 mL pen injector 0.25 mg SQ WEEKLY Qty: 2 0RF Rx Instructions: administer weeks 1 through 4 of therapy isosorbide mononitrate 30 mg tablet extended release 24 hr 30 mg PO DAILY Qty: 30 5RF loperamide 2 mg capsule 2 mg PO Q6H PRN (Reason: loose stool) 5 Days Qty: 20 0RF Rx Instructions: Please take 4 mg initially, followed by 2 mg after each loose stool, maximum 16 mg/day Referrals Follow up/Referrals: Karen Pineda MD [Primary Care Provider, Medical] - See instructions Activity Restrictions/Add. Instructions Additional Instructions/Restrictions: You have 2 bacteria and a virus that are causing your diarrhea symptoms. You are also found to have a mild pneumonia. Clinical Impressions Clinical Impression: Pneumonia, Nausea vomiting and diarrhea, Campylobacter diarrhea, Enteritis due to Norovirus, E coli enteritis Instructions Patient Instructions: DI for Diarrhea and Traveler's Diarrhea -- Adult, DI for Diarrhea and Traveler's Diarrhea -- Child, DI for Nausea -- Adult, DI for Nausea -- Child Print Language Print Language: Nigerien Discharge ED Provider: Chacho Em Adult HPI General Chief complaint: Nausea/Vomiting/Diarrhea Stated complaint: Chills, fever, diarreah, vomiting, headache Time Seen by Provider: 10/20/24 10:54 Mode of Arrival: Wheelchair Source of Information: Patient Description of Symptoms (Recalled from ER Triage Doc. by RN): Patient present to ED from home with c/o n/v/d, headache, chills, and SOA on exertion. Patient denies chest pain, states symptoms began yesterday. History of Present Illness HPI narrative: Genesis Burrell is a 39y female with a history of hyperlipidemia, hypertension, right ventricular dilation, depression, history of gastric sleeve, hysterectomy, cholecystectomy, , appendectomy, tonsillectomy, obesity who presents to the emergency department for complaints of nonbilious nonbloody vomiting and nonbloody diarrhea since yesterday. Patient states that she has filled a bedside commode twice with diarrhea since last night. She denies any abdominal pain. She does report some shortness of breath but denies any chest pain. She reports a headache. Patient states that she has not been able to keep anything down due to the nausea and vomiting. She reports that the vomiting only occurs after coughing. Related Data Home Medications ?Medication ?Instructions ?Recorded ?Confirmed rosuvastatin 10 mg tablet 10 mg PO DAILY 04/24/23 06/15/24 ergocalciferol (vitamin D2) 1,250 1,250 mcg PO WEEKLY 08/20/23 06/15/24 mcg (50,000 unit) capsule lamotrigine 100 mg tablet 100 mg PO DAILY 09/17/23 06/15/24 celecoxib 200 mg capsule 200 mg PO BID PRN 05/05/24 06/15/24 diclofenac sodium 75 mg 75 mg PO BID PRN 05/05/24 06/15/24 tablet,delayed release escitalopram oxalate 20 mg tablet 20 mg PO DAILY 05/05/24 06/15/24 metformin 500 mg tablet,extended 500 mg PO ONCE 05/05/24 06/15/24 release 24 hr fremanezumab-vfrm 225 mg/1.5 mL mg SQ 06/15/24 06/15/24 subcutaneous auto-injector (Oniel) Previous Rx's ?Medication ?Instructions ?Recorded tizanidine 4 mg tablet 4 mg PO HS PRN Occipital headache 05/10/22 with cervicogenic component #30 tabs Nurtec ODT 75 mg disintegrating 75 mg PO Q OTHER DAY episodic 02/06/23 tablet (rimegepant) migraine #16 tabs acetazolamide 250 mg tablet 750 mg (3 x 250 mg) PO DAILY 02/06/23 Headache, suspected pseudotumor #270 tabs levalbuterol tartrate 45 2 inh inhalation Q6H PRN shortness 07/10/23 mcg/actuation aerosol inhaler of breath or wheezing 90 days #15 (Xopenex HFA) grams aspirin 81 mg tablet,delayed 81 mg PO DAILY #30 tabs 08/20/23 release (Adult Low Dose Aspirin) semaglutide (weight loss) 0.25 0.25 mg (0.5 mL) SQ WEEKLY #2 mL 05/05/24 mg/0.5 mL subcutaneous pen injector (Dmaien) isosorbide mononitrate 30 mg 30 mg PO DAILY #30 tabs 05/15/24 tablet,extended release 24 hr loperamide 2 mg capsule 2 mg PO Q6H PRN loose stool 5 days 09/27/24 #20 caps doxycycline hyclate 100 mg capsule 100 mg PO BID 7 days #14 caps 10/20/24 ondansetron 4 mg disintegrating 4 mg PO TID PRN nausea and 10/20/24 tablet vomiting 5 days #20 tabs Allergies Allergy/AdvReac Type Severity Reaction Status Date / Time hydromorphone (From Dilaudid) AdvReac Mild Hives Verified 10/20/24 11:05 [facility] Disclaimer: The information contained in this section may have been updated after the patient was seen, as this information can be updated by other users. Medical History Right ventricular dilation Fatigue Nocturnal hypoxemia Depression Depression Smoker Migraine Hyperlipidemia Hypertension Surgical History H/O gastric sleeve History of hysterectomy History of cholecystectomy History of section History of appendectomy History of tonsillectomy Family History Other No significant family history Social History Smoking Status: Never smoker alcohol intake: never substance use type: denies use current occupational status: other Travel in the last 8 weeks?: None household members: family housing: house marital status: single Have you lived/traveled outside US in past 30 days?: No Contact w/someone who lives/traveled outside US past 30 days?: No Exposure to someone with infectious disease in past 14 days?: No Do you have a fever (greater than 100.4 F or 38 C)?: No Have you tested positive for COVID-19?: No Exposed to someone with COVID-19 in past 14 days?: No Do you have a sore throat?: No Do you have a cough?: No Do you have any weakness?: No Do you have any diarrhea?: No Are you experiencing any unusual bleeding?: No Do you have any muscle aches/pain?: No Do you have any abdominal pain?: No Are you experiencing loss of taste or smell?: No Other Medical History Have you received the Flu Vaccine for this season: No Have you received the Pneumonia Vaccine: No ROS Obtained: Yes Systems reviewed as appropriate & no additional complaints except as documented Physical Exam General General appearance: alert, in no apparent distress and obese Head Head exam: atraumatic Eye Eye exam: Present normal appearance ENT ENT exam: Present mucous membranes dry and normal external ear exam Neck Neck exam: Present full ROM Chest Chest inspection: Present symmetric chest wall rise Respiratory Respiratory exam: Present normal lung sounds bilaterally and respiratory distress (mildly tachypneic) Cardiovascular Cardiovascular exam: Present normal rhythm and tachycardia Abdominal Exam Abdominal exam: Present soft; Absent distention, tenderness or guarding Extremities Exam Extremities exam: Present normal inspection Back Exam Back exam: Present normal inspection Neurological Exam Neurological exam: Present alert and oriented X3 Psychiatric Psychiatric exam: Present normal affect Skin Skin exam: Present warm and dry Medical Decision Making Medical Records Screening: Per USPSTF and CDC recommendations, given the prevalence of disease in our region, it is our hospital?s policy to screen for HIV and viral Hepatitis for all patients aged 18 and over and those with ongoing risk factors. Sebastian Inquiry Pt receiving controlled substance: No Vital Signs: 10/20/24 10:56 10/20/24 11:00 10/20/24 12:00 Temperature 99.3 F Temperature Source Oral Pulse Rate 101 H 92 H Pulse Rate [Left] 111 H Respiratory Rate 22 19 19 Blood Pressure 113/69 Blood Pressure [Right Arm] 127/86 Blood Pressure Mean 83 Blood Pressure Mean [Right Arm] 99 Blood Pressure Source Blood Pressure Source [Right Arm] Automatic Cuff Blood Pressure Position Blood Pressure Position [Right Arm] Supine 02 Sat by Pulse Oximetry 97 94 L 94 L Oxygen Delivery Method Room Air Room Air Room Air 10/20/24 12:30 10/20/24 13:00 10/20/24 13:31 Temperature Temperature Source Pulse Rate 87 81 100 H Pulse Rate [Left] Respiratory Rate 19 Blood Pressure 137/89 Blood Pressure [Right Arm] Blood Pressure Mean Blood Pressure Mean [Right Arm] Blood Pressure Source Blood Pressure Source [Right Arm] Blood Pressure Position Blood Pressure Position [Right Arm] 02 Sat by Pulse Oximetry 92 L 94 L 92 L Oxygen Delivery Method Room Air Room Air 10/20/24 15:11 Temperature 99 F Temperature Source Oral Pulse Rate 90 Pulse Rate [Left] Respiratory Rate 17 Blood Pressure 140/90 Blood Pressure [Right Arm] Blood Pressure Mean Blood Pressure Mean [Right Arm] Blood Pressure Source Automatic Cuff Blood Pressure Source [Right Arm] Blood Pressure Position Supine Blood Pressure Position [Right Arm] 02 Sat by Pulse Oximetry Oxygen Delivery Method Room Air Lab Data Lab Results 10/20/24 10:50: SARS-CoV-2 (PCR) Not detected, Influenza A Untype (PCR) Not detected, Influenza Type B (PCR) Not detected 10/20/24 11:10: WBC 18.8 H, RBC 4.72, Hgb 13.5, Hct 39.9, MCV 84.5, MCH 28.6, MCHC 33.8, RDW 13.2, Plt Count 266, MPV 9.3, Neut % (Auto) 79.1, Lymph % (Auto) 10.1, [place] % (Auto) 9.4 H, Eos % (Auto) 0.7, Baso % (Auto) 0.3, Neut # (Auto) 14.9 H, Lymph # (Auto) 1.9, [place] # (Auto) 1.8 H, Eos # (Auto) 0.1, Baso # (Auto) 0.1, Total Counted 100, Neutrophils % (Manual) 86 H, Lymphocytes % (Manual) 11, Monocytes % (Manual) 3, Platelet Estimate Normal, RBC Morphology Normal, D-Dimer 1.10 H, Sodium 135 L, Potassium 3.2 L, Chloride 101, Carbon Dioxide 21 L, Anion Gap 16.2 H, BUN 11, Creatinine 0.80, Estimated Creat Clear 77, Estimated GFR 79, Est GFR ( Amer) 96, Glucose 165 H, Calcium 8.7, Magnesium 1.3 L, Total Bilirubin 1.1, AST 28, ALT 22, Alkaline Phosphatase 67, Troponin I < 0.01, NT-Pro-B Natriuret Pep 131 H, Total Protein 7.5, Albumin 4.5, Globulin 3.0, Albumin/Globulin Ratio 1.5, Lipase 14 L 10/20/24 11:13: Stl C. cayetanensis PCR Not detected, Stool Rotavirus (PCR) Not detected, Stl Adenov F 40/41 PCR Not detected, Stool Astrovirus (PCR) Not detected, Stool Campylobacter PCR Detected A, Stl C.difficile Tox PCR Not detected, Stool Cryptosporidium PCR Not detected, Stl E.coli Shiga Tox PCR Not detected, Stool E coli O157 PCR Not detected, Stl Enterotoxigenic E PCR Not detected, Stool EPEC (PCR) Detected A, Stool EAEC (PCR) Not detected, Stl E. histolytica PCR Not detected, Stool Giardia Lamblia PCR Not detected, Stool Salmonella PCR Not detected, Stool Sapovirus (PCR) Not detected, Stl P. shigelloides PCR Not detected, Stl Shigella/EIEC PCR Not detected, St Y.enterocolitica PCR Not detected, Stool Vibrio (PCR) Not detected, Stl Vibrio cholerae PCR Not detected, Stl Norovirus GI/GII PCR Detected A 10/20/24 13:15: Urine Color Yellow, Urine Appearance Clear, Urine pH 6.0, Ur Specific [place] <= 1.005, Urine Protein Negative, Urine Glucose (UA) Negative, Urine Ketones Negative, Urine Blood Negative, Urine Nitrate Negative, Urine Bilirubin Negative, Urine Urobilinogen 0.2, Ur Leukocyte Esterase Negative, Urine RBC None, Urine WBC 3-5, Ur Squamous Epith Cells 5-10, Urine Bacteria Trace 10/20/24 11:10 10/20/24 11:10 Orders (Tests/Meds): ED MEDICATIONS Discontinued Medications Generic Name Dose Route Start Last Admin Trade Name Freq PRN Reason Stop Dose Admin Acetaminophen 1,000 mg 10/20/24 11:04 10/20/24 11:20 Acetaminophen 1,000mg/100ml Vial IV 10/20/24 11:05 1,000 mg ONCE ONE Administration Lactated Ringer's 1,000 mls @ 999 mls/hr 10/20/24 11:00 10/20/24 12:26 Lactated Ringer's 1000 Ml Bag IV 10/20/24 12:00 Infused .Q1H1M ONE Infusion Magnesium Sulfate 2 gm in 50 mls @ 50 mls/hr 10/20/24 12:08 10/20/24 13:16 Magnesium Sulfate 2gm/50ml Premix IV 10/20/24 13:07 Infused ONCE ONE Infusion Iopamidol 90 ml 10/20/24 12:50 10/20/24 12:51 Iopamidol-370 (76%);100ml Bottle IV 10/20/24 12:51 90 ml ONCE ONE Administration Ketorolac Tromethamine 15 mg 10/20/24 14:19 10/20/24 14:32 Ketorolac 15mg/Ml Vial IV 10/20/24 14:20 15 mg ONCE ONE Administration Ondansetron HCl 4 mg 10/20/24 11:02 10/20/24 11:20 Ondansetron 4mg/2ml Vial IV 10/20/24 11:03 4 mg ONCE ONE Administration Potassium Chloride 40 meq 10/20/24 11:40 10/20/24 11:45 Potassium Chloride 20meq Tab PO 10/20/24 11:41 40 meq ONCE ONE Administration Sodium Chloride 10 ml 10/20/24 12:50 10/20/24 12:51 Sodium Chloride 0.9% 10ml Syr (Rad Only) IV 10/20/24 12:51 10 ml ONCE ONE Administration Sodium Chloride 50 ml 10/20/24 12:50 10/20/24 12:51 0.9 % Sodium Chloride 50 Ml Vial IV 10/20/24 12:51 50 ml ONCE ONE Administration ORDERS Category Date Time Status CT angio chest PE protocol Stat Cat Scan 10/20/24 12:37 Completed CXR 2 view (NOT portable) [XR chest 2V] Stat Exams 10/20/24 11:00 Completed BNP [NT Pro Brain Natriuretic Pep.] Stat Lab 10/20/24 11:10 Completed CBC w/Auto Diff [Complete Blood Count Auto Diff] Stat Lab 10/20/24 11:10 Completed CMP [Comprehensive Metabolic Panel] Stat Lab 10/20/24 11:10 Completed D-Dimer Stat Lab 10/20/24 11:10 Completed Diarrhea 23 Panel, PCR Stat Lab 10/20/24 11:13 Completed Lipase Stat Lab 10/20/24 11:10 Completed Magnesium Stat Lab 10/20/24 11:10 Completed Rapid PCR Covid and Flu A/B Stat Lab 10/20/24 10:50 Completed Troponin I Stat Lab 10/20/24 11:10 Completed UA [Urinalysis and Microscopic] Stat Lab 10/20/24 13:15 Completed ECG Data Tracing #1: I reviewed this ECG and interpreted as documented below: Sinus tachycardia. No ST elevation or depression. QTc normal at 376 Medical Decision Narrative: Genesis Burrell is a 39y female with a history of hyperlipidemia, hypertension, right ventricular dilation, depression, history of gastric sleeve, hysterectomy, cholecystectomy, , appendectomy, tonsillectomy, obesity who presents to the emergency department for complaints of nonbilious nonbloody vomiting and nonbloody diarrhea since yesterday. Patient states that she has filled a bedside commode twice with diarrhea since last night. She denies any abdominal pain. She does report some shortness of breath but denies any chest pain. She reports a headache. Patient states that she has not been able to keep anything down due to the nausea and vomiting. She reports that the vomiting only occurs after coughing. On arrival, patient is normotensive, mildly tachycardic with heart rate of 100 bpm, mildly tachypneic, temperature 99.3 ?F. 97% SpO2 on room air. Physical exam, stated above, revealed an ill but nontoxic appearing female. She is mildly tachypneic but has normal breath sounds bilaterally. She is moving appropriate amount of air. Abdomen is soft, nontender nondistended. She does have dry mucous membranes. Differential diagnosis includes, but is not limited to: Viral gastroenteritis, infectious colitis, dehydration, ACS, pulmonary embolism, pneumonia, among others. The most morbid conditions were considered and workup was based on these. Workup in the Emergency Department included: EKG, two-view chest x-ray, CBC with differential, CMP, D-dimer, diarrhea panel, BNP, troponin, urinalysis, 1 L lactated ringer. Patient was administered 4 mg IV Zofran and 1000 mg IV Tylenol. Laboratory studies show leukocytosis with white blood cell count of 18.8 with 79% absolute neutrophils. Mild hyponatremia at 135. Mild hypokalemia at 3.2 (replacing with 40 mEq of oral potassium chloride). Anion gap mildly elevated 16.2 and carbon dioxide mildly low at 21. No MARQUEZ. Bilirubin normal at 1.1. Liver enzymes within normal limits. Initial troponin less than 0.01. BNP very slightly above normal at 131. Lipase normal at 14. Urinalysis without hematuria or infection. CT imaging interpreted by me personally. Patient has groundglass opacities in the bilateral bases likely representing infectious process. This is concerning for pneumonia. See final radiology report for details. Patient's stool panel came back positive for Campylobacter, E. PEC, and norovirus. Patient's viral respiratory panel is negative. On reassessment, patient's tachycardia has improved. She has not had any recurrence of her vomiting and overall nausea has improved. She was able to tolerate oral intake here in the emergency department. Her findings today are consistent with pneumonia and mild dehydration, however given she is able to tolerate oral intake, is felt that she is appropriate for discharge at this time with Zofran for symptomatic control as well as doxycycline for her pneumonia. I did encourage patient to continue hydrating well at home by drinking water, sugar-free Gatorade and Pedialyte and gave strict return precautions. All questions were answered. She demonstrated understanding and was in agreement this plan. She was then discharged from the emergency department in stable condition peer Critical Care Critical Care Time Critical Care Time: No
--- NOTE | 2024-10-20 11:16 | ECG_ITS ---
APPROVED REPORT Exam: Resting ECG HR:104 bpm ECG Measurements Heart Rate 104 AXES MT 165 P 40 QRSd 86 QRS 33 QT 315 T 14 QTc 376 Conclusion SINUS TACHYCARDIA LOW QRS VOLTAGE IN PRECORDIAL LEADS [QRS DEFLECTION < 1.0 mV IN CHEST LEADS] NONSPECIFIC T-WAVE ABNORMALITY ABNORMAL RHYTHM ECG UNCONFIRMED REPORT Sinus tachycardia. No ST elevation or depression. QTc of 376 Electronically signed by : RAMIREZ SEXTON, 10/21/2024 13:43:01
[2024-10-20 11:18] LABS: Adenovirus F 40/41, stool Not Detected (NotDetected); Clostridium Difficile A/B, PCR Not Detected (NotDetected); Cyclospora Cayetanesis Not Detected (NotDetected); Plesimonas Shigalloides, PCR Not Detected (NotDetected); Salmonella, PCR Not Detected (NotDetected); Shiga-like toxin E coli Not Detected (NotDetected); Shigella Enterovasive E coli Not Detected (NotDetected); Vibrio, PCR Not Detected (NotDetected); Yersinia Entercolitica, PCR Not Detected (NotDetected)
--- OUTSIDE RECORDS SUMMARY | 2024-10-20 11:18 | XMS_ITS | Encounter Summary ---
[facility] Address [address] [place] [address] Care Team Providers Care Sorting Livestock Worker Name Role Phone Karen Pineda DO Primary Care Provider +1- [phone] Encounter Details Date Type Department Care Team (Late st Contact Info) Description 09/21/2024 Results Follow-Up [facility] FAMILY MEDICINE [address] [facility] [place] [address] Karen Pineda DO [address] [place] [address] Social History Tobacco Use Types [...] Description 10/29/2024 2:30 PM EDT Office Visit [facility] PULMONARY & CRITICAL CARE MEDICINE [address] [place] [phone] Jasson Ramirez, DO [address] [place] [address] 11/02/2024 3:00 PM EDT Office Visit [facility] NEUROLOGY [address] [facility] [address] [place] [phone] Ernestina Neal, ADVISOR AD[employer]OCATE [employer] FOUNDER [address] [facility] [address] [place] [address] 02/05/2025 11:15 AM EST Office Visit [facility] RHEUMATOLOGY 330 [facility] 100 [place] [phone] Luis Banda, ADVISOR AD[employer] FOUNDER [address] [facility] 100 [place] [address] 10/04/2025 11:00 AM EDT Office Visit [facility] SLEEP MEDICINE 3000 [facility] [address] [place] [phone] Lorenzo Jarvis, ADVISOR [employer]ER [address] [place] [address] documented as of this encounter Goals Goal [...] documented as of this encounter Care Teams Sorting Livestock Worker Relationship Specialty Start Date End Date Karen Pineda DO [address] [place] [address] PCP - General Family Medicine 10/08/16 documented as of this encounter
--- OUTSIDE RECORDS SUMMARY | 2024-10-20 11:18 | XMS_ITS | Encounter Summary ---
[facility] Address [address] [place] [address] Care Team Providers Care Burlap Roll Coverer Name Role Phone Karen Pineda DO Primary Care Provider +1- [phone] Encounter Details Date Type Department Care Team (Late st Contact Info) Description 10/08/2024 Results Follow-Up [facility] FAMILY MEDICINE 210 [facility] [place] [address] Karen Pineda DO [address] [place] [address] Social History Tobacco Use Types [...] 2:30 PM EDT Office Visit [facility] PULMONARY & CRITICAL CARE MEDICINE [address] [place] [phone] Jasson Ramirez, DO [address] [place] [address] 11/02/2024 3:00 PM EDT Office Visit [facility] NEUROLOGY 2101 [facility] [address] [place] [phone] Ernestina Neal, RN MED SURG 2101 [facility] [address] [place] [address] 02/05/2025 11:15 AM EST Office Visit [facility] RHEUMATOLOGY 330 [facility] 100 [place] [phone] Luis Banda, RN MED SURG 330 [facility] 100 [place] [address] 10/04/2025 11:00 AM EDT Office Visit [facility] SLEEP MEDICINE 3000 [facility] [address] [place] [phone] Lorenzo Jarvis, RN MED SURG [address] [place] [address] documented as of this encounter Goals Goal [...] documented as of this encounter Care Teams Burlap Roll Coverer Relationship Specialty Start Date End Date Karen Pineda DO [address] [place] [address] PCP - General Family Medicine 10/08/16 documented as of this encounter
--- OUTSIDE RECORDS SUMMARY | 2024-10-20 11:18 | XMS_ITS | Clinical Summary ---
Author Organization [facility] Address [address] [place] [address] Care Team Providers Care Can Cutter Name Role Phone Karen Pineda Primary Care Provider +1 [phone] Allergies No known active allergies Medications vitamin B-12 (cyanocobalamin) 100 MCG tablet Take 2.5 tablets by mouth Daily. 08/10/19 22 Active aspirin 81 MG EC tablet Take 1 tablet by mouth Daily. 08/20/19 24 Active Fremanezumab-vfrm (Ajovy) 225 MG/1.5ML solution auto-injector Inject 225 mg under the skin into the appropriate area as directed Every 30 (Thirty) Days. 1.5 mL 09/28/2024 12:40 PM EDT 03/10/19 25 Active rimegepant sulfate ODT (Nurtec) [address] 1 tablet on the tongue Daily As Needed (For migraine. Max 75 mg per 24 hours.). 8 tablet 09/28/2024 12:40 PM EDT 03/10/19 25 Active diclofenac [...] Breakfast. 180 tablet 1 09/18/19 25 Active Zepbound 2.5 MG/0.5ML solution auto-injector Inject 0.5 mL under the skin into the appropriate area as directed 1 (One) Time Per Week. 2 mL 10/03/19 Active Active Problems Problem Noted Date Diagnosed [...] 11/28/23: CHANCE 1:160 homogenous, DS DNA Normal, PRODUCT MARKETING ANALYST normal, Amin normal, SCL 70 normal, SSA and SSB normal, chromatin normal, Alexa 1 normal, Centromere normal, Vitamin D 31.6, CMP was fine, CRP normal, Sed rate normal, RF negative 12/17/2023: CHANCE 1: 640 centromere pattern, centromere antibody positive, TPO antibody positive, normal complements, SCL 70 negative, Amin negative, PRODUCT MARKETING ANALYST negative, dsDNA negative, SSA/SSB negative, anticardiolipin antibodies negative, CCP negative, RF negative, 14.3.3 negative, ANCA panel negative, CK and aldolase normal, CRP and ESR normal, HLA-B27 negative, thyroglobulin antibody negative, thyroid function normal, hepatitis panel negative, QTB negative Patient reports she sees floor plan adjuster, Dr. Anderson. We recommend she see cardiology [...] 9:41 AM EST): Patient reports she sees floor plan adjuster, Dr. Anderson. We recommend she see cardiology annually for screening. We will refer her to pulmonology per her request. She previously saw [facility]. Gonzales at [facility]. We would recommend annual screenings with [...] 11/28/23: CHANCE 1:160 homogenous, DS DNA Normal, PRODUCT MARKETING ANALYST normal, Amin normal, SCL 70 normal, SSA and SSB normal, chromatin normal, Alexa 1 normal, Centromere normal, Vitamin D 31.6, CMP was fine, CRP normal, Sed rate normal, RF negative 12/17/2023: CHANCE 1: 640 centromere pattern, centromere antibody positive, TPO antibody positive, normal complements, SCL 70 negative, Amin negative, PRODUCT MARKETING ANALYST negative, dsDNA negative, SSA/SSB negative, anticardiolipin [...] not to take with other NSAIDs including [id number] NSAIDs such as ibuprofen, naproxen, Aleve, Motrin, [...] surgery 02/27/2024 Overview (02/27/2024): Bariatric surgery in [facility] longer than 16 years ago. Planning to schedule reevaluation at [facility] Hypersomnia 02/27/2024 Hypoxemia 02/27/2024 Influenza 02/27/2024 Luetscher's [...] Encounters Date Type Department Care Team Description 10/08/2024 Results Follow-Up [facility] FAMILY MEDICINE [address] [place] [address] Karen Pineda DO 10/05/2024 Prior Authorization [facility] MED[facility] [address] [place] [address] Karen Pineda DO [employer] PA 10/01/2024 11:00 AM EDT Office Visit [facility] SLEEP MEDICINE 3000 [facility] 240 [place] [address] Lorenzo Jarvis APRN Obstructive sleep apnea, adult (Primary Dx); Obesity, morbid, BMI 50 or higher 10/01/2024 Travel 09/29/2024 Telephone [facility] FAMILY MEDICINE [address] [place] [address] Karen Pineda, DO 09/21/2024 Results Follow-Up [facility] FAMILY MEDICINE [address] [place] [address] Karen Pineda, DO 09/21/2024 Results Follow-Up [facility] MED[facility] [address] [place] [address] Karen Pineda, DO 09/21/2024 Results Follow-Up [facility] [address] [place] [address] Karen Pineda, DO 09/17/2024 2:00 PM EDT Office Visit [facility] [address] [place] [address] Karen Pienda, DO Annual physical exam (Primary Dx); Prediabetes; Anxiety; Moderate episode of recurrent major depressive disorder; KELLY on CPAP; Cyanocobalamin deficiency; Vitamin D deficiency; High cholesterol; Mood disorder; Forgetfulness; Encounter for screening mammogram for malignant neoplasm of breast 09/17/2024 Travel 08/10/2024 Results Follow-Up [facility] RHEUMATOLOGY [address] [address] Jose Alejandro Jean, 08/07/2024 11:15 AM EDT Office Visit [facility] RHEUMATOLOGY [address] [address] Jose Alejandro Jean, Limited systemic sclerosis (Primary Dx); Fibromyalgia; Facial erythema 08/07/2024 Travel 07/23/2024 2:00 PM EDT Office Visit [facility] NEUROLOGY [address] [facility] [address] [place] [address] Ernestina Neal APRN Intractable chronic migraine without aura and without status migrainosus (Primary Dx); Pseudotumor cerebri 07/23/2024 Travel 07/21/2024 Telephone [facility] SLEEP MEDICINE 3000 [facility] [address] [place] [address] Tyson Liu MD HST results from Last 3 Months Immunizations Immunization Administration [...] Stroke Paternal Grandmother Rosalee Anxiety disorder Sister Mccreary Thyroid disease Sister Mccreary Relation Name Status Comments Daughter Stacy Father rashawn Maternal Grandfather happy Mother bobo Paternal Grandfather david Paternal Grandmother Rosalee Sister Mccreary Social History Tobacco Use Types Packs/Day Years [...] Description 10/29/2024 2:30 PM EDT Office Visit [facility] PULMONARY & CRITICAL CARE MEDICINE [address] [place] [address] Jasson Ramirez DO [address] [place] [address] 11/02/2024 3:00 PM EDT Office Visit [facility] NEUROLOGY 2101 [facility] 204 [place] [address] Ernestina Neal, RULES EXAMINER 2101 [facility] 204 [place] [address] 02/05/2025 11:15 AM EST Office Visit [facility] RHEUMATOLOGY 330 [facility] 100 [place] [phone] Luis Banda, RULES EXAMINER 330 [facility] 100 [place] [address] 10/04/2025 11:00 AM EDT Office Visit [facility] SLEEP MEDICINE 3000 [facility] [address] [place] [phone] Lorenzo Jarvis, RULES EXAMINER [address] [place] [address] Health Maintenance Due Date Last Done Comments Annual Gynecologic Pelvic and Breast Exam 1983 TDAP/TD VACCINES (2 - Td or Tdap) 09/25/2020 09/25/2010 (Patient-Reported (Performed Externally)) COVID-19 Vaccine (1 - 2023- season) 2023 LIPID PANEL 05/28/2024 05/29/2023, 07/26, 08/08/2021, Additional history exists INFLUENZA VACCINE 11/25/2024 ANNUAL PHYSICAL 09/17/2025 09/17/2024 MAMMOGRAM 10/02/2026 10/02/2024 HEPATITIS C SCREENING Completed 12/17/2023, 020 Pneumococcal [...] Procedure Name Priority Date/Time Associated Diagnosis Comments MAMMO SCREENING DIGITAL TOMOSYNTHESIS BILATERAL W CAD Routine 10/02/2024 Encounter for screening mammogram for malignant neoplasm of breast SCANNED - LABS 09/18/2024 SCANNED - LABS [...] EDT Limited systemic sclerosis Fibromyalgia Facial erythema HEPATITIS PANEL, ACUTE Routine 10:30 AM EDT Arthralgia, unspecified joint Fatigue, unspecified type CHANCE positive LIPID PANEL W/ CHOL/HDL RATIO Routine 05/29/2023 8:52 AM EDT High cholesterol Cyanocobalamin deficiency BMI 50.0-59.9, adult Morbid obesity from Last 3 Months or Most Recently Relevant to Health Maintenance Results * Mammo Screening Digital Tomosynthesis Bilateral With CAD (10/02/2024) Anatomical Region Laterality Modality Breast N/A Mammography Karen Pineda DO IMG MAMMOGRAPHY ORDERABLES Final Result * LABS SCANNED (09/18/2024) Only the most recent of4 resultswithin the time period is included. Karen Pineda DO LAB BLOOD ORDERABLES Final Result * (ABNORMAL) POC Glycosylated Hemoglobin (Hb A1C) (09/17/2024 2:46 PM EDT) Hemoglobin A1C 5.9(A) 4.5 - 5.7 % [facility] Lot Number [id number] [facility] Expiration Date 05/25/2026 [facility] Blood 09/17/2024 2:46 PM EDT Karen Brenda Pineda DO POINT OF CARE TEST ORDERABL ES Final Result Performing Organization Address [facility]/ZIP Co de Phone Number [facility]
[address] [place] [address], * IMAGING SCANNED (08/22/2024) Anatomical Region Laterality Modality Radiographic Karlee ging Karen Brenda Pineda DO IMG DIAGNOSTIC IMAGING ORDE RABLES Final Result * Sedimentation Rate (08/07/2024 12:16 PM EDT) Pathologist [facility] Sed Rate 20 0 - 20 mm/hr [facility] Blood 08/07/2024 12:1 6 PM EDT 08/07/2024 Narrative [facility] ([facility]) - 08/08/2024 1:06 AM EDT Performed at: [address] [place] [id number] [employer]: Freeman Horn MD, Phone: [phone] Patient Fasting: N Jose Alejandro Camachofield DO LAB BLOOD ORDERABLES F inal Result Performing Organization Address City/[facility] Co de Phone Number [facility] (AMBULATORY) [address] [place] [address], [place] [phone] [facility] [address] [place] [address], [place] [phone] * (ABNORMAL) CBC & Differential (08/07/2024 12:16 [...] - 08/08/2024 1:06 AM EDT Performed at: [address] [place] [id number] [employer]: Freeman Horn MD, Phone: [phone] Patient Fasting: N Jose Alejandro Jean DO LAB BLOOD ORDERABLES F inal Result [facility] ([facility]) [address] [place] [address], [facility] [address] [place] [address], [place] [phone] * C-reactive Protein (08/07/2024 12:16 PM EDT) C-Reactive Protein <0.30 0.00 - 0.50 mg/dL [facility] Blood 08/07/2024 12:1 6 PM EDT 08/07/2024 Narrative [facility] ([facility]) - 08/08/2024 1:06 AM EDT Performed at: [address] [place] [address] [address] [place], [place] [id number] [employer]: Freeman Horn MD, Phone: [phone] Patient Fasting: N [facility] LAB BLOOD ORDERABLES F inal Result Performing Organization Address City/[facility]/ZIP Co de Phone Number [facility] [address] [place] [address], [facility] [address] [place] [address], [place] [phone] * CK (08/07/2024 12:16 PM EDT) Creatine Kinase 49 20 - 180 U/L [facility] Blood 08/07/2024 12:1 6 PM EDT 08/07/2024 Narrative [facility] ([facility]) - 08/08/2024 1:06 AM EDT Performed at: [address] [place] [address] [address] [place], [place] [id number] [employer]: Freeman Horn MD, Phone: [phone] Patient Fasting: N [facility] LAB BLOOD ORDERABLES F inal Result [facility] [address] [place] [address], [place] [phone] [facility] [address] [place] [address], [place] [phone] * Comprehensive Metabolic Panel (08/07/2024 12:16 PM EDT) [facility] Glucose 87 65 - 99 mg/dL [facility] [...] Blood 08/07/2024 12:1 6 PM EDT 08/07/2024 [facility] ([facility]) - 08/08/2024 1:06 AM EDT Performed at: [address], [place], [place] [id number] [employer]: Freeman Horn MD, Phone: [phone] Patient Fasting: N [facility] LAB BLOOD ORDERABLES F inal Result Performing Organization Address City/[facility]/ZIP Co de Phone Number [facility] ([facility]) [address] [place] [address], [place] [phone] [facility] [address] [place] [address], [place] [phone] * Hepatitis Panel, Acute (12/17/2023 10:30 AM EDT) Pathologist [facility] Hepatitis B Surface Ag Non-Reacti ve Non-Reacti ve 12/18/2023 12:53 AM EDT [facility] Hep A IgM Non-Reacti ve Non-Reacti ve 12/18/2023 12:53 AM EDT [facility] Hep B C IgM Non-Reacti ve Non-Reacti ve 12/18/2023 12:53 AM EDT [facility] Hepatitis C Ab Non-Reacti ve Non-Reacti ve 12/18/2023 12:53 AM EDT [facility] Blood Venipuncture / Unknown 12/17/2023 10:30 AM EDT 12/17/2023 10:30 AM EDT Narrative [facility] - 12/18/2023 12:53 AM EDT Results may be falsely decreased if patient taking Biotin. [facility] LAB BLOOD ORDERABLES F inal Result Performing Organization Address City/[facility]/ZIP Co de Phone Number [facility]
[address] [place] [address], [place] [phone] * (ABNORMAL) Lipid Panel With / Chol [...] - 05/30/2023 3:08 AM EDT Performed at: [address] [place] [id number] [employer]: Freeman Hron MD, Phone: [phone] Patient Fasting: Y Karen Pineda DO LAB BLOOD ORDERABLES Final Result [facility] ([facility]) [address] [place] [address], [place] [phone] [facility] [address] [place] [address], [place] [phone] from Last 3 Months or Most Recently Relevant to Health Maintenance Insurance [facility] Care Teams Can Cutter Relationship Specialty Start Date End Date Karen Pineda DO [address] [place] [address] PCP - General Family Medicine 10/08/16
--- OUTSIDE RECORDS SUMMARY | 2024-10-20 11:18 | XMS_ITS | Encounter Summary ---
[facility] Address [address] [place] [address] Care Team Providers Care Touring Production Manager Name Role Phone Karen Pineda DO Primary Care Provider +1- [phone] Encounter Details Date Type Department Care Team (Late st Contact Info) Description 09/21/2024 Results Follow-Up [facility] FAMILY MEDICINE 210 [facility] [address] Karen Pineda DO [address] [place] [address] Social History Tobacco Use Types [...] PM EDT Office Visit [facility] PULMONARY & CRITICAL CARE MEDICINE [address] [place] [phone] Jasson Ramirez, DO [address] [place] [address] 11/02/2024 3:00 PM EDT Office Visit [facility] NEUROLOGY [address] [facility] [address] [place] [phone] Ernestina Neal, AUDIO RECORDING ENGINEER 2101 [facility] [address] [place] [address] 02/05/2025 11:15 AM EST Office Visit [facility] RHEUMATOLOGY 330 [facility] 100 [place] [address] Luis Banda, AUDIO RECORDING ENGINEER 330 [facility] 100 [place] [address] 10/04/2025 11:00 AM EDT Office Visit [facility] SLEEP MEDICINE 3000 [facility] [address] [place] [phone] Lorenzo Jarvis, AUDIO RECORDING ENGINEER [address] [place] [address] documented as of this encounter Goals Goal [...] documented as of this encounter Care Teams Touring Production Manager Relationship Specialty Start Date End Date Karen Pineda DO [address] [place] [address] PCP - General Family Medicine 10/08/16 documented as of this encounter
--- OUTSIDE RECORDS SUMMARY | 2024-10-20 11:18 | XMS_ITS | Encounter Summary ---
[facility] Organization [facility] Address [address] [place] [address] Care Team Providers Care Immigration Investigator Name Role Phone Karen Pineda DO Primary Care Provider +1 [phone] Encounter Details Date Type Department Care Team [...] Description 10/29/2024 2:30 PM EDT Office Visit [facility] PULMONARY & CRITICAL CARE MEDICINE [address] [place] [phone] Jasson Ramirez DO [address] [place] [address] 11/02/2024 3:00 PM EDT Office Visit [facility] NEUROLOGY 2101 [facility] 204 [place] [address] Ángel Ernestina L, BATTER OUT 2101 [facility] [address] [place], [place] [address] 02/05/2025 11:15 AM EST Office Visit [facility] RHEUMATOLOGY 330 [facility] 100 [place] [phone] Luis Banda, BATTER OUT 330 [facility] 100 [place], [place] [address] 10/04/2025 11:00 AM EDT Office Visit [facility] SLEEP MEDICINE 3000 [facility] 240 [place] [address] Lorenzo Jarvis, BATTER OUT [address] [place], [place] [phone] documented as of this encounter Goals Goal [...] documented as of this encounter Care Teams Immigration Investigator Relationship Specialty Start Date End Date Karen Pineda DO [address] [place] [address] PCP - General Family Medicine 10/08/16 documented as of this encounter
--- OUTSIDE RECORDS SUMMARY | 2024-10-20 11:18 | XMS_ITS | Encounter Summary ---
Author Organization [facility] Address [address] [place] [address] Care Team Providers Care Regulatory Affairs Spec Name Role Phone Karen Pineda DO Primary Care Provider +1 [phone] Encounter Details Date Type Department Care Team (Late st Contact Info) Description 09/29/2024 Telephone [facility] FAMILY MEDICINE [address] [place] [address] Karen Pineda DO [address] [place] [address] Social History Tobacco Use Types [...] DEPARTMENT PULMONARY & CRITICAL CARE MEDICINE [address] [place] [phone] Jasson Ramirez, [address] [place] [address] 11/02/2024 3:00 PM EDT Office Visit [facility] NEUROLOGY 2101 [facility] 204 [place] [phone] Ernestina Neal, SECONDARY SPECIAL EDUCATION TEACHER 2101 [facility] 204 [place] [address] 02/05/2025 11:15 AM EST Office Visit [facility] RHEUMATOLOGY 330 [facility] 100 [place] [phone] Luis Banda, SECONDARY SPECIAL EDUCATION TEACHER 330 [facility] 100 [place], [place] [address] 10/04/2025 11:00 AM EDT Office Visit [facility] SLEEP MEDICINE 3000 [facility] [address] [place] [phone] Lorenzo Jarvis, SECONDARY SPECIAL EDUCATION TEACHER [address] [place] [address] documented as of this encounter Goals Goal [...] documented as of this encounter Care Teams Regulatory Affairs Spec Relationship Specialty Start Date End Date Karen Pineda DO [address] [place] [address] PCP - General Family Medicine 10/08/16 documented as of this encounter
--- OUTSIDE RECORDS SUMMARY | 2024-10-20 11:18 | XMS_ITS | Clinical Summary ---
Author Organization Healthcare Address [address] [place] [address] Care Team Providers Care Die Cast Operator Name Role Phone Pcp, No Primary Care [...] of 2 - 13+ 2-dose series) 1996 [facility]- SDOH Screenings 2001 [facility]-Adult SDOH Screenings 2001 [facility]-DTaP,Tdap,and Td Vaccines (1 - Tdap) 2002 [facility]-Hepatitis B Vaccines (1 of 3 - 19+ 3-dose series) 2002 [facility]-Pap Smear 2004 HPV Vaccines (1 - 3-dose SCDM series) 2010 [facility]-Cervical Cancer Screening 2013 [facility]-HPV/Cotest 2013 [id number]-16 Vaccine (1 - 2023- season) 2023 [facility]-Influenza Vaccine (#1) [...] Insurance [employer] Care Teams Die Cast Operator Relationship Specialty Start Date End Date Pcp, [place] [address] PCP - General Family Medicine 10/09/23
--- OUTSIDE RECORDS SUMMARY | 2024-10-20 11:18 | XMS_ITS | Clinical Summary ---
Author Organization [facility] Address [address] [id number] Care Team Providers Care Aircraft Log Clerk Name Role Phone Gilson Heath MD Primary Care Provider [phone] Social History Tobacco Use Types Packs/Day Years [...] age to complete this topic Care Teams Aircraft Log Clerk Relationship Specialty Start Date End Date Gilson Heath MD [address] [place] [address] PCP - General 12/26/06
--- OUTSIDE RECORDS SUMMARY | 2024-10-20 11:18 | XMS_ITS | Encounter Summary ---
[facility] Address [address] [place] [address] Care Team Providers Care Eye Technician Name Role Phone Karen Pineda Primary Care Provider [phone] Reason for Visit * Auth/Cert Specialty Diagnoses / Procedures Referred By Chuy soriano Referred To Contact Diagnoses Centromere antibody positive Centromere antibody positive [R76.8] Procedures IN ESOPHAGOGASTRODUODENOSCOPY TRANSORAL DIAGNOSTIC IN EGD TRANSORAL BIOPSY SINGLE/MULTIPLE ESOPHAGOGASTRODUODENOSCOPY Referral ID Status Reason Start Date Expiration Date Visits Re quested Visits Authorized [id number] 1 1 Encounter Details Date Type Department Care Team (Late st Contact Info) Description 05/05/2024 Hospital Encounter [facility] ENDO SUITES [address] [phone] Rl Marin MD [address] [facility] [address] [place] [address] Social History Tobacco Use Types Packs/Day Years [...] [facility] [address] [facility] [place] [phone] Jasson Ramirez, DO [address] [place] [address] 11/02/2024 3:00 PM EDT Office Visit [facility] [address] [facility] [address] [place] [phone] Ernestina Neal, WINDER HAND [address] [facility] [address] [place] [address] 02/05/2025 11:15 AM EST Office Visit [facility] RHEUMATOLOGY 330 [facility] 100 [place] [phone] Luis Banda, WINDER HAND 330 [facility] 100 [place], [place] [id number] 10/04/2025 11:00 AM EDT Office Visit [facility] SLEEP [facility] [address] [facility] [address] [place] [phone] Lorenzo Jarvis, WINDER HAND [address] [place] [address] documented as of this encounter Goals Goal [...] documented as of this encounter Care Teams Eye Technician Relationship Specialty Start Date End Date Karen Pineda DO [address] [facility] [place] [address] PCP - General Family Medicine 10/08/16 documented as of this encounter
--- OUTSIDE RECORDS SUMMARY | 2024-10-20 11:18 | XMS_ITS ---
Author Organization [facility] Address [address] [place] [address] Care Team Providers Care Bench Lathe Operator Name Role Phone Karen Pineda DO Primary Care Provider [phone] Chronic Migraine Status:Enrolled (Active) Start date:03/10/2024 Enrollment date:03/10/2024 Enrollment reason:New start at Current support & services provided:Clinical Assessment, Refill Coordination , Benefits Investigation, [facility] Dispensing Linked medications:Fremanezumab-vfrm (Active), Rimegepant Sulfate (Active) Linked problems:Intractable chronic migraine without aura (Active) Case Team Name Relationship Phone Ernestina Neal APRN Nurse Practitioner [phone] Continued Care and Services Coordination
--- OUTSIDE RECORDS SUMMARY | 2024-10-20 11:18 | XMS_ITS | Encounter Summary ---
[facility] Address [address] [place] [address] Care Team Providers Care Ordnance Handler Name Role Phone Karen Pineda DO Primary Care Provider [phone] Encounter Details Date Type Department Care Team [...] Description 10/29/2024 2:30 PM EDT Office Visit [facility] PULMONARY & CRITICAL CARE MEDICINE [address] [place] [phone] Jasson Ramirez DO [address] [place] [address] 11/02/2024 3:00 PM EDT Office Visit [facility] NEUROLOGY [address] [facility] 204 [place] [address] Ángel Ernestina L, INFORMATION SCIENTIST [address] [facility] [address] [place], [place] [id number] 02/05/2025 11:15 AM EST Office Visit [facility] RHEUMATOLOGY 330 [facility] 100 [place] [phone] Luis Banda, INFORMATION SCIENTIST 330 [facility] 100 [place], [place] [id number] 10/04/2025 11:00 AM EDT Office Visit [facility] SLEEP MEDICINE 3000 [facility] [address] [place] [address] Lorenzo Jarvis, INFORMATION SCIENTIST [address] [place], [place] [id number] documented as of this encounter Goals Goal [...] documented as of this encounter Care Teams Ordnance Handler Relationship Specialty Start Date End Date Karen Pineda DO [address] [place] [address] PCP - General Family Medicine 10/08/16 documented as of this encounter
--- OUTSIDE RECORDS SUMMARY | 2024-10-20 11:18 | XMS_ITS | Encounter Summary ---
[facility] [address] [place] [address] Care Team Providers Care Manager Manufacturing Name Role Phone Karen Pineda DO Primary Care Provider [phone] Reason for Visit * Reason Onset Date Comments Lori S[place]HER[place] 10/05/2024 Encounter Details Date Type Department Care Team (Late st Contact Info) Description 10/05/[address] [facility] FAMILY MEDICINE [address] [place] [address] Karen Pineda DO [address] [place] [address] Zepbkrysta PA Social History Tobacco Use Types Packs/Day Years [...] encounter Miscellaneous Notes * Telephone Encounter - Kiley Moctezuma MA - 10/15/2024 12:59 PM EDT Received Appeal Form. Completed form, faxed with chart notes, lab results, sleep study report, original PA, and letter of Denial. * Telephone Encounter - Kiley Moctezuma MA - 10/08/2024 12:03 PM EDT Received denial, reason- documentation not attached. Chart notes WERE ATTACHED with original PA. Submitted Appeal, attaching chart notes and sleep study- AGAIN. * Telephone Encounter - Kiley Moctezuma MA - 10/06/2024 4:11 PM EDT Sent * Telephone Encounter - Kiley Moctezuma MA - 10/05/2024 11:50 AM EDT Lori PA ([place]: [id number]) Started documented in this encounter Plan of Treatment Upcoming Encounters Date Type Department Care Team (Late st Contact Info) Description 10/29/2024 2:30 PM EDT Office Visit [facility] PULMONARY & CRITICAL CARE MEDICINE [address] [facility] [place] [address] Jasson Ramirez, [address] [place] [address] 11/02/2024 3:00 PM EDT Office Visit [facility] NEUROLOGY [address] [facility] [place] [place] [address] Ernestina Neal APRN [address] [facility] 204 [place] [address] 02/05/2025 11:15 AM EST Office Visit [facility] R[facility]UMATOLOGY [address] [facility] [address] [place] [address] Luis Banda, RESPIRATORY MEDICINE PHYSICIAN 330 [facility] 100 [place] [address] 10/04/2025 11:00 AM EDT Office Visit [facility] SLEEP MEDICINE 3000 [facility] [address] [place] [address] Lorenzo Jarvis, RESPIRATORY MEDICINE PHYSICIAN [address] [place] [address] documented as of this encounter Goals Goal [...] as of this encounter Care Teams Manager Manufacturing Relationship Specialty Start Date End Date Karen Pineda DO [address] [place] [address] PCP - General Family Medicine 10/08/16 documented as of this encounter
--- OUTSIDE RECORDS SUMMARY | 2024-10-20 11:19 | XMS_ITS | Encounter Summary ---
[facility] [address] [place] [address] Care Team Providers Care Service Porter Name Role Phone Karen Pineda DO Primary Care Provider [phone] Encounter Details Date Type Department Care Team (Late st Contact Info) Description 09/21/2024 Results Follow-Up [facility] FAMILY MEDICINE [address] [facility] [place] [address] Karen Pineda DO [address] [place] [address] Social History Tobacco Use Types [...] 10/29/2024 2:30 PM EDT Office Visit [facility] PULMONARY & CRITICAL CARE MEDICINE [address] [place] [phone] Jasson Ramirez, DO [address] [place] [address] 11/02/2024 3:00 PM EDT Office Visit [facility] NEUROLOGY [address] [facility] [address] [place] [phone] Ernestina Neal, UTILITY WORKER [address] [facility] [address] [place] [address] 02/05/2025 11:15 AM EST Office Visit [facility] RHEUM[facility]OLOGY 330 [facility] 100 [place] [phone] Luis Banda, UTILITY WORKER 330 [facility] [address] [place] [address] 10/04/2025 11:00 AM EDT Office Visit [facility] SLEEP MEDICINE 3000 [facility] [address] [place] [phone] Lorenzo Jarvis, UTILITY WORKER [address] [place] [address] documented as of this encounter Goals Goal [...] documented as of this encounter Care Teams Service Porter Relationship Specialty Start Date End Date Karen Pineda DO [address] [place] [address] PCP - General Family Medicine 10/08/16 documented as of this encounter
[2024-10-20 11:20] LABS: Hematocrit 39.9 % (37.0-47.0); Hemoglobin 13.5 g/dL (12.2-16.2); Immature Granulocytes % 0.4 %; Mean Corpuscular HGB Conc 33.8 g/dL (31.8-35.4); Mean Corpuscular Hemoglobin 28.6 pg (27.0-31.2); Mean Corpuscular Volume 84.5 fl (81-99); Nucleated Red Blood Cells % 0 %; Platelet Count 266 K/mm3 (142-424); Red Blood Count 4.72 M/mm3 (4.20-5.40); Red Cell Distribution Width-SD 40.9 fL; White Blood Count 18.8 K/mm3 (4.8-10.8)
[2024-10-20] MEDS: ACETAMINOPHEN 1,000MG/100ML VIAL 1000 MG IV (11:20)
[2024-10-20] MEDS: LACTATED RINGERS 1000ML 1,000 ML 999 ML IV (11:20)
[2024-10-20] MEDS: ONDANSETRON 4MG/2ML VIAL 4 MG IV (11:20)
[2024-10-20 11:35] LABS: Albumin Level 4.5 g/dl (3.5-5.0); Chloride 101 mmol/L (98-107); Potassium 3.2 mmoL/L (3.5-5.1); Sodium 135 mmol/L (136-145)
[2024-10-20 11:38] LABS: Alanine Aminotransferase 22 U/L (12-78); Albumin/Globulin Ratio 1.5 (1.1-1.8); Alkaline Phosphatase 67 U/L (38-126); Anion Gap 16.2 mEq/L (5-15); Aspartate Amino Transferase 28 U/L (14-36); Bilirubin,Total 1.1 mg/dl (0.2-1.3); Blood Urea Nitrogen 11 mg/dl (7-17); Calcium 8.7 mg/dl (8.4-10.2); Carbon Dioxide 21 mmol/L (22.0-30.0); Creatinine Clearance Estimated 77 mL/min (50-200); Creatinine,Serum 0.80 mg/dl (0.52-1.04); Estimated Glomerular Filt Rate 79 ml/min (>60); GFR (African American) 96 ML/MIN (>60); Globulin 3.0 g/dL (1.3-3.2); Glucose 165 mg/dl (74-100); Total Protein,Serum 7.5 g/dl (6.3-8.2)
[2024-10-20] MEDS: POTASSIUM CHLORIDE 20MEQ TAB 40 MEQ PO (11:45)
[2024-10-20 11:48] LABS: NT Pro Brain Natriuretic Pep. 131 pg/mL (0-125)
[2024-10-20 11:53] LABS: Troponin I < 0.01 ng/ml (0.00-0.034)
[2024-10-20 11:54] LABS: Magnesium 1.3 mg/dl (1.6-2.3)
[2024-10-20] MEDS: MAGNESIUM SULFATE IN WATER 2 GM/50 ML PIGGYBACK IV (12:15)
[2024-10-20 12:17] LABS: Lipase 14 U/L (23-300)
[2024-10-20 12:24] LABS: D-Dimer 1.10 ug/mL (0.0-0.5)
[2024-10-20 12:28] LABS: Coronavirus 19, PCR Not Detected (NotDetected); Influenza A, PCR Not Detected (NotDetected); Influenza B, PCR Not Detected (NotDetected)
--- NOTE | 2024-10-20 12:37 | CT_ITS ---
FINAL REPORT TECHNIQUE: Axial imaging of the chest is obtained after the administration of contrast. 3-D MIP reformatted images were also obtained and reviewed per PE protocol. CLINICAL HISTORY: Shortness of breath, elevated d dimer COMPARISON: 01/05/2022 FINDINGS: The pulmonary arteries are well filled. There is no evidence of pulmonary embolus. There is no aortic dissection. Heart size is normal. There is no axillary lymphadenopathy. There are new right paratracheal lymph nodes measuring up to 18 mm. No other mediastinal or hilar lymphadenopathy is seen. There are new, bilateral, lower lobe somewhat patchy groundglass opacities, favor infectious or inflammatory. Previously seen left lower lobe nodule is now calcified. There is no pleural or pericardial effusion. Limited evaluation of the upper abdomen is without acute abnormality. No acute osseous abnormality. IMPRESSION: No evidence of pulmonary embolism or aortic dissection. Lower lobe groundglass opacities new from prior exam, favor infectious/inflammatory. Right paratracheal lymphadenopathy, likely reactive. Reviewed, Interpreted and Dictated by Sherin Cabrera MD Transcribed by [place] Authenticated and [facility]
[2024-10-20] MEDS: IOPAMIDOL-370 (76%);100ML BOTTLE 90 ML IV (12:51)
[2024-10-20] MEDS: 0.9 % SODIUM CHLORIDE 50 ML VIAL IV (12:51)
[2024-10-20] MEDS: SODIUM CHLORIDE 0.9% 10ML SYR (RAD ONLY) 10 ML IV (12:51)
[2024-10-20 13:10] LABS: RBC Morphology Normal; Total Cells Counted 100
[2024-10-20 13:20] LABS: Microscopic, Urine URINE MICROSCOPIC (MICROSCOPIC)
[2024-10-20 13:34] LABS: Bilirubin,Urine Negative (Negative); Color,Urine YELLOW (Yellow); Glucose,Urine (UA) Negative (Negative); Ketones,Urine Negative (Negative); Leukocyte Esterase,Urine Negative (Negative); PH,Urine 6.0 (5.0-8.5); Protein,Urine Negative (Negative); Specific Gravity, Urine <= 1.005 (1.005-1.030); Urobilinogen,Urine 0.2 EU/dl (0.2)
[2024-10-20 13:43] LABS: Bacteria,Urine Trace /lpf
[2024-10-20] MEDS: KETOROLAC 15MG/ML VIAL 15 MG IV (14:32)
== END 2024-10-20 15:16 | disposition home or self-care (01) ==
PROVIDERS: Emergency Provider Student in an Organized Health Care Education/Training Program; PCP Family Medicine
DX: A04.4 Other intestinal Escherichia coli infections (principal); R06.02 Shortness of breath; A08.11 Acute gastroenteropathy due to Norwalk agent; J18.9 Pneumonia, unspecified organism; A04.5 Campylobacter enteritis; R11.2 Nausea with vomiting, unspecified; E78.5 Hyperlipidemia, unspecified; I10 Essential (primary) hypertension
CPT/HCPCS: 71046; 71275; 80053; 81001; 83690; 83735; 83880; 84484; 85007; 85025; 85027; 85378; 87507; 87636; 93005; 96365; 96367; 96375; 99285; J0131; J1885; J2405; J3475; J7120; Q9967